=== PATIENT | male | born 1935 | race Caucasian/White ===

== ENCOUNTER 2017-06-14 03:37 | Inpatient (IN) | payer MEDICARE, OTHER ==
[~2017-06-14] VITALS: Ht 170.2 cm; Wt 78.9 kg
[~2017-06-14 03:37] MED LIST: ACET-422 PO; AMLO5TAB4 PO; ASPI325T8 PO; ATOR20TA58 PO; AZIT250T6 PO; CARB1TAB2 PO; CHOL100013 PO; DEXT15LI7 PO; DIGO125T PO; FURO-69 PO; GLIP5TAB10 PO; GUAI100L12 PO; LEXAPRO5 MG PO; METO25TA2 PO; NATE60TA PO; POTA10TA10 PO; ROPI0.5T PO
[2017-06-14] MEDS ORDERED: IV NORMAL SALINE 1,000ML 1,000 ML IV ONE (04:30)
[2017-06-14] MEDS ORDERED: ACETAMINOPHEN 325 MG TABLET PO ONE ×2 (04:30)
[2017-06-14] MEDS ORDERED: ONDANSETRON PF 4 MG/2 ML VIAL. IV ONE (04:30)
[2017-06-14 04:47] LABS: BASO % 0 % (0-3); BILIRUBIN,URINE NEG (NEG); CLARITY,URINE CLEAR; COLOR,URINE YELLOW; EOS % 0 % (0-3); GLUCOSE,URINE NEG (NEG); HEMATOCRIT 45.7 % (39.0-53.0); HEMOGLOBIN 15.6 g/dL (13.0-17.5); LYMPH # 0.5 x10^3/uL (1.0-4.8); LYMPH % 4 % (24-48); MEAN CORPUSCULAR HEMOGLOBIN 32 pg (25-35); MEAN CORPUSCULAR HGB CONC 34 g/dL (31-37); MEAN CORPUSCULAR VOLUME 95 fL (79-100); MONO # 0.5 x10^3/uL (0.0-1.1); MONO % 4 % (0-9); NEUT % 92 % (31-73); NITRITE,URINE NEG (NEG); PLATELET COUNT 113 x10^3/uL (140-400); RED BLOOD COUNT 4.81 x10^6/uL (4.30-5.70); RED CELL DISTRIBUTION WIDTH 13.9 % (11.5-14.5); UROBILINOGEN,URINE 0.2 mg/dL (0.2 mg/dL)
[2017-06-14 04:48] LABS: BACTERIA,URINE FEW /HPF (0-FEW); SQUAMOUS EPITHELIAL CELL,UR FEW /LPF; WBC,URINE 0 /HPF (0-4)
[2017-06-14] MEDS ORDERED: ONDANSETRON PF 4 MG/2 ML VIAL. IV PRN (05:00)
[2017-06-14 05:01] LABS: ALBUMIN/GLOBULIN RATIO 1.2 (1.0-1.7); CALCIUM 8.8 mg/dL (8.5-10.1); GFR 71.4; POTASSIUM 3.9 mmol/L (3.5-5.1); TOTAL BILIRUBIN 0.8 mg/dL (0.2-1.0); TOTAL PROTEIN 7.4 g/dL (6.4-8.2)
--- NOTE | 2017-06-14 05:05 | PHYS DOC ---
Past History Past Medical History: A-Fib, CAD, Diabetes, High Cholesterol, Hypertension, Other Past Surgical History: No Surgical History Alcohol Use: None Drug Use: None Adult General Chief Complaint Chief Complaint: NAUSEA/VOMITING/DIARRHEA HPI HPI Patient is a 81-year-old gentleman who has a history significant for atrial fibrillation, diabetes, hypertension, peripheral vascular disease, presents to the ER today secondary to not feeling well, nausea and vomiting, shortness of breath. Patient reports that he lives at home with his who takes care of him. Patient reports he does not feel well had some episodes of nausea and vomiting early this morning and EMS was dispatched. Upon arrival to EMS to the ER the patient was having episodes of nausea and vomiting. At the time of my evaluation the patient reports that he no longer feels nauseous but is still having a little bit of discomfort in his stomach. Patient also reports she's had no recent fevers, diarrhea, chest pain,. Patient reports a nonproductive cough times one day. Patient reports decreased by mouth intake. Patient reports decreased urinary output. Constitutional: Admits to fever times tonight. Eyes: Denies change in visual acuity, redness, or eye pain HENT: Denies nasal congestion or sore throat Respiratory: Admits to cough and shortness of breath. Cardiovascular: No additional information not addressed in HPI All other systems were reviewed and found to be within normal limits, except as documented in this note. Constitutional: Well developed, well nourished, no acute distress, non-toxic appearance. HENT: Normocephalic, atraumatic, bilateral external ears normal, oropharynx moist, no oral exudates, nose normal. Eyes: PERRLA, EOMI, conjunctiva normal, no discharge. Neck: Normal range of motion, no tenderness, supple, no stridor. Cardiovascular: Tachycardic, irregularly irregular. Lungs reveal diffuse rhonchi. Abdomen: Bowel sounds normal, soft, no tenderness, no masses, no pulsatile masses. Skin: Warm, dry, no erythema, no rash. Skin is warm to touch. Temperature 101.5. Back: No tenderness, no CVA tenderness. Extremities: No tenderness, no cyanosis, no clubbing, ROM intact, no edema. Neurologic: Alert and oriented X 3, normal motor function, normal sensory function, no focal deficits noted. Psychologic: Affect normal, judgement normal, mood normal. EKG: Atrial fibrillation with heart rate of [address]-T wave abnormalities, no STEMI as interpreted by ER physician Chest x-ray: Bilateral lobar pneumonia greatest in the left lower lobe. Consistent with possible aspiration pneumonia as interpreted by ER physician. Pulse ox: 84% on room air. Hypoxic Assessment and plan This is an 81-year-old gentleman who presents here today with fever to 101.5, chest x-ray consistent with aspiration pneumonia, nausea or vomiting. Patient will be admitted to the hospital for treatment of aspiration pneumonia with sepsis. Patient be started on 30 mL/kg of normal saline, we will start patient on Rocephin and clindamycin IV. I discussed the case with Dr. Rios who is agreed to assist with the care of this patient as an inpatient. Critical care time of 30 minutes reutilized and treatment and management of this patient's hypoxia, sepsis, aspiration pneumonia. Airway was monitored and patient was evaluated and treated for impending respiratory failure. Current Medications Current Medications Current Medications Medications (Trade) Dose Ordered Sig/Melanie Start Time Stop Time Status Last Admin Dose Admin Acetaminophen (Tylenol) 650 mg 1X ONCE 06/14/17 04:30 06/14/17 04:30 DC Ceftriaxone Sodium 1 gm/ Sodium Chloride 50 ml @ 100 mls/hr 1X ONCE 06/14/17 05:00 06/14/17 05:29 UNV Clindamycin Phosphate 50 ml @ 100 mls/hr 1X ONCE 06/14/17 05:00 06/14/17 05:29 UNV Ondansetron HCl (Zofran) 4 mg PRN Q4HRS PRN 06/14/17 05:00 06/15/17 04:59 UNV Sodium Chloride 2,370 ml @ 2,370 mls/hr Q1H 06/14/17 04:30 UNV Allergies Allergies Allergies Coded Allergies Type Severity Reaction Last Updated Verified codeine Allergy Intermediate 06/06/15 Yes shrimp Allergy Intermediate 02/01/16 No turkey Allergy Mild 06/06/15 No Current Patient Data Lab Results Laboratory Tests Test 06/14/17 04:20 White Blood Count 13.0 x10^3/uL (4.0-11.0) H Red Blood Count 4.81 x10^6/uL (4.30-5.70) Hemoglobin 15.6 g/dL (13.0-17.5) Hematocrit 45.7 % (39.0-53.0) Mean Corpuscular Volume 95 fL (79-100) Mean Corpuscular Hemoglobin 32 pg (25-35) Mean Corpuscular Hemoglobin Concent 34 g/dL (31-37) Red Cell Distribution Width 13.9 % (11.5-14.5) Platelet Count 113 x10^3/uL (140-400) L Neutrophils (%) (Auto) 92 % (31-73) H Lymphocytes (%) (Auto) 4 % (24-48) L Monocytes (%) (Auto) 4 % (0-9) Eosinophils (%) (Auto) 0 % (0-3) Basophils (%) (Auto) 0 % (0-3) Neutrophils # (Auto) 12.0 x10^3uL (1.8-7.7) H Lymphocytes # (Auto) 0.5 x10^3/uL (1.0-4.8) L Monocytes # (Auto) 0.5 x10^3/uL (0.0-1.1) Eosinophils # (Auto) 0.0 x10^3/uL (0.0-0.7) Basophils # (Auto) 0.0 x10^3/uL (0.0-0.2) Urine Collection Type Void Urine Color Yellow Urine Clarity Clear Urine pH 7.0 Urine Specific [place] 1.020 Urine Protein Trace (NEG-TRACE) Urine Glucose (UA) Neg mg/dL (NEG) Urine Ketones (Stick) Neg mg/dL (NEG) Urine Blood Trace (NEG) Urine Nitrite Neg (NEG) Urine Bilirubin Neg (NEG) Urine Urobilinogen Dipstick 0.2 mg/dL (0.2 mg/dL) Urine Leukocyte Esterase Neg (NEG) Urine RBC 1-2 /HPF (0-2) Urine WBC 0 /HPF (0-4) Urine Squamous Epithelial Cells Few /LPF Urine Bacteria Few /HPF (0-FEW) EKG EKG [] Radiology/Procedures Radiology/Procedures [] Course & Med Decision Making Course & Med Decision Making Pertinent Labs and Imaging studies reviewed. (See chart for details) [] Dragon Disclaimer Dragon Disclaimer This electronic medical record was generated, in whole or in part, using a voice recognition dictation system. Departure Departure: Impression: Primary Impression: Pneumonia Additional Impressions: Dehydration Gastroenteritis Aspiration pneumonia Sepsis Respiratory failure with hypoxia Atrial fibrillation Disposition: 09 ADMITTED INPATIENT Admitting Physician: Duy Rios Condition: IMPROVED Referrals: DUY RIOS MD (PCP) Problem Qualifiers GURMEET DONOHUE MD Jun 14, 2017 05:05
[2017-06-14 05:07] LABS: DIG < 0.2 ng/dL (0.9-2.0)
[2017-06-14] MEDS ORDERED: CLINDAMYCIN 600MG PREMIX 50 ML IV ONE (05:30)
[2017-06-14] MEDS ORDERED: cefTRIAXone SODIUM 1 GM VIAL IV ONE (05:31)
[2017-06-14] MEDS: NORMAL SALINE IV SCH ×2 (05:39→06:52)
--- NOTE | 2017-06-14 05:49 | EKG ---
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
[2017-06-14 06:19] VITALS: BP 127/69
--- NOTE | 2017-06-14 08:31 | RAD ---
AP PORTABLE CHEST Clinical Indication: vomiting. Cough Comparison: AP chest 08/26/2016. Findings: The cardiomediastinal silhouette is normal. Atherosclerotic thoracic aorta. Increased interstitial markings are unchanged from prior study. Calcified granuloma right lung base. Left basilar airspace disease with partial obscuration of the hemidiaphragm There is no pneumothorax. No pleural effusion is appreciated. There is no acute bone abnormality. IMPRESSION: 1. Left basilar airspace disease. 2. Unchanged increased interstitial markings may be on a chronic basis.
[2017-06-14] MEDS: amLODIPine BESYLATE 5 MG TABLET PO SCH (09:00)
[2017-06-14] MEDS ORDERED: PIP/TAZO PER PHARMACY MC PRN (09:15)
[2017-06-14] MEDS: IPRATRPIUM/ALBUTEROL 0.5/2.5MG 3 ML NEBU. NEB SCH ×3 (09:53→21:05)
[2017-06-14] MEDS ORDERED: CITALOPRAM 10 MG TABLET. PO SCH (10:00)
[2017-06-14] MEDS ORDERED: diphenhydrAMINE HCL 50 MG CAPSULE PO PRN (10:00)
[2017-06-14] MEDS ORDERED: glipiZIDE 5 MG TABLET PO SCH (10:00)
[2017-06-14] MEDS ORDERED: METOPROLOL SUCC 24HR ER 25 MG TAB.ER.24H. PO SCH (10:00)
[2017-06-14] MEDS ORDERED: DIGOXIN 125 MCG TABLET PO SCH (10:00)
[2017-06-14] MEDS: REPAGLINIDE 0.5 MG TABLET PO SCH ×2 (10:17→17:26)
[2017-06-14] MEDS: rOPINIRole 0.5 MG TABLET. PO SCH ×3 (10:17→21:23)
[2017-06-14] MEDS: ASPIRIN 325 MG TABLET PO SCH (10:17)
[2017-06-14] MEDS: POTASSIUM CHLORIDE 10 MEQ TABLET.ER. PO SCH (10:18)
[2017-06-14] MEDS: FUROSEMIDE 20 MG TABLET PO SCH (10:22)
[2017-06-14] MEDS: CARBIDOPA/LEVODOPA 25/100MG TABLET PO SCH ×3 (10:22→21:23)
[2017-06-14 11:00] VITALS: BP 102/60
--- NOTE | 2017-06-14 11:11 | HP ---
ADMIT DATE: 06/14/2017 HISTORY OF PRESENT ILLNESS: An 81-year-old gentleman with history of atrial fibrillation, so forth came in with a 1-day history of nausea and vomiting, shortness of breath. The patient was seen initially in the Emergency Room for such, brought in via EMS. The patient's chest x-ray showed possible aspiration pneumonia. The patient was admitted for pneumonia, sepsis, as his lactic acid was over 3. The patient was admitted for IV antibiotic therapy, fluids, make further evaluation. PAST MEDICAL HISTORY: The patient had Parkinson's disease. He has had chronic atrial fibrillation, heart murmur, hypercholesterolemia, COPD, urinary incontinence, generalized weakness, musculoskeletal disorder. He uses a walker. IMMUNIZATIONS: Up-to-date. ALLERGIES: CODEINE, SHRIMP and TURKEY. 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 Reyna for that. MEDICATIONS: Glipizide 5 mg a day, Starlix 60 mg 3 times a day, Silvadene cream, Myrbetriq 50 mg daily, Toprol-XL, Crestor 5 mg, aspirin 325, Sinemet 25/100, Lidoderm patch 5%, Pennsaid 1.5% solution, Glucophage 500 mg b.i.d., ciprofloxacin eyedrops, Lasix 20 mg daily, Norvasc 5 mg daily, Lexapro 1 tablet daily, fluocinonide ointment, Lasix 20 mg a day, Lexapro 5 mg a day, gabapentin 100 mg 3 times a day, Norvasc 5 mg a day. PAST SURGICAL HISTORY: Appendectomy, bypass of left leg, Dr. Reyna in 2007, inguinal hernia repair, right leg bypass failed 2008, angioplasty 2010. FAMILY HISTORY: Parents , unknown etiology. SOCIAL HISTORY: The patient is a former smoker, quit approximately 10 years ago. Denies drug or alcohol use. REVIEW OF SYSTEMS: Positive for nausea, vomiting. No obvious abdominal pain per se. The patient in turn denies any diarrhea, melena, hematochezia, hematemesis. Neurologically baseline for this gentleman. PHYSICAL EXAMINATION: GENERAL: This is a pleasant white male, slight tremor noted. VITAL SIGNS: Running temperature of 101.5, blood pressure 98/50, respiratory rate 32, pulse 94. The patient's oxygen 92 on 2 liters. HEENT: The patient's head was atraumatic, normocephalic. Eyes: PERRLA without jaundice. Mouth and throat were normal. NECK: Supple, no JVD or thyromegaly. LUNGS: Diminished throughout, poor movement of air. CARDIOVASCULAR: Irregular regular rhythm. ABDOMEN: Soft, nontender. No rebound or guarding. Positive bowel sounds. No hepatosplenomegaly was noted. EXTREMITIES: Without clubbing, cyanosis, nor edema. NEUROLOGIC: The patient was alert and oriented x 3. The patient has fine motor tremor, generalized weakness to extremities, which is baseline for this gentleman. IMPRESSION: Sepsis, aspiration pneumonia. PLAN: The patient to continue on IV fluids, IV antibiotic therapy, make further evaluation on him as indicated. Continue to monitor him accordingly and make further assessment per those results with aggressive pulmonary toilet and keeping the head of the bed elevated. Impression as noted above, dehydration, gastroenteritis, respiratory failure with hypoxia, chronic atrial fibrillation. SONNY MALDONADO MD DR: SANDRA/zac JOB#: [id number] / [id number]
[2017-06-14] MEDS: PIPERACILLIN/TAZOBACTAM 3.375 GM in IV NORMAL SALINE 50ML 50 ML IV SCH ×3 (11:12→23:06)
[2017-06-14 15:16] VITALS: BP 112/64
[2017-06-14] MEDS ORDERED: diphenhydrAMINE HCL 25 MG CAPSULE PO PRN (17:15)
--- NOTE | 2017-06-14 18:09 | RAD ---
INDICATION: Abnormal d-dimer. Patient feels sick. TECHNIQUE: Ventilation imaging utilized 18.0 mCi xenon-133 inhaled. Perfusion imaging utilized 5.5 mCi technetium 99m labeled MAA IV. There is a chest radiograph from today available for comparison. FINDINGS: There is homogeneous uptake of radiotracer on ventilation imaging without significant retention on washout. No significant matched or mismatched defect is identified. IMPRESSION: Exam is low probability for pulmonary embolism. Electronically signed by: Shay Summers MD (06/14/2017 6:07 PM) [facility]
[2017-06-14 19:49] VITALS: BP 110/59
[2017-06-14] MEDS: LACTOBACILLUS RHAMNOSUS GG 1 CAPSULE. PO SCH (21:23)
[2017-06-14] MEDS: GABAPENTIN 100 MG CAPSULE. PO SCH (21:23)
[2017-06-14 23:22] VITALS: BP 134/60
[2017-06-15] MEDS: PIPERACILLIN/TAZOBACTAM 3.375 GM in IV NORMAL SALINE 50ML 50 ML IV SCH ×4 (04:57→21:26)
[2017-06-15] MEDS: ACETAMINOPHEN 500 MG TABLET PO PRN ×2 (05:15→21:27)
[2017-06-15] MEDS: IPRATRPIUM/ALBUTEROL 0.5/2.5MG 3 ML NEBU. NEB SCH ×3 (05:21→20:41)
[2017-06-15 05:36] VITALS: BP 130/77
[2017-06-15 06:55] LABS: CALCIUM 8.3 mg/dL (8.5-10.1); CREATININE 1.1 mg/dL (0.7-1.3); GFR 63.9; POTASSIUM 3.3 mmol/L (3.5-5.1)
[2017-06-15 07:04] LABS: BASO % 0 % (0-3); EOS % 0 % (0-3); HEMOGLOBIN 13.1 g/dL (13.0-17.5); LYMPH # 0.4 x10^3/uL (1.0-4.8); LYMPH % 5 % (24-48); MEAN CORPUSCULAR HEMOGLOBIN 33 pg (25-35); MEAN CORPUSCULAR HGB CONC 34 g/dL (31-37); MEAN CORPUSCULAR VOLUME 95 fL (79-100); MONO # 0.6 x10^3/uL (0.0-1.1); MONO % 6 % (0-9); NEUT # 8.3 x10^3uL (1.8-7.7); NEUT % 89 % (31-73); PLATELET COUNT 90 x10^3/uL (140-400); RED BLOOD COUNT 4.02 x10^6/uL (4.30-5.70); RED CELL DISTRIBUTION WIDTH 13.9 % (11.5-14.5); WHITE BLOOD COUNT 9.3 x10^3/uL (4.0-11.0)
[2017-06-15] MEDS: REPAGLINIDE 0.5 MG TABLET PO SCH ×3 (08:46→16:55)
[2017-06-15] MEDS: POTASSIUM CHLORIDE 10 MEQ TABLET.ER. PO SCH (08:47)
[2017-06-15] MEDS: rOPINIRole 0.5 MG TABLET. PO SCH ×3 (08:47→21:26)
[2017-06-15] MEDS: CITALOPRAM 10 MG TABLET. PO SCH (08:47)
[2017-06-15] MEDS: METOPROLOL SUCC 24HR ER 25 MG TAB.ER.24H. PO SCH (08:47)
[2017-06-15] MEDS: ASPIRIN 325 MG TABLET PO SCH (08:47)
[2017-06-15] MEDS: GABAPENTIN 100 MG CAPSULE. PO SCH ×3 (08:47→21:27)
[2017-06-15] MEDS: FUROSEMIDE 20 MG TABLET PO SCH (08:48)
[2017-06-15] MEDS: amLODIPine BESYLATE 5 MG TABLET PO SCH (08:48)
[2017-06-15] MEDS: CARBIDOPA/LEVODOPA 25/100MG TABLET PO SCH ×3 (08:48→21:27)
[2017-06-15] MEDS: LACTOBACILLUS RHAMNOSUS GG 1 CAPSULE. PO SCH ×2 (08:48→21:28)
[2017-06-15] MEDS: CHOLECALCIFEROL (VITAMIN D3) 1,000 UNIT TABLET PO SCH (08:48)
[2017-06-15] MEDS ORDERED: ATORVASTATIN CALCIUM 20 MG TABLET PO SCH (09:00)
[2017-06-15] MEDS ORDERED: POTASSIUM CHLORIDE 20 MEQ TABLET.ER. PO SCH (10:00)
[2017-06-15 10:55] VITALS: BP 111/60
--- NOTE | 2017-06-15 10:56 | PN ---
DATE: 06/15/2017 SUBJECTIVE: The patient in with sepsis and aspiration pneumonia, doing a little better, breathing a little bit easier this morning. OBJECTIVE: VITAL SIGNS: Blood pressure 130/70, respiratory rate 18, pulse 70 and afebrile. LUNGS: Diminished primarily in the bases, but clearer. CARDIOVASCULAR: Regular sinus rhythm, S1, S2. ABDOMEN: Soft, nontender. LABORATORY DATA: White count down to 9, hemoglobin 13 and 38. Potassium low at 3.3. We will increase his potassium as it is little bit on the low side to 20 b.i.d. Otherwise, lungs are diminished throughout, but clearer. PLAN: We will go ahead and continue with IV antibiotic therapy and aggressive pulmonary toilet. SONNY MALDONADO MD DR: SANDRA/zac JOB#: [id number] / [id number]
[2017-06-15 15:02] VITALS: BP 111/70
[2017-06-15 20:12] VITALS: BP 123/79
[2017-06-15] MEDS: POTASSIUM CHLORIDE 20 MEQ TABLET.ER. PO SCH (21:28)
[2017-06-15 22:11] VITALS: BP 153/81
[2017-06-16] MEDS: PIPERACILLIN/TAZOBACTAM 3.375 GM in IV NORMAL SALINE 50ML 50 ML IV SCH ×2 (05:05→11:40)
[2017-06-16] MEDS: IPRATRPIUM/ALBUTEROL 0.5/2.5MG 3 ML NEBU. NEB SCH ×2 (05:33→11:19)
[2017-06-16 06:16] VITALS: BP 131/72
[2017-06-16 06:52] LABS: CALCIUM 8.5 mg/dL (8.5-10.1); CREATININE 1.1 mg/dL (0.7-1.3); GFR 63.9; POTASSIUM 3.6 mmol/L (3.5-5.1)
[2017-06-16 06:53] LABS: BASO % 0 % (0-3); EOS # 0.1 x10^3/uL (0.0-0.7); EOS % 1 % (0-3); HEMATOCRIT 39.7 % (39.0-53.0); HEMOGLOBIN 13.6 g/dL (13.0-17.5); LYMPH # 0.6 x10^3/uL (1.0-4.8); LYMPH % 8 % (24-48); MEAN CORPUSCULAR HEMOGLOBIN 33 pg (25-35); MEAN CORPUSCULAR HGB CONC 34 g/dL (31-37); MEAN CORPUSCULAR VOLUME 95 fL (79-100); MONO # 0.5 x10^3/uL (0.0-1.1); MONO % 7 % (0-9); NEUT # 6.5 x10^3uL (1.8-7.7); NEUT % 84 % (31-73); PLATELET COUNT 105 x10^3/uL (140-400); RED BLOOD COUNT 4.18 x10^6/uL (4.30-5.70); RED CELL DISTRIBUTION WIDTH 13.8 % (11.5-14.5); WHITE BLOOD COUNT 7.7 x10^3/uL (4.0-11.0)
[2017-06-16] MEDS ORDERED: POTASSIUM CHLORIDE 20 MEQ TABLET.ER. PO SCH (08:00)
[2017-06-16] MEDS ORDERED: GABA-585 PO (08:42)
[2017-06-16] MEDS ORDERED: METO-239 PO (08:42)
[2017-06-16] MEDS ORDERED: POTA20TA4 PO (08:42)
[2017-06-16] MEDS ORDERED: LACT1CAP19 PO (08:42)
[2017-06-16] MEDS ORDERED: IPRA3AMP NEB (08:42)
[2017-06-16] MEDS ORDERED: LEVO500T59 PO (08:43)
[2017-06-16] MEDS ORDERED: FURO20TA3 PO (08:48)
[2017-06-16] MEDS: GABAPENTIN 100 MG CAPSULE. PO SCH ×2 (08:50→13:14)
[2017-06-16] MEDS: POTASSIUM CHLORIDE 20 MEQ TABLET.ER. PO SCH (08:50)
[2017-06-16] MEDS: CHOLECALCIFEROL (VITAMIN D3) 1,000 UNIT TABLET PO SCH (08:50)
[2017-06-16] MEDS: LACTOBACILLUS RHAMNOSUS GG 1 CAPSULE. PO SCH (08:50)
[2017-06-16] MEDS: ASPIRIN 325 MG TABLET PO SCH (08:50)
[2017-06-16] MEDS: rOPINIRole 0.5 MG TABLET. PO SCH ×2 (08:50→13:14)
[2017-06-16] MEDS: CITALOPRAM 10 MG TABLET. PO SCH (08:50)
[2017-06-16] MEDS: METOPROLOL SUCC 24HR ER 25 MG TAB.ER.24H. PO SCH (08:50)
[2017-06-16] MEDS: REPAGLINIDE 0.5 MG TABLET PO SCH ×2 (08:51→11:40)
[2017-06-16] MEDS: amLODIPine BESYLATE 5 MG TABLET PO SCH (08:51)
[2017-06-16] MEDS: CARBIDOPA/LEVODOPA 25/100MG TABLET PO SCH ×2 (08:51→13:14)
[2017-06-16] MEDS: FUROSEMIDE 20 MG TABLET PO SCH (08:51)
[2017-06-16 11:21] VITALS: BP 107/64
--- NOTE | 2017-06-16 12:15 | DS ---
DATE OF DISCHARGE: 06/16/2017 HOSPITAL COURSE: The patient came in through the Emergency Room with one-day history of nausea, vomiting, and shortness of breath, was seen in the Emergency Room, found to have possibility of sepsis and aspiration pneumonia. The patient was placed on IV Zosyn. His blood pressure was 98/50, temperature 101.5, respiratory rate 32. The patient made excellent progress with the Zosyn and aggressive pulmonary toilet as well as oxygen. The patient later on was discharged home. He will have home health, PT, OT and speech pathology to evaluate for swallowing difficulties. The patient's chest x-ray did not really show much, but his vital signs and the elevated white count indicated sepsis. IMPRESSION: Sepsis, aspiration pneumonia, exacerbation of chronic obstructive pulmonary disease, severe Parkinson's disease with difficulty in mobilizing. Elevated lactic acid. The patient made good progress during the rest of his hospitalization and will be on a low-sodium diet. DISCHARGE INSTRUCTIONS: Decreased activity and make further evaluation on him as indicated. SONNY MALDONADO MD DR: SANDRA/zac JOB#: [id number] / [id number]
== END 2017-06-16 15:55 | disposition home health service (06) | DRG 871 ==
LOC: ER 03:37 → 1 SOUTH 05:08
PROVIDERS: ADMIT Family Medicine; ATTEND Family Medicine
DX: A41.9 Sepsis, unspecified organism (principal); J69.0 Pneumonitis due to inhalation of food and vomit; J96.91 Respiratory failure, unspecified with hypoxia; E11.51 Type 2 diabetes mellitus with diabetic peripheral angiopathy without gangrene; E86.0 Dehydration; G20 Parkinson's disease; I48.2 Chronic atrial fibrillation; J44.1 Chronic obstructive pulmonary disease with (acute) exacerbation; E78.00 Pure hypercholesterolemia, unspecified; I10 Essential (primary) hypertension; M19.90 Unspecified osteoarthritis, unspecified site; I25.10 Atherosclerotic heart disease of native coronary artery without angina pectoris; K52.9 Noninfective gastroenteritis and colitis, unspecified; Z87.891 Personal history of nicotine dependence; Z88.6 Allergy status to analgesic agent; Z91.013 Allergy to seafood; Z91.018 Allergy to other foods; Z79.4 Long term (current) use of insulin; Z90.49 Acquired absence of other specified parts of digestive tract
CPT/HCPCS: 36415; 71010; 78582; 80048; 80053; 80162; 81001; 82947; 83605; 83880; 85025; 85379; 87040; 93005; 94640; 94760; 96361; 96365; 96368; 96374; 96375; A9540; A9558; J0696; J2405; J2543; J3490; J7620; Q0163; 99291-25; J7030

== ENCOUNTER 2017-08-01 22:44 | Inpatient (IN) | payer MEDICARE, OTHER ==
[~2017-08-01] VITALS: Ht 172.7 cm; Wt 77.6 kg
[~2017-08-01 22:44] MED LIST changes: +FURO20TA3 PO; +GABA-585 PO; +IPRA3AMP NEB; +LACT1CAP19 PO; +LEVO500T59 PO; +METO-239 PO; +POTA20TA4 PO
--- NOTE | 2017-08-01 23:11 | PHYS DOC ---
Past History Past Medical History: A-Fib, Bronchitis, CAD, COPD, Diabetes, High Cholesterol , Hypertension, Pneumonia, Vascular Disease, Other Past Surgical History: Angioplasty, Other Alcohol Use: None Drug Use: None Adult General Chief Complaint Chief Complaint: WEAKNESS/GENERALIZED HPI HPI Patient is a 81-year-old male with a history of COPD, not on oxygen, seen by his PCP today and diagnosed with possible pneumonia. Patient was offered admission but declined at the office. Patient returns now because of continuous difficulty breathing, coughing. Patient's sats in triage and ED room 88% on room air. Patient is a former smoker but quit smoking 10 years ago however he is exposed to smoking at home Review of Systems Review of Systems Constitutional: Denies fever or chills [] HENT: Denies nasal congestion or sore throat [] Respiratory: Yes to cough and shortness of breath Cardiovascular: No chest pain GI: Denies abdominal pain, nausea, vomiting, : Denies dysuria or hematuria [] Musculoskeletal: Denies back pain or joint pain [] Integument: Denies rash or skin lesions [] Neurologic: Denies headache, focal weakness or sensory changes [] All other systems were reviewed and found to be within normal limits, except as documented in this note. Allergies Allergies Allergies Coded Allergies Type Severity Reaction Last Updated Verified codeine Allergy Intermediate 06/06/15 Yes shrimp Allergy Intermediate 02/01/16 No turkey Allergy Mild 06/06/15 No shellfish derived Allergy Unknown 08/01/17 Yes Physical Exam Physical Exam Constitutional: Well developed, well nourished, mild distress, non-toxic appearance. [] HENT: Normocephalic, atraumatic, bilateral external ears normal, oropharynx dry , no oral exudates, nose normal. [] Eyes: EOMI, conjunctiva normal, no discharge. [] Neck: Normal range of motion, no tenderness, supple, no stridor. No LAD, no meningeal signs Cardiovascular:Heart rate regular rhythm, no murmur [] Lungs & Thorax: Decreased pain sounds bilaterally, diffuse rhonchi, poor air movement Abdomen: Bowel sounds normal, soft, no tenderness, no masses, no pulsatile masses. [] Skin: Warm, dry, no erythema, no rash. [] Back: Normal range of motion Extremities: No tenderness, no DVT, ROM intact, no edema. [] Neurologic: Alert and oriented X 3, normal motor function, normal speech, no focal deficits noted. Generalized weakness Psychologic: Affect normal, judgement normal, mood normal. [] EKG EKG 2313 atrial fibrillation, no STEMI, 84[] Radiology/Procedures Radiology/Procedures CXR: concern for LL infiltrates[] Course & Med Decision Making Course & Med Decision Making Pertinent Labs and Imaging studies reviewed. (See chart for details) Per family pt still on digoxin [] Dragon Disclaimer Dragon Disclaimer This electronic medical record was generated, in whole or in part, using a voice recognition dictation system. Departure Departure: Impression: Primary Impression: COPD exacerbation Additional Impressions: Pneumonia Hypoxia Dehydration Thrombocytopenia Acute renal failure Disposition: ADMITTED INPATIENT Admitting Physician: Duy Rios Condition: STABLE Referrals: DUY RIOS MD (PCP) Problem Qualifiers Tamera CUEVA MD Aug 01, 2017 23:11
[2017-08-01 23:22] LABS: BASO % 0 % (0-3); EOS % 0 % (0-3); HEMATOCRIT 41.8 % (39.0-53.0); HEMOGLOBIN 14.2 g/dL (13.0-17.5); LYMPH # 0.3 x10^3/uL (1.0-4.8); LYMPH % 5 % (24-48); MEAN CORPUSCULAR HEMOGLOBIN 32 pg (25-35); MEAN CORPUSCULAR HGB CONC 34 g/dL (31-37); MEAN CORPUSCULAR VOLUME 95 fL (79-100); MONO # 0.6 x10^3/uL (0.0-1.1); MONO % 10 % (0-9); NEUT # 4.8 x10^3uL (1.8-7.7); NEUT % 85 % (31-73); PLATELET COUNT 109 x10^3/uL (140-400); RED BLOOD COUNT 4.41 x10^6/uL (4.30-5.70); RED CELL DISTRIBUTION WIDTH 14.1 % (11.5-14.5); WHITE BLOOD COUNT 5.7 x10^3/uL (4.0-11.0)
[2017-08-01] MEDS ORDERED: IV NORMAL SALINE 500ML 500 ML IV ONE (23:30)
[2017-08-01 23:32] LABS: ALBUMIN 3.9 g/dL (3.4-5.0); ALBUMIN/GLOBULIN RATIO 1.1 (1.0-1.7); CREATININE 1.3 mg/dL (0.7-1.3); GFR 52.7; MAGNESIUM 1.9 mg/dL (1.8-2.4); PHOSPHORUS 4.2 mg/dL (2.6-4.7); POTASSIUM 4.4 mmol/L (3.5-5.1); TOTAL BILIRUBIN 0.7 mg/dL (0.2-1.0); TOTAL PROTEIN 7.5 g/dL (6.4-8.2)
--- NOTE | 2017-08-01 23:38 | EKG ---
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
[2017-08-01 23:39] LABS: DIG < 0.2 ng/dL (0.9-2.0)
[2017-08-01] MEDS ORDERED: IPRATRPIUM/ALBUTEROL 0.5/2.5MG 3 ML NEBU. NEB ONE (23:45)
[2017-08-02] MEDS ORDERED: DIGOXIN 125 MCG TABLET PO ONE
[2017-08-02] MEDS ORDERED: ONDANSETRON PF 4 MG/2 ML VIAL. IV PRN
[2017-08-02] MEDS ORDERED: ACETAMINOPHEN 325 MG TABLET PO PRN
[2017-08-02] MEDS: IV NORMAL SALINE 1,000ML 1,000 ML IV SCH ×3 (00:17→20:39)
[2017-08-02] MEDS ORDERED: GLIP5TAB10 PO (00:35)
[2017-08-02] MEDS ORDERED: CRESTOR5 MG PO (00:35)
[2017-08-02] MEDS ORDERED: MIRA50TA PO (00:35)
[2017-08-02] MEDS ORDERED: METF500T PO (00:36)
[2017-08-02 01:25] VITALS: BP 121/86
[2017-08-02 01:48] LABS: INFLUENZA A PATIENT NEGATIVE (NEGATIVE); INFLUENZA B PATIENT NEGATIVE (NEGATIVE)
[2017-08-02 05:05] LABS: BILIRUBIN,URINE NEG (NEG); CLARITY,URINE CLEAR; COLOR,URINE AMBER; GLUCOSE,URINE NEG (NEG)
[2017-08-02 05:06] LABS: BACTERIA,URINE FEW /HPF (0-FEW); NITRITE,URINE NEG (NEG); RBC,URINE OCC /HPF (0-2); SQUAMOUS EPITHELIAL CELL,UR OCC /LPF; UROBILINOGEN,URINE 0.2 mg/dL (0.2 mg/dL); WBC,URINE OCC /HPF (0-4)
[2017-08-02] MEDS: IPRATRPIUM/ALBUTEROL 0.5/2.5MG 3 ML NEBU. NEB SCH ×4 (06:00→21:13)
[2017-08-02] MEDS ORDERED: IPRATRPIUM/ALBUTEROL 0.5/2.5MG 3 ML NEBU. NEB SCH ×3 (08:00→09:00)
--- NOTE | 2017-08-02 08:17 | RAD ---
History: Pneumonia cough congestion and weakness AP view the chest was obtained at 2318 hours. Comparison: June 14, 2017 The cardiomediastinal silhouette is normal. The pulmonary vasculature is normal. There is reticular opacities of the lungs especially in the left lung base. Impression: Chronic pulmonary fibrosis. Possible left basilar infiltrate however this appears improved.
[2017-08-02] MEDS: metFORMIN 500 MG TABLET PO SCH ×2 (08:31→17:01)
[2017-08-02] MEDS: REPAGLINIDE 0.5 MG TABLET PO SCH ×3 (08:31→17:01)
[2017-08-02] MEDS: LACTOBACILLUS RHAMNOSUS GG 1 CAPSULE. PO SCH ×2 (08:32→20:39)
[2017-08-02] MEDS: CITALOPRAM 10 MG TABLET. PO SCH (08:32)
[2017-08-02] MEDS: methylPREDNISolone SOD SUCC PF 40 MG/ML VIAL. IV SCH (08:32)
[2017-08-02] MEDS: glipiZIDE 5 MG TABLET PO SCH (08:32)
[2017-08-02] MEDS: ASPIRIN 325 MG TABLET PO SCH (08:32)
[2017-08-02] MEDS: POTASSIUM CHLORIDE 20 MEQ TABLET.ER. PO SCH (08:33)
[2017-08-02] MEDS: FUROSEMIDE 20 MG TABLET PO SCH (08:33)
[2017-08-02] MEDS: MIRABEGRON 25 MG TAB.ER.24H PO SCH (08:33)
[2017-08-02] MEDS: GABAPENTIN 100 MG CAPSULE. PO SCH ×3 (08:33→20:39)
[2017-08-02] MEDS: CARBIDOPA/LEVODOPA 25/100MG TABLET PO SCH ×3 (08:34→20:39)
[2017-08-02] MEDS: METOPROLOL SUCC 24HR ER 25 MG TAB.ER.24H. PO SCH (08:35)
[2017-08-02] MEDS: amLODIPine BESYLATE 5 MG TABLET PO SCH (08:36)
[2017-08-02] MEDS: cefTRIAXone IV Push 1 GM VIAL. IVP SCH (09:17)
[2017-08-02] MEDS: DOXYCYCLINE HYCLATE 100 MG TABLET PO SCH ×2 (09:17→20:39)
[2017-08-02 14:13] VITALS: BP 115/56
--- NOTE | 2017-08-02 19:10 | HP ---
ADMIT DATE: 08/01/2017 HISTORY OF PRESENT ILLNESS: An 81-year-old male, came in through the Emergency Room early this morning with increased shortness of breath. He has been tried to be treated as an outpatient, he failed. He was offered to be admitted earlier, but he thought he could hang out at home and handle it, but he did not and it got worse and his oxygen saturation dropped down in the low 80s. As a result of this, he also had to use accessory muscles and as a result of this, the patient was admitted to the hospital for further evaluation and treatment thereof his acute exacerbation of COPD and acute respiratory failure. PAST MEDICAL HISTORY: Parkinson's disease. He has COPD, chronic atrial fibrillation, heart murmurs, hypercholesterolemia, urinary incontinence, generalized weakness, musculoskeletal disorder, and he has to use a walker or wheelchair. IMMUNIZATIONS: Up-to-date. ALLERGIES: CODEINE, SHRIMP, and TURKEY. MEDICATIONS: Glipizide 5 mg a day, Starlix 60 mg 3 times a day, Silvadene cream, Myrbetriq 50 mg, Toprol-XL 50 mg a day, Crestor 5 mg a day, aspirin 325, Sinemet 25/100, Lidoderm patch 5%, Pennsaid solution, Glucophage 500 b.i.d., eye drops, Lasix 20 mg a day, Norvasc 5, Lexapro 10, fluocinonide steroid ointment, Lasix 20 mg a day, Lexapro 5 mg, and gabapentin 100 mg 3 times a day, Norvasc 5 mg a day. PAST SURGICAL HISTORY: Appendectomy; bypass of the left leg, Dr. Reyna; inguinal hernia repair, right leg bypass failed 2008, angioplasty 2010. FAMILY HISTORY: Unknown. Parents are . SOCIAL HISTORY: The patient is a former smoker, quit more than 10 years ago. Denies drug or alcohol use. Lives at home presently. REVIEW OF SYSTEMS: Positive for increased shortness of breath, no chest pain, no abdominal pain, no nausea, vomiting, headaches, visual changes, blurred vision or double vision, no signs of neurological dysfunction. No chest pain, and otherwise stable. PHYSICAL EXAMINATION: GENERAL: This is a very pleasant gentleman, very nice man. VITAL SIGNS: Blood pressure 115/60, respiratory 18, pulse 78, afebrile. HEENT: The patient's head was atraumatic, normocephalic. Eyes: PERRLA without jaundice. The mouth and throat were normal. NECK: Supple, without JVD, carotid bruits. No thyromegaly. LUNGS: Showed diminished breath sounds throughout, poor movement of air throughout. CARDIOVASCULAR: Regular rhythm, 1/6 systolic ejection murmur. ABDOMEN: Soft, nontender. EXTREMITIES: No clubbing, cyanosis or edema. NEUROLOGIC: The patient was alert and oriented x 3. Speech is clear and fluent. Cranial nerves 2-12 grossly intact. The patient outside of his tremor and some cogwheeling consistent with Parkinson's disease. LABORATORY DATA: Show decreased platelet count of 109,000. Chemistry showed an increase in his BNP, lactic acid initially 2.2, but came down dramatically. Urine was negative. Digoxin level was unremarkable. Influenza negative. IMPRESSION: Acute respiratory distress is noted and acute exacerbation of chronic obstructive pulmonary disease, chronic atrial fibrillation. The patient will be admitted for further evaluation and treatment, aggressive pulmonary toilet, IV steroids, make further evaluation at that time. SONNY MALDONADO MD DR: SANDRA/zac JOB#: [id number] / [id number]
[2017-08-02 19:27] VITALS: BP 137/73
[2017-08-02] MEDS: ATORVASTATIN CALCIUM 20 MG TABLET PO SCH (20:39)
[2017-08-03] MEDS: ACETAMINOPHEN 500 MG TABLET PO PRN ×2 (00:34→21:11)
[2017-08-03] MEDS: diphenhydrAMINE HCL 25 MG CAPSULE PO PRN ×2 (00:34→21:11)
[2017-08-03] MEDS: levoFLOXacin 250 MG TABLET PO SCH (05:37)
[2017-08-03] MEDS: IV NORMAL SALINE 1,000ML 1,000 ML IV SCH (05:38)
[2017-08-03 05:39] VITALS: BP 144/73
[2017-08-03] MEDS: IPRATRPIUM/ALBUTEROL 0.5/2.5MG 3 ML NEBU. NEB SCH ×4 (05:55→19:44)
[2017-08-03 07:28] VITALS: BP 123/75
[2017-08-03] MEDS: metFORMIN 500 MG TABLET PO SCH ×2 (07:37→16:29)
[2017-08-03] MEDS: REPAGLINIDE 0.5 MG TABLET PO SCH ×3 (07:37→16:29)
[2017-08-03 08:16] LABS: BASO % 0 % (0-3); EOS % 0 % (0-3); HEMATOCRIT 40.7 % (39.0-53.0); HEMOGLOBIN 13.6 g/dL (13.0-17.5); LYMPH # 0.7 x10^3/uL (1.0-4.8); LYMPH % 9 % (24-48); MEAN CORPUSCULAR HEMOGLOBIN 32 pg (25-35); MEAN CORPUSCULAR HGB CONC 34 g/dL (31-37); MEAN CORPUSCULAR VOLUME 95 fL (79-100); MONO # 0.6 x10^3/uL (0.0-1.1); MONO % 8 % (0-9); NEUT # 6.7 x10^3uL (1.8-7.7); NEUT % 83 % (31-73); PLATELET COUNT 110 x10^3/uL (140-400); RED BLOOD COUNT 4.28 x10^6/uL (4.30-5.70); WHITE BLOOD COUNT 8.1 x10^3/uL (4.0-11.0)
[2017-08-03 08:39] LABS: ALBUMIN 3.4 g/dL (3.4-5.0); CALCIUM 8.7 mg/dL (8.5-10.1); CREATININE 1.1 mg/dL (0.7-1.3); GFR 63.9; POTASSIUM 3.9 mmol/L (3.5-5.1); TOTAL BILIRUBIN 0.6 mg/dL (0.2-1.0); TOTAL PROTEIN 6.8 g/dL (6.4-8.2)
[2017-08-03] MEDS: CITALOPRAM 10 MG TABLET. PO SCH (08:59)
[2017-08-03] MEDS: LACTOBACILLUS RHAMNOSUS GG 1 CAPSULE. PO SCH ×2 (08:59→21:11)
[2017-08-03] MEDS: glipiZIDE 5 MG TABLET PO SCH (08:59)
[2017-08-03] MEDS: methylPREDNISolone SOD SUCC PF 40 MG/ML VIAL. IV SCH (08:59)
[2017-08-03] MEDS: cefTRIAXone IV Push 1 GM VIAL. IVP SCH (08:59)
[2017-08-03] MEDS: ASPIRIN 325 MG TABLET PO SCH (08:59)
[2017-08-03] MEDS: FUROSEMIDE 20 MG TABLET PO SCH (09:00)
[2017-08-03] MEDS: POTASSIUM CHLORIDE 20 MEQ TABLET.ER. PO SCH (09:00)
[2017-08-03] MEDS: GABAPENTIN 100 MG CAPSULE. PO SCH ×3 (09:00→21:11)
[2017-08-03] MEDS: MIRABEGRON 25 MG TAB.ER.24H PO SCH (09:00)
[2017-08-03] MEDS: METOPROLOL SUCC 24HR ER 25 MG TAB.ER.24H. PO SCH (09:01)
[2017-08-03] MEDS: amLODIPine BESYLATE 5 MG TABLET PO SCH (09:01)
[2017-08-03] MEDS: CARBIDOPA/LEVODOPA 25/100MG TABLET PO SCH ×3 (09:01→21:11)
[2017-08-03] MEDS: DOXYCYCLINE HYCLATE 100 MG TABLET PO SCH ×2 (09:02→21:11)
[2017-08-03 11:42] VITALS: BP 99/54
[2017-08-03] MEDS: FINASTERIDE 5 MG TABLET PO SCH (13:31)
[2017-08-03 14:31] VITALS: BP 99/54
[2017-08-03 18:54] VITALS: BP 122/66
[2017-08-03] MEDS: ATORVASTATIN CALCIUM 20 MG TABLET PO SCH (21:11)
[2017-08-03] MEDS: TAMSULOSIN 0.4 MG CAP.ER.24H. PO SCH (21:12)
[2017-08-03 22:27] VITALS: BP 130/75
[2017-08-04] MEDS: IPRATRPIUM/ALBUTEROL 0.5/2.5MG 3 ML NEBU. NEB SCH ×2 (05:08→11:32)
[2017-08-04 06:00] VITALS: BP 138/87
[2017-08-04] MEDS: levoFLOXacin 250 MG TABLET PO SCH (06:09)
[2017-08-04] MEDS: methylPREDNISolone SOD SUCC PF 40 MG/ML VIAL. IV SCH (08:09)
[2017-08-04] MEDS: ASPIRIN 325 MG TABLET PO SCH (08:10)
[2017-08-04] MEDS: DOXYCYCLINE HYCLATE 100 MG TABLET PO SCH (08:10)
[2017-08-04] MEDS: METOPROLOL SUCC 24HR ER 25 MG TAB.ER.24H. PO SCH (08:10)
[2017-08-04] MEDS: REPAGLINIDE 0.5 MG TABLET PO SCH ×2 (08:10→15:22)
[2017-08-04] MEDS: POTASSIUM CHLORIDE 20 MEQ TABLET.ER. PO SCH (08:10)
[2017-08-04] MEDS: FINASTERIDE 5 MG TABLET PO SCH (08:10)
[2017-08-04] MEDS: MIRABEGRON 25 MG TAB.ER.24H PO SCH (08:10)
[2017-08-04] MEDS: CITALOPRAM 10 MG TABLET. PO SCH (08:10)
[2017-08-04] MEDS: amLODIPine BESYLATE 5 MG TABLET PO SCH (08:11)
[2017-08-04] MEDS: metFORMIN 500 MG TABLET PO SCH (08:11)
[2017-08-04] MEDS: TAMSULOSIN 0.4 MG CAP.ER.24H. PO SCH (08:11)
[2017-08-04] MEDS: LACTOBACILLUS RHAMNOSUS GG 1 CAPSULE. PO SCH (08:11)
[2017-08-04] MEDS: GABAPENTIN 100 MG CAPSULE. PO SCH ×2 (08:12→15:22)
[2017-08-04] MEDS: FUROSEMIDE 20 MG TABLET PO SCH (08:12)
[2017-08-04] MEDS: glipiZIDE 5 MG TABLET PO SCH (08:12)
[2017-08-04] MEDS: CARBIDOPA/LEVODOPA 25/100MG TABLET PO SCH ×2 (08:12→15:22)
[2017-08-04] MEDS: cefTRIAXone IV Push 1 GM VIAL. IVP SCH (08:15)
[2017-08-04 10:16] VITALS: BP 116/63
[2017-08-04] MEDS ORDERED: FINA5TAB4 PO (13:04)
[2017-08-04] MEDS ORDERED: TAMS0.4C97 PO (13:04)
[2017-08-04] MEDS ORDERED: MIRA50TA PO (13:04)
[2017-08-04] MEDS ORDERED: DIPH25CA58 PO (13:04)
[2017-08-04] MEDS ORDERED: DOXY100T PO (13:04)
[2017-08-04] MEDS ORDERED: PRED1TAB PO (13:31)
--- NOTE | 2017-08-04 14:53 | PN ---
DATE: SUBJECTIVE: An 81-year-old male in with acute exacerbation of COPD, now developed severe urinary retention 800 mL and on his bladder scan ____ [place] in, placed him on Flomax ____ He does feel better. The patient otherwise is alert and oriented, feels like he is breathing better. OBJECTIVE: VITAL SIGNS: Blood pressure 100/54, respiratory rate 18, pulse 70, afebrile. LUNGS: Diminished throughout, poor movement of air, but much better. CARDIOVASCULAR: Irregularly irregular rhythm. ABDOMEN: Soft, nontender, no rebound or guarding. Positive bowel sounds. No hepatosplenomegaly noted. IMPRESSION: Acute exacerbation of chronic obstructive pulmonary disease, respiratory distress, urinary retention. PLAN: As above. SONNY MALDONADO MD DR: SANDRA/zac JOB#: [id number] / [id number]
[2017-08-04 15:08] VITALS: BP 119/69
== END 2017-08-04 16:10 | disposition home health service (06) | DRG 193 ==
LOC: ER 22:44 → ICU 23:44
PROVIDERS: ADMIT Family Medicine; ATTEND Family Medicine
DX: J18.9 Pneumonia, unspecified organism (principal); J96.01 Acute respiratory failure with hypoxia; N17.9 Acute kidney failure, unspecified; D69.6 Thrombocytopenia, unspecified; G20 Parkinson's disease; E86.0 Dehydration; I48.2 Chronic atrial fibrillation; J44.0 Chronic obstructive pulmonary disease with (acute) lower respiratory infection; E11.9 Type 2 diabetes mellitus without complications; J44.1 Chronic obstructive pulmonary disease with (acute) exacerbation; R33.9 Retention of urine, unspecified; E78.00 Pure hypercholesterolemia, unspecified; I10 Essential (primary) hypertension; I25.10 Atherosclerotic heart disease of native coronary artery without angina pectoris; Z87.891 Personal history of nicotine dependence; Z88.5 Allergy status to narcotic agent; Z88.8 Allergy status to other drugs, medicaments and biological substances; Z91.013 Allergy to seafood; Z90.49 Acquired absence of other specified parts of digestive tract
CPT/HCPCS: 36415; 71045; 80053; 80162; 81001; 83605; 83735; 83880; 84100; 84484; 85025; 87040; 87641; 87804; 93005; 94640; 96365; J0696; J1956; J2920; J7040; J7620; Q0163; 97110; 97530; 99285-25; J7030

== ENCOUNTER 2018-07-01 17:15 | Inpatient (IN) | payer MEDICARE, OTHER ==
[~2018-07-01] VITALS: Ht 172.7 cm; Wt 80.5 kg
[~2018-07-01 17:15] MED LIST changes: +CRESTOR5 MG PO; +DIPH25CA58 PO; +DOXY100T PO; +FINA5TAB4 PO; -IPRA3AMP NEB; +IPRA3AMP29 NEB; +METF500T PO; +MIRA50TA PO; +PRED1TAB PO; +TAMS0.4C97 PO
[2018-07-01 18:38] VITALS: BP 140/80
[2018-07-01] MEDS ORDERED: TAMS0.4C2 PO (18:42)
[2018-07-01] MEDS ORDERED: ROPI1TAB2 PO (18:45)
[2018-07-01] MEDS ORDERED: REPA1TAB6 PO (18:45)
[2018-07-01 19:45] LABS: BASO % 0 % (0-3); EOS # 0.1 x10^3/uL (0.0-0.7); EOS % 1 % (0-3); HEMATOCRIT 45.3 % (39.0-53.0); HEMOGLOBIN 14.7 g/dL (13.0-17.5); LYMPH # 0.5 x10^3/uL (1.0-4.8); LYMPH % 5 % (24-48); MEAN CORPUSCULAR HEMOGLOBIN 31 pg (25-35); MEAN CORPUSCULAR HGB CONC 33 g/dL (31-37); MEAN CORPUSCULAR VOLUME 96 fL (79-100); MONO # 0.6 x10^3/uL (0.0-1.1); MONO % 7 % (0-9); NEUT # 8.1 x10^3uL (1.8-7.7); NEUT % 87 % (31-73); PLATELET COUNT 163 x10^3/uL (140-400); RED CELL DISTRIBUTION WIDTH 14.9 % (11.5-14.5); WHITE BLOOD COUNT 9.3 x10^3/uL (4.0-11.0)
[2018-07-01 19:51] LABS: BGAS PH 7.42 (7.35-7.46)
[2018-07-01 20:01] LABS: ALBUMIN 4.2 g/dL (3.4-5.0); ALBUMIN/GLOBULIN RATIO 1.1 (1.0-1.7); CREATININE 1.2 mg/dL (0.7-1.3); GFR 57.7; POTASSIUM 4.2 mmol/L (3.5-5.1); TOTAL BILIRUBIN 0.8 mg/dL (0.2-1.0); TOTAL PROTEIN 7.9 g/dL (6.4-8.2)
--- NOTE | 2018-07-01 20:24 | RAD ---
Indication:Shortness of air TECHNIQUE:Portable AP chest X-ray COMPARISON: 08/01/2017 FINDINGS: Heart is mildly enlarged in size. Diffuse interstitial opacities are seen in the lungs. No focal consolidation. No pneumothorax or pleural effusion. Visualized bony thorax within normal limits. IMPRESSION: Findings of interstitial pulmonary edema. Electronically signed by: Leno Araujo DO (07/01/2018 8:21 PM) [facility]
[2018-07-01] MEDS ORDERED: DIPHENHYDRAMINE PO PRN (20:30)
[2018-07-01] MEDS ORDERED: ACETAMINOPHEN PO PRN (20:30)
[2018-07-01 20:45] VITALS: BP 111/59
[2018-07-01] MEDS ORDERED: IPRATRPIUM/ALBUTEROL 0.5/2.5MG 3 ML NEBU. NEB SCH (21:00)
[2018-07-01] MEDS ORDERED: ZOLPIDEM 5 MG TABLET. PO PRN (21:00)
--- NOTE | 2018-07-01 21:10 | EKG ---
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 ABNORMAL LEFT AXIS DEVIATION RIGHT BUNDLE BRANCH BLOCK RVH WITH REPOLARIZATION ABNORMALITY Electronically Signed On 07-08-2018 11:02:33 AIR EXPORT COORDINATOR by Jesus Sims
[2018-07-01 21:19] LABS: BILIRUBIN,URINE NEG (NEG); CLARITY,URINE CLEAR; COLOR,URINE STRAW; GLUCOSE,URINE NEG (NEG); NITRITE,URINE NEG (NEG); UROBILINOGEN,URINE 0.2 mg/dL (0.2 mg/dL)
[2018-07-01 21:20] LABS: BACTERIA,URINE 0 /HPF (0-FEW); WBC,URINE 0 /HPF (0-4)
[2018-07-01] MEDS: IPRATRPIUM/ALBUTEROL 0.5/2.5MG 3 ML NEBU. NEB SCH (21:55)
[2018-07-01] MEDS: rOPINIRole 1 MG TABLET. PO SCH (21:58)
[2018-07-01] MEDS: GABAPENTIN 100 MG CAPSULE. PO SCH (21:58)
[2018-07-01] MEDS: APIXABAN 2.5 MG TABLET PO SCH (21:58)
[2018-07-01] MEDS: CARBIDOPA/LEVODOPA 25/100MG TABLET PO SCH (21:58)
[2018-07-01] MEDS: ZOLPIDEM 5 MG TABLET. PO PRN (21:59)
[2018-07-01 22:50] VITALS: BP 132/66
[2018-07-02] VITALS (7 sets, daily range): BP systolic 109–133; BP diastolic 60–86
[2018-07-02] MEDS: IPRATRPIUM/ALBUTEROL 0.5/2.5MG 3 ML NEBU. NEB SCH ×4 (04:32→20:57)
[2018-07-02] MEDS: REPAGLINIDE 1 MG TABLET PO SCH ×3 (07:30→16:30)
[2018-07-02] MEDS: glipiZIDE 5 MG TABLET PO SCH ×2 (07:50→16:31)
[2018-07-02] MEDS ORDERED: ASPIRIN 325 MG TABLET PO SCH (09:00)
[2018-07-02] MEDS: METOPROLOL SUCC 24HR ER 25 MG TAB.ER.24H. PO SCH (09:00)
[2018-07-02] MEDS: FUROSEMIDE 40 MG/4 ML VIAL IVP SCH ×2 (09:25→13:36)
[2018-07-02] MEDS: rOPINIRole 1 MG TABLET. PO SCH ×3 (09:26→20:52)
[2018-07-02] MEDS: GABAPENTIN 100 MG CAPSULE. PO SCH ×3 (09:26→20:51)
[2018-07-02] MEDS: CARBIDOPA/LEVODOPA 25/100MG TABLET PO SCH ×3 (09:26→20:51)
[2018-07-02] MEDS: CITALOPRAM 10 MG TABLET. PO SCH (09:27)
[2018-07-02] MEDS: POTASSIUM CHLORIDE 20 MEQ TABLET.ER. PO SCH (09:27)
[2018-07-02] MEDS: APIXABAN 2.5 MG TABLET PO SCH ×2 (09:27→20:51)
[2018-07-02] MEDS: amLODIPine BESYLATE 5 MG TABLET PO SCH (09:28)
[2018-07-02] MEDS: TAMSULOSIN 0.4 MG CAP.ER.24H. PO SCH (09:28)
[2018-07-02] MEDS: FINASTERIDE 5 MG TABLET PO SCH (09:28)
[2018-07-02] MEDS: ASPIRIN 325 MG TABLET PO SCH (09:29)
--- NOTE | 2018-07-02 09:40 | PDOC2 ---
CONSULT Date of Admission DATE: 07/02/18 TIME: 09:36 Reason for Consult: chf History of Present Illness Mr Winchester is an 82 year old male who was direct admitted from his PCP office due to dyspnea. He is a poor historian and information is obtained mostly from the chart. He was apparently brought to his PCP office yesterday by his daughter for increased shortness of breath. He does have a history of COPD and pulmonary fibrosis. He was found to be hypoxic with a productive cough so sent to the ED for evaluation/admission. He was noted to have pulmonary edema on chest xray and consult was called. He says "I have parkinson 's and thats why Im here". He denies chest pain or any prior cardiac problems however he sees a room service waiter from . He reports his breathing is much better this morning. He denies fever, chills, palpitations, lightheadedness or other complaints. Past Medical History parkinsons disease Cardiovascular: AFIB (chronic), hyperipidemia, Other (murmur) Pulmonary: COPD, Pneumonia, Other (pulmonary fibrosis) Musculoskeletal: Weakness Renal/: Urinary Incontinence Past Surgical History Appendectomy, left fem-pop, inguinal hernia repair, failed right leg bypass, angioplasty 2010. Family History non contributory due to age Social History he denies smoking, etoh or illicit drugs and reports that he lives at home with his . Current Medications Current Medications Influenza Virus Vaccine (Afluria Trivalent [id number] Syringe) 0.5 ml ONCE ONCE VAX IM ; Start 07/03/18 at 09:00; Stop 07/03/18 at 09:01 Albuterol/ Ipratropium (Duoneb) 3 ml RTQID NEB Last administered on 07/02/18at 04:32; Start 07/01/18 at 20:00 Aspirin (Kezia Aspirin) 325 mg DAILY PO ; Start 07/02/18 at 09:00; Stop at 09:00; Status DC Carbidopa/Levodopa (Sinemet 25/100) 2 tab TID PO Last administered on at 09:26; Start 07/01/18 at 21:30 Diphenhydramine HCl (Benadryl) 50 mg PRN QHS PRN PO SLEEP; Start 07/01/18 at 20 :30 Gabapentin (Neurontin) 100 mg TID PO Last administered on 07/02/18 09:26; Start 07/01/18 at 21:30 Albuterol/ Ipratropium (Duoneb) 3 ml TID NEB ; Start 07/01/18 at 21:00; Stop at 21:35; Status DC Metoprolol Succinate (Toprol Xl) 25 mg DAILY PO Last administered on 07/02/18at 09:00; Start 07/02/18 at 09:00 Potassium Chloride (Klor-Con) 20 meq DAILY PO Last administered on 07/02/18 09 :27; Start 07/02/18 at 09:00 Tamsulosin HCl (Flomax) 0.4 mg DAILY PO Last administered on 07/02/18 09:28; Start 07/02/18 at 09:00 Non-Formulary Medication (Acetaminophen/ Diphenhydramine (Acetaminophen Pm Caplet)) 2 each QHS PRN PO INSOMNIA; Start 07/01/18 at 20:30; Status UNV Amlodipine Besylate (Norvasc) 5 mg DAILY PO Last administered on 07/02/18 09: 28; Start 07/02/18 at 09:00 Citalopram Hydrobromide (CeleXA) 10 mg DAILY PO Last administered on 07/02/18 09:27; Start 07/02/18 at 09:00 Finasteride (Proscar) 5 mg DAILY PO Last administered on 07/02/18 09:28; Start 07/02/18 at 09:00 Glipizide (Glucotrol) 5 mg BIDBFRMEAL PO Last administered on 07/02/18at 07:50; Start 07/02/18 at 07:30 Mirabegron (Myrbetriq) 50 mg QODAY PO ; Start 07/03/18 at 09:00 Repaglinide (Prandin) 1 mg TIDAC PO Last administered on 07/02/18 07:30; Start 07/02/18 at 07:30 Ropinirole HCl (Requip) 1 mg TID PO Last administered on 07/02/18 09:26; Start 07/01/18 at 21:30 Atorvastatin Calcium (Lipitor) 20 mg QHS PO ; Start 07/02/18 at 21:00 Furosemide (Lasix) 40 mg BID92 IVP Last administered on 07/02/18at 09:25; Start 07/02/18 at 09:00 Apixaban (Eliquis) 2.5 mg BID PO Last administered on 07/02/18at 09:27; Start 07/01/18 at 21:00 Aspirin (Kezia Aspirin) 325 mg QODAY PO Last administered on 07/02/18at 09:29; Start 07/02/18 at 09:00 Zolpidem Tartrate (Ambien) 5 mg PRN QHS PRN PO INSOMNIA, MAY REPEAT IN 1HR Last administered on 07/01/18at 21:59; Start 07/01/18 at 21:00 Zolpidem Tartrate (Ambien) 5 mg PRN QHS PRN PO INSOMNIA, MAY REPEAT IN 1HR; Start 07/01/18 at 21:00; Status UNV Active Scripts Active Benadryl (Diphenhydramine Hcl) 25 Mg Capsule 50 Mg PO PRN QHS PRN 30 Days Finasteride 5 Mg Tablet 5 Mg PO DAILY 30 Days Myrbetriq (Mirabegron) 50 Mg Tab.er.24h 50 Mg PO QODAY Furosemide 20 Mg Tablet 1 Tab PO DAILY 30 Days Klor-Con M20 (Potassium Chloride) 20 Meq Tab.er.prt 20 Meq PO DAILY 30 Days Metoprolol Succinate ( Xl ) (Metoprolol Succinate) 25 Mg Tab.er.24h 25 Mg PO DAILY 30 Days Duoneb 0.5-3(2.5) Mg/3 Ml (Albuterol/Ipratropium) 3 Ml Ampul.neb 3 Ml NEB TID 30 Days Gabapentin (Gabapentin) 100 Mg Capsule 100 Mg PO TID 30 Days Reported Ropinirole Hcl 1 Mg Tablet 1 Tab PO TID Repaglinide 1 Mg Tablet 1 Tab PO TID Tamsulosin Hcl 0.4 Mg Cap.er.24h 1 Tab PO DAILY Glipizide 5 Mg Tablet 5 Mg PO BID Crestor (Rosuvastatin Calcium) 5 Mg Tablet 5 Mg PO HS Acetaminophen Pm Caplet (Acetaminophen/Diphenhydramine) 1 Each Tablet 2 Each PO QHS PRN Lexapro (Escitalopram Oxalate) 5 Mg Tablet 5 Mg PO DAILY Sinemet 25-100 Mg Tablet (Carbidopa/Levodopa) 1 Each Tablet 2 Tab PO TID Aspirin 325 Mg Tablet 325 Mg PO DAILY Norvasc (Amlodipine Besylate) 5 Mg Tablet 5 Mg PO DAILY Allergies: Coded Allergies: codeine (Verified Allergy, Intermediate, 06/06/15) shrimp (Unverified Allergy, Intermediate, 02/01/16) turkey (Unverified Allergy, Mild, 06/06/15) shellfish derived (Verified Allergy, Unknown, 08/01/17) Review of System as per HPI and otherwise he denies symptoms though limited due to being a very poor historian General: Alert, Cooperative, No acute distress HEENT: EOMI, Mucous membr. moist/pink Lungs: Other (bibasilar crackles left>right) Heart: Other (IRR, no gallops, clicks or rubs) Abdomen: Normal bowel sounds, Soft, No tenderness Extremities: No cyanosis, Other (weak pulses distally, 1+edema) Neuro: Normal speech, Strength at 5/5 X4 ext Psych/Mental Status: Mood NL VITALS Vital Signs Date Time Temp Pulse Resp B/P (MAP) Pulse Ox O2 Delivery O2 Flow Rate FiO2 07/02/18 09:28 82 137/74 07/02/18 05:14 98.2 17 96 Venturi Mask 9.0 Labs Laboratory Tests Test 07/01/18 18:00 07/01/18 19:05 07/01/18 21:02 07/02/18 02:40 White Blood Count 9.3 x10^3/uL (4.0-11.0) Red Blood Count 4.70 x10^6/uL (4.30-5.70) Hemoglobin 14.7 g/dL (13.0-17.5) Hematocrit 45.3 % (39.0-53.0) Mean Corpuscular Volume 96 fL (79-100) Mean Corpuscular Hemoglobin 31 pg (25-35) Mean Corpuscular Hemoglobin Concent 33 g/dL (31-37) Red Cell Distribution Width 14.9 % (11.5-14.5) Platelet Count 163 x10^3/uL (140-400) Neutrophils (%) (Auto) 87 % (31-73) Lymphocytes (%) (Auto) 5 % (24-48) Monocytes (%) (Auto) 7 % (0-9) Eosinophils (%) (Auto) 1 % (0-3) Basophils (%) (Auto) 0 % (0-3) Neutrophils # (Auto) 8.1 x10^3uL (1.8-7.7) Lymphocytes # (Auto) 0.5 x10^3/uL (1.0-4.8) Monocytes # (Auto) 0.6 x10^3/uL (0.0-1.1) Eosinophils # (Auto) 0.1 x10^3/uL (0.0-0.7) Basophils # (Auto) 0.0 x10^3/uL (0.0-0.2) D-Dimer (Mary Lou) 0.82 mg/L (0.00-0.50) Urine Collection Type Unknown Urine Color Straw Urine Clarity Clear Urine pH 5.5 Urine Specific [place] 1.015 Urine Protein Neg (NEG-TRACE) Urine Glucose (UA) Neg mg/dL (NEG) Urine Ketones (Stick) Neg mg/dL (NEG) Urine Blood Neg (NEG) Urine Nitrite Neg (NEG) Urine Bilirubin Neg (NEG) Urine Urobilinogen Dipstick 0.2 mg/dL (0.2 mg/dL) Urine Leukocyte Esterase Neg (NEG) Urine RBC 1-2 /HPF (0-2) Urine WBC 0 /HPF (0-4) Urine Squamous Epithelial Cells None /LPF Urine Bacteria 0 /HPF (0-FEW) Sodium Level 135 mmol/L (136-145) Potassium Level 4.2 mmol/L (3.5-5.1) Chloride Level 98 mmol/L (98-107) Carbon Dioxide Level 25 mmol/L (21-32) Anion Gap 12 (6-14) Blood Urea Nitrogen 29 mg/dL (8-26) Creatinine 1.2 mg/dL (0.7-1.3) Estimated GFR (Cockcroft-Gault) 57.7 BUN/Creatinine Ratio 24 (6-20) Glucose Level 106 mg/dL (70-99) Lactic Acid Level 1.9 mmol/L (0.4-2.0) Calcium Level 9.0 mg/dL (8.5-10.1) Total Bilirubin 0.8 mg/dL (0.2-1.0) Aspartate Amino Transf (AST/SGOT) 20 U/L (15-37) Alanine Aminotransferase (ALT/SGPT) 10 U/L (16-63) Alkaline Phosphatase 156 U/L (46-116) Creatine Kinase 207 U/L (39-308) Troponin I Quantitative < 0.017 ng/mL (0-0.055) < 0.017 ng/mL (0-0.055) GY-Hbm-S-Type Natriuretic Peptide 3178 pg/mL (0-449) Total Protein 7.9 g/dL (6.4-8.2) Albumin 4.2 g/dL (3.4-5.0) Albumin/Globulin Ratio 1.1 (1.0-1.7) Blood Gas pH 7.42 (7.35-7.46) Blood Gas PCO2 31 mmHg (35-46) Blood Gas PO2 52 mmHg (71-100) Blood Gas HCO3 20 mmol/L (21-28) Arterial Bld O2 Saturation (Calc) 88 % (92-99) FiO2 30 % Glucose (Fingerstick) 173 mg/dL (70-99) Images CXR - pulmonary edema Assessment/Plan 1. acute on chronic hypoxic respiratory failure - multifactorial CHF, echo for LV function, continue diuresis COPD exacerbation /fibrosis - oxygen at 3 liters, mid 90s sao2. mgmt per PCP 2. elevated d dimer - VQ pending 3. atrial fibrillation with controlled ventricular response, ?paroxysmal in the setting of respiratory failure - Emili negative x 3, Apixaban for stroke prophylaxis. Toprol for rate control. 4. hyperlipidemia - check lipids 5. parkinson's - per PCP Will request records from [facility] [place] prior cardiac testing or history. Continue diuresis and await echo. DARIO DYE APRN Jul 02, 2018 09:39
--- NOTE | 2018-07-02 09:49 | RAD ---
Ventilation/perfusion lung scan, 07/02/2018: HISTORY: Elevated d-dimer, pneumonia The ventilation study was performed utilizing 14.1 mCi of xenon-133. There is mildly decreased ventilation in the apices, although they are not completely included on these images. There is decreased activity in the left lung relative to the right, some component which is due to the enlarged heart. There is fairly good washout of the xenon from both lungs. Perfusion imaging was performed utilizing 5.5 mCi of technetium 99m MAA. There is patchy decreased activity in both upper lobes extending into the apices. This demonstrates a nonsegmental distribution. The findings are compatible with the patient's known extensive upper lobe emphysema evident on the 06/05/2015 CT exam. No significant perfusion defect is seen in the lower chest. IMPRESSION: 1. Abnormal perfusion in both upper lobes likely due to the patient's known emphysema. 2. The probability of pulmonary emboli is considered to be low. Electronically signed by: Reji Calderon MD (07/02/2018 9:46 AM) [facility]
--- NOTE | 2018-07-02 12:58 | CARD ---
MR#: [id number] Date of Study: 07/02/2018 Ordering Physician: DARIO DYE, Referring Physician: SONNY MALDONADO, Tech: Lucia Song RDCS APPROVED REPORT EXAM: Two-dimensional and M-mode echocardiogram with Doppler and color Doppler. Other Information Quality : Technically LimitedHR: 82bpm Rhythm : NSRTechnically limited study due to COPD. INDICATION Congestive Heart Failure 2D DIMENSIONS RVDd4.0 (2.9-3.5cm)Left Atrium(2D)4.6 (1.6-4.0cm) IVSd1.1 (0.7-1.1cm)Aortic Root(2D)3.0 (2.0-3.7cm) LVDd3.6 (3.9-5.9cm)LVOT Diameter2.3 (1.8-2.4cm) PWd1.2 (0.7-1.1cm)LVDs2.3 (2.5-4.0cm) FS (%) 35.6 %SV36.0 ml LVEF(%)66.1 (>50%) M-Mode DIMENSIONS Left Atrium(MM)5.77 (2.5-4.0cm)Aortic Root3.43 (2.2-3.7cm) Aortic Valve AoV Peak Anant.234.9cm/sAoV VTI51.2cm AO Peak GR.22.1mmHgLVOT Peak Anant.85.7cm/s LVOT VTI 19.44cmAO Mean GR.11mmHg CECI (VMAX)1.06uo0XGI (VTI)1.62cm2 Mitral Valve MV E Dfetzuwz695.2cm/sMV E Peak Gr.17mmHg MV DECEL [id number] A Mepgfawe81.6cm/s MV E Mean Gr.5mmHgE/A Ratio3.6 Pulmonary Valve PV Peak Hkxyoyjc304.5cm/sPV Peak Grad.8mmHg Tricuspid Valve TR P. Mifjhgil716an/sRAP [id number] TR Peak Gr.02lcVdFNHD24tqXi LEFT VENTRICLE The left ventricle cavity is small. There is mild concentric left ventricular hypertrophy. The left v entricular systolic function is normal. The Ejection Fraction is 60-65%. There is normal LV segmental wall motion. Transmitral Doppler flow pattern is Grade IV-fixed restrictive diastolic dysfunction. RIGHT VENTRICLE The right ventricle is mildly dilated. There is normal right ventricular wall thickness. The right ve ntricular systolic function is normal. ATRIA The left atrium is moderately dilated. The right atrium is moderately dilated. The interatrial septum is intact with no evidence for an atrial septal defect or patent foramen ovale as noted on 2-D or Do ppler imaging. AORTIC VALVE The aortic valve is mildly to moderately calcified. The aortic valve is trileaflet. Doppler and Color Flow revealed no significant aortic regurgitation. There is mild valvular aortic stenosis. Calculate d aortic valve area is 1.6 cm2 with maximum pressure gradient of 22 mmHg and mean pressure gradient o f 11 mmHg. MITRAL VALVE Mitral annular calcification is moderate. There is no evidence of mitral valve prolapse. There is mil d mitral valve stenosis. Calculated mitral valve area is 1.7 cm2 with maximum pressure gradient of 17 mmHg and mean pressure gradient of 5 mmHg. Doppler and Color-flow revealed mild mitral regurgitation . TRICUSPID VALVE The tricuspid valve is normal in structure and function. Doppler and Color Flow revealed moderate tri cuspid regurgitation. There is severe pulmonary hypertension. The PA pressure was estimated at 74 mmH g. There is no tricuspid valve prolapse or vegetation. There is no tricuspid valve stenosis. GREAT VESSELS The aortic root is normal in size. The ascending aorta is normal in size. The IVC is dilated. PERICARDIAL EFFUSION There is no evidence of significant pericardial effusion. Critical Notification Critical Value: No <Conclusion> The left ventricular systolic function is normal. The Ejection Fraction is 60-65%. There is normal LV segmental wall motion. The left atrium is moderately dilated. There is mild valvular aortic stenosis. There is mild mitral valve stenosis. Mild mitral regurgitation. Moderate tricuspid regurgitation. There is severe pulmonary hypertension. The PA pressure was estimated at 74 mmHg. There is no evidence of significant pericardial effusion. Signed by : Niranjan Lopez, Electronically Approved : 07/02/2018 12:57:11
[2018-07-02] MEDS: ZOLPIDEM 5 MG TABLET. PO PRN (20:51)
[2018-07-02] MEDS: ATORVASTATIN CALCIUM 20 MG TABLET PO SCH (20:51)
--- NOTE | 2018-07-02 21:11 | PN ---
DATE: 07/02/2018 SUBJECTIVE: The patient is resting fairly comfortably, brought in with congestive heart failure. The patient seems to be making good progress with diuresis, having problems with basically incontinence, but overall is doing somewhat better overall. His breathing is markedly improved. V/Q scan is pending. His atrial fib is rate controlled. OBJECTIVE: VITAL SIGNS: Blood pressure 130/70, respiratory rate 17, pulse 80, afebrile. GENERAL: The patient is alert and oriented x 3. LUNGS: Diminished throughout, poor movement of air. CARDIOVASCULAR: Irregularly irregular rhythm. ABDOMEN: Soft, nontender, no rebound or guarding. Positive bowel sounds. EXTREMITIES: No clubbing, cyanosis, nor edema. IMPRESSION: Therefore, acute on top of chronic congestive heart failure, elevated D-dimer, chronic atrial fibrillation, hyperlipidemia, Parkinson's disease, urinary incontinence. SONNY MALDONADO MD DR: SANDRA/zac JOB#: [id number] / [id number]
[2018-07-02] MEDS: LIDOCAINE (700MG/PATCH) PATCH. TD SCH (21:48)
[2018-07-03] MEDS: BENZONATATE 100 MG CAPSULE. PO SCH ×4 (03:09→21:40)
[2018-07-03 05:09] VITALS: BP 140/69
[2018-07-03] MEDS: IPRATRPIUM/ALBUTEROL 0.5/2.5MG 3 ML NEBU. NEB SCH ×5 (05:33→21:04)
[2018-07-03] MEDS: REPAGLINIDE 1 MG TABLET PO SCH ×3 (07:30→18:10)
[2018-07-03] MEDS: glipiZIDE 5 MG TABLET PO SCH ×2 (07:48→18:11)
[2018-07-03] MEDS: PATCH REMOVAL. MC SCH (08:00)
[2018-07-03] MEDS: FINASTERIDE 5 MG TABLET PO SCH (09:00)
[2018-07-03] MEDS: POTASSIUM CHLORIDE 20 MEQ TABLET.ER. PO SCH (09:54)
--- NOTE | 2018-07-03 09:54 | PDOC ---
DARIO DYE FIELD RESEARCH ASSISTANT 07/03/18 0954: PROGRESS NOTES Assessment 1. acute on chronic hypoxic respiratory failure - multifactorial CHF, acute on chronic diastolic severe PHTN /RHF COPD exacerbation /fibrosis CHF improving clinically, he does still appear mildly volume overloaded. I would continue IV diuresis for 24 hours more then consider change to PO in am. Less peripheral edema but continued HJR likely secondary to PHTN. Awaiting requested records from [facility]. would likely benefit from referral to pulmonary if not already followed. 2. elevated d dimer - VQ low prob 3. atrial fibrillation with controlled ventricular response, ?paroxysmal in the setting of respiratory failure - Emili negative x 3, Apixaban for stroke prophylaxis. Toprol for rate control. 4. hyperlipidemia - lipids pending 5. parkinson's - per PCP Subjective feeling much better, no chest pain, no lightheadedness. Objective Echo 07/02/18 The left ventricular systolic function is normal. The Ejection Fraction is 60-65%. There is normal LV segmental wall motion. The left atrium is moderately dilated. There is mild valvular aortic stenosis. There is mild mitral valve stenosis. Mild mitral regurgitation. Moderate tricuspid regurgitation. There is severe pulmonary hypertension. The PA pressure was estimated at 74 mmHg. There is no evidence of significant pericardial effusion. Vital Signs Date Time Temp Pulse Resp B/P (MAP) Pulse Ox O2 Delivery O2 Flow Rate FiO2 07/03/18 08:34 Nasal Cannula 4.0 07/03/18 07:37 98.3 07/03/18 05:36 95 07/03/18 05:09 83 22 140/69 (92) Intake and Output 07/03/18 07:00 Intake Total 150 ml Output Total 1550 ml Balance -1400 ml Intake Oral 150 ml Output Urine Total 1550 ml # Voids 4 Heart: Normal S1, Normal S2, Other (+murmur, no gallops, clicks or rubs) Extremities: Other (trace to 1+ peripheral edema) General: Alert, Cooperative, No acute distress HEENT: Atraumatic, EOMI, Other Lungs: Other (bibasilar crackles, on Oxygen 4 liters NC) Neck: Other (+HJR) Neuro: Normal speech Psych/Mental Status: Mood NL Review of Relevant I have reviewed the following items lillian (where applicable) has been applied. Labs Laboratory Tests Test 07/01/18 18:00 07/01/18 18:05 07/01/18 19:05 07/01/18 21:02 White Blood Count 9.3 x10^3/uL (4.0-11.0) Red Blood Count 4.70 x10^6/uL (4.30-5.70) Hemoglobin 14.7 g/dL (13.0-17.5) Hematocrit 45.3 % (39.0-53.0) Mean Corpuscular Volume 96 fL (79-100) Mean Corpuscular Hemoglobin 31 pg (25-35) Mean Corpuscular Hemoglobin Concent 33 g/dL (31-37) Red Cell Distribution Width 14.9 % (11.5-14.5) Platelet Count 163 x10^3/uL (140-400) Neutrophils (%) (Auto) 87 % (31-73) Lymphocytes (%) (Auto) 5 % (24-48) Monocytes (%) (Auto) 7 % (0-9) Eosinophils (%) (Auto) 1 % (0-3) Basophils (%) (Auto) 0 % (0-3) Neutrophils # (Auto) 8.1 x10^3uL (1.8-7.7) Lymphocytes # (Auto) 0.5 x10^3/uL (1.0-4.8) Monocytes # (Auto) 0.6 x10^3/uL (0.0-1.1) Eosinophils # (Auto) 0.1 x10^3/uL (0.0-0.7) Basophils # (Auto) 0.0 x10^3/uL (0.0-0.2) D-Dimer (Mary Lou) 0.82 mg/L (0.00-0.50) Urine Collection Type Unknown Urine Color Straw Urine Clarity Clear Urine pH 5.5 Urine Specific [place] 1.015 Urine Protein Neg (NEG-TRACE) Urine Glucose (UA) Neg mg/dL (NEG) Urine Ketones (Stick) Neg mg/dL (NEG) Urine Blood Neg (NEG) Urine Nitrite Neg (NEG) Urine Bilirubin Neg (NEG) Urine Urobilinogen Dipstick 0.2 mg/dL (0.2 mg/dL) Urine Leukocyte Esterase Neg (NEG) Urine RBC 1-2 /HPF (0-2) Urine WBC 0 /HPF (0-4) Urine Squamous Epithelial Cells None /LPF Urine Bacteria 0 /HPF (0-FEW) Nasal Screen MRSA (PCR) Negative (Negative) Sodium Level 135 mmol/L (136-145) Potassium Level 4.2 mmol/L (3.5-5.1) Chloride Level 98 mmol/L (98-107) Carbon Dioxide Level 25 mmol/L (21-32) Anion Gap 12 (6-14) Blood Urea Nitrogen 29 mg/dL (8-26) Creatinine 1.2 mg/dL (0.7-1.3) Estimated GFR (Cockcroft-Gault) 57.7 BUN/Creatinine Ratio 24 (6-20) Glucose Level 106 mg/dL (70-99) Lactic Acid Level 1.9 mmol/L (0.4-2.0) Calcium Level 9.0 mg/dL (8.5-10.1) Total Bilirubin 0.8 mg/dL (0.2-1.0) Aspartate Amino Transf (AST/SGOT) 20 U/L (15-37) Alanine Aminotransferase (ALT/SGPT) 10 U/L (16-63) Alkaline Phosphatase 156 U/L (46-116) Creatine Kinase 207 U/L (39-308) Troponin I Quantitative < 0.017 ng/mL (0-0.055) PW-Jjb-H-Type Natriuretic Peptide 3178 pg/mL (0-449) Total Protein 7.9 g/dL (6.4-8.2) Albumin 4.2 g/dL (3.4-5.0) Albumin/Globulin Ratio 1.1 (1.0-1.7) Triglycerides Level 135 mg/dL (0-150) Cholesterol Level 102 mg/dL (0-200) LDL Cholesterol, Calculated 43 mg/dL (0-100) VLDL Cholesterol, Calculated 27 mg/dL (0-40) Non-HDL Cholesterol Calculated 70 mg/dL (0-129) HDL Cholesterol 32 mg/dL (40-60) Cholesterol/HDL Ratio 3.0 Prealbumin 22.4 mg/dL (16.0-42.0) Blood Gas pH 7.42 (7.35-7.46) Blood Gas PCO2 31 mmHg (35-46) Blood Gas PO2 52 mmHg (71-100) Blood Gas HCO3 20 mmol/L (21-28) Arterial Bld O2 Saturation (Calc) 88 % (92-99) FiO2 30 % Glucose (Fingerstick) 173 mg/dL (70-99) Test 07/02/18 02:40 07/02/18 09:25 07/03/18 07:33 Troponin I Quantitative < 0.017 ng/mL (0-0.055) < 0.017 ng/mL (0-0.055) Glucose (Fingerstick) 94 mg/dL (70-99) Medications Current Medications Influenza Virus Vaccine (Afluria Trivalent [id number] Syringe) 0.5 ml ONCE ONCE VAX IM ; Start 07/03/18 at 09:00; Stop 07/03/18 at 09:01; Status DC Albuterol/ Ipratropium (Duoneb) 3 ml RTQID NEB Last administered on 07/03/18at 05:33; Start 07/01/18 at 20:00 Aspirin (Kezia Aspirin) 325 mg DAILY PO ; Start 07/02/18 at 09:00; Stop at 09:00; Status DC Carbidopa/Levodopa (Sinemet 25/100) 2 tab TID PO Last administered on at 20:51; Start 07/01/18 at 21:30 Diphenhydramine HCl (Benadryl) 50 mg PRN QHS PRN PO SLEEP; Start 07/01/18 at 20 :30 Gabapentin (Neurontin) 100 mg TID PO Last administered on 07/02/18at 20:51; Start 07/01/18 at 21:30 Albuterol/ Ipratropium (Duoneb) 3 ml TID NEB ; Start 07/01/18 at 21:00; Stop at 21:35; Status DC Metoprolol Succinate (Toprol Xl) 25 mg DAILY PO Last administered on 07/02/18at 09:00; Start 07/02/18 at 09:00 Potassium Chloride (Klor-Con) 20 meq DAILY PO Last administered on 07/02/18at 09 :27; Start 07/02/18 at 09:00 Tamsulosin HCl (Flomax) 0.4 mg DAILY PO Last administered on 07/02/18at 09:28; Start 07/02/18 at 09:00 Non-Formulary Medication (Acetaminophen/ Diphenhydramine (Acetaminophen Pm Caplet)) 2 each QHS PRN PO INSOMNIA; Start 07/01/18 at 20:30; Status UNV Amlodipine Besylate (Norvasc) 5 mg DAILY PO Last administered on 07/02/18at 09: 28; Start 07/02/18 at 09:00 Citalopram Hydrobromide (CeleXA) 10 mg DAILY PO Last administered on 07/02/18 09:27; Start 07/02/18 at 09:00 Finasteride (Proscar) 5 mg DAILY PO Last administered on 07/02/18 09:28; Start 07/02/18 at 09:00 Glipizide (Glucotrol) 5 mg BIDBFRMEAL PO Last administered on 07/03/18 07:48; Start 07/02/18 at 07:30 Mirabegron (Myrbetriq) 50 mg QODAY PO ; Start 07/03/18 at 09:00 Repaglinide (Prandin) 1 mg TIDAC PO Last administered on 07/03/18at 07:30; Start 07/02/18 at 07:30 Ropinirole HCl (Requip) 1 mg TID PO Last administered on 07/02/18 20:52; Start 07/01/18 at 21:30 Atorvastatin Calcium (Lipitor) 20 mg QHS PO Last administered on 07/02/18 20: 51; Start 07/02/18 at 21:00 Furosemide (Lasix) 40 mg [id number] IVP Last administered on 07/02/18at 13:36; Start 07/02/18 at 09:00 Apixaban (Eliquis) 2.5 mg BID PO Last administered on 07/02/18at 20:51; Start 07/01/18 at 21:00; Stop 07/03/18 at 09:19; Status DC Aspirin (Kezia Aspirin) 325 mg QODAY PO Last administered on 07/02/18 09:29; Start 07/02/18 at 09:00 Zolpidem Tartrate (Ambien) 5 mg PRN QHS PRN PO INSOMNIA, MAY REPEAT IN 1HR Last administered on 07/02/18at 20:51; Start 07/01/18 at 21:00 Zolpidem Tartrate (Ambien) 5 mg PRN QHS PRN PO INSOMNIA, MAY REPEAT IN 1HR; Start 07/01/18 at 21:00; Status UNV Lidocaine (Lidoderm) 1 patch DAILY TD Last administered on 07/02/18at 21:48; Start 07/02/18 at 21:00 Miscellaneous (Lidoderm Patch Removal) 1 ea [id number] MC ; Start 07/03/18 at 08:00 Benzonatate (Tessalon Perle) 100 mg [id number] PO Last administered on 07/03/18at 03 :09; Start 07/03/18 at 03:00 Apixaban (Eliquis) 5 mg BID PO ; Start 07/03/18 at 21:00 Active Scripts Active Benadryl (Diphenhydramine Hcl) 25 Mg Capsule 50 Mg PO PRN QHS PRN 30 Days Finasteride 5 Mg Tablet 5 Mg PO DAILY 30 Days Myrbetriq (Mirabegron) 50 Mg Tab.er.24h 50 Mg PO QODAY Furosemide 20 Mg Tablet 1 Tab PO DAILY 30 Days Klor-Con M20 (Potassium Chloride) 20 Meq Tab.er.prt 20 Meq PO DAILY 30 Days Metoprolol Succinate ( Xl ) (Metoprolol Succinate) 25 Mg Tab.er.24h 25 Mg PO DAILY 30 Days Duoneb 0.5-3(2.5) Mg/3 Ml (Albuterol/Ipratropium) 3 Ml Ampul.neb 3 Ml NEB TID 30 Days Gabapentin (Gabapentin) 100 Mg Capsule 100 Mg PO TID 30 Days Reported Ropinirole Hcl 1 Mg Tablet 1 Tab PO TID Repaglinide 1 Mg Tablet 1 Tab PO TID Tamsulosin Hcl 0.4 Mg Cap.er.24h 1 Tab PO DAILY Glipizide 5 Mg Tablet 5 Mg PO BID Crestor (Rosuvastatin Calcium) 5 Mg Tablet 5 Mg PO HS Acetaminophen Pm Caplet (Acetaminophen/Diphenhydramine) 1 Each Tablet 2 Each PO QHS PRN Lexapro (Escitalopram Oxalate) 5 Mg Tablet 5 Mg PO DAILY Sinemet 25-100 Mg Tablet (Carbidopa/Levodopa) 1 Each Tablet 2 Tab PO TID Aspirin 325 Mg Tablet 325 Mg PO DAILY Norvasc (Amlodipine Besylate) 5 Mg Tablet 5 Mg PO DAILY Vitals/I & O Vital Sign - Last 24 Hours 07/02/18 07/02/18 07/02/18 07/02/18 10:37 11:00 11:09 13:50 Temp 98.4 Pulse 86 73 Resp 18 20 B/P (MAP) 118/60 (79) 119/69 (86) Pulse Ox 96 97 94 O2 Delivery Nasal Cannula Nasal Cannula Nasal Cannula O2 Flow Rate 2.5 2.0 2.0 07/02/18 07/02/18 07/02/18 07/02/18 15:48 17:01 19:34 20:00 Temp 97.6 Pulse 103 74 Resp 18 22 B/P (MAP) 133/86 (102) 113/72 (86) Pulse Ox 95 99 93 O2 Delivery Nasal Cannula Nasal Cannula Nasal Cannula O2 Flow Rate 2.0 2.0 2.0 07/02/18 07/02/18 07/03/18 07/03/18 20:57 23:16 05:09 05:36 Temp 96.7 96.0 Pulse 79 83 Resp 19 22 B/P (MAP) 122/69 (86) 140/69 (92) Pulse Ox 92 93 96 95 O2 Delivery Nasal Cannula Venturi Mask Venturi Mask Venturi Mask O2 Flow Rate 2.0 12.0 12.0 12.0 07/03/18 07/03/18 07:37 08:34 Temp 98.3 O2 Delivery Nasal Cannula O2 Flow Rate 4.0 Intake and Output 07/02/18 07/02/18 07/03/18 15:00 23:00 07:00 Intake Total 150 ml Output Total 1000 ml 550 ml Balance -1000 ml -400 ml MELISSA DUBON MD 07/03/18 1718: PROGRESS NOTES Assessment Patient seen and examined. Agree with MACHINERY RIGGER's assessment and plan. Acute on chronic diastolic heart failure better compensated with diuresis Agree with changing diuretics to by mouth tomorrow 2-D echo showed normal LV systolic function Atrial fibrillation rate controlled Continue eliquis for stroke prophylaxis DARIO DYE APRN Jul 03, 2018 09:54 MELISSA DUBON MD Jul 03, 2018 17:18
[2018-07-03] MEDS: CITALOPRAM 10 MG TABLET. PO SCH (09:55)
[2018-07-03] MEDS: TAMSULOSIN 0.4 MG CAP.ER.24H. PO SCH (09:55)
[2018-07-03] MEDS: rOPINIRole 1 MG TABLET. PO SCH ×3 (09:55→21:41)
[2018-07-03] MEDS: MIRABEGRON 25 MG TAB.ER.24H PO SCH (09:56)
[2018-07-03] MEDS: GABAPENTIN 100 MG CAPSULE. PO SCH ×3 (09:56→21:41)
[2018-07-03] MEDS: amLODIPine BESYLATE 5 MG TABLET PO SCH (09:57)
[2018-07-03] MEDS: METOPROLOL SUCC 24HR ER 25 MG TAB.ER.24H. PO SCH (09:58)
[2018-07-03 10:03] LABS: BASO % 0 % (0-3); EOS % 0 % (0-3); HEMATOCRIT 38.5 % (39.0-53.0); HEMOGLOBIN 12.9 g/dL (13.0-17.5); LYMPH # 0.4 x10^3/uL (1.0-4.8); LYMPH % 5 % (24-48); MEAN CORPUSCULAR HEMOGLOBIN 32 pg (25-35); MEAN CORPUSCULAR HGB CONC 34 g/dL (31-37); MEAN CORPUSCULAR VOLUME 95 fL (79-100); MONO # 0.8 x10^3/uL (0.0-1.1); MONO % 8 % (0-9); NEUT # 8.5 x10^3uL (1.8-7.7); NEUT % 87 % (31-73); PLATELET COUNT 168 x10^3/uL (140-400); RED BLOOD COUNT 4.04 x10^6/uL (4.30-5.70); RED CELL DISTRIBUTION WIDTH 14.7 % (11.5-14.5); WHITE BLOOD COUNT 9.8 x10^3/uL (4.0-11.0)
[2018-07-03] MEDS: CARBIDOPA/LEVODOPA 25/100MG TABLET PO SCH ×3 (10:03→21:40)
[2018-07-03] MEDS: FUROSEMIDE 40 MG/4 ML VIAL IVP SCH ×2 (10:04→14:47)
[2018-07-03 10:14] LABS: CALCIUM 8.4 mg/dL (8.5-10.1); GFR 71.2; POTASSIUM 4.3 mmol/L (3.5-5.1)
[2018-07-03 11:35] VITALS: BP 113/65
[2018-07-03 14:40] VITALS: BP 96/61
[2018-07-03] MEDS: LIDOCAINE (700MG/PATCH) PATCH. TD SCH (14:48)
[2018-07-03 19:57] VITALS: BP 111/61
[2018-07-03] MEDS: APIXABAN 5 MG TABLET. PO SCH (21:40)
[2018-07-03] MEDS: ATORVASTATIN CALCIUM 20 MG TABLET PO SCH (21:40)
--- NOTE | 2018-07-03 22:19 | PN ---
DATE: 07/03/2018 SUBJECTIVE: An 82-year-old male in with congestive heart failure. The patient is resting fairly comfortably, but is still very weak. He is complaining of pain throughout his body. Apparently he has had a bedside swallowing test which showed he does have some problems with aspiration, although apparently they do not want to change his diet yet. We are unable to do a video swallow due to some mechanical problems here at the hospital. His AFib is under good control and apparently does have episodes. Emphysema is poor, but he does not have any PE. OBJECTIVE: VITAL SIGNS: In any case, the patient's blood pressure is 140/70, respiration rate 22, pulse 83, afebrile. GENERAL: The patient is alert and oriented, but very weak, weaker than he seems to have been. LUNGS: Diminished, rales in the bases. CARDIOVASCULAR: Irregularly irregular rhythm. ABDOMEN: Soft, nontender. EXTREMITIES: No clubbing, cyanosis, no edema noted. NEUROLOGIC: Intact. IMPRESSION: Acute on top of chronic congestive heart failure, chronic atrial fibrillation, hyperlipidemia, Parkinson's disease, urinary incontinence, general arthritis as well as dysphagia. PLAN: Continue with diuresing, physical and occupational therapy, pain management, and make further assessment as we progress. SONNY MALDONADO MD DR: SANDRA/zac JOB#: [id number] / [id number]
[2018-07-03 22:45] VITALS: BP 88/55
[2018-07-04] MEDS: IPRATRPIUM/ALBUTEROL 0.5/2.5MG 3 ML NEBU. NEB SCH ×4 (05:13→20:41)
[2018-07-04 05:23] VITALS: BP 102/63
[2018-07-04 06:19] LABS: BASO % 0 % (0-3); EOS % 0 % (0-3); HEMATOCRIT 39.6 % (39.0-53.0); HEMOGLOBIN 13.3 g/dL (13.0-17.5); LYMPH # 0.6 x10^3/uL (1.0-4.8); LYMPH % 7 % (24-48); MEAN CORPUSCULAR HEMOGLOBIN 32 pg (25-35); MEAN CORPUSCULAR HGB CONC 34 g/dL (31-37); MEAN CORPUSCULAR VOLUME 94 fL (79-100); MONO # 0.9 x10^3/uL (0.0-1.1); MONO % 11 % (0-9); NEUT # 7.1 x10^3uL (1.8-7.7); NEUT % 82 % (31-73); PLATELET COUNT 171 x10^3/uL (140-400); RED CELL DISTRIBUTION WIDTH 14.5 % (11.5-14.5); WHITE BLOOD COUNT 8.6 x10^3/uL (4.0-11.0)
[2018-07-04 06:34] LABS: CALCIUM 8.6 mg/dL (8.5-10.1); CREATININE 0.9 mg/dL (0.7-1.3); GFR 80.4; POTASSIUM 3.9 mmol/L (3.5-5.1)
[2018-07-04] MEDS: LIDOCAINE (700MG/PATCH) PATCH. TD SCH (08:00)
[2018-07-04] MEDS: PATCH REMOVAL. MC SCH (08:00)
[2018-07-04] MEDS: METOPROLOL SUCC 24HR ER 25 MG TAB.ER.24H. PO SCH (08:02)
[2018-07-04] MEDS: BENZONATATE 100 MG CAPSULE. PO SCH ×3 (08:02→21:34)
[2018-07-04] MEDS: glipiZIDE 5 MG TABLET PO SCH ×2 (08:02→16:52)
[2018-07-04] MEDS: GABAPENTIN 100 MG CAPSULE. PO SCH ×3 (08:02→21:35)
[2018-07-04] MEDS: TAMSULOSIN 0.4 MG CAP.ER.24H. PO SCH (08:02)
[2018-07-04] MEDS: APIXABAN 5 MG TABLET. PO SCH ×2 (08:02→21:35)
[2018-07-04] MEDS: ASPIRIN 325 MG TABLET PO SCH (08:03)
[2018-07-04] MEDS: FINASTERIDE 5 MG TABLET PO SCH (08:03)
[2018-07-04] MEDS: amLODIPine BESYLATE 5 MG TABLET PO SCH (08:03)
[2018-07-04] MEDS: POTASSIUM CHLORIDE 20 MEQ TABLET.ER. PO SCH (08:04)
[2018-07-04] MEDS: CITALOPRAM 10 MG TABLET. PO SCH (08:04)
[2018-07-04] MEDS: rOPINIRole 1 MG TABLET. PO SCH ×3 (08:04→21:35)
[2018-07-04] MEDS: CARBIDOPA/LEVODOPA 25/100MG TABLET PO SCH ×3 (08:04→21:35)
[2018-07-04] MEDS: REPAGLINIDE 1 MG TABLET PO SCH ×3 (08:05→16:52)
[2018-07-04 10:42] VITALS: BP 105/61
[2018-07-04] MEDS: FUROSEMIDE 40 MG/4 ML VIAL IVP SCH (12:15)
--- NOTE | 2018-07-04 12:18 | PDOC ---
PROGRESS NOTES Assessment 1. Acute on chronic hypoxic respiratory failure - multifactorial, secondary to combination of acute on chronic diastolic heart failure and acute COPD exacerbation. 2-D echo showed normal LV function with severe pulmonary hypertension. Symptoms improved with diuresis. Change Lasix to by mouth. 2. Atrial fibrillation with controlled ventricular response, continue Apixaban for stroke prophylaxis and Toprol for rate control. 3. Hyperlipidemia -continue statin's 4. Parkinson's disease, DM-2 - per PCP Subjective Feeling better. Denied any chest pain. Objective Vital Signs Date Time Temp Pulse Resp B/P (MAP) Pulse Ox O2 Delivery O2 Flow Rate FiO2 07/04/18 10:52 96 Nasal Cannula 2.5 07/04/18 10:42 97.3 74 20 105/61 (76) Intake and Output 07/04/18 07:00 Intake Total 1550 ml Output Total 700 ml Balance 850 ml Intake Oral 1550 ml Output Urine Total 700 ml # Voids 8 Abdomen: Soft, No tenderness Heart: Other (HR irreg, ESM aortic) Extremities: Other (1+ pitting) General: Alert, No acute distress HEENT: Atraumatic Lungs: Clear to auscultation Neck: Supple Psych/Mental Status: Mood NL Review of Relevant I have reviewed the following items lillian (where applicable) has been applied. Labs Laboratory Tests Test 07/03/18 07:33 07/03/18 09:50 07/03/18 09:54 07/03/18 11:58 Glucose (Fingerstick) 94 mg/dL (70-99) 80 mg/dL (70-99) White Blood Count 9.8 x10^3/uL (4.0-11.0) Red Blood Count 4.04 x10^6/uL (4.30-5.70) Hemoglobin 12.9 g/dL (13.0-17.5) Hematocrit 38.5 % (39.0-53.0) Mean Corpuscular Volume 95 fL (79-100) Mean Corpuscular Hemoglobin 32 pg (25-35) Mean Corpuscular Hemoglobin Concent 34 g/dL (31-37) Red Cell Distribution Width 14.7 % (11.5-14.5) Platelet Count 168 x10^3/uL (140-400) Neutrophils (%) (Auto) 87 % (31-73) Lymphocytes (%) (Auto) 5 % (24-48) Monocytes (%) (Auto) 8 % (0-9) Eosinophils (%) (Auto) 0 % (0-3) Basophils (%) (Auto) 0 % (0-3) Neutrophils # (Auto) 8.5 x10^3uL (1.8-7.7) Lymphocytes # (Auto) 0.4 x10^3/uL (1.0-4.8) Monocytes # (Auto) 0.8 x10^3/uL (0.0-1.1) Eosinophils # (Auto) 0.0 x10^3/uL (0.0-0.7) Basophils # (Auto) 0.0 x10^3/uL (0.0-0.2) Sodium Level 132 mmol/L (136-145) Potassium Level 4.3 mmol/L (3.5-5.1) Chloride Level 96 mmol/L (98-107) Carbon Dioxide Level 27 mmol/L (21-32) Anion Gap 9 (6-14) Blood Urea Nitrogen 25 mg/dL (8-26) Creatinine 1.0 mg/dL (0.7-1.3) Estimated GFR (Cockcroft-Gault) 71.2 Glucose Level 125 mg/dL (70-99) Calcium Level 8.4 mg/dL (8.5-10.1) Test 07/03/18 16:38 07/04/18 06:00 07/04/18 07:41 07/04/18 11:18 Glucose (Fingerstick) 72 mg/dL (70-99) 86 mg/dL (70-99) 142 mg/dL (70-99) White Blood Count 8.6 x10^3/uL (4.0-11.0) Red Blood Count 4.20 x10^6/uL (4.30-5.70) Hemoglobin 13.3 g/dL (13.0-17.5) Hematocrit 39.6 % (39.0-53.0) Mean Corpuscular Volume 94 fL (79-100) Mean Corpuscular Hemoglobin 32 pg (25-35) Mean Corpuscular Hemoglobin Concent 34 g/dL (31-37) Red Cell Distribution Width 14.5 % (11.5-14.5) Platelet Count 171 x10^3/uL (140-400) Neutrophils (%) (Auto) 82 % (31-73) Lymphocytes (%) (Auto) 7 % (24-48) Monocytes (%) (Auto) 11 % (0-9) Eosinophils (%) (Auto) 0 % (0-3) Basophils (%) (Auto) 0 % (0-3) Neutrophils # (Auto) 7.1 x10^3uL (1.8-7.7) Lymphocytes # (Auto) 0.6 x10^3/uL (1.0-4.8) Monocytes # (Auto) 0.9 x10^3/uL (0.0-1.1) Eosinophils # (Auto) 0.0 x10^3/uL (0.0-0.7) Basophils # (Auto) 0.0 x10^3/uL (0.0-0.2) Sodium Level 133 mmol/L (136-145) Potassium Level 3.9 mmol/L (3.5-5.1) Chloride Level 96 mmol/L (98-107) Carbon Dioxide Level 27 mmol/L (21-32) Anion Gap 10 (6-14) Blood Urea Nitrogen 26 mg/dL (8-26) Creatinine 0.9 mg/dL (0.7-1.3) Estimated GFR (Cockcroft-Gault) 80.4 Glucose Level 89 mg/dL (70-99) Calcium Level 8.6 mg/dL (8.5-10.1) Microbiology 07/01/18 Urine Culture - Final, Complete 07/01/18 Urine Culture Result 1 (ELISE) - Final, Complete Medications Current Medications Influenza Virus Vaccine (Afluria Trivalent [id number] Syringe) 0.5 ml ONCE ONCE VAX IM Last administered on 07/03/18at 13:26; Start 07/03/18 at 09:00; Stop 07/03/18 at 09:01; Status DC Albuterol/ Ipratropium (Duoneb) 3 ml RTQID NEB Last administered on 07/04/18at 10:52; Start 07/01/18 at 20:00 Aspirin (Kezia Aspirin) 325 mg DAILY PO ; Start 07/02/18 at 09:00; Stop at 09:00; Status DC Carbidopa/Levodopa (Sinemet 25/100) 2 tab TID PO Last administered on 08:04; Start 07/01/18 at 21:30 Diphenhydramine HCl (Benadryl) 50 mg PRN QHS PRN PO SLEEP; Start 07/01/18 at 20 :30 Gabapentin (Neurontin) 100 mg TID PO Last administered on 07/04/18 08:02; Start 07/01/18 at 21:30 Albuterol/ Ipratropium (Duoneb) 3 ml TID NEB ; Start 07/01/18 at 21:00; Stop at 21:35; Status DC Metoprolol Succinate (Toprol Xl) 25 mg DAILY PO Last administered on 07/04/18 08:02; Start 07/02/18 at 09:00 Potassium Chloride (Klor-Con) 20 meq DAILY PO Last administered on 07/04/18 08 :04; Start 07/02/18 at 09:00 Tamsulosin HCl (Flomax) 0.4 mg DAILY PO Last administered on 07/04/18 08:02; Start 07/02/18 at 09:00 Non-Formulary Medication (Acetaminophen/ Diphenhydramine (Acetaminophen Pm Caplet)) 2 each QHS PRN PO INSOMNIA; Start 07/01/18 at 20:30; Status UNV Amlodipine Besylate (Norvasc) 5 mg DAILY PO Last administered on 07/04/18 08: 03; Start 07/02/18 at 09:00 Citalopram Hydrobromide (CeleXA) 10 mg DAILY PO Last administered on 07/04/18 08:04; Start 07/02/18 at 09:00 Finasteride (Proscar) 5 mg DAILY PO Last administered on 07/04/18 08:03; Start 07/02/18 at 09:00 Glipizide (Glucotrol) 5 mg BIDBFRMEAL PO Last administered on 07/04/18 08:02; Start 07/02/18 at 07:30 Mirabegron (Myrbetriq) 50 mg QODAY PO Last administered on 07/03/18 09:56; Start 07/03/18 at 09:00 Repaglinide (Prandin) 1 mg TIDAC PO Last administered on 07/04/18 12:12; Start 07/02/18 at 07:30 Ropinirole HCl (Requip) 1 mg TID PO Last administered on 07/04/18 08:04; Start 07/01/18 at 21:30 Atorvastatin Calcium (Lipitor) 20 mg QHS PO Last administered on 07/03/18 21: 40; Start 07/02/18 at 21:00 Furosemide (Lasix) 40 mg [id number] IVP Last administered on 07/04/18 12:15; Start 07/02/18 at 09:00 Apixaban (Eliquis) 2.5 mg BID PO Last administered on 07/02/18 20:51; Start 07/01/18 at 21:00; Stop 07/03/18 at 09:19; Status DC Aspirin (Kezia Aspirin) 325 mg QODAY PO Last administered on 07/04/18 08:03; Start 07/02/18 at 09:00 Zolpidem Tartrate (Ambien) 5 mg PRN QHS PRN PO INSOMNIA, MAY REPEAT IN 1HR Last administered on 07/02/18 20:51; Start 07/01/18 at 21:00 Zolpidem Tartrate (Ambien) 5 mg PRN QHS PRN PO INSOMNIA, MAY REPEAT IN 1HR; Start 07/01/18 at 21:00; Status UNV Lidocaine (Lidoderm) 1 patch DAILY TD Last administered on 07/04/18 08:00; Start 07/02/18 at 21:00 Miscellaneous (Lidoderm Patch Removal) 1 ea DAILY08 MC Last administered on 08:00; Start 07/03/18 at 08:00 Benzonatate (Tessalon Perle) 100 mg [id number] PO Last administered on 07/04/18 08 :02; Start 07/03/18 at 03:00 Apixaban (Eliquis) 5 mg BID PO Last administered on 07/04/18 08:02; Start 07/03/18 at 21:00 Active Scripts Active Benadryl (Diphenhydramine Hcl) 25 Mg Capsule 50 Mg PO PRN QHS PRN 30 Days Finasteride 5 Mg Tablet 5 Mg PO DAILY 30 Days Myrbetriq (Mirabegron) 50 Mg Tab.er.24h 50 Mg PO QODAY Furosemide 20 Mg Tablet 1 Tab PO DAILY 30 Days Klor-Con M20 (Potassium Chloride) 20 Meq Tab.er.prt 20 Meq PO DAILY 30 Days Metoprolol Succinate ( Xl ) (Metoprolol Succinate) 25 Mg Tab.er.24h 25 Mg PO DAILY 30 Days Duoneb 0.5-3(2.5) Mg/3 Ml (Albuterol/Ipratropium) 3 Ml Ampul.neb 3 Ml NEB TID 30 Days Gabapentin (Gabapentin) 100 Mg Capsule 100 Mg PO TID 30 Days Reported Ropinirole Hcl 1 Mg Tablet 1 Tab PO TID Repaglinide 1 Mg Tablet 1 Tab PO TID Tamsulosin Hcl 0.4 Mg Cap.er.24h 1 Tab PO DAILY Glipizide 5 Mg Tablet 5 Mg PO BID Crestor (Rosuvastatin Calcium) 5 Mg Tablet 5 Mg PO HS Acetaminophen Pm Caplet (Acetaminophen/Diphenhydramine) 1 Each Tablet 2 Each PO QHS PRN Lexapro (Escitalopram Oxalate) 5 Mg Tablet 5 Mg PO DAILY Sinemet 25-100 Mg Tablet (Carbidopa/Levodopa) 1 Each Tablet 2 Tab PO TID Aspirin 325 Mg Tablet 325 Mg PO DAILY Norvasc (Amlodipine Besylate) 5 Mg Tablet 5 Mg PO DAILY Vitals/I & O Vital Sign - Last 24 Hours 07/03/18 07/03/18 07/03/18 07/03/18 14:40 19:57 20:05 21:05 Temp 97.2 98.2 Pulse 88 86 Resp 14 22 B/P (MAP) 96/61 (73) 111/61 (78) Pulse Ox 94 92 92 O2 Delivery Nasal Cannula Nasal Cannula Nasal Cannula Nasal Cannula O2 Flow Rate 2.5 2.5 2.5 2.5 07/03/18 07/04/18 07/04/18 07/04/18 22:45 05:15 05:23 08:02 Temp 97.7 98.3 Pulse 56 75 75 Resp 18 22 B/P (MAP) 88/55 (66) 102/63 (76) 102/63 Pulse Ox 97 96 91 O2 Delivery Nasal Cannula Nasal Cannula Nasal Cannula O2 Flow Rate 2.5 2.5 2.5 07/04/18 07/04/18 07/04/18 07/04/18 08:03 08:20 10:42 10:52 Temp 97.3 Pulse 75 74 Resp 20 B/P (MAP) 102/63 105/61 (76) Pulse Ox 94 96 O2 Delivery Nasal Cannula Nasal Cannula Nasal Cannula O2 Flow Rate 2.5 2.0 2.5 Intake and Output 07/03/18 07/03/18 07/04/18 15:00 23:00 07:00 Intake Total 1060 ml 240 ml 250 ml Output Total 400 ml 300 ml Balance 660 ml -60 ml 250 ml MELISSA DUBON MD Jul 04, 2018 12:18
--- NOTE | 2018-07-04 14:04 | PN ---
DATE: 07/04/2018 SUBJECTIVE: The patient resting fairly comfortably in good condition without any complication. He makes good progress, seems to be a little stronger today. OBJECTIVE: VITAL SIGNS: Blood pressure 105/60, respiratory rate 20, pulse 70, afebrile. GENERAL: The patient is alert and oriented to baseline. LUNGS: Diminished, but clear. CARDIOVASCULAR: Regular rhythm. ABDOMEN: Soft, nontender. EXTREMITIES: No clubbing, cyanosis or edema. NEUROLOGIC: The patient is baseline. PLAN: The patient is making good progress overall. Blood pressure 105/60, respiratory rate 20, pulse 70, afebrile. He is up to 96% on 2 liters. Otherwise, he continues to make good progress overall and will continue to be monitored carefully on that. SONNY MALDONADO MD DR: SANDRA/zac JOB#: [id number] / [id number]
[2018-07-04 14:40] VITALS: BP 96/58
[2018-07-04 18:33] VITALS: BP 106/66
[2018-07-04] MEDS: ATORVASTATIN CALCIUM 20 MG TABLET PO SCH (21:35)
[2018-07-04] MEDS: diphenhydrAMINE HCL 25 MG CAPSULE PO PRN (23:08)
[2018-07-04 23:30] VITALS: BP 122/75
[2018-07-04] MEDS ORDERED: ACETAMINOPHEN 325 MG TABLET PO PRN (23:30)
[2018-07-05] MEDS: IPRATRPIUM/ALBUTEROL 0.5/2.5MG 3 ML NEBU. NEB SCH ×4 (05:58→21:25)
[2018-07-05 06:01] VITALS: BP 96/62
[2018-07-05] MEDS: PATCH REMOVAL. MC SCH (08:00)
[2018-07-05] MEDS: LIDOCAINE (700MG/PATCH) PATCH. TD SCH (08:43)
[2018-07-05] MEDS: CARBIDOPA/LEVODOPA 25/100MG TABLET PO SCH ×3 (08:44→21:43)
[2018-07-05] MEDS: glipiZIDE 5 MG TABLET PO SCH ×2 (08:44→16:29)
[2018-07-05] MEDS: FUROSEMIDE 40 MG TABLET PO SCH (08:44)
[2018-07-05] MEDS: FINASTERIDE 5 MG TABLET PO SCH (08:44)
[2018-07-05] MEDS: CITALOPRAM 10 MG TABLET. PO SCH (08:45)
[2018-07-05] MEDS: GABAPENTIN 100 MG CAPSULE. PO SCH ×3 (08:45→21:43)
[2018-07-05] MEDS: TAMSULOSIN 0.4 MG CAP.ER.24H. PO SCH (08:45)
[2018-07-05] MEDS: POTASSIUM CHLORIDE 20 MEQ TABLET.ER. PO SCH (08:45)
[2018-07-05] MEDS: APIXABAN 5 MG TABLET. PO SCH ×2 (08:45→21:43)
[2018-07-05] MEDS: BENZONATATE 100 MG CAPSULE. PO SCH ×3 (08:45→21:43)
[2018-07-05] MEDS: REPAGLINIDE 1 MG TABLET PO SCH ×3 (08:46→16:29)
[2018-07-05] MEDS: MIRABEGRON 25 MG TAB.ER.24H PO SCH (08:46)
[2018-07-05] MEDS: rOPINIRole 1 MG TABLET. PO SCH ×3 (08:46→21:44)
[2018-07-05] MEDS: amLODIPine BESYLATE 5 MG TABLET PO SCH (09:00)
[2018-07-05] MEDS: METOPROLOL SUCC 24HR ER 25 MG TAB.ER.24H. PO SCH (09:05)
[2018-07-05 11:15] VITALS: BP 102/64
--- NOTE | 2018-07-05 13:48 | PN ---
DATE: 07/05/2018 SUBJECTIVE: An 82-year-old gentleman making good progress, still fairly weak, still recovering from his congestive heart failure. OBJECTIVE: VITAL SIGNS: Otherwise; blood pressure 102/64, respiration 18, pulse 76, afebrile. GENERAL: The patient is alert and oriented. LUNGS: Diminished primarily in the bases, but are improved. CARDIOVASCULAR: Irregularly irregular rhythm. ABDOMEN: Soft, nontender, no rebound or guarding. Positive bowel sounds. No hepatosplenomegaly noted. EXTREMITIES: No clubbing, cyanosis, nor edema. IMPRESSION: Acute on top of chronic hypoxic respiratory failure, atrial fibrillation, controlled response, hyperlipidemia, Parkinson's disease. PLAN: Continue to monitor the patient accordingly, further evaluation on her as indicated and make further evaluation. SONNY MALDONADO MD DR: SANDRA/zac JOB#: [id number] / [id number]
[2018-07-05 18:32] VITALS: BP 97/63
[2018-07-05] MEDS: ATORVASTATIN CALCIUM 20 MG TABLET PO SCH (21:43)
[2018-07-05] MEDS: diphenhydrAMINE HCL 25 MG CAPSULE PO PRN (21:43)
[2018-07-05 23:30] VITALS: BP 112/67
[2018-07-06] MEDS: IPRATRPIUM/ALBUTEROL 0.5/2.5MG 3 ML NEBU. NEB SCH ×2 (05:10→10:07)
[2018-07-06 06:29] VITALS: BP 125/75
[2018-07-06] MEDS: PATCH REMOVAL. MC SCH (08:00)
[2018-07-06] MEDS: CARBIDOPA/LEVODOPA 25/100MG TABLET PO SCH ×2 (08:28→14:10)
[2018-07-06] MEDS: FUROSEMIDE 40 MG TABLET PO SCH (08:28)
[2018-07-06] MEDS: CITALOPRAM 10 MG TABLET. PO SCH (08:28)
[2018-07-06] MEDS: BENZONATATE 100 MG CAPSULE. PO SCH ×2 (08:29→14:10)
[2018-07-06] MEDS: TAMSULOSIN 0.4 MG CAP.ER.24H. PO SCH (08:29)
[2018-07-06] MEDS: FINASTERIDE 5 MG TABLET PO SCH (08:29)
[2018-07-06] MEDS: APIXABAN 5 MG TABLET. PO SCH (08:29)
[2018-07-06] MEDS: amLODIPine BESYLATE 5 MG TABLET PO SCH (08:29)
[2018-07-06] MEDS: glipiZIDE 5 MG TABLET PO SCH (08:29)
[2018-07-06] MEDS: METOPROLOL SUCC 24HR ER 25 MG TAB.ER.24H. PO SCH (08:29)
[2018-07-06] MEDS: REPAGLINIDE 1 MG TABLET PO SCH ×2 (08:30→11:30)
[2018-07-06] MEDS: rOPINIRole 1 MG TABLET. PO SCH ×2 (08:30→14:10)
[2018-07-06] MEDS: GABAPENTIN 100 MG CAPSULE. PO SCH ×2 (08:30→14:10)
[2018-07-06] MEDS: POTASSIUM CHLORIDE 20 MEQ TABLET.ER. PO SCH (08:30)
[2018-07-06] MEDS: ASPIRIN 325 MG TABLET PO SCH (08:31)
[2018-07-06] MEDS: LIDOCAINE (700MG/PATCH) PATCH. TD SCH (08:32)
--- NOTE | 2018-07-06 09:15 | PDOC ---
PROGRESS NOTES Assessment 1. Acute on chronic hypoxic respiratory failure - multifactorial, secondary to combination of acute on chronic diastolic heart failure and acute COPD exacerbation. 2-D echo showed normal LV function with severe pulmonary hypertension. Symptoms improved with diuresis. Change Lasix to by mouth. 2. Atrial fibrillation with controlled ventricular response, continue Apixaban for stroke prophylaxis and Toprol for rate control. 3. Hyperlipidemia -continue statin's 4. Parkinson's disease, DM-2 - per PCP Subjective feeling much better, no chest pain, breathing easy, no palpitations, or lightheadedness, down to 1 liter NC oxygen Objective Vital Signs Date Time Temp Pulse Resp B/P (MAP) Pulse Ox O2 Delivery O2 Flow Rate FiO2 07/06/18 08:54 95 Nasal Cannula 1.0 07/06/18 08:29 77 125/75 07/06/18 06:29 98.5 20 Intake and Output 07/06/18 07:00 Intake Total 950 ml Balance 950 ml Intake Oral 950 ml # Voids 4 Abdomen: Normal bowel sounds, Soft, No tenderness Heart: Normal S1, Normal S2 Extremities: No cyanosis, Other (1+edema) General: Alert, Oriented X3, Cooperative, No acute distress Lungs: Other (decreased bases) Neuro: Normal speech Psych/Mental Status: Mental status NL, Mood NL Review of Relevant I have reviewed the following items lillian (where applicable) has been applied. Labs Laboratory Tests Test 07/04/18 11:18 07/04/18 16:35 07/05/18 01:50 07/05/18 22:40 Glucose (Fingerstick) 142 mg/dL (70-99) 73 mg/dL (70-99) 100 mg/dL (70-99) 103 mg/dL (70-99) Test 07/06/18 08:02 Glucose (Fingerstick) 64 mg/dL (70-99) Microbiology 07/01/18 Urine Culture - Final, Complete 07/01/18 Urine Culture Result 1 (ELISE) - Final, Complete Medications Current Medications Influenza Virus Vaccine (Afluria Trivalent [id number] Syringe) 0.5 ml ONCE ONCE VAX IM Last administered on 07/03/18at 13:26; Start 07/03/18 at 09:00; Stop 07/03/18 at 09:01; Status DC Albuterol/ Ipratropium (Duoneb) 3 ml RTQID NEB Last administered on 07/06/18 05:10; Start 07/01/18 at 20:00 Aspirin (Kezia Aspirin) 325 mg DAILY PO ; Start 07/02/18 at 09:00; Stop at 09:00; Status DC Carbidopa/Levodopa (Sinemet 25/100) 2 tab TID PO Last administered on 08:28; Start 07/01/18 at 21:30 Diphenhydramine HCl (Benadryl) 50 mg PRN QHS PRN PO SLEEP Last administered on 07/05/18 21:43; Start 07/01/18 at 20:30 Gabapentin (Neurontin) 100 mg TID PO Last administered on 07/06/18 08:30; Start 07/01/18 at 21:30 Albuterol/ Ipratropium (Duoneb) 3 ml TID NEB ; Start 07/01/18 at 21:00; Stop at 21:35; Status DC Metoprolol Succinate (Toprol Xl) 25 mg DAILY PO Last administered on 08:29; Start 07/02/18 at 09:00 Potassium Chloride (Klor-Con) 20 meq DAILY PO Last administered on 07/06/18 08:30; Start 07/02/18 at 09:00 Tamsulosin HCl (Flomax) 0.4 mg DAILY PO Last administered on 07/06/18 08:29; Start 07/02/18 at 09:00 Non-Formulary Medication (Acetaminophen/ Diphenhydramine (Acetaminophen Pm Caplet)) 2 each QHS PRN PO INSOMNIA; Start 07/01/18 at 20:30; Status UNV Amlodipine Besylate (Norvasc) 5 mg DAILY PO Last administered on 07/06/18 08: 29; Start 07/02/18 at 09:00 Citalopram Hydrobromide (CeleXA) 10 mg DAILY PO Last administered on 08:28; Start 07/02/18 at 09:00 Finasteride (Proscar) 5 mg DAILY PO Last administered on 07/06/18 08:29; Start 07/02/18 at 09:00 Glipizide (Glucotrol) 5 mg BIDBFRMEAL PO Last administered on 07/06/18 08:29 ; Start 07/02/18 at 07:30 Mirabegron (Myrbetriq) 50 mg QODAY PO Last administered on 07/05/18 08:46; Start 07/03/18 at 09:00 Repaglinide (Prandin) 1 mg TIDAC PO Last administered on 07/06/18 08:30; Start 07/02/18 at 07:30 Ropinirole HCl (Requip) 1 mg TID PO Last administered on 07/06/18 08:30; Start 07/01/18 at 21:30 Atorvastatin Calcium (Lipitor) 20 mg QHS PO Last administered on 07/05/18 21: 43; Start 07/02/18 at 21:00 Furosemide (Lasix) 40 mg [id number] IVP Last administered on 07/04/18 12:15; Start 07/02/18 at 09:00; Stop 07/04/18 at 12:55; Status DC Apixaban (Eliquis) 2.5 mg BID PO Last administered on 07/02/18 20:51; Start 07/01/18 at 21:00; Stop 07/03/18 at 09:19; Status DC Aspirin (Kezia Aspirin) 325 mg QODAY PO Last administered on 07/06/18 08:31; Start 07/02/18 at 09:00 Zolpidem Tartrate (Ambien) 5 mg PRN QHS PRN PO INSOMNIA, MAY REPEAT IN 1HR Last administered on 07/02/18 20:51; Start 07/01/18 at 21:00 Zolpidem Tartrate (Ambien) 5 mg PRN QHS PRN PO INSOMNIA, MAY REPEAT IN 1HR; Start 07/01/18 at 21:00; Status UNV Lidocaine (Lidoderm) 1 patch DAILY TD Last administered on 07/06/18 08:32; Start 07/02/18 at 21:00 Miscellaneous (Lidoderm Patch Removal) 1 ea [id number] MC Last administered on 08:00; Start 07/03/18 at 08:00 Benzonatate (Tessalon Perle) 100 mg [id number] PO Last administered on 07/06/18 08:29; Start 12/7/18 at 03:00 Apixaban (Eliquis) 5 mg BID PO Last administered on 07/06/18at 08:29; Start at 21:00 Furosemide (Lasix) 40 mg DAILY PO Last administered on 07/06/18at 08:28; Start 07/05/18 at 09:00 Acetaminophen (Tylenol) 325 mg PRN Q6HRS PRN PO PAIN / TEMP Last administered on 07/05/18at 23:38; Start 07/04/18 at 23:30 Active Scripts Active Benadryl (Diphenhydramine Hcl) 25 Mg Capsule 50 Mg PO PRN QHS PRN 30 Days Finasteride 5 Mg Tablet 5 Mg PO DAILY 30 Days Myrbetriq (Mirabegron) 50 Mg Tab.er.24h 50 Mg PO QODAY Furosemide 20 Mg Tablet 1 Tab PO DAILY 30 Days Klor-Con M20 (Potassium Chloride) 20 Meq Tab.er.prt 20 Meq PO DAILY 30 Days Metoprolol Succinate ( Xl ) (Metoprolol Succinate) 25 Mg Tab.er.24h 25 Mg PO DAILY 30 Days Duoneb 0.5-3(2.5) Mg/3 Ml (Albuterol/Ipratropium) 3 Ml Ampul.neb 3 Ml NEB TID 30 Days Gabapentin (Gabapentin) 100 Mg Capsule 100 Mg PO TID 30 Days Reported Ropinirole Hcl 1 Mg Tablet 1 Tab PO TID Repaglinide 1 Mg Tablet 1 Tab PO TID Tamsulosin Hcl 0.4 Mg Cap.er.24h 1 Tab PO DAILY Glipizide 5 Mg Tablet 5 Mg PO BID Crestor (Rosuvastatin Calcium) 5 Mg Tablet 5 Mg PO HS Acetaminophen Pm Caplet (Acetaminophen/Diphenhydramine) 1 Each Tablet 2 Each PO QHS PRN Lexapro (Escitalopram Oxalate) 5 Mg Tablet 5 Mg PO DAILY Sinemet 25-100 Mg Tablet (Carbidopa/Levodopa) 1 Each Tablet 2 Tab PO TID Aspirin 325 Mg Tablet 325 Mg PO DAILY Norvasc (Amlodipine Besylate) 5 Mg Tablet 5 Mg PO DAILY Vitals/I & O Vital Sign - Last 24 Hours 07/05/18 07/05/18 07/05/18 07/05/18 10:47 11:15 16:28 18:32 Temp 97.8 97.7 Pulse 76 81 Resp 18 18 B/P (MAP) 102/64 (77) 97/63 (74) Pulse Ox 96 92 95 93 O2 Delivery Nasal Cannula Nasal Cannula Nasal Cannula O2 Flow Rate 2.5 2.5 2.0 07/05/18 07/05/18 07/05/18 07/06/18 20:00 21:25 23:30 05:13 Temp 98.3 Pulse 79 Resp 18 B/P (MAP) 112/67 (82) Pulse Ox 95 90 94 O2 Delivery Nasal Cannula Nasal Cannula Nasal Cannula Nasal Cannula O2 Flow Rate 2.5 2.5 2.5 2.5 07/06/18 07/06/18 07/06/18 07/06/18 06:29 08:29 08:29 08:54 Temp 98.5 Pulse 77 77 77 Resp 20 B/P (MAP) 125/75 (92) 125/75 125/75 Pulse Ox 98 95 O2 Delivery Nasal Cannula Nasal Cannula O2 Flow Rate 2.5 1.0 Intake and Output 07/05/18 07/05/18 07/06/18 15:00 23:00 07:00 Intake Total 300 ml 650 ml Balance 300 ml 650 ml [employer] Jul 06, 2018 09:15
[2018-07-06] MEDS ORDERED: CITA10TA8 PO (10:26)
[2018-07-06] MEDS ORDERED: LIDO700A39 TD (10:26)
[2018-07-06] MEDS ORDERED: FURO40TA4 PO (10:26)
[2018-07-06] MEDS ORDERED: APIX5TAB3 PO (10:26)
[2018-07-06] MEDS ORDERED: BENZ-8 PO (10:26)
[2018-07-06] MEDS ORDERED: ACET325T9 PO (10:26)
[2018-07-06 10:45] VITALS: BP 86/52
--- NOTE | 2018-07-06 11:07 | DS ---
DATE OF DISCHARGE: 07/06/2018 HOSPITAL COURSE: This 82-year-old male was brought in with congestive heart failure and chronic atrial fibrillation. The patient made good progress. He was seen by Cardiology. He had diuresis and control of his atrial fibrillation. The patient made good progress and he received physical and occupational therapy. The patient has Parkinson's disease. He refused skilled care here. He wanted to be discharged. He will continue with home health. See MRAD. Decrease activity and continue with PT/OT. IMPRESSION: Acute on top of chronic hypoxic respiratory failure, acute on top of chronic congestive heart failure, chronic atrial fibrillation with controlled response, hyperlipidemia, Parkinson's disease, type 2 diabetes, elevated D-dimer. See MRAD. Activity as tolerated. SONNY MALDONADO MD DR: SANDRA/zac JOB#: [id number] / [id number]
== END 2018-07-06 15:30 | disposition home health service (06) | DRG 291 ==
LOC: ICU 17:48 → 1 SOUTH 07-03 13:20
PROVIDERS: ADMIT Family Medicine; ATTEND Family Medicine
DX: I50.33 Acute on chronic diastolic (congestive) heart failure (principal); J96.21 Acute and chronic respiratory failure with hypoxia; J44.1 Chronic obstructive pulmonary disease with (acute) exacerbation; E11.9 Type 2 diabetes mellitus without complications; E78.5 Hyperlipidemia, unspecified; G20 Parkinson's disease; I27.20 Pulmonary hypertension, unspecified; I48.2 Chronic atrial fibrillation; M19.90 Unspecified osteoarthritis, unspecified site; R13.10 Dysphagia, unspecified; R32 Unspecified urinary incontinence; R79.1 Abnormal coagulation profile; I07.1 Rheumatic tricuspid insufficiency; I05.2 Rheumatic mitral stenosis with insufficiency; Z79.82 Long term (current) use of aspirin; Z79.899 Other long term (current) drug therapy; Z79.84 Long term (current) use of oral hypoglycemic drugs; Z87.01 Personal history of pneumonia (recurrent); Z90.49 Acquired absence of other specified parts of digestive tract; Z88.5 Allergy status to narcotic agent; Z91.013 Allergy to seafood
CPT/HCPCS: 36415; 36600; 71045; 78582; 80048; 80053; 80061; 81001; 82550; 82803; 82947; 83605; 83880; 84134; 84484; 85025; 85379; 87086; 87641; 90471; 90756; 93005; 93306; 94640; 96374; A9540; A9558; J1940; J7620; Q0163; 92610; 97116; Q2035

== ENCOUNTER 2018-08-06 05:35 | Inpatient (IN) | payer MEDICARE, OTHER ==
[~2018-08-06] VITALS: Ht 172.7 cm; Wt 81.0 kg
[2018-08-06] VITALS (7 sets, daily range): BP systolic 95–133; BP diastolic 56–78
[~2018-08-06 05:35] MED LIST changes: +ACET325T9 PO; +APIX5TAB3 PO; +BENZ-8 PO; +CITA10TA8 PO; -DIGO125T PO; +DIGO125T17 PO; +FURO40TA4 PO; +LIDO700A39 TD; +REPA1TAB6 PO; +ROPI1TAB2 PO; +TAMS0.4C2 PO
[2018-08-06 06:28] LABS: BASO # 0.1 x10^3/uL (0.0-0.2); BASO % 1 % (0-3); EOS # 0.1 x10^3/uL (0.0-0.7); EOS % 2 % (0-3); HEMATOCRIT 26.1 % (39.0-53.0); HEMOGLOBIN 8.3 g/dL (13.0-17.5); LYMPH # 0.4 x10^3/uL (1.0-4.8); LYMPH % 6 % (24-48); MEAN CORPUSCULAR HEMOGLOBIN 31 pg (25-35); MEAN CORPUSCULAR HGB CONC 32 g/dL (31-37); MEAN CORPUSCULAR VOLUME 97 fL (79-100); MONO # 0.7 x10^3/uL (0.0-1.1); MONO % 10 % (0-9); NEUT # 5.5 x10^3uL (1.8-7.7); NEUT % 81 % (31-73); PLATELET COUNT 213 x10^3/uL (140-400); RED CELL DISTRIBUTION WIDTH 16.5 % (11.5-14.5); WHITE BLOOD COUNT 6.8 x10^3/uL (4.0-11.0)
--- NOTE | 2018-08-06 06:36 | PHYS DOC ---
Past History Past Medical History: A-Fib, Arthritis, COPD, Diabetes, High Cholesterol, Hypertension, Vascular Disease, Other Past Surgical History: Angioplasty, Appendectomy, Other Alcohol Use: None Drug Use: None Adult General Chief Complaint Chief Complaint: SHORTNESS OF BREATH HPI HPI Patient is a82 year old male who presents with shortness of breath. This is been present for the past several days. Patient was seen by his primary care physician on Friday who increased the patient's Lasix. Patient did have leg swelling that is doing better. Patient is on chronic home oxygen therapy. reports that he was in the corner of the bed without his oxygen, "like he had ripped it off." Patient reports feeling better with the oxygen. Patient was brought in by EMS. Patient denies any breathing treatments being administered. Patient is a former smoker. notes that he has had some wheezing. Patient reports that both exertion as well as laying in a supine position make the shortness of breath worse. Patient denies any fevers or increased coughing.[] Review of Systems Review of Systems Constitutional: Denies fever or chills [] Eyes: Denies change in visual acuity, redness, or eye pain [] HENT: Denies nasal congestion or sore throat [] Respiratory: See history of present illness[] Cardiovascular: No chest pain or palpitations[] GI: Denies abdominal pain, nausea, vomiting, bloody stools or diarrhea [] : Denies dysuria or hematuria [] Musculoskeletal: Denies back pain or joint pain [] Integument: Denies rash or skin lesions [] Neurologic: Denies headache, focal weakness or sensory changes [] Endocrine: Denies polyuria or polydipsia [] All other systems were reviewed and found to be within normal limits, except as documented in this note. Allergies Allergies Allergies Coded Allergies Type Severity Reaction Last Updated Verified codeine Allergy Intermediate 06/06/15 Yes shrimp Allergy Intermediate 02/01/16 No turkey Allergy Mild 06/06/15 No shellfish derived Allergy Unknown 08/01/17 Yes Physical Exam Physical Exam Constitutional: Well developed, well nourished, no acute distress, non-toxic appearance. [] HENT: Normocephalic, atraumatic, bilateral external ears normal, oropharynx moist, no oral exudates, nose normal. [] Eyes: PERRLA, EOMI, conjunctiva normal, no discharge. [] Neck: Normal range of motion, no tenderness, supple, no stridor. [] Cardiovascular:Heart rate regular rhythm, no murmur [] Lungs & Thorax: Bilateral breath sounds clear to auscultation [] Abdomen: Bowel sounds normal, soft, no tenderness, no masses, no pulsatile masses. [] Skin: Warm, dry, no erythema, no rash. [] Back: No tenderness, no CVA tenderness. [] Extremities: No tenderness, no cyanosis, no clubbing, ROM intact, 1-2+ pretibial edema. [] Neurologic: Alert and oriented X 3, normal motor function, normal sensory function, no focal deficits noted. [] Psychologic: Affect normal, judgement normal, mood normal. [] Current Patient Data Vital Signs Vital Signs Date Time Temp Pulse Resp B/P (MAP) Pulse Ox O2 Delivery O2 Flow Rate FiO2 08/06/18 05:45 98.1 103 26 86 Nasal Cannula 3.0 Lab Results Laboratory Tests Test 08/06/18 06:03 White Blood Count 6.8 x10^3/uL (4.0-11.0) Red Blood Count 2.70 x10^6/uL (4.30-5.70) L Hemoglobin 8.3 g/dL (13.0-17.5) L Hematocrit 26.1 % (39.0-53.0) L Mean Corpuscular Volume 97 fL (79-100) Mean Corpuscular Hemoglobin 31 pg (25-35) Mean Corpuscular Hemoglobin Concent 32 g/dL (31-37) Red Cell Distribution Width 16.5 % (11.5-14.5) H Platelet Count 213 x10^3/uL (140-400) Neutrophils (%) (Auto) 81 % (31-73) H Lymphocytes (%) (Auto) 6 % (24-48) L Monocytes (%) (Auto) 10 % (0-9) H Eosinophils (%) (Auto) 2 % (0-3) Basophils (%) (Auto) 1 % (0-3) Neutrophils # (Auto) 5.5 x10^3uL (1.8-7.7) Lymphocytes # (Auto) 0.4 x10^3/uL (1.0-4.8) L Monocytes # (Auto) 0.7 x10^3/uL (0.0-1.1) Eosinophils # (Auto) 0.1 x10^3/uL (0.0-0.7) Basophils # (Auto) 0.1 x10^3/uL (0.0-0.2) EKG EKG EKG shows atrial fibrillation with a rate of 97, left axis deviation, QTC of 474 ms, evidence of a right bundle branch block versus incomplete right bundle- branch block, no acute changes when compared with EKG of 07/01/2018. No ST elevation is present currently, nonspecific ST-T wave changes are present[] Radiology/Procedures Radiology/Procedures Chest x-ray shows no acute features, it is comparable with previous x-ray of 07/01/2018, and may be slightly improved[] Course & Med Decision Making Course & Med Decision Making Pertinent Labs and Imaging studies reviewed. (See chart for details) ED course: Patient arrived, was placed in bed, in tolerated exam well. Patient tolerated the rectal exam without any issues. This was performed due to his new anemia when comparing in reviewing chart with previous records and noting the new anemia. After the return of his lab and imaging studies, these were discussed with the patient and family voiced understanding. All questions were answered. Consultation was made with his primary care physician who graciously accepted him for admission. Medical decision making: Patient appears to have elements of atrial fibrillation with concrete commitment congestive heart failure. His BNP is higher than it has been previously. And this is despite elevation of his home diuretic. He is also noted to be anemic that is also probably contributing to his dyspnea. Uncertain as to the cause of the anemia given that there is no GI blood loss. There is no evidence of an acute coronary syndrome, pneumonia, or pneumothorax.[] Dragon Disclaimer Dragon Disclaimer This electronic medical record was generated, in whole or in part, using a voice recognition dictation system. Departure Departure: Impression: Primary Impression: Acute on chronic diastolic heart failure Additional Impression: Anemia Disposition: ADMITTED INPATIENT Admitting Physician: Duy Rios Condition: GUARDED Referrals: DUY RIOS MD (PCP) Problem Qualifiers Additional Impression: Anemia Anemia type: unspecified type Qualified Codes: D64.9 - Anemia, unspecified GENE SOLIS Aug 06, 2018 06:36
[2018-08-06 06:47] LABS: ALBUMIN 2.9 g/dL (3.4-5.0); ALBUMIN/GLOBULIN RATIO 0.9 (1.0-1.7); CALCIUM 8.4 mg/dL (8.5-10.1); CREATININE 1.4 mg/dL (0.7-1.3); GFR 48.3; POTASSIUM 3.9 mmol/L (3.5-5.1); TOTAL BILIRUBIN 0.7 mg/dL (0.2-1.0); TOTAL PROTEIN 6.3 g/dL (6.4-8.2)
[2018-08-06] MEDS ORDERED: IPRATRPIUM/ALBUTEROL 0.5/2.5MG 3 ML NEBU. NEB ONE (07:00)
[2018-08-06] MEDS ORDERED: FUROSEMIDE 40 MG/4 ML VIAL IVP ONE (07:15)
[2018-08-06 07:22] LABS: FECAL OB PT NEGATIVE (NEG)
[2018-08-06] MEDS ORDERED: ONDANSETRON PF 4 MG/2 ML VIAL. IV PRN ×2 (07:45→09:45)
[2018-08-06] MEDS ORDERED: ACETAMINOPHEN 325 MG TABLET PO PRN ×2 (07:45→10:15)
[2018-08-06] MEDS: IPRATRPIUM/ALBUTEROL 0.5/2.5MG 3 ML NEBU. NEB SCH ×4 (08:00→20:35)
[2018-08-06 08:18] LABS: BILIRUBIN,URINE NEG (NEG); CLARITY,URINE CLEAR; COLOR,URINE YELLOW; GLUCOSE,URINE NEG (NEG); NITRITE,URINE NEG (NEG); UROBILINOGEN,URINE 0.2 mg/dL (0.2 mg/dL)
[2018-08-06 08:19] LABS: BACTERIA,URINE 0 /HPF (0-FEW); HYALINE CASTS, URINE OCC /HPF; RBC,URINE 0 /HPF (0-2); SQUAMOUS EPITHELIAL CELL,UR OCC /LPF; WBC,URINE RARE /HPF (0-4)
--- NOTE | 2018-08-06 08:49 | RAD ---
PORTABLE CHEST 1V History: Shortness of breath Comparison: July 01, 2018; June 14, 2017 Findings: 2 AP portable views of the chest are submitted. Pericardial cardiac silhouette is again somewhat enlarged. There is no pneumothorax or significant pleural fluid. Interstitial opacity bilaterally has not convincingly changed dating back to 2017 exam. There is likely granuloma of the right lung base as seen previously. There is atherosclerotic calcification near aortic arch. Impression: 1. Interstitial opacity bilaterally is unchanged and likely component of chronic interstitial lung disease as findings fairly similar compared with May 2017 exam. Electronically signed by: Fred Lopez MD (08/06/2018 8:45 AM) [id number]
[2018-08-06] MEDS ORDERED: ACETAMINOPHEN PO PRN (10:15)
[2018-08-06] MEDS ORDERED: DIPHENHYDRAMINE PO PRN (10:15)
[2018-08-06] MEDS ORDERED: diphenhydrAMINE HCL 25 MG CAPSULE PO PRN (10:15)
--- NOTE | 2018-08-06 10:50 | PDOC2 ---
CONSULT Date of Admission DATE: 08/06/18 TIME: 10:47 Reason for Consult: chf Problem List Problems Medical Problems: (1) Anemia Status: Acute History of Present Illness Mr Winchester is an 82 year old male last seen in consult 1 month ago. He has a history of persistent atrial fibrillation, chronic diastolic heart failure , severe pulmonary hypertension COPD and pulmonary fibrosis. He presented to the ED with increased shortness of breath for several days. He was seen by his PCP on Friday and apparently had his lasix increased at that time due to leg swelling. He is on chronic home oxygen therapy and was apparently found in the corner of his bed without his oxygen by his who called EMS. He did complain to the ED of exertional dyspnea as well as orthopnea and received IV lasix at that time. He is currently resting quietly in bed. He denies any dyspnea, chest pain or congestive symptoms. He normally follows with Dr Kay at [facility] cardiology. Past Medical History parkinsons disease Cardiovascular: AFIB (chronic), hyperipidemia, Other (murmur) Pulmonary: COPD, Pneumonia, Other (pulmonary fibrosis, chronic oxygen) Musculoskeletal: Weakness Renal/: Urinary Incontinence Past Surgical History Appendectomy, left fem-pop, inguinal hernia repair, failed right leg bypass, angioplasty 2010. Family History non contributory due to age Social History he denies smoking, etoh or illicit drugs and reports that he lives at home with his . Current Medications Current Medications Albuterol/ Ipratropium (Duoneb) 3 ml 1X ONCE NEB Last administered on at 06:56; Start 08/06/18 at 07:00; Stop 08/06/18 at 07:01; Status DC Furosemide (Lasix) 40 mg 1X ONCE IVP Last administered on 08/06/18at 07:23; Start 08/06/18 at 07:15; Stop 08/06/18 at 07:16; Status DC Ondansetron HCl (Zofran) 4 mg PRN Q4HRS PRN IV NAUSEA/VOMITING; Start 08/06/18 at 07:45; Stop 08/07/18 at 07:44 Acetaminophen (Tylenol) 650 mg PRN Q4HRS PRN PO FEVER; Start 08/06/18 at 07:45 ; Stop 08/07/18 at 07:44 Albuterol/ Ipratropium (Duoneb) 3 ml RTQID NEB ; Start 08/06/18 at 08:00; Stop 08/07/18 at 07:59 Ondansetron HCl (Zofran) 4 mg PRN Q8HRS PRN IV NAUSEA/VOMITING; Start 08/06/18 at 09:45 Acetaminophen (Tylenol) 325 mg PRN Q6HRS PRN PO PAIN / TEMP; Start 08/06/18 at 10:15 Aspirin (Kezia Aspirin) 325 mg DAILY PO ; Start 08/07/18 at 09:00 Carbidopa/Levodopa (Sinemet 25/100) 2 tab TID PO ; Start 08/06/18 at 14:00 Citalopram Hydrobromide (CeleXA) 10 mg DAILY PO ; Start 08/07/18 at 09:00 Diphenhydramine HCl (Benadryl) 50 mg PRN QHS PRN PO SLEEP; Start 08/06/18 at 10 :15; Status UNV Gabapentin (Neurontin) 100 mg TID PO ; Start 08/06/18 at 14:00 Albuterol/ Ipratropium (Duoneb) 3 ml TID NEB ; Start 08/06/18 at 14:00 Metoprolol Succinate (Toprol Xl) 25 mg DAILY PO ; Start 08/07/18 at 09:00 Potassium Chloride (Klor-Con) 20 meq DAILY PO ; Start 08/07/18 at 09:00; Status UNV Tamsulosin HCl (Flomax) 0.4 mg DAILY PO ; Start 08/07/18 at 09:00; Status UNV Non-Formulary Medication (Acetaminophen/ Diphenhydramine (Acetaminophen Pm Caplet)) 2 each QHS PRN PO INSOMNIA; Start 08/06/18 at 10:15; Status UNV Non-Formulary Medication (Amlodipine Besylate (Norvasc)) 5 mg DAILY PO ; Start 08/07/18 at 09:00; Status UNV Non-Formulary Medication (Apixaban (Eliquis)) 5 mg BID PO ; Start 08/06/18 at 21 :00; Status UNV Non-Formulary Medication (Benzonatate ) 100 mg [id number] PO ; Start 08/06/18 at 14: 00; Status UNV Non-Formulary Medication (Escitalopram Oxalate (Lexapro)) 5 mg DAILY PO ; Start 08/07/18 at 09:00; Status UNV Non-Formulary Medication (Finasteride ) 5 mg DAILY PO ; Start 08/07/18 at 09:00 ; Status UNV Non-Formulary Medication (Furosemide ) 1 tab DAILY PO ; Start 08/07/18 at 09:00 ; Status UNV Non-Formulary Medication (Glipizide ) 5 mg BID PO ; Start 08/06/18 at 21:00; Status UNV Non-Formulary Medication (Lidocaine ) 1 patch DAILY TD ; Start 08/07/18 at 09:00 ; Status UNV Non-Formulary Medication (Mirabegron (Myrbetriq)) 50 mg QODAY PO ; Start at 09:00; Status UNV Non-Formulary Medication (Repaglinide ) 1 tab TID PO ; Start 08/06/18 at 14:00; Status UNV Non-Formulary Medication (Ropinirole Hcl ) 1 tab TID PO ; Start 08/06/18 at 14: 00; Status UNV Non-Formulary Medication (Rosuvastatin Calcium (Crestor)) 5 mg HS PO ; Start 05/15 at 21:00; Status UNV Active Scripts Active Eliquis (Apixaban) 5 Mg Tablet 5 Mg PO BID Celexa (Citalopram Hydrobromide) 10 Mg Tablet 10 Mg PO DAILY Lidocaine 1 Each Adh..patch 1 Patch TD DAILY Benzonatate 100 Mg Capsule 100 Mg PO [id number] Tylenol (Acetaminophen) 325 Mg Tablet 325 Mg PO PRN Q6HRS PRN Furosemide 40 Mg Tablet 1 Tab PO DAILY Benadryl (Diphenhydramine Hcl) 25 Mg Capsule 50 Mg PO PRN QHS PRN 30 Days Finasteride 5 Mg Tablet 5 Mg PO DAILY 30 Days Myrbetriq (Mirabegron) 50 Mg Tab.er.24h 50 Mg PO QODAY Klor-Con M20 (Potassium Chloride) 20 Meq Tab.er.prt 20 Meq PO DAILY 30 Days Metoprolol Succinate ( Xl ) (Metoprolol Succinate) 25 Mg Tab.er.24h 25 Mg PO DAILY 30 Days Duoneb 0.5-3(2.5) Mg/3 Ml (Albuterol/Ipratropium) 3 Ml Ampul.neb 3 Ml NEB TID 30 Days Gabapentin (Gabapentin) 100 Mg Capsule 100 Mg PO TID 30 Days Reported Ropinirole Hcl 1 Mg Tablet 1 Tab PO TID LAST DOSE GIVEN: DATE: TODAY TIME: AFTERNOON NEXT DOSE DUE: DATE: TODAY TIME: PM Repaglinide 1 Mg Tablet 1 Tab PO TID LAST DOSE GIVEN: DATE: TIME: BEFORE LUNCH NEXT DOSE DUE: DATE: TIME: BEFORE DINNER Tamsulosin Hcl 0.4 Mg Cap.er.24h 1 Tab PO DAILY LAST DOSE GIVEN: DATE: TODAY TIME: AM NEXT DOSE DUE: DATE: TOMORROW TIME: AM Glipizide 5 Mg Tablet 5 Mg PO BID LAST DOSE GIVEN: DATE: TIME: AM NEXT DOSE DUE: DATE: TIME: PM Crestor (Rosuvastatin Calcium) 5 Mg Tablet 5 Mg PO HS LAST DOSE GIVEN: DATE: YESTER TIME: AT BEDTIME NEXT DOSE DUE: DATE: TIME: AT BEDTIME Acetaminophen Pm Caplet (Acetaminophen/Diphenhydramine) 1 Each Tablet 2 Each PO QHS PRN Lexapro (Escitalopram Oxalate) 5 Mg Tablet 5 Mg PO DAILY Sinemet 25-100 Mg Tablet (Carbidopa/Levodopa) 1 Each Tablet 2 Tab PO TID LAST DOSE GIVEN: DATE: TIME: AFTGERNOON NEXT DOSE DUE: DATE: TODAY TIME: PM Aspirin 325 Mg Tablet 325 Mg PO DAILY Norvasc (Amlodipine Besylate) 5 Mg Tablet 5 Mg PO DAILY LAST DOSE GIVEN: DATE: TIME: AM NEXT DOSE DUE: DATE: TOMORR TIME: AM Allergies: Coded Allergies: codeine (Verified Allergy, Intermediate, 06/06/15) shrimp (Unverified Allergy, Intermediate, 02/01/16) turkey (Unverified Allergy, Mild, 06/06/15) shellfish derived (Verified Allergy, Unknown, 08/01/17) Review of System ROS as per HPI General: Alert, Cooperative, No acute distress HEENT: Atraumatic, EOMI Lungs: Other (decreased bases with occasional scattered crackles, no wheezing or rhonchi) Heart: Other (irregular irregular without gallops, clicks or rubs) Abdomen: Normal bowel sounds, Soft, No tenderness Extremities: No cyanosis, No edema Neuro: Normal speech Psych/Mental Status: Mood NL VITALS Vital Signs Date Time Temp Pulse Resp B/P (MAP) Pulse Ox O2 Delivery O2 Flow Rate FiO2 08/06/18 09:30 90 20 117/67 (84) Nasal Cannula 98.0 08/06/18 09:15 97.6 08/06/18 08:36 91 Labs Laboratory Tests Test 08/06/18 06:03 08/06/18 06:48 08/06/18 07:54 White Blood Count 6.8 x10^3/uL (4.0-11.0) Red Blood Count 2.70 x10^6/uL (4.30-5.70) Hemoglobin 8.3 g/dL (13.0-17.5) Hematocrit 26.1 % (39.0-53.0) Mean Corpuscular Volume 97 fL (79-100) Mean Corpuscular Hemoglobin 31 pg (25-35) Mean Corpuscular Hemoglobin Concent 32 g/dL (31-37) Red Cell Distribution Width 16.5 % (11.5-14.5) Platelet Count 213 x10^3/uL (140-400) Neutrophils (%) (Auto) 81 % (31-73) Lymphocytes (%) (Auto) 6 % (24-48) Monocytes (%) (Auto) 10 % (0-9) Eosinophils (%) (Auto) 2 % (0-3) Basophils (%) (Auto) 1 % (0-3) Neutrophils # (Auto) 5.5 x10^3uL (1.8-7.7) Lymphocytes # (Auto) 0.4 x10^3/uL (1.0-4.8) Monocytes # (Auto) 0.7 x10^3/uL (0.0-1.1) Eosinophils # (Auto) 0.1 x10^3/uL (0.0-0.7) Basophils # (Auto) 0.1 x10^3/uL (0.0-0.2) Prothrombin Time 14.2 SEC (9.4-11.4) Prothromb Time International Ratio 1.5 (0.9-1.1) Sodium Level 137 mmol/L (136-145) Potassium Level 3.9 mmol/L (3.5-5.1) Chloride Level 101 mmol/L (98-107) Carbon Dioxide Level 24 mmol/L (21-32) Anion Gap 12 (6-14) Blood Urea Nitrogen 41 mg/dL (8-26) Creatinine 1.4 mg/dL (0.7-1.3) Estimated GFR (Cockcroft-Gault) 48.3 BUN/Creatinine Ratio 29 (6-20) Glucose Level 115 mg/dL (70-99) Calcium Level 8.4 mg/dL (8.5-10.1) Total Bilirubin 0.7 mg/dL (0.2-1.0) Aspartate Amino Transf (AST/SGOT) 17 U/L (15-37) Alanine Aminotransferase (ALT/SGPT) 9 U/L (16-63) Alkaline Phosphatase 133 U/L (46-116) Troponin I Quantitative 0.019 ng/mL (0-0.055) MI-Zto-G-Type Natriuretic Peptide 3897 pg/mL (0-449) Total Protein 6.3 g/dL (6.4-8.2) Albumin 2.9 g/dL (3.4-5.0) Albumin/Globulin Ratio 0.9 (1.0-1.7) Stool Occult Blood Negative (NEG) Urine Collection Type Void Urine Color Yellow Urine Clarity Clear Urine pH 5.5 Urine Specific [place] 1.010 Urine Protein Neg (NEG-TRACE) Urine Glucose (UA) Neg mg/dL (NEG) Urine Ketones (Stick) Neg mg/dL (NEG) Urine Blood Neg (NEG) Urine Nitrite Neg (NEG) Urine Bilirubin Neg (NEG) Urine Urobilinogen Dipstick 0.2 mg/dL (0.2 mg/dL) Urine Leukocyte Esterase Neg (NEG) Urine RBC 0 /HPF (0-2) Urine WBC Rare /HPF (0-4) Urine Squamous Epithelial Cells Occ /LPF Urine Bacteria 0 /HPF (0-FEW) Urine Hyaline Casts Occ /HPF Urine Mucus Slight /LPF Images CXR - 1. Interstitial opacity bilaterally is unchanged and likely component of chronic interstitial lung disease as findings fairly similar compared with May 2017 exam. Assessment/Plan 1. acute on chronic respiratory failure in the setting of known pulmonary fibrosis, COPD and severe PHTN. No overt heart failure, CXR without pulmonary congestion. 2. chronic diastolic HF - no overt fluid overload at this point. 3. mild Trop elevation, demand mediated. Angina free. Continue medical therapy. Request records. 4. atrial fibrillation with controlled ventricular response, persistent- Apixaban for stroke prophylaxis. Toprol for rate control. 5. hyperlipidemia - lipids on 07/01/18 with LDL at goal, low HDL, controlled Tgs. Continue statin. 6. parkinson's - per PCP D[employer] Aug 06, 2018 10:50
[2018-08-06] MEDS ORDERED: REPAGLINIDE 1 MG TABLET PO SCH (11:30)
[2018-08-06 13:39] LABS: CALCIUM 8.3 mg/dL (8.5-10.1); CREATININE 1.3 mg/dL (0.7-1.3); GFR 52.6; POTASSIUM 3.4 mmol/L (3.5-5.1)
[2018-08-06] MEDS ORDERED: POTASSIUM CHLORIDE 20 MEQ TABLET.ER. PO ONE (14:00)
[2018-08-06] MEDS ORDERED: DEXTROSE 50% 25 GM / 50ML DISP.SYRIN. IV PRN (14:00)
[2018-08-06] MEDS: rOPINIRole 1 MG TABLET. PO SCH ×2 (14:07→21:42)
[2018-08-06] MEDS: CARBIDOPA/LEVODOPA 25/100MG TABLET PO SCH ×2 (14:07→21:42)
[2018-08-06] MEDS: GABAPENTIN 100 MG CAPSULE. PO SCH ×2 (14:07→21:43)
[2018-08-06] MEDS: BENZONATATE 100 MG CAPSULE. PO SCH ×2 (14:07→21:43)
[2018-08-06] MEDS: glipiZIDE 5 MG TABLET PO SCH (16:30)
[2018-08-06] MEDS: INSULIN LISPRO 300 UNITS/3 ML INSULN.PEN. SQ SCH (16:47)
--- NOTE | 2018-08-06 17:35 | EKG ---
[address] [address] Test Date: 2018-08-06 Test Time: 05:47:41 Pat Name: DAVID SHIRLEY Department: Room: [facility] 1 Gender: M Process Inspector: : [id number] Requested By: BANDAR THOMPSON Order Number: [id number] Reading MD: Niranjan Lopez Measurements Intervals Sylvia Rate: 97 P: CO: QRS: -34 QRSD: 118 T: 8 QT: 370 QTc: 474 Interpretive Statements ATRIAL FIBRILLATION ABNORMAL LEFT AXIS DEVIATION INCOMPLETE RIGHT BUNDLE BRANCH BLOCK QRS(T) CONTOUR ABNORMALITY CONSISTENT WITH INFERIOR INFARCT PROBABLY OLD ABNORMAL ECG Electronically Signed On 08-11-2018 9:28:21 ON AIR HOST by Niranjan Lopez
[2018-08-06] MEDS: APIXABAN 5 MG TABLET. PO SCH (21:43)
[2018-08-06] MEDS: ATORVASTATIN CALCIUM 20 MG TABLET PO SCH (21:43)
[2018-08-07] VITALS (7 sets, daily range): BP systolic 90–113; BP diastolic 53–71
[2018-08-07] MEDS: IPRATRPIUM/ALBUTEROL 0.5/2.5MG 3 ML NEBU. NEB SCH ×3 (05:08→20:31)
[2018-08-07 06:32] LABS: BASO % 1 % (0-3); EOS # 0.2 x10^3/uL (0.0-0.7); EOS % 3 % (0-3); HEMATOCRIT 27.1 % (39.0-53.0); HEMOGLOBIN 8.6 g/dL (13.0-17.5); LYMPH # 0.6 x10^3/uL (1.0-4.8); LYMPH % 8 % (24-48); MEAN CORPUSCULAR HEMOGLOBIN 30 pg (25-35); MEAN CORPUSCULAR HGB CONC 32 g/dL (31-37); MEAN CORPUSCULAR VOLUME 95 fL (79-100); MONO % 13 % (0-9); NEUT # 5.4 x10^3uL (1.8-7.7); NEUT % 75 % (31-73); PLATELET COUNT 222 x10^3/uL (140-400); RED BLOOD COUNT 2.84 x10^6/uL (4.30-5.70); RED CELL DISTRIBUTION WIDTH 16.2 % (11.5-14.5); WHITE BLOOD COUNT 7.2 x10^3/uL (4.0-11.0)
[2018-08-07 06:51] LABS: CALCIUM 8.2 mg/dL (8.5-10.1); CREATININE 1.1 mg/dL (0.7-1.3); GFR 63.8; POTASSIUM 3.6 mmol/L (3.5-5.1)
[2018-08-07] MEDS: glipiZIDE 5 MG TABLET PO SCH ×2 (07:30→16:30)
[2018-08-07] MEDS: INSULIN LISPRO 300 UNITS/3 ML INSULN.PEN. SQ SCH ×3 (08:00→17:00)
--- NOTE | 2018-08-07 08:52 | PDOC ---
PROGRESS NOTES Diagnosis Problem Problems Medical Problems: (1) Anemia Status: Acute Assessment Problems Medical Problems: (1) Anemia Status: Acute 1. acute on chronic respiratory failure in the setting of known pulmonary fibrosis, COPD and severe PHTN. No overt heart failure, CXR without pulmonary congestion. 2. chronic diastolic HF - no overt fluid overload at this point. 3. mild Trop elevation, demand mediated. Angina free. Continue medical therapy. Requested records pending. 4. atrial fibrillation with controlled ventricular response, persistent- Apixaban for stroke prophylaxis. Toprol for rate control. 5. hyperlipidemia - lipids on 07/01/18 with LDL at goal, low HDL, controlled Tgs. Continue statin. 6. parkinson's - per PCP No significant decompensation of heart failure, Exacerbation of COPD likely secondary to noncompliance with oxygen. Subjective denies shortness of breath, chest pain, palpitations. Objective Vital Signs Date Time Temp Pulse Resp B/P (MAP) Pulse Ox O2 Delivery O2 Flow Rate FiO2 08/07/18 05:09 94 Nasal Cannula 3.0 08/07/18 04:57 98.0 85 24 113/65 (81) Intake and Output 08/07/18 07:01 Intake Total 440 ml Output Total 1490 ml Balance -1050 ml Intake Oral 440 ml Output Urine Total 1490 ml # Voids 5 Physical Exam General: Alert, Cooperative, No acute distress HEENT: Atraumatic, EOMI Lungs: Other (decreased bases with occasional scattered crackles, no wheezing or rhonchi) Heart: Other (irregular irregular without gallops, clicks or rubs) Abdomen: Normal bowel sounds, Soft, No tenderness Extremities: No cyanosis, No edema Neuro: Normal speech Psych/Mental Status: Mood NL Review of Relevant I have reviewed the following items lillian (where applicable) has been applied. Labs Laboratory Tests Test 08/06/18 06:03 08/06/18 06:48 08/06/18 07:54 08/06/18 10:32 White Blood Count 6.8 x10^3/uL (4.0-11.0) Red Blood Count 2.70 x10^6/uL (4.30-5.70) Hemoglobin 8.3 g/dL (13.0-17.5) Hematocrit 26.1 % (39.0-53.0) Mean Corpuscular Volume 97 fL (79-100) Mean Corpuscular Hemoglobin 31 pg (25-35) Mean Corpuscular Hemoglobin Concent 32 g/dL (31-37) Red Cell Distribution Width 16.5 % (11.5-14.5) Platelet Count 213 x10^3/uL (140-400) Neutrophils (%) (Auto) 81 % (31-73) Lymphocytes (%) (Auto) 6 % (24-48) Monocytes (%) (Auto) 10 % (0-9) Eosinophils (%) (Auto) 2 % (0-3) Basophils (%) (Auto) 1 % (0-3) Neutrophils # (Auto) 5.5 x10^3uL (1.8-7.7) Lymphocytes # (Auto) 0.4 x10^3/uL (1.0-4.8) Monocytes # (Auto) 0.7 x10^3/uL (0.0-1.1) Eosinophils # (Auto) 0.1 x10^3/uL (0.0-0.7) Basophils # (Auto) 0.1 x10^3/uL (0.0-0.2) Prothrombin Time 14.2 SEC (9.4-11.4) Prothromb Time International Ratio 1.5 (0.9-1.1) Sodium Level 137 mmol/L (136-145) Potassium Level 3.9 mmol/L (3.5-5.1) Chloride Level 101 mmol/L (98-107) Carbon Dioxide Level 24 mmol/L (21-32) Anion Gap 12 (6-14) Blood Urea Nitrogen 41 mg/dL (8-26) Creatinine 1.4 mg/dL (0.7-1.3) Estimated GFR (Cockcroft-Gault) 48.3 BUN/Creatinine Ratio 29 (6-20) Glucose Level 115 mg/dL (70-99) Calcium Level 8.4 mg/dL (8.5-10.1) Total Bilirubin 0.7 mg/dL (0.2-1.0) Aspartate Amino Transf (AST/SGOT) 17 U/L (15-37) Alanine Aminotransferase (ALT/SGPT) 9 U/L (16-63) Alkaline Phosphatase 133 U/L (46-116) Troponin I Quantitative 0.019 ng/mL (0-0.055) 0.055 ng/mL (0-0.055) EF-Aaa-J-Type Natriuretic Peptide 3897 pg/mL (0-449) Total Protein 6.3 g/dL (6.4-8.2) Albumin 2.9 g/dL (3.4-5.0) Albumin/Globulin Ratio 0.9 (1.0-1.7) Stool Occult Blood Negative (NEG) Urine Collection Type Void Urine Color Yellow Urine Clarity Clear Urine pH 5.5 Urine Specific [place] 1.010 Urine Protein Neg (NEG-TRACE) Urine Glucose (UA) Neg mg/dL (NEG) Urine Ketones (Stick) Neg mg/dL (NEG) Urine Blood Neg (NEG) Urine Nitrite Neg (NEG) Urine Bilirubin Neg (NEG) Urine Urobilinogen Dipstick 0.2 mg/dL (0.2 mg/dL) Urine Leukocyte Esterase Neg (NEG) Urine RBC 0 /HPF (0-2) Urine WBC Rare /HPF (0-4) Urine Squamous Epithelial Cells Occ /LPF Urine Bacteria 0 /HPF (0-FEW) Urine Hyaline Casts Occ /HPF Urine Mucus Slight /LPF Test 08/06/18 11:36 08/06/18 12:00 08/06/18 13:23 08/06/18 16:32 Glucose (Fingerstick) 152 mg/dL (70-99) 105 mg/dL (70-99) Nasal Screen MRSA (PCR) Negative (Negative) Sodium Level 137 mmol/L (136-145) Potassium Level 3.4 mmol/L (3.5-5.1) Chloride Level 99 mmol/L (98-107) Carbon Dioxide Level 27 mmol/L (21-32) Anion Gap 11 (6-14) Blood Urea Nitrogen 41 mg/dL (8-26) Creatinine 1.3 mg/dL (0.7-1.3) Estimated GFR (Cockcroft-Gault) 52.6 Glucose Level 220 mg/dL (70-99) Calcium Level 8.3 mg/dL (8.5-10.1) Troponin I Quantitative 0.059 ng/mL (0-0.055) Test 08/06/18 21:38 08/07/18 05:37 08/07/18 08:11 Glucose (Fingerstick) 72 mg/dL (70-99) 78 mg/dL (70-99) White Blood Count 7.2 x10^3/uL (4.0-11.0) Red Blood Count 2.84 x10^6/uL (4.30-5.70) Hemoglobin 8.6 g/dL (13.0-17.5) Hematocrit 27.1 % (39.0-53.0) Mean Corpuscular Volume 95 fL (79-100) Mean Corpuscular Hemoglobin 30 pg (25-35) Mean Corpuscular Hemoglobin Concent 32 g/dL (31-37) Red Cell Distribution Width 16.2 % (11.5-14.5) Platelet Count 222 x10^3/uL (140-400) Neutrophils (%) (Auto) 75 % (31-73) Lymphocytes (%) (Auto) 8 % (24-48) Monocytes (%) (Auto) 13 % (0-9) Eosinophils (%) (Auto) 3 % (0-3) Basophils (%) (Auto) 1 % (0-3) Neutrophils # (Auto) 5.4 x10^3uL (1.8-7.7) Lymphocytes # (Auto) 0.6 x10^3/uL (1.0-4.8) Monocytes # (Auto) 1.0 x10^3/uL (0.0-1.1) Eosinophils # (Auto) 0.2 x10^3/uL (0.0-0.7) Basophils # (Auto) 0.0 x10^3/uL (0.0-0.2) Sodium Level 137 mmol/L (136-145) Potassium Level 3.6 mmol/L (3.5-5.1) Chloride Level 101 mmol/L (98-107) Carbon Dioxide Level 27 mmol/L (21-32) Anion Gap 9 (6-14) Blood Urea Nitrogen 27 mg/dL (8-26) Creatinine 1.1 mg/dL (0.7-1.3) Estimated GFR (Cockcroft-Gault) 63.8 Glucose Level 81 mg/dL (70-99) Calcium Level 8.2 mg/dL (8.5-10.1) Magnesium Level 2.0 mg/dL (1.8-2.4) Medications Current Medications Albuterol/ Ipratropium (Duoneb) 3 ml 1X ONCE NEB Last administered on at 06:56; Start 08/06/18 at 07:00; Stop 08/06/18 at 07:01; Status DC Furosemide (Lasix) 40 mg 1X ONCE IVP Last administered on 08/06/18at 07:23; Start 08/06/18 at 07:15; Stop 08/06/18 at 07:16; Status DC Ondansetron HCl (Zofran) 4 mg PRN Q4HRS PRN IV NAUSEA/VOMITING; Start 08/06/18 at 07:45; Stop 08/07/18 at 07:44; Status Cancel Acetaminophen (Tylenol) 650 mg PRN Q4HRS PRN PO FEVER; Start 08/06/18 at 07:45 ; Stop 08/07/18 at 07:44; Status Cancel Albuterol/ Ipratropium (Duoneb) 3 ml RTQID NEB ; Start 08/06/18 at 08:00; Stop 08/06/18 at 14:26; Status DC Ondansetron HCl (Zofran) 4 mg PRN Q8HRS PRN IV NAUSEA/VOMITING; Start 08/06/18 at 09:45 Acetaminophen (Tylenol) 325 mg PRN Q6HRS PRN PO PAIN / TEMP; Start 08/06/18 at 10:15 Aspirin (Kezia Aspirin) 325 mg DAILY PO ; Start 08/07/18 at 09:00 Carbidopa/Levodopa (Sinemet 25/100) 2 tab TID PO Last administered on at 21:42; Start 08/06/18 at 14:00 Citalopram Hydrobromide (CeleXA) 10 mg DAILY PO ; Start 08/07/18 at 09:00 Diphenhydramine HCl (Benadryl) 50 mg PRN QHS PRN PO SLEEP; Start 08/06/18 at 10 :15 Gabapentin (Neurontin) 100 mg TID PO Last administered on 08/06/18at 21:43; Start 08/06/18 at 14:00 Albuterol/ Ipratropium (Duoneb) 3 ml TID NEB Last administered on 08/07/18at 05: 08; Start 08/06/18 at 14:00 Metoprolol Succinate (Toprol Xl) 25 mg DAILY PO ; Start 08/07/18 at 09:00 Potassium Chloride (Klor-Con) 20 meq DAILY PO ; Start 08/07/18 at 09:00 Tamsulosin HCl (Flomax) 0.4 mg DAILY PO ; Start 08/07/18 at 09:00 Non-Formulary Medication (Acetaminophen/ Diphenhydramine (Acetaminophen Pm Caplet)) 2 each QHS PRN PO INSOMNIA; Start 08/06/18 at 10:15; Stop 08/06/18 at 11:12; Status DC Amlodipine Besylate (Norvasc) 5 mg DAILY PO ; Start 08/07/18 at 09:00 Apixaban (Eliquis) 5 mg BID PO Last administered on 08/06/18at 21:43; Start 05/15 at 21:00 Benzonatate (Tessalon Perle) 100 mg [id number] PO Last administered on 08/06/18at 21 :43; Start 08/06/18 at 14:00 Non-Formulary Medication (Escitalopram Oxalate (Lexapro)) 5 mg DAILY PO ; Start 08/07/18 at 09:00; Stop 08/07/18 at 09:00; Status DC Finasteride (Proscar) 5 mg DAILY PO ; Start 08/07/18 at 09:00 Furosemide (Lasix) 40 mg DAILY PO ; Start 08/07/18 at 09:00 Glipizide (Glucotrol) 5 mg [id number] PO Last administered on 08/06/18at 16:30; Start 08/06/18 at 16:30 Lidocaine (Lidoderm) 1 patch DAILY TD ; Start 08/07/18 at 09:00 Mirabegron (Myrbetriq) 50 mg QODAY PO ; Start 08/07/18 at 09:00 Repaglinide (Prandin) 1 mg TIDAC PO ; Start 08/06/18 at 11:30; Stop 08/06/18 at 16:55; Status DC Ropinirole HCl (Requip) 1 mg TID PO Last administered on 08/06/18at 21:42; Start 08/06/18 at 14:00 Atorvastatin Calcium (Lipitor) 20 mg QHS PO Last administered on 08/06/18at 21: 43; Start 08/06/18 at 21:00 Potassium Chloride (Klor-Con) 40 meq 1X ONCE PO Last administered on at 14:08; Start 08/06/18 at 14:00; Stop 08/06/18 at 14:02; Status DC Insulin Human Lispro (HumaLOG) 0-7 UNITS TIDWMEALS SQ ; Start 08/06/18 at 17:00 Dextrose 12.5 gm PRN Q15MIN PRN IV SEE COMMENTS; Start 08/06/18 at 14:00 Active Scripts Active Eliquis (Apixaban) 5 Mg Tablet 5 Mg PO BID Celexa (Citalopram Hydrobromide) 10 Mg Tablet 10 Mg PO DAILY Lidocaine 1 Each Adh..patch 1 Patch TD DAILY Benzonatate 100 Mg Capsule 100 Mg PO [id number] Tylenol (Acetaminophen) 325 Mg Tablet 325 Mg PO PRN Q6HRS PRN Furosemide 40 Mg Tablet 1 Tab PO DAILY Benadryl (Diphenhydramine Hcl) 25 Mg Capsule 50 Mg PO PRN QHS PRN 30 Days Finasteride 5 Mg Tablet 5 Mg PO DAILY 30 Days Myrbetriq (Mirabegron) 50 Mg Tab.er.24h 50 Mg PO QODAY Klor-Con M20 (Potassium Chloride) 20 Meq Tab.er.prt 20 Meq PO DAILY 30 Days Metoprolol Succinate ( Xl ) (Metoprolol Succinate) 25 Mg Tab.er.24h 25 Mg PO DAILY 30 Days Duoneb 0.5-3(2.5) Mg/3 Ml (Albuterol/Ipratropium) 3 Ml Ampul.neb 3 Ml NEB TID 30 Days Gabapentin (Gabapentin) 100 Mg Capsule 100 Mg PO TID 30 Days Reported Ropinirole Hcl 1 Mg Tablet 1 Tab PO TID LAST DOSE GIVEN: DATE: TODAY TIME: AFTERNOON NEXT DOSE DUE: DATE: TODAY TIME: PM Repaglinide 1 Mg Tablet 1 Tab PO TID LAST DOSE GIVEN: DATE: TODAY TIME: BEFORE LUNCH NEXT DOSE DUE: DATE: TODAY TIME: BEFORE DINNER Tamsulosin Hcl 0.4 Mg Cap.er.24h 1 Tab PO DAILY LAST DOSE GIVEN: DATE: TODAY TIME: AM NEXT DOSE DUE: DATE: TOMORROW TIME: AM Glipizide 5 Mg Tablet 5 Mg PO BID LAST DOSE GIVEN: DATE: TODAY TIME: AM NEXT DOSE DUE: DATE: TODAY TIME: PM Crestor (Rosuvastatin Calcium) 5 Mg Tablet 5 Mg PO HS LAST DOSE GIVEN: DATE: YESTERDAY TIME: AT BEDTIME NEXT DOSE DUE: DATE: TODAY TIME: AT BEDTIME Acetaminophen Pm Caplet (Acetaminophen/Diphenhydramine) 1 Each Tablet 2 Each PO QHS PRN Lexapro (Escitalopram Oxalate) 5 Mg Tablet 5 Mg PO DAILY Sinemet 25-100 Mg Tablet (Carbidopa/Levodopa) 1 Each Tablet 2 Tab PO TID LAST DOSE GIVEN: DATE: TODAY TIME: AFTGERNOON NEXT DOSE DUE: DATE: TODAY TIME: PM Aspirin 325 Mg Tablet 325 Mg PO DAILY Norvasc (Amlodipine Besylate) 5 Mg Tablet 5 Mg PO DAILY LAST DOSE GIVEN: DATE: TODAY TIME: AM NEXT DOSE DUE: DATE: TOMORROW TIME: AM Vitals/I & O Vital Sign - Last 24 Hours 08/06/18 08/06/18 08/06/18 08/06/18 09:15 09:30 11:55 14:16 Temp 97.6 97.9 Pulse 92 90 92 96 Resp 22 20 22 22 B/P (MAP) 133/70 (91) 117/67 (84) 117/78 (91) 119/63 (81) Pulse Ox 98 96 O2 Delivery Nasal Cannula Nasal Cannula Nasal Cannula O2 Flow Rate 98.0 3.0 3.0 08/06/18 08/06/18 08/06/18 08/06/18 15:37 18:44 20:30 20:30 Temp 97.6 98.7 Pulse 93 82 Resp 20 24 B/P (MAP) 103/56 (72) 95/59 (71) Pulse Ox 93 93 95 O2 Delivery Nasal Cannula Nasal Cannula Nasal Cannula Nasal Cannula O2 Flow Rate 3.0 3.0 3.0 3.0 08/06/18 08/06/18 08/07/18 08/07/18 20:37 21:37 00:30 04:57 Temp 97.5 98.0 Pulse 90 85 Resp 22 24 B/P (MAP) 124/60 (81) 112/71 (85) 113/65 (81) Pulse Ox 95 95 96 95 O2 Delivery Nasal Cannula Nasal Cannula Nasal Cannula Nasal Cannula O2 Flow Rate 3.0 3.0 3.0 3.0 08/07/18 05:09 Pulse Ox 94 O2 Delivery Nasal Cannula O2 Flow Rate 3.0 Intake and Output 08/06/18 08/06/1808/07/19 15:01 23:01 07:01 Intake Total 340 ml 100 ml Output Total 1490 ml Balance -1490 ml 340 ml 100 ml [employer] Aug 07, 2018 08:52
[2018-08-07] MEDS: APIXABAN 5 MG TABLET. PO SCH ×2 (08:56→20:31)
[2018-08-07] MEDS: CITALOPRAM 10 MG TABLET. PO SCH (08:56)
[2018-08-07] MEDS: amLODIPine BESYLATE 5 MG TABLET PO SCH (08:59)
[2018-08-07] MEDS: rOPINIRole 1 MG TABLET. PO SCH ×3 (08:59→20:31)
[2018-08-07] MEDS: METOPROLOL SUCC 24HR ER 25 MG TAB.ER.24H. PO SCH (08:59)
[2018-08-07] MEDS: LIDOCAINE (700MG/PATCH) PATCH. TD SCH (08:59)
[2018-08-07] MEDS: FINASTERIDE 5 MG TABLET PO SCH (08:59)
[2018-08-07] MEDS: MIRABEGRON 25 MG TAB.ER.24H PO SCH (09:00)
[2018-08-07] MEDS: CARBIDOPA/LEVODOPA 25/100MG TABLET PO SCH ×3 (09:00→20:30)
[2018-08-07] MEDS: ASPIRIN 325 MG TABLET PO SCH (09:00)
[2018-08-07] MEDS: GABAPENTIN 100 MG CAPSULE. PO SCH ×3 (09:00→20:31)
[2018-08-07] MEDS: TAMSULOSIN 0.4 MG CAP.ER.24H. PO SCH (09:00)
[2018-08-07] MEDS ORDERED: ESCITALOPRAM OXALATE 5 MG PO SCH (09:00)
[2018-08-07] MEDS: BENZONATATE 100 MG CAPSULE. PO SCH ×3 (09:00→20:31)
[2018-08-07] MEDS: POTASSIUM CHLORIDE 20 MEQ TABLET.ER. PO SCH (09:00)
[2018-08-07] MEDS: FUROSEMIDE 40 MG TABLET PO SCH (09:01)
--- NOTE | 2018-08-07 10:29 | PDOC ---
PROGRESS NOTES Diagnosis Problem Problems Medical Problems: (1) Anemia Status: Acute Assessment Problems Medical Problems: (1) Anemia Status: Acute 1. acute on chronic respiratory failure in the setting of known pulmonary fibrosis, COPD and severe PHTN. No overt heart failure, CXR without pulmonary congestion. Maintaining Sao2 on 3 liters nasal cannula. 2. chronic diastolic HF - no overt fluid overload at this point. 3. mild Trop elevation, demand mediated. Angina free. Continue medical therapy. 4. atrial fibrillation with controlled ventricular response, persistent- Apixaban for stroke prophylaxis. Toprol for rate control. 5. hyperlipidemia - lipids on 07/01/18 with LDL at goal, low HDL, controlled Tgs. Continue statin. 6. parkinson's - per PCP Subjective no complaints of chest pain, palpitations, lightheadedness. no significant shortness of breath Objective Vital Signs Date Time Temp Pulse Resp B/P (MAP) Pulse Ox O2 Delivery O2 Flow Rate FiO2 08/07/18 08:59 101 113/65 08/07/18 05:09 94 Nasal Cannula 3.0 08/07/18 04:57 98.0 24 Intake and Output 08/07/18 07:01 Intake Total 440 ml Output Total 1490 ml Balance -1050 ml Intake Oral 440 ml Output Urine Total 1490 ml # Voids 5 Abdomen: Normal bowel sounds, Soft, No tenderness Heart: Regular rate, Other (irregularly irregular rhythm, no gallops, clicks or rubs) Extremities: No cyanosis, No edema General: Alert, Cooperative, No acute distress HEENT: Atraumatic Lungs: Other (bibasilar crackles) Neuro: Normal speech Psych/Mental Status: Mood NL Review of Relevant I have reviewed the following items lillian (where applicable) has been applied. Labs Laboratory Tests Test 08/06/18 06:03 08/06/18 06:48 08/06/18 07:54 08/06/18 10:32 White Blood Count 6.8 x10^3/uL (4.0-11.0) Red Blood Count 2.70 x10^6/uL (4.30-5.70) Hemoglobin 8.3 g/dL (13.0-17.5) Hematocrit 26.1 % (39.0-53.0) Mean Corpuscular Volume 97 fL (79-100) Mean Corpuscular Hemoglobin 31 pg (25-35) Mean Corpuscular Hemoglobin Concent 32 g/dL (31-37) Red Cell Distribution Width 16.5 % (11.5-14.5) Platelet Count 213 x10^3/uL (140-400) Neutrophils (%) (Auto) 81 % (31-73) Lymphocytes (%) (Auto) 6 % (24-48) Monocytes (%) (Auto) 10 % (0-9) Eosinophils (%) (Auto) 2 % (0-3) Basophils (%) (Auto) 1 % (0-3) Neutrophils # (Auto) 5.5 x10^3uL (1.8-7.7) Lymphocytes # (Auto) 0.4 x10^3/uL (1.0-4.8) Monocytes # (Auto) 0.7 x10^3/uL (0.0-1.1) Eosinophils # (Auto) 0.1 x10^3/uL (0.0-0.7) Basophils # (Auto) 0.1 x10^3/uL (0.0-0.2) Prothrombin Time 14.2 SEC (9.4-11.4) Prothromb Time International Ratio 1.5 (0.9-1.1) Sodium Level 137 mmol/L (136-145) Potassium Level 3.9 mmol/L (3.5-5.1) Chloride Level 101 mmol/L (98-107) Carbon Dioxide Level 24 mmol/L (21-32) Anion Gap 12 (6-14) Blood Urea Nitrogen 41 mg/dL (8-26) Creatinine 1.4 mg/dL (0.7-1.3) Estimated GFR (Cockcroft-Gault) 48.3 BUN/Creatinine Ratio 29 (6-20) Glucose Level 115 mg/dL (70-99) Calcium Level 8.4 mg/dL (8.5-10.1) Total Bilirubin 0.7 mg/dL (0.2-1.0) Aspartate Amino Transf (AST/SGOT) 17 U/L (15-37) Alanine Aminotransferase (ALT/SGPT) 9 U/L (16-63) Alkaline Phosphatase 133 U/L (46-116) Troponin I Quantitative 0.019 ng/mL (0-0.055) 0.055 ng/mL (0-0.055) KR-Mul-Z-Type Natriuretic Peptide 3897 pg/mL (0-449) Total Protein 6.3 g/dL (6.4-8.2) Albumin 2.9 g/dL (3.4-5.0) Albumin/Globulin Ratio 0.9 (1.0-1.7) Stool Occult Blood Negative (NEG) Urine Collection Type Void Urine Color Yellow Urine Clarity Clear Urine pH 5.5 Urine Specific [place] 1.010 Urine Protein Neg (NEG-TRACE) Urine Glucose (UA) Neg mg/dL (NEG) Urine Ketones (Stick) Neg mg/dL (NEG) Urine Blood Neg (NEG) Urine Nitrite Neg (NEG) Urine Bilirubin Neg (NEG) Urine Urobilinogen Dipstick 0.2 mg/dL (0.2 mg/dL) Urine Leukocyte Esterase Neg (NEG) Urine RBC 0 /HPF (0-2) Urine WBC Rare /HPF (0-4) Urine Squamous Epithelial Cells Occ /LPF Urine Bacteria 0 /HPF (0-FEW) Urine Hyaline Casts Occ /HPF Urine Mucus Slight /LPF Test 08/06/18 11:36 08/06/18 12:00 08/06/18 13:23 08/06/18 16:32 Glucose (Fingerstick) 152 mg/dL (70-99) 105 mg/dL (70-99) Nasal Screen MRSA (PCR) Negative (Negative) Sodium Level 137 mmol/L (136-145) Potassium Level 3.4 mmol/L (3.5-5.1) Chloride Level 99 mmol/L (98-107) Carbon Dioxide Level 27 mmol/L (21-32) Anion Gap 11 (6-14) Blood Urea Nitrogen 41 mg/dL (8-26) Creatinine 1.3 mg/dL (0.7-1.3) Estimated GFR (Cockcroft-Gault) 52.6 Glucose Level 220 mg/dL (70-99) Calcium Level 8.3 mg/dL (8.5-10.1) Troponin I Quantitative 0.059 ng/mL (0-0.055) Test 08/06/18 21:38 08/07/18 05:37 08/07/18 08:11 Glucose (Fingerstick) 72 mg/dL (70-99) 78 mg/dL (70-99) White Blood Count 7.2 x10^3/uL (4.0-11.0) Red Blood Count 2.84 x10^6/uL (4.30-5.70) Hemoglobin 8.6 g/dL (13.0-17.5) Hematocrit 27.1 % (39.0-53.0) Mean Corpuscular Volume 95 fL (79-100) Mean Corpuscular Hemoglobin 30 pg (25-35) Mean Corpuscular Hemoglobin Concent 32 g/dL (31-37) Red Cell Distribution Width 16.2 % (11.5-14.5) Platelet Count 222 x10^3/uL (140-400) Neutrophils (%) (Auto) 75 % (31-73) Lymphocytes (%) (Auto) 8 % (24-48) Monocytes (%) (Auto) 13 % (0-9) Eosinophils (%) (Auto) 3 % (0-3) Basophils (%) (Auto) 1 % (0-3) Neutrophils # (Auto) 5.4 x10^3uL (1.8-7.7) Lymphocytes # (Auto) 0.6 x10^3/uL (1.0-4.8) Monocytes # (Auto) 1.0 x10^3/uL (0.0-1.1) Eosinophils # (Auto) 0.2 x10^3/uL (0.0-0.7) Basophils # (Auto) 0.0 x10^3/uL (0.0-0.2) Sodium Level 137 mmol/L (136-145) Potassium Level 3.6 mmol/L (3.5-5.1) Chloride Level 101 mmol/L (98-107) Carbon Dioxide Level 27 mmol/L (21-32) Anion Gap 9 (6-14) Blood Urea Nitrogen 27 mg/dL (8-26) Creatinine 1.1 mg/dL (0.7-1.3) Estimated GFR (Cockcroft-Gault) 63.8 Glucose Level 81 mg/dL (70-99) Calcium Level 8.2 mg/dL (8.5-10.1) Magnesium Level 2.0 mg/dL (1.8-2.4) Medications Current Medications Albuterol/ Ipratropium (Duoneb) 3 ml 1X ONCE NEB Last administered on at 06:56; Start 08/06/18 at 07:00; Stop 08/06/18 at 07:01; Status DC Furosemide (Lasix) 40 mg 1X ONCE IVP Last administered on 08/06/18at 07:23; Start 08/06/18 at 07:15; Stop 08/06/18 at 07:16; Status DC Ondansetron HCl (Zofran) 4 mg PRN Q4HRS PRN IV NAUSEA/VOMITING; Start 08/06/18 at 07:45; Stop 08/07/18 at 07:44; Status Cancel Acetaminophen (Tylenol) 650 mg PRN Q4HRS PRN PO FEVER; Start 08/06/18 at 07:45 ; Stop 08/07/18 at 07:44; Status Cancel Albuterol/ Ipratropium (Duoneb) 3 ml RTQID NEB ; Start 08/06/18 at 08:00; Stop 08/06/18 at 14:26; Status DC Ondansetron HCl (Zofran) 4 mg PRN Q8HRS PRN IV NAUSEA/VOMITING; Start 08/06/18 at 09:45 Acetaminophen (Tylenol) 325 mg PRN Q6HRS PRN PO PAIN / TEMP; Start 08/06/18 at 10:15 Aspirin (Kezia Aspirin) 325 mg DAILY PO Last administered on 08/07/18at 09:00; Start 08/07/18 at 09:00 Carbidopa/Levodopa (Sinemet 25/100) 2 tab TID PO Last administered on at 09:00; Start 08/06/18 at 14:00 Citalopram Hydrobromide (CeleXA) 10 mg DAILY PO Last administered on 08/07/18at 08:56; Start 08/07/18 at 09:00 Diphenhydramine HCl (Benadryl) 50 mg PRN QHS PRN PO SLEEP; Start 08/06/18 at 10 :15 Gabapentin (Neurontin) 100 mg TID PO Last administered on 08/07/18at 09:00; Start 08/06/18 at 14:00 Albuterol/ Ipratropium (Duoneb) 3 ml TID NEB Last administered on 08/07/18at 05: 08; Start 08/06/18 at 14:00 Metoprolol Succinate (Toprol Xl) 25 mg DAILY PO Last administered on 08/07/18 08:59; Start 08/07/18 at 09:00 Potassium Chloride (Klor-Con) 20 meq DAILY PO Last administered on 08/07/18at 09 :00; Start 08/07/18 at 09:00 Tamsulosin HCl (Flomax) 0.4 mg DAILY PO Last administered on 08/07/18at 09:00; Start 08/07/18 at 09:00 Non-Formulary Medication (Acetaminophen/ Diphenhydramine (Acetaminophen Pm Caplet)) 2 each QHS PRN PO INSOMNIA; Start 08/06/18 at 10:15; Stop 08/06/18 at 11:12; Status DC Amlodipine Besylate (Norvasc) 5 mg DAILY PO Last administered on 08/07/18at 08: 59; Start 08/07/18 at 09:00 Apixaban (Eliquis) 5 mg BID PO Last administered on 08/07/18at 08:56; Start 05/15 at 21:00 Benzonatate (Tessalon Perle) 100 mg [id number] PO Last administered on 08/07/18at 09 :00; Start 08/06/18 at 14:00 Non-Formulary Medication (Escitalopram Oxalate (Lexapro)) 5 mg DAILY PO ; Start 08/07/18 at 09:00; Stop 08/07/18 at 09:00; Status DC Finasteride (Proscar) 5 mg DAILY PO Last administered on 08/07/18at 08:59; Start 08/07/18 at 09:00 Furosemide (Lasix) 40 mg DAILY PO Last administered on 08/07/18at 09:01; Start 08/07/18 at 09:00 Glipizide (Glucotrol) 5 mg BIDBFRMEAL PO Last administered on 08/06/18at 16:30; Start 08/06/18 at 16:30 Lidocaine (Lidoderm) 1 patch DAILY TD ; Start 08/07/18 at 09:00 Mirabegron (Myrbetriq) 50 mg QODAY PO Last administered on 08/07/18at 09:00; Start 08/07/18 at 09:00 Repaglinide (Prandin) 1 mg TIDAC PO ; Start 08/06/18 at 11:30; Stop 08/06/18 at 16:55; Status DC Ropinirole HCl (Requip) 1 mg TID PO Last administered on 08/07/18at 08:59; Start 08/06/18 at 14:00 Atorvastatin Calcium (Lipitor) 20 mg QHS PO Last administered on 08/06/18at 21: 43; Start 08/06/18 at 21:00 Potassium Chloride (Klor-Con) 40 meq 1X ONCE PO Last administered on at 14:08; Start 08/06/18 at 14:00; Stop 08/06/18 at 14:02; Status DC Insulin Human Lispro (HumaLOG) 0-7 UNITS TIDWMEALS SQ ; Start 08/06/18 at 17:00 Dextrose 12.5 gm PRN Q15MIN PRN IV SEE COMMENTS; Start 08/06/18 at 14:00 Active Scripts Active Eliquis (Apixaban) 5 Mg Tablet 5 Mg PO BID Celexa (Citalopram Hydrobromide) 10 Mg Tablet 10 Mg PO DAILY Lidocaine 1 Each Adh..patch 1 Patch TD DAILY Benzonatate 100 Mg Capsule 100 Mg PO [id number] Tylenol (Acetaminophen) 325 Mg Tablet 325 Mg PO PRN Q6HRS PRN Furosemide 40 Mg Tablet 1 Tab PO DAILY Benadryl (Diphenhydramine Hcl) 25 Mg Capsule 50 Mg PO PRN QHS PRN 30 Days Finasteride 5 Mg Tablet 5 Mg PO DAILY 30 Days Myrbetriq (Mirabegron) 50 Mg Tab.er.24h 50 Mg PO QODAY Klor-Con M20 (Potassium Chloride) 20 Meq Tab.er.prt 20 Meq PO DAILY 30 Days Metoprolol Succinate ( Xl ) (Metoprolol Succinate) 25 Mg Tab.er.24h 25 Mg PO DAILY 30 Days Duoneb 0.5-3(2.5) Mg/3 Ml (Albuterol/Ipratropium) 3 Ml Ampul.neb 3 Ml NEB TID 30 Days Gabapentin (Gabapentin) 100 Mg Capsule 100 Mg PO TID 30 Days Reported Ropinirole Hcl 1 Mg Tablet 1 Tab PO TID LAST DOSE GIVEN: DATE: TODAY TIME: AFTERNOON NEXT DOSE DUE: DATE: TODAY TIME: PM Repaglinide 1 Mg Tablet 1 Tab PO TID LAST DOSE GIVEN: DATE: TODAY TIME: BEFORE LUNCH NEXT DOSE DUE: DATE: TODAY TIME: BEFORE DINNER Tamsulosin Hcl 0.4 Mg Cap.er.24h 1 Tab PO DAILY LAST DOSE GIVEN: DATE: TODAY TIME: AM NEXT DOSE DUE: DATE: TOMORROW TIME: AM Glipizide 5 Mg Tablet 5 Mg PO BID LAST DOSE GIVEN: DATE: TODAY TIME: AM NEXT DOSE DUE: DATE: TODAY TIME: PM Crestor (Rosuvastatin Calcium) 5 Mg Tablet 5 Mg PO HS LAST DOSE GIVEN: DATE: YESTERDAY TIME: AT BEDTIME NEXT DOSE DUE: DATE: TODAY TIME: AT BEDTIME Acetaminophen Pm Caplet (Acetaminophen/Diphenhydramine) 1 Each Tablet 2 Each PO QHS PRN Lexapro (Escitalopram Oxalate) 5 Mg Tablet 5 Mg PO DAILY Sinemet 25-100 Mg Tablet (Carbidopa/Levodopa) 1 Each Tablet 2 Tab PO TID LAST DOSE GIVEN: DATE: TODAY TIME: AFTGERNOON NEXT DOSE DUE: DATE: TODAY TIME: PM Aspirin 325 Mg Tablet 325 Mg PO DAILY Norvasc (Amlodipine Besylate) 5 Mg Tablet 5 Mg PO DAILY LAST DOSE GIVEN: DATE: TODAY TIME: AM NEXT DOSE DUE: DATE: TOMORR TIME: AM Vitals/I & O Vital Sign - Last 24 Hours 08/06/18 08/06/18 08/06/18 08/06/18 11:55 14:16 15:37 18:44 Temp 97.9 97.6 Pulse 92 96 93 Resp 22 22 20 B/P (MAP) 117/78 (91) 119/63 (81) 103/56 (72) Pulse Ox 98 96 93 93 O2 Delivery Nasal Cannula Nasal Cannula Nasal Cannula Nasal Cannula O2 Flow Rate 3.0 3.0 3.0 3.0 08/06/18 08/06/18 08/06/18 08/06/18 20:30 20:30 20:37 21:37 Temp 98.7 Pulse 82 Resp 24 B/P (MAP) 95/59 (71) 124/60 (81) Pulse Ox 95 95 95 O2 Delivery Nasal Cannula Nasal Cannula Nasal Cannula Nasal Cannula O2 Flow Rate 3.0 3.0 3.0 3.0 08/07/18 08/07/18 08/07/18 08/07/18 00:30 04:57 05:09 08:59 Temp 97.5 98.0 Pulse 90 85 103 Resp 22 24 B/P (MAP) 112/71 (85) 113/65 (81) 113/65 Pulse Ox 96 95 94 O2 Delivery Nasal Cannula Nasal Cannula Nasal Cannula O2 Flow Rate 3.0 3.0 3.0 08/07/18 08:59 Pulse 101 B/P (MAP) 113/65 Intake and Output 08/06/18 08/06/18 08/07/18 15:01 23:01 07:01 Intake Total 340 ml 100 ml Output Total 1490 ml Balance -1490 ml 340 ml 100 ml DARIO DYE DISPATCHER CLERK Aug 07, 2018 10:28
--- NOTE | 2018-08-07 12:36 | PN ---
DATE: SUBJECTIVE: An 82-year-old male in the ICU with congestive heart failure. The patient is resting fairly comfortably, says he is feeling a little bit better and making progress slow, but sure. The patient's troponins have been elevated. Cardiology has been consulted on him and they will continue to monitor him accordingly. Otherwise, the patient had persistent atrial fibrillation, although rate seems to be controlled at present. OBJECTIVE: VITAL SIGNS: Blood pressure 110/60, respiratory rate 24, pulse 103, afebrile. GENERAL: The patient is alert, oriented. LUNGS: Diminished, some mild crackles on the left lower lobe. CARDIOVASCULAR: Irregularly irregular rhythm. ABDOMEN: Soft, protuberant. EXTREMITIES: No clubbing, cyanosis, nor edema. NEUROLOGIC: Intact. IMPRESSION: Acute on top of chronic diastolic heart failure, type 2 diabetes, elevated troponins, chronic kidney disease stage 3, moderate protein malnutrition. PLAN: Continue on present drug regimen. Continue to monitor the patient in the ICU. SONNY MALDONADO MD DR: SANDRA/zac JOB#: [id number] / [id number]
[2018-08-07] MEDS: ATORVASTATIN CALCIUM 20 MG TABLET PO SCH (20:31)
[2018-08-08] VITALS (7 sets, daily range): BP systolic 99–119; BP diastolic 48–73
[2018-08-08] MEDS: IPRATRPIUM/ALBUTEROL 0.5/2.5MG 3 ML NEBU. NEB SCH ×3 (05:10→20:32)
[2018-08-08] MEDS: glipiZIDE 5 MG TABLET PO SCH ×2 (07:40→17:54)
[2018-08-08] MEDS: INSULIN LISPRO 300 UNITS/3 ML INSULN.PEN. SQ SCH ×3 (08:00→17:00)
[2018-08-08] MEDS: APIXABAN 5 MG TABLET. PO SCH ×2 (08:55→20:48)
[2018-08-08] MEDS: CITALOPRAM 10 MG TABLET. PO SCH (08:55)
[2018-08-08] MEDS: ASPIRIN 325 MG TABLET PO SCH (08:55)
[2018-08-08] MEDS: TAMSULOSIN 0.4 MG CAP.ER.24H. PO SCH (08:55)
[2018-08-08] MEDS: BENZONATATE 100 MG CAPSULE. PO SCH ×3 (08:56→20:48)
[2018-08-08] MEDS: POTASSIUM CHLORIDE 20 MEQ TABLET.ER. PO SCH (08:56)
[2018-08-08] MEDS: CARBIDOPA/LEVODOPA 25/100MG TABLET PO SCH ×3 (08:56→20:48)
[2018-08-08] MEDS: GABAPENTIN 100 MG CAPSULE. PO SCH ×3 (08:56→20:48)
[2018-08-08] MEDS: FUROSEMIDE 40 MG TABLET PO SCH (08:56)
[2018-08-08] MEDS: rOPINIRole 1 MG TABLET. PO SCH ×3 (08:56→20:48)
[2018-08-08] MEDS: FINASTERIDE 5 MG TABLET PO SCH (08:57)
[2018-08-08] MEDS: METOPROLOL SUCC 24HR ER 25 MG TAB.ER.24H. PO SCH (08:59)
[2018-08-08] MEDS: amLODIPine BESYLATE 5 MG TABLET PO SCH (09:00)
[2018-08-08] MEDS: LIDOCAINE (700MG/PATCH) PATCH. TD SCH (09:03)
--- NOTE | 2018-08-08 13:54 | PN ---
DATE: SUBJECTIVE: An 82-year-old male in with acute congestive on top of chronic congestive heart failure. He is resting fairly comfortably, making fairly good progress. Overall, feeling a little better. Blood pressure is still having close to 100. He has been walking a little bit more, making some progress, but still extremely weak and fatigued. OBJECTIVE: VITAL SIGNS: The patient's blood pressure is approximately 99/55, respiration rate 20, pulse 83, afebrile. GENERAL: The patient is alert and oriented. LUNGS: Diminished throughout, poor movement of air. CARDIOVASCULAR: Irregularly irregular rhythm. ABDOMEN: Soft, nontender, no rebound or guarding. EXTREMITIES: No clubbing or cyanosis. Trace edema noted, but not much. He has improved there. We will go ahead and continue to monitor the patient. IMPRESSION: Acute on top of chronic congestive heart failure. PLAN: As above. Continue to monitor the patient and make further evaluation on him. Mild diuresis and monitoring his blood pressure here in the ICU. SONNY MALDONADO MD DR: SANDRA/zac JOB#: [id number] / [id number]
[2018-08-08] MEDS: ATORVASTATIN CALCIUM 20 MG TABLET PO SCH (20:48)
[2018-08-09] MEDS: IPRATRPIUM/ALBUTEROL 0.5/2.5MG 3 ML NEBU. NEB SCH ×3 (05:25→20:34)
[2018-08-09 06:31] VITALS: BP 126/68
[2018-08-09 06:35] LABS: CALCIUM 8.1 mg/dL (8.5-10.1); CREATININE 0.9 mg/dL (0.7-1.3); GFR 80.4; POTASSIUM 3.9 mmol/L (3.5-5.1)
[2018-08-09] MEDS: INSULIN LISPRO 300 UNITS/3 ML INSULN.PEN. SQ SCH ×3 (08:00→17:00)
[2018-08-09] MEDS ORDERED: ASPIRIN 325 MG TABLET ONE (09:15)
[2018-08-09] MEDS: ASPIRIN 325 MG TABLET PO SCH (09:19)
[2018-08-09] MEDS: LIDOCAINE (700MG/PATCH) PATCH. TD SCH (09:19)
[2018-08-09] MEDS: METOPROLOL SUCC 24HR ER 25 MG TAB.ER.24H. PO SCH (09:19)
[2018-08-09] MEDS: APIXABAN 5 MG TABLET. PO SCH ×2 (09:19→21:29)
[2018-08-09] MEDS: amLODIPine BESYLATE 5 MG TABLET PO SCH (09:19)
[2018-08-09] MEDS: BENZONATATE 100 MG CAPSULE. PO SCH ×3 (09:19→21:29)
[2018-08-09] MEDS: GABAPENTIN 100 MG CAPSULE. PO SCH ×3 (09:19→21:29)
[2018-08-09] MEDS: FUROSEMIDE 40 MG TABLET PO SCH (09:19)
[2018-08-09] MEDS: CARBIDOPA/LEVODOPA 25/100MG TABLET PO SCH ×3 (09:19→21:28)
[2018-08-09] MEDS: FINASTERIDE 5 MG TABLET PO SCH (09:19)
[2018-08-09] MEDS: TAMSULOSIN 0.4 MG CAP.ER.24H. PO SCH (09:19)
[2018-08-09] MEDS: CITALOPRAM 10 MG TABLET. PO SCH (09:20)
[2018-08-09] MEDS: MIRABEGRON 25 MG TAB.ER.24H PO SCH (09:20)
[2018-08-09] MEDS: glipiZIDE 5 MG TABLET PO SCH ×2 (09:20→16:54)
[2018-08-09] MEDS: POTASSIUM CHLORIDE 20 MEQ TABLET.ER. PO SCH (09:20)
[2018-08-09] MEDS: rOPINIRole 1 MG TABLET. PO SCH ×3 (11:15→21:28)
[2018-08-09] MEDS: methylPREDNISolone SOD SUCC PF 40 MG/ML VIAL. IV SCH ×2 (11:16→21:27)
[2018-08-09 11:25] VITALS: BP 106/69
[2018-08-09] MEDS ORDERED: DIGOXIN IV 500 MCG/2 ML AMPUL. IV ONE (12:00)
[2018-08-09 15:00] VITALS: BP 107/56
[2018-08-09 19:44] VITALS: BP 107/65
[2018-08-09] MEDS: ATORVASTATIN CALCIUM 20 MG TABLET PO SCH (21:28)
--- NOTE | 2018-08-09 21:49 | PN ---
DATE: SUBJECTIVE: An 82-year-old male, obviously in with acute exacerbation of chronic obstructive pulmonary disease. Nurse has been noting his heart rate has been racing in the 130 and 140, probably atrial fibrillation with RVR. The patient's TSH is low; however, we will continue to monitor the patient accordingly along with Cardiology has been consulted on him as well. OBJECTIVE: VITAL SIGNS: The patient's blood pressure presently is 110/60, respiratory rate 20, pulse is noted around 85. He is afebrile. LUNGS: Diminished. He has some rales noted throughout, somewhat improved, but still having problems there. We will continue to monitor him accordingly and make further evaluation on him otherwise. CARDIOVASCULAR: Irregularly irregular rhythm. ABDOMEN: Soft, nontender. EXTREMITIES: No clubbing, cyanosis, nor edema noted. IMPRESSION: Acute exacerbation of chronic obstructive pulmonary disease with respiratory hypoxia, chronic congestive heart failure, atrial fibrillation with rapid ventricular response. Continue to monitor the patient and currently make further evaluation on him as indicated. SONNY MALDONADO MD DR: SANDRA/zac JOB#: [id number] / [id number]
[2018-08-09 22:44] VITALS: BP 108/64
[2018-08-10] MEDS: IPRATRPIUM/ALBUTEROL 0.5/2.5MG 3 ML NEBU. NEB SCH (05:21)
[2018-08-10 05:45] VITALS: BP 112/67
--- NOTE | 2018-08-10 06:26 | EKG ---
[address] [id number] Test Date: 2018-08-09 Test Time: 06:40:46 Pat Name: DAVID SHIRLEY Department: Room: 107 A Gender: M Tapping Machine Operator: ELÍAS : 1935 Requested By: SONNY MALDONADO Order Number: [id number] Reading MD: Eber Tucker MD Measurements Intervals [place] Rate: 105 P: 0 AK: 194 QRS: -26 QRSD: 114 T: 3 QT: 348 QTc: 464 Interpretive Statements PROBABLE AFIB RBBB Electronically Signed On 08-11-2018 10:07:58 BRANCH SERVICES MANAGER by Eber Tucker MD
[2018-08-10 07:00] LABS: CALCIUM 8.4 mg/dL (8.5-10.1); CREATININE 0.9 mg/dL (0.7-1.3); GFR 80.4; POTASSIUM 4.3 mmol/L (3.5-5.1)
[2018-08-10] MEDS: LIDOCAINE (700MG/PATCH) PATCH. TD SCH (08:56)
[2018-08-10] MEDS: methylPREDNISolone SOD SUCC PF 40 MG/ML VIAL. IV SCH (08:57)
[2018-08-10] MEDS: GABAPENTIN 100 MG CAPSULE. PO SCH ×2 (08:58→14:15)
[2018-08-10] MEDS: INSULIN LISPRO 300 UNITS/3 ML INSULN.PEN. SQ SCH ×2 (08:58→12:39)
[2018-08-10] MEDS: FINASTERIDE 5 MG TABLET PO SCH (08:59)
[2018-08-10] MEDS: BENZONATATE 100 MG CAPSULE. PO SCH ×2 (08:59→14:15)
[2018-08-10] MEDS: METOPROLOL SUCC 24HR ER 25 MG TAB.ER.24H. PO SCH (08:59)
[2018-08-10] MEDS: glipiZIDE 5 MG TABLET PO SCH (08:59)
[2018-08-10] MEDS: CITALOPRAM 10 MG TABLET. PO SCH (09:00)
[2018-08-10] MEDS: FUROSEMIDE 40 MG TABLET PO SCH (09:00)
[2018-08-10] MEDS: TAMSULOSIN 0.4 MG CAP.ER.24H. PO SCH (09:00)
[2018-08-10] MEDS ORDERED: DIGOXIN 125 MCG TABLET PO SCH (09:00)
[2018-08-10] MEDS: APIXABAN 5 MG TABLET. PO SCH (09:00)
[2018-08-10] MEDS: ASPIRIN 325 MG TABLET PO SCH (09:00)
[2018-08-10] MEDS: POTASSIUM CHLORIDE 20 MEQ TABLET.ER. PO SCH (09:00)
[2018-08-10] MEDS: amLODIPine BESYLATE 5 MG TABLET PO SCH (09:00)
[2018-08-10] MEDS: CARBIDOPA/LEVODOPA 25/100MG TABLET PO SCH ×2 (09:00→14:15)
[2018-08-10] MEDS: rOPINIRole 1 MG TABLET. PO SCH ×2 (09:01→14:15)
[2018-08-10 10:54] VITALS: BP 108/56
--- NOTE | 2018-08-11 00:14 | PN ---
DATE: 08/10/2018 SUBJECTIVE: The patient is an 82-year-old male in with acute exacerbation of chronic obstructive pulmonary disease and chronic congestive heart failure, doing somewhat better, feels much better, decided to finally able to go to a nursing facility rather than directly home for rehabilitation. OBJECTIVE: VITAL SIGNS: Blood pressure 110/60, respiratory rate 20, pulse 90 and irregular at times, afebrile, oxygen saturation on 3 liters 96%. GENERAL: The patient is alert and oriented. LUNGS: Diminished throughout, but clear than they have been. CARDIOVASCULAR: Irregularly irregular rhythm. ABDOMEN: Soft. EXTREMITIES: No clubbing, cyanosis or edema. NEUROLOGIC: As noted, baseline. IMPRESSION: Acute exacerbation of chronic obstructive pulmonary disease with respiratory hypoxia, chronic congestive heart failure, chronic atrial fibrillation with rapid ventricular response, controlled presently; anemia of chronic disease, type 2 diabetes. PLAN: The patient continued to be monitored and addiction social worker try to get him placed appropriately. SONNY MALDONADO MD DR: SANDRA/nts JOB#: [id number] / [id number]
== END 2018-08-10 15:39 | DRG 682 ==
LOC: ER 05:35 → ICU 09:02 → 1 SOUTH 08-08 15:54
PROVIDERS: ADMIT Family Medicine; ATTEND Family Medicine
DX: N17.0 Acute kidney failure with tubular necrosis (principal); J96.21 Acute and chronic respiratory failure with hypoxia; I50.33 Acute on chronic diastolic (congestive) heart failure; E44.0 Moderate protein-calorie malnutrition; I48.1 Persistent atrial fibrillation; J44.1 Chronic obstructive pulmonary disease with (acute) exacerbation; I13.0 Hypertensive heart and chronic kidney disease with heart failure and stage 1 through stage 4 chronic kidney disease, or unspecified chronic kidney disease; D63.8 Anemia in other chronic diseases classified elsewhere; E11.9 Type 2 diabetes mellitus without complications; E78.00 Pure hypercholesterolemia, unspecified; E78.5 Hyperlipidemia, unspecified; G20 Parkinson's disease; I27.20 Pulmonary hypertension, unspecified; I48.2 Chronic atrial fibrillation; J84.10 Pulmonary fibrosis, unspecified; Z87.891 Personal history of nicotine dependence; Z99.81 Dependence on supplemental oxygen; N18.2 Chronic kidney disease, stage 2 (mild)
CPT/HCPCS: 36415; 71045; 80048; 80053; 81001; 82274; 82947; 83735; 83880; 84443; 84484; 85025; 85610; 87641; 93005; 94640; 96374; J1160; J1815; J1940; J2920; J7620; 97110; 97116; 97530; 99285-25

== ENCOUNTER 2018-08-28 15:27 | Emergency (ER) | payer MEDICARE, OTHER ==
[~2018-08-28] VITALS: Ht 172.7 cm; Wt 80.7 kg
[2018-08-28] MEDS ORDERED: IV NORMAL SALINE 1,000ML 1,000 ML IV ONE ×2 (15:45→17:15)
--- NOTE | 2018-08-28 15:52 | PHYS DOC ---
Past History Past Medical History: A-Fib, Arthritis, COPD, Diabetes, High Cholesterol, Hypertension, Vascular Disease, Other Past Surgical History: Angioplasty, Appendectomy, Other Alcohol Use: None Drug Use: None Adult General Chief Complaint Chief Complaint: ABNORMAL LABS HPI HPI 82-year-old male presents via EMS from his care facility with abnormal blood test. He was reported to have a hemoglobin this morning of 6.6. When I asked the patient he has not reported any bleeding. He denies any dark stools. His care facility has not seen any signs of bleeding. Patient denies shortness of breath, dizziness, or headache. He was not feeling unusual today. He denies fever or chills. He is on 2 L of oxygen at baseline. H was requiring additional oxygen with EMS, but his hands were quite cold. Review of Systems Review of Systems Constitutional: Denies fever or chills [] Eyes: Denies change in visual acuity, redness, or eye pain [] HENT: Denies nasal congestion or sore throat [] Respiratory: Denies cough or shortness of breath [] Cardiovascular: No additional information not addressed in HPI [] GI: Denies abdominal pain, nausea, vomiting, bloody stools or diarrhea [] : Denies dysuria or hematuria [] Musculoskeletal: Denies back pain or joint pain [] Integument: Denies rash or skin lesions [] Neurologic: Denies headache, focal weakness or sensory changes [] Endocrine: Denies polyuria or polydipsia [] All other systems were reviewed and found to be within normal limits, except as documented in this note. Current Medications Current Medications Current Medications Medications (Trade) Dose Ordered Sig/Melanie Start Time Stop Time Status Last Admin Dose Admin Sodium Chloride 1,000 ml @ 1,000 mls/hr 1X ONCE 08/28/18 15:45 08/28/18 16:44 Allergies Allergies Allergies Coded Allergies Type Severity Reaction Last Updated Verified codeine Allergy Intermediate 06/06/15 Yes shrimp Allergy Intermediate 02/01/16 No milk Allergy Mild Nausea 08/06/18 Yes turkey Allergy Mild 06/06/15 No shellfish derived Allergy Unknown 08/01/17 Yes Physical Exam Physical Exam Constitutional: Well developed, well, well nourished, no acute distress, non- toxic appearance. [] HENT: Normocephalic, atraumatic, bilateral external ears normal, oropharynx moist, no oral exudates, nose normal. [] Eyes: PERRLA, EOMI, conjunctiva normal, no discharge. [] Neck: Normal range of motion, no tenderness, supple, no stridor. [] Cardiovascular:Heart rate regular rhythm, no murmur [] Lungs & Thorax: Bilateral breath sounds diminished but clear[] Abdomen: Bowel sounds normal, soft, no tenderness, no masses, no pulsatile masses. [] Skin: Warm, dry, no erythema, no rash. [] Back: No tenderness, no CVA tenderness. [] Extremities: No tenderness, no cyanosis, no clubbing, ROM intact, no edema. [] Neurologic: Alert and oriented X 3, normal motor function, normal sensory function, no focal deficits noted. [] Psychologic: Affect normal, judgement normal, mood normal. [] Current Patient Data Vital Signs Vital Signs Date Time Temp Pulse Resp B/P (MAP) Pulse Ox O2 Delivery O2 Flow Rate FiO2 08/28/18 15:43 97.9 85 18 92 EKG EKG [] Radiology/Procedures Radiology/Procedures [] Course & Med Decision Making Course & Med Decision Making Pertinent Labs and Imaging studies reviewed. (See chart for details) The patient's labs here showed hemoglobin above 8 and an adequate hematocrit. He will not need a transfusion. Patient was given 1 L normal sick. He has had some difficulty urinating. He has been incontinent of urine lately. We will check his urine for infection. His urinalysis is negative for infection. I do not have a medical reason for the patient to be admitted. He is stable for discharge at this time. [] Dragon Disclaimer Dragon Disclaimer This electronic medical record was generated, in whole or in part, using a voice recognition dictation system. Departure Departure: Impression: Primary Impression: Anemia of chronic disease Disposition: HOME, SELF-CARE Condition: STABLE Referrals: SONNY MALDONADO MD (PCP) Patient Instructions: Anemia, Nonspecific-Brief BANDAR THOMPSON DO Aug 28, 2018 15:52
[2018-08-28 15:56] LABS: BASO % 0 % (0-3); EOS % 0 % (0-3); HEMATOCRIT 28.5 % (39.0-53.0); HEMOGLOBIN 8.5 g/dL (13.0-17.5); LYMPH # 0.3 x10^3/uL (1.0-4.8); LYMPH % 4 % (24-48); MEAN CORPUSCULAR HEMOGLOBIN 26 pg (25-35); MEAN CORPUSCULAR HGB CONC 30 g/dL (31-37); MEAN CORPUSCULAR VOLUME 87 fL (79-100); MONO # 0.5 x10^3/uL (0.0-1.1); MONO % 6 % (0-9); NEUT # 7.7 x10^3uL (1.8-7.7); NEUT % 90 % (31-73); PLATELET COUNT 204 x10^3/uL (140-400); RED BLOOD COUNT 3.26 x10^6/uL (4.30-5.70); RED CELL DISTRIBUTION WIDTH 18.6 % (11.5-14.5); WHITE BLOOD COUNT 8.6 x10^3/uL (4.0-11.0)
[2018-08-28 16:12] LABS: ALBUMIN/GLOBULIN RATIO 0.8 (1.0-1.7); CALCIUM 8.5 mg/dL (8.5-10.1); CREATININE 1.2 mg/dL (0.7-1.3); GFR 57.7; POTASSIUM 4.4 mmol/L (3.5-5.1); TOTAL BILIRUBIN 0.8 mg/dL (0.2-1.0); TOTAL PROTEIN 6.8 g/dL (6.4-8.2)
[2018-08-28 17:33] VITALS: BP 111/67
[2018-08-28 17:50] LABS: BACTERIA,URINE 0 /HPF (0-FEW); BILIRUBIN,URINE NEG (NEG); CLARITY,URINE CLEAR; COLOR,URINE YELLOW; GLUCOSE,URINE NEG (NEG); NITRITE,URINE NEG (NEG); RBC,URINE 0 /HPF (0-2); SQUAMOUS EPITHELIAL CELL,UR OCC /LPF; UROBILINOGEN,URINE 0.2 mg/dL (0.2 mg/dL); WBC,URINE OCC /HPF (0-4)
== END 2018-08-28 17:58 | disposition home or self-care (01) ==
LOC: ER 15:27
DX: D63.8 Anemia in other chronic diseases classified elsewhere (principal); I48.91 Unspecified atrial fibrillation; M19.90 Unspecified osteoarthritis, unspecified site; J44.9 Chronic obstructive pulmonary disease, unspecified; E11.9 Type 2 diabetes mellitus without complications; E78.00 Pure hypercholesterolemia, unspecified; I10 Essential (primary) hypertension; Z98.61 Coronary angioplasty status; Z88.5 Allergy status to narcotic agent; Z88.8 Allergy status to other drugs, medicaments and biological substances; Z91.011 Allergy to milk products; Z91.013 Allergy to seafood
CPT/HCPCS: 36415; 80053; 81001; 85025; 86850; 86900; 86901; 99283; J7030

== ENCOUNTER 2018-08-31 05:08 | Inpatient (IN) | payer MEDICARE, OTHER ==
[~2018-08-31] VITALS: Ht 170.2 cm; Wt 74.1 kg
[~2018-08-31 05:08] MED LIST changes: +LIDO700A21 TD; -LIDO700A39 TD
--- NOTE | 2018-08-31 05:29 | ED.ADGEN ---
Past History Past Medical History: A-Fib, Arthritis, CAD, CHF, COPD, Dementia, Diabetes, GERD, High Cholesterol, Hypertension, HI, Vascular Disease, Other Past Surgical History: Angioplasty, Appendectomy, Other Smoking: Quit Greater Than 1 Year Alcohol Use: None Drug Use: None Adult General Chief Complaint Chief Complaint ".. Hi doc... I am back again.... I was going across the room ... for something... with out my... walker... and I mateus got weak... and went down... but I ve been weak for ever... it just worse lately....." HPI HPI Patient is a 82 year old male retired [employer], currently a resident of [place] who presents with hx of fall . Patient has no pain complaints. Patient does have complaints of generalized weakness which he states has become worse lately. Patient states he did not hit his head but kind of just had generalized collapse because of weakness. Patient was not using his walker. Patient has multiple medical conditions, acute on chronic diastolic heart failure, pulmonary hypertension, chronic hypoxia O2 dependent at 3 L, COPD, history of anemia, history of diabetes, anemia, history of pulmonary fibrosis, history of Parkinson disease, history of depression, history urinary incontinence, history of chronic bronchitis, hypertension, generalized muscle weakness, insomnia, pressure ulcers buttocks, gait disorder, hyperlipidemia, chronic constipation, history of frequent falls CADz, and dementia. Patient has been a resident of [place] . Has had 4 admissions to [facility] the last was on 08/06-08/10. Patient normally follows with Dr. Rios. Patient does see Dr. Grossman at [facility]. Review of Systems Review of Systems Constitutional: Denies fever or chills [] Eyes: Denies change in visual acuity, redness, or eye pain [] HENT: Denies nasal congestion or sore throat [] Respiratory: Hx of chronic cough and shortness of breath [] Cardiovascular: No additional information not addressed in HPI [] GI: Denies abdominal pain, nausea, vomiting, bloody stools or diarrhea [Some history of Episodic tarry looking stools. : Denies dysuria or hematuria [] Musculoskeletal: Denies back pain or joint pain []Complaints generalized weakness. Integument: Denies rash or skin lesions [] Neurologic: Denies headache, focal weakness or sensory changes [] Endocrine: Denies polyuria or polydipsia [] All other systems were reviewed and found to be within normal limits, except as documented in this note. Family History Family History Noncontributory Current Medications Current Medications Current Medications Medications (Trade) Dose Ordered Sig/Melanie Start Time Stop Time Status Last Admin Dose Admin Sodium Chloride 1,000 ml @ 100 mls/hr Q10H 08/31/18 05:30 08/31/18 15:29 08/31/18 05:38 100 MLS/HR Allergies Allergies Allergies Coded Allergies Type Severity Reaction Last Updated Verified codeine Allergy Intermediate 06/06/15 Yes shrimp Allergy Intermediate 02/01/16 No milk Allergy Mild Nausea 08/06/18 Yes turkey Allergy Mild 06/06/15 No Physical Exam Physical Exam Constitutional: no acute distress, non-toxic appearance. [] HENT: Normocephalic, atraumatic, bilateral external ears normal, oropharynx moist, no oral exudates, nose normal. [] Eyes: PERRLA, EOMI, conjunctiva pale, no discharge. [] Neck: Normal range of motion, no tenderness, supple, no stridor. [] Cardiovascular: Irregular Heart rate and rhythm, no murmur []PMI to the left. Appears to be in A. fib. on monitor Lungs & Thorax: Bilateral breath sounds wheezes and rhonchi on auscultation . Has bilateral basal crackles Abdomen: Bowel sounds normal, soft, no tenderness, no masses, no pulsatile masses. Old scar. Urinary incontinence. Pt. declined rectal digital exam at this time. ( No gross blood in diaper) Skin: Warm, dry, no erythema, no rash. [Poor turgor Back: No tenderness, no CVA tenderness. [] Skin break down sacral Extremities: No tenderness, no cyanosis, no clubbing, ROM intact, bilateral edema. [] Scar left leg. Arthritic changes. Neurologic: Alert and oriented X 3, moves all ext. on request, some plantar decreased sensory , no gross focal deficits from his baseline. Psychologic: Affect anxious, does seem to have some memory issues, mood normal. [] Current Patient Data Vital Signs Vital Signs Date Time Temp Pulse Resp B/P (MAP) Pulse Ox O2 Delivery O2 Flow Rate FiO2 08/31/18 05:17 97.6 78 22 94 Nasal Cannula 3.0 Lab Results Laboratory Tests Test 08/31/18 05:20 White Blood Count 8.9 x10^3/uL (4.0-11.0) Red Blood Count 2.98 x10^6/uL (4.30-5.70) L Hemoglobin 7.7 g/dL (13.0-17.5) L Hematocrit 25.6 % (39.0-53.0) L Mean Corpuscular Volume 86 fL (79-100) Mean Corpuscular Hemoglobin 26 pg (25-35) Mean Corpuscular Hemoglobin Concent 30 g/dL (31-37) L Red Cell Distribution Width 18.5 % (11.5-14.5) H Platelet Count 228 x10^3/uL (140-400) Neutrophils (%) (Auto) 84 % (31-73) H Lymphocytes (%) (Auto) 7 % (24-48) L Monocytes (%) (Auto) 8 % (0-9) Eosinophils (%) (Auto) 1 % (0-3) Basophils (%) (Auto) 0 % (0-3) Neutrophils # (Auto) 7.5 x10^3uL (1.8-7.7) Lymphocytes # (Auto) 0.6 x10^3/uL (1.0-4.8) L Monocytes # (Auto) 0.7 x10^3/uL (0.0-1.1) Eosinophils # (Auto) 0.1 x10^3/uL (0.0-0.7) Basophils # (Auto) 0.0 x10^3/uL (0.0-0.2) Prothrombin Time 13.5 SEC (9.4-11.4) H Prothrombin Time INR 1.4 (0.9-1.1) H PTT 32 SEC (23-33) D-Dimer (Mary Lou) 1.16 mg/L (0.00-0.50) H Sodium Level 137 mmol/L (136-145) Potassium Level 4.2 mmol/L (3.5-5.1) Chloride Level 101 mmol/L (98-107) Carbon Dioxide Level 23 mmol/L (21-32) Anion Gap 13 (6-14) Blood Urea Nitrogen 27 mg/dL (8-26) H Creatinine 1.1 mg/dL (0.7-1.3) Estimated GFR (Cockcroft-Gault) 63.8 Glucose Level 66 mg/dL (70-99) L Calcium Level 8.1 mg/dL (8.5-10.1) L Magnesium Level 2.1 mg/dL (1.8-2.4) Total Bilirubin 0.9 mg/dL (0.2-1.0) Direct Bilirubin 0.4 mg/dL (0.0-0.2) H Aspartate Amino Transferase (AST) 17 U/L (15-37) Alanine Aminotransferase (ALT) 10 U/L (16-63) L Alkaline Phosphatase 107 U/L (46-116) Creatine Kinase 55 U/L (39-308) Troponin I Quantitative 0.035 ng/mL (0-0.055) LN-Mne-V-Type Natriuretic Peptide 5541 pg/mL (0-449) H Total Protein 6.1 g/dL (6.4-8.2) L Albumin 2.8 g/dL (3.4-5.0) L Lipase 61 U/L (73-393) L EKG EKG My interpretation of EKG shows any regular rate and rhythm consistent with A. fib. No discernible P wave. Does have findings of right bundle-branch block and RVH. Current ventricular rate is 76.[] Radiology/Procedures Radiology/Procedures I interpretation of chest x-ray shows chronic COPD changes cardiomegaly. Increased cephalization consistent with CHF. Some Rt. lower infiltrate or atelectasis. Overall presentation similar to prior films but suggestive of increased CHF. Course & Med Decision Making Course & Med Decision Making Pertinent Labs and Imaging studies reviewed. (See chart for details) Discussed presentation, testing and treatment plan with Dr. Rios. Advised to transfer to units of packed RBCs. Admit for further eval. and tx. . [] Final Impression Final Impression 1. Falling 2. Weakness 3. Chronic Dyspnea/ Hypoxia 4. COPD 5. Anemia Hgb. 7.7 6. Elevated BUN 27 7. Acute on Chronic Diastolic Heart Failure BNP 5,541 8. Malnutrition Alb. 2.8 9, DM - Hypoglycemia 66 10. Coronary artery disease Dragon Disclaimer Dragon Disclaimer This electronic medical record was generated, in whole or in part, using a voice recognition dictation system. Dragon Disclaimer This chart was dictated in whole or in part using Voice Recognition software in a busy, high-work load, and often noisy Emergency Department environment. It may contain unintended and wholly unrecognized errors or omissions. Discharge Summary Visit Information Final Diagnosis Problems Medical Problems: (1) Falling Status: Acute (2) Weakness Status: Acute Brief Hospital Course Allergies Allergies Coded Allergies Type Severity Reaction Last Updated Verified codeine Allergy Intermediate 06/06/15 Yes shrimp Allergy Intermediate 02/01/16 No milk Allergy Mild Nausea 08/06/18 Yes turkey Allergy Mild 06/06/15 No Vital Signs Vital Signs Date Time Temp Pulse Resp B/P (MAP) Pulse Ox O2 Delivery O2 Flow Rate FiO2 08/31/18 05:17 97.6 78 22 94 Nasal Cannula 3.0 Lab Results Laboratory Tests Test 08/31/18 05:20 White Blood Count 8.9 x10^3/uL (4.0-11.0) Red Blood Count 2.98 x10^6/uL (4.30-5.70) Hemoglobin 7.7 g/dL (13.0-17.5) Hematocrit 25.6 % (39.0-53.0) Mean Corpuscular Volume 86 fL (79-100) Mean Corpuscular Hemoglobin 26 pg (25-35) Mean Corpuscular Hemoglobin Concent 30 g/dL (31-37) Red Cell Distribution Width 18.5 % (11.5-14.5) Platelet Count 228 x10^3/uL (140-400) Neutrophils (%) (Auto) 84 % (31-73) Lymphocytes (%) (Auto) 7 % (24-48) Monocytes (%) (Auto) 8 % (0-9) Eosinophils (%) (Auto) 1 % (0-3) Basophils (%) (Auto) 0 % (0-3) Neutrophils # (Auto) 7.5 x10^3uL (1.8-7.7) Lymphocytes # (Auto) 0.6 x10^3/uL (1.0-4.8) Monocytes # (Auto) 0.7 x10^3/uL (0.0-1.1) Eosinophils # (Auto) 0.1 x10^3/uL (0.0-0.7) Basophils # (Auto) 0.0 x10^3/uL (0.0-0.2) Prothrombin Time 13.5 SEC (9.4-11.4) Prothromb Time International Ratio 1.4 (0.9-1.1) Activated Partial Thromboplast Time 32 SEC (23-33) D-Dimer (Mary Lou) 1.16 mg/L (0.00-0.50) Sodium Level 137 mmol/L (136-145) Potassium Level 4.2 mmol/L (3.5-5.1) Chloride Level 101 mmol/L (98-107) Carbon Dioxide Level 23 mmol/L (21-32) Anion Gap 13 (6-14) Blood Urea Nitrogen 27 mg/dL (8-26) Creatinine 1.1 mg/dL (0.7-1.3) Estimated GFR (Cockcroft-Gault) 63.8 Glucose Level 66 mg/dL (70-99) Calcium Level 8.1 mg/dL (8.5-10.1) Magnesium Level 2.1 mg/dL (1.8-2.4) Total Bilirubin 0.9 mg/dL (0.2-1.0) Direct Bilirubin 0.4 mg/dL (0.0-0.2) Aspartate Amino Transf (AST/SGOT) 17 U/L (15-37) Alanine Aminotransferase (ALT/SGPT) 10 U/L (16-63) Alkaline Phosphatase 107 U/L (46-116) Creatine Kinase 55 U/L (39-308) Troponin I Quantitative 0.035 ng/mL (0-0.055) LP-Qvv-X-Type Natriuretic Peptide 5541 pg/mL (0-449) Total Protein 6.1 g/dL (6.4-8.2) Albumin 2.8 g/dL (3.4-5.0) Lipase 61 U/L (73-393) Brief Hospital Course Mr. Winchester is a 82 old male who presented with hx of fall due to weakness. Admitted Dr. Rios for further eval. PRBC transfusion. Discharge Information Condition at Discharge: Improved Dischare Medications Current Medications Sodium Chloride 1,000 ml @ 100 mls/hr Q10H IV Last administered on 08/31/18at 05 :38; Admin Dose 100 MLS/HR; Start 08/31/18 at 05:30; Stop 08/31/18 at 15:29 Active Scripts Active Eliquis (Apixaban) 5 Mg Tablet 5 Mg PO BID Celexa (Citalopram Hydrobromide) 10 Mg Tablet 10 Mg PO DAILY Lidocaine 1 Each Adh..patch 1 Patch TD DAILY Benzonatate 100 Mg Capsule 100 Mg PO [id number] Tylenol (Acetaminophen) 325 Mg Tablet 325 Mg PO PRN Q6HRS PRN Furosemide 40 Mg Tablet 1 Tab PO DAILY Benadryl (Diphenhydramine Hcl) 25 Mg Capsule 50 Mg PO PRN QHS PRN 30 Days Finasteride 5 Mg Tablet 5 Mg PO DAILY 30 Days Myrbetriq (Mirabegron) 50 Mg Tab.er.24h 50 Mg PO QODAY Klor-Con M20 (Potassium Chloride) 20 Meq Tab.er.prt 20 Meq PO DAILY 30 Days Metoprolol Succinate ( Xl ) (Metoprolol Succinate) 25 Mg Tab.er.24h 25 Mg PO DAILY 30 Days Duoneb 0.5-3(2.5) Mg/3 Ml (Albuterol/Ipratropium) 3 Ml Ampul.neb 3 Ml NEB TID 30 Days Gabapentin (Gabapentin) 100 Mg Capsule 100 Mg PO TID 30 Days Reported Ropinirole Hcl 1 Mg Tablet 1 Tab PO TID LAST DOSE GIVEN: DATE: TODAY TIME: AFTERNOON NEXT DOSE DUE: DATE: TODAY TIME: PM Repaglinide 1 Mg Tablet 1 Tab PO TID LAST DOSE GIVEN: DATE: TODAY TIME: BEFORE LUNCH NEXT DOSE DUE: DATE: TODAY TIME: BEFORE DINNER Tamsulosin Hcl 0.4 Mg Cap.er.24h 1 Tab PO DAILY LAST DOSE GIVEN: DATE: TODAY TIME: AM NEXT DOSE DUE: DATE: TOMORROW TIME: AM Glipizide 5 Mg Tablet 5 Mg PO BID LAST DOSE GIVEN: DATE: TODAY TIME: AM NEXT DOSE DUE: DATE: TODAY TIME: PM Crestor (Rosuvastatin Calcium) 5 Mg Tablet 5 Mg PO HS LAST DOSE GIVEN: DATE: YESTERDAY TIME: AT BEDTIME NEXT DOSE DUE: DATE: TODAY TIME: AT BEDTIME Acetaminophen Pm Caplet (Acetaminophen/Diphenhydramine) 1 Each Tablet 2 Each PO QHS PRN Lexapro (Escitalopram Oxalate) 5 Mg Tablet 5 Mg PO DAILY Sinemet 25-100 Mg Tablet (Carbidopa/Levodopa) 1 Each Tablet 2 Tab PO TID LAST DOSE GIVEN: DATE: TODAY TIME: AFTGERNOON NEXT DOSE DUE: DATE: TODAY TIME: PM Aspirin 325 Mg Tablet 325 Mg PO DAILY Norvasc (Amlodipine Besylate) 5 Mg Tablet 5 Mg PO DAILY LAST DOSE GIVEN: DATE: TODAY TIME: AM NEXT DOSE DUE: DATE: TOMORROW TIME: AM MADAN RIVAS MD Aug 31, 2018 05:28
[2018-08-31] MEDS ORDERED: IV NORMAL SALINE 1,000ML 1,000 ML IV SCH (05:30)
[2018-08-31 05:47] LABS: BASO % 0 % (0-3); EOS # 0.1 x10^3/uL (0.0-0.7); EOS % 1 % (0-3); HEMATOCRIT 25.6 % (39.0-53.0); HEMOGLOBIN 7.7 g/dL (13.0-17.5); LYMPH # 0.6 x10^3/uL (1.0-4.8); LYMPH % 7 % (24-48); MEAN CORPUSCULAR HEMOGLOBIN 26 pg (25-35); MEAN CORPUSCULAR HGB CONC 30 g/dL (31-37); MEAN CORPUSCULAR VOLUME 86 fL (79-100); MONO # 0.7 x10^3/uL (0.0-1.1); MONO % 8 % (0-9); NEUT # 7.5 x10^3uL (1.8-7.7); NEUT % 84 % (31-73); PLATELET COUNT 228 x10^3/uL (140-400); RED BLOOD COUNT 2.98 x10^6/uL (4.30-5.70); RED CELL DISTRIBUTION WIDTH 18.5 % (11.5-14.5); WHITE BLOOD COUNT 8.9 x10^3/uL (4.0-11.0)
[2018-08-31 06:05] LABS: ALBUMIN 2.8 g/dL (3.4-5.0); CALCIUM 8.1 mg/dL (8.5-10.1); CREATININE 1.1 mg/dL (0.7-1.3); DIRECT BILIRUBIN 0.4 mg/dL (0.0-0.2); GFR 63.8; MAGNESIUM 2.1 mg/dL (1.8-2.4); POTASSIUM 4.2 mmol/L (3.5-5.1); TOTAL BILIRUBIN 0.9 mg/dL (0.2-1.0); TOTAL PROTEIN 6.1 g/dL (6.4-8.2)
--- NOTE | 2018-08-31 06:11 | EKG ---
[address] [address] Test Date: 2018-08-31 Test Time: 05:48:10 Pat Name: DAVID SHIRLEY Department: Room: Gender: M Motor Vehicle Examiner: ELÍAS : 1935 Requested By: MADAN RIVAS Order Number: [id number] Reading MD: Jesus Sims Measurements Intervals [place] Rate: 76 P: AR: QRS: -24 QRSD: 124 T: -7 QT: 400 QTc: 455 Interpretive Statements ATRIAL FIBRILLATION. RIGHT BUNDLE BRANCH BLOCK RVH WITH REPOLARIZATION ABNORMALITY Electronically Signed On 08-31-2018 10:15:51 BANKING PIN ADJUSTER by Jesus Sims
[2018-08-31] MEDS ORDERED: ONDANSETRON PF 4 MG/2 ML VIAL. IV PRN (06:30)
[2018-08-31] MEDS ORDERED: ACETAMINOPHEN 325 MG TABLET PO PRN (06:30)
[2018-08-31 06:44] LABS: AMPHETAMINE/METHAMPHETAMINE NEG (NEG); BARBITURATES NEG (NEG); BENZODIAZEPINES NEG (NEG); CANNABINOIDS NEG (NEG); COCAINE NEG (NEG); METHADONE NEG (NEG); OPIATES NEG (NEG); PHENCYCLIDINE NEG (NEG)
[2018-08-31 06:54] LABS: AMORPHOUS SEDIMENT,UR PRESENT /HPF; BACTERIA,URINE 0 /HPF (0-FEW); BILIRUBIN,URINE NEG (NEG); CLARITY,URINE CLEAR; COLOR,URINE AMBER; GLUCOSE,URINE NEG (NEG); NITRITE,URINE NEG (NEG); RBC,URINE 0 /HPF (0-2); SQUAMOUS EPITHELIAL CELL,UR OCC /LPF; UROBILINOGEN,URINE 1 mg/dL (0.2 mg/dL); WBC,URINE RARE /HPF (0-4)
[2018-08-31] MEDS ORDERED: diphenhydrAMINE 50 MG/ML VIAL IVP ONE (07:00)
[2018-08-31] MEDS ORDERED: FUROSEMIDE 40 MG/4 ML VIAL IVP ONE (07:00)
[2018-08-31] MEDS ORDERED: DEXTROSE ORAL GEL 15 GM TUBE. PO ONE (07:00)
[2018-08-31] MEDS ORDERED: ACETAMINOPHEN 500 MG TABLET PO ONE ×2 (07:00)
[2018-08-31] MEDS: IPRATRPIUM/ALBUTEROL 0.5/2.5MG 3 ML NEBU. NEB SCH ×5 (07:14→20:31)
--- NOTE | 2018-08-31 08:04 | RAD ---
Examination: PORTABLE CHEST 1V History: Fall, dyspnea Comparison/Correlation: 08/06/2018 portable chest x-ray exam Findings: Portable upright frontal view chest was obtained. Heart size is borderline. No pneumothorax. Pulmonary vasculature is congested. Small right pleural effusion is present. Interstitial edema or infiltrate at the right lung base is present. No pneumothorax. Degenerative changes of the left glenohumeral joint noted. No displaced fracture. Impression: No displaced fracture. Consider further evaluation if occult fracture is a persistent concern. Small right pleural effusion. Pulmonary interstitial edema. Possible right basilar pulmonary interstitial infiltrate. Interval follow-up to assess resolution recommended. Electronically signed by: Andrzej Baird MD (08/31/2018 7:59 AM) [facility]
[2018-08-31] MEDS ORDERED: diphenhydrAMINE HCL 25 MG CAPSULE PO PRN (10:45)
[2018-08-31] MEDS ORDERED: DIPHENHYDRAMINE PO PRN (10:45)
[2018-08-31] MEDS ORDERED: ACETAMINOPHEN PO PRN (10:45)
[2018-08-31 11:17] VITALS: BP 111/66
[2018-08-31] MEDS: REPAGLINIDE 1 MG TABLET PO SCH ×2 (11:30→16:30)
[2018-08-31] MEDS: GABAPENTIN 100 MG CAPSULE. PO SCH ×2 (14:46→20:55)
[2018-08-31] MEDS: CARBIDOPA/LEVODOPA 25/100MG TABLET PO SCH ×2 (14:46→20:56)
[2018-08-31] MEDS: rOPINIRole 1 MG TABLET. PO SCH ×2 (14:47→20:56)
[2018-08-31] MEDS: BENZONATATE 100 MG CAPSULE. PO SCH ×2 (14:47→20:55)
[2018-08-31] MEDS: glipiZIDE 5 MG TABLET PO SCH (16:30)
[2018-08-31 17:19] LABS: BASO % 1 % (0-3); EOS # 0.1 x10^3/uL (0.0-0.7); EOS % 2 % (0-3); HEMATOCRIT 24.4 % (39.0-53.0); HEMOGLOBIN 7.5 g/dL (13.0-17.5); LYMPH # 0.6 x10^3/uL (1.0-4.8); LYMPH % 8 % (24-48); MEAN CORPUSCULAR HEMOGLOBIN 26 pg (25-35); MEAN CORPUSCULAR HGB CONC 31 g/dL (31-37); MEAN CORPUSCULAR VOLUME 85 fL (79-100); MONO # 0.7 x10^3/uL (0.0-1.1); MONO % 10 % (0-9); NEUT % 81 % (31-73); PLATELET COUNT 222 x10^3/uL (140-400); RED BLOOD COUNT 2.87 x10^6/uL (4.30-5.70); RED CELL DISTRIBUTION WIDTH 18.9 % (11.5-14.5); WHITE BLOOD COUNT 7.4 x10^3/uL (4.0-11.0)
--- NOTE | 2018-08-31 17:19 | HP ---
ADMIT DATE: 08/31/2018 HISTORY OF PRESENT ILLNESS: The patient is an 82-year-old male patient, who was a resident at [facility] and who apparently presented with a history of fall. He denied any pain or any other complaint, but did complain of generalized weakness, which he states has become worse lately. The patient stated that he did not hit his head, kind of just had generalized collapse because of weakness, he was not using his walker. The patient has multiple medical problems and has had poor appetite. I did start him yesterday on Marinol and also we have several measurement of his hemoglobin that were low, but eventually he was sent to [facility] with hemoglobin was 8.5, and did not require any blood transfusion. PAST MEDICAL HISTORY: Significant for chronic atrial fibrillation, hyperlipidemia, chronic obstructive pulmonary disease, pneumonia, pulmonary fibrosis, has urinary incontinence as well as generalized weakness. PAST SURGICAL HISTORY: Significant for appendectomy, left femoropopliteal bypass graft, inguinal hernia repair, failed right leg bypass angioplasty in 2010. FAMILY HISTORY: Noncontributory. SOCIAL HISTORY: He is , lives with his . He denies smoking, alcohol or illicit drug use. 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 ALLERGIES: He is allergic to CODEINE, MILK, SHELLFISH, BERRIED SHRIMP, TURKEY. MEDICATIONS: He is currently on following medications: He is on diphenhydramine, Benadryl 50 mg at bedtime, ipratropium bromide, albuterol sulfate 3 mL by nebulizer 3 times a day, tamsulosin 0.4 mg daily, apixaban 5 mg twice a day, Crestor 5 mg at bedtime, metoprolol succinate 25 mg once a day, amlodipine 5 mg once a day, aspirin 325 mg once a day, acetaminophen 650 mg every 6 hours, acetaminophen or Tylenol PM 2 tablets at bedtime, gabapentin 100 mg 3 times a day, citalopram hydrobromide, Celexa 10 mg once a day, escitalopram oxalate for Lexapro 5 mg once a day, carbidopa/levodopa 25/100 two tablets 3 times a day for Parkinson's disease. He is on Requip 3 times a day, potassium chloride 20 mEq once a day, furosemide 40 mg once a day. He is on benzonatate 100 mg 3 times a day, repaglinide 1 mg 3 times a day, glipizide 5 mg twice a day, Myrbetriq 50 mg at bedtime every other day and finasteride 5 mg daily. REVIEW OF SYSTEMS: As per history of present illness. PHYSICAL EXAMINATION: GENERAL: On arrival to the Emergency Room, he looked well and was clearly in no apparent respiratory distress. He was pale, but no jaundice, cyanosis or thyromegaly. No jugular venous distension. No limb edema. VITAL SIGNS: His heart rate was 78, blood pressure was 111/66, temperature was 97.6, respiratory rate was 22 and oxygen saturation was 94% on 3 liters of oxygen. HEAD, EYES, EARS, NOSE AND THROAT: Showed normocephalic, atraumatic. NECK: Supple. HEART: Showed normal first and second heart sounds with no gallop, rub or murmur. CHEST: Clear to auscultation. No crepitation or rhonchi. ABDOMEN: Distended, soft, nontender. No guarding or rigidity. No organomegaly. All hernial orifices intact. Bowel sounds normal. NEUROLOGIC: He was awake, alert, responding appropriately. All cranial nerves intact. EXTREMITIES: He moves extremities without difficulty. He does ambulate with a walker, although he is very weak and unsteady. LABORATORY DATA: On arrival to the Emergency Room showed his white cell count was 8900, hemoglobin was 7.7, hematocrit 25.6, MCV 86 and platelet count of 228,000 with normal manual differential. His chemistry showed serum sodium of 137, potassium 4.2, chloride 101, bicarbonate 23, anion gap of 13, BUN 27, creatinine 1.1, estimated GFR was 64 mL per minute. His glucose was 66, calcium was 8.1, magnesium was 2.1. Total bilirubin, AST, ALT, alkaline phosphatase were normal. His first set of cardiac enzymes showed troponin to be less than 0.35. Beta natriuretic peptide was 5541. Total protein was 6.1, albumin was 2.8, lipase was 61 and TSH was 0.545. His prothrombin time was 13.5, INR 1.4, aPTT was 32. D-dimer was 116. Urinalysis was essentially unremarkable. Toxicology screen was negative. He has had a chest x-ray, which showed no displaced fracture. The heart size is borderline. No pneumothorax. Pulmonary vasculature is congested. A small right-sided pleural effusion is present. Interstitial edema or infiltrate at the right lung base is present. No pneumothorax. Degenerative changes of the left glenohumeral joint noted. No displaced fracture. SUMMARY: This is an 82-year-old male patient, who was a resident at [facility] and who apparently had unwitnessed fall. He is on apixaban and as per protocol he was brought to the Emergency Room for further evaluation and treatment. The patient denied any pain or there was no obvious deformity or bruises. He was evaluated in the Emergency Room, was admitted for further evaluation. His lab work showed that he has normochromic normocytic anemia. His chemistry showed that he has slightly elevated troponin at 0.035. His D-dimer was elevated also at 1.16. His toxic screen was unremarkable. He has marked bilateral lower limb edema. ASSESSMENT AND PLAN: My plan is to arrange for him to have Doppler ultrasound of both lower extremities and also check his hematinics including serum iron, TIBC and vitamin B12 and folic acid. That his estimated GFR was 63 I will arrange for him to have a CT angio of the chest to rule out, although he is already on Eliquis and will obviously transfusing if the H and H has dropped and also give him IV Venofer if deemed necessary. Meanwhile, we will continue with physical and occupational therapy. DAVID FRAZIER MD DR: SIDRA/zac JOB#: [id number] / [id number]
[2018-08-31 19:41] VITALS: BP 112/56
[2018-08-31] MEDS: ATORVASTATIN CALCIUM 20 MG TABLET PO SCH (20:55)
[2018-08-31] MEDS: APIXABAN 5 MG TABLET. PO SCH (20:56)
[2018-09-01] VITALS (10 sets, daily range): BP systolic 95–110; BP diastolic 44–60
[2018-09-01] MEDS: IPRATRPIUM/ALBUTEROL 0.5/2.5MG 3 ML NEBU. NEB SCH ×3 (05:11→19:56)
[2018-09-01 06:29] LABS: BASO % 1 % (0-3); EOS # 0.2 x10^3/uL (0.0-0.7); EOS % 3 % (0-3); HEMATOCRIT 22.6 % (39.0-53.0); HEMOGLOBIN 7.1 g/dL (13.0-17.5); LYMPH # 0.7 x10^3/uL (1.0-4.8); LYMPH % 10 % (24-48); MEAN CORPUSCULAR HEMOGLOBIN 26 pg (25-35); MEAN CORPUSCULAR HGB CONC 31 g/dL (31-37); MEAN CORPUSCULAR VOLUME 84 fL (79-100); MONO # 0.6 x10^3/uL (0.0-1.1); MONO % 9 % (0-9); NEUT # 5.2 x10^3uL (1.8-7.7); NEUT % 78 % (31-73); PLATELET COUNT 198 x10^3/uL (140-400); RED BLOOD COUNT 2.69 x10^6/uL (4.30-5.70); RED CELL DISTRIBUTION WIDTH 18.8 % (11.5-14.5); WHITE BLOOD COUNT 6.7 x10^3/uL (4.0-11.0)
[2018-09-01 06:31] LABS: CALCIUM 7.3 mg/dL (8.5-10.1); GFR 71.2; POTASSIUM 3.3 mmol/L (3.5-5.1)
[2018-09-01] MEDS: REPAGLINIDE 1 MG TABLET PO SCH ×3 (07:30→16:30)
[2018-09-01] MEDS: GABAPENTIN 100 MG CAPSULE. PO SCH ×3 (08:48→20:45)
[2018-09-01] MEDS: FINASTERIDE 5 MG TABLET PO SCH (08:48)
[2018-09-01] MEDS: rOPINIRole 1 MG TABLET. PO SCH ×3 (08:48→20:45)
[2018-09-01] MEDS: APIXABAN 5 MG TABLET. PO SCH (08:48)
[2018-09-01] MEDS: TAMSULOSIN 0.4 MG CAP.ER.24H. PO SCH (08:48)
[2018-09-01] MEDS: FUROSEMIDE 40 MG TABLET PO SCH (08:50)
[2018-09-01] MEDS: POTASSIUM CHLORIDE 20 MEQ TABLET.ER. PO SCH (08:50)
[2018-09-01] MEDS: glipiZIDE 5 MG TABLET PO SCH ×2 (08:50→16:30)
[2018-09-01] MEDS: CARBIDOPA/LEVODOPA 25/100MG TABLET PO SCH ×3 (08:50→20:45)
[2018-09-01] MEDS: METOPROLOL SUCC 24HR ER 25 MG TAB.ER.24H. PO SCH (08:50)
[2018-09-01] MEDS: BENZONATATE 100 MG CAPSULE. PO SCH ×3 (08:50→20:44)
[2018-09-01] MEDS: CITALOPRAM 10 MG TABLET. PO SCH (08:51)
[2018-09-01] MEDS: MIRABEGRON 25 MG TAB.ER.24H PO SCH (08:52)
[2018-09-01] MEDS ORDERED: ESCITALOPRAM OXALATE 5 MG PO SCH (09:00)
[2018-09-01] MEDS: LIDOCAINE (700MG/PATCH) PATCH. TD SCH (09:00)
[2018-09-01] MEDS ORDERED: amLODIPine BESYLATE 5 MG TABLET PO SCH (09:00)
--- NOTE | 2018-09-01 11:01 | PDOC2 ---
CONSULT Date of Admission DATE: 09/01/18 TIME: 11:00 Reason for Consult: elevated trop Problem List Problems Medical Problems: (1) Falling Status: Acute (2) Weakness Status: Acute History of Present Illness Mr Winchester is an 82 year old male with history of atrial fibrillation, severe pulmonary hypertension, pulmonary fibrosis, diastolic heart failure and Parkinson dementia. He was most recently in the hospital with an episode of respiratory failure in mid Jul. He has been residing at [facility]. He was sent to the ed for evaluation after a fall per their protocol due to anticoagulant use. He apparently lost balance and slid down the wall. He was not reportedly injured. He is a fairly poor historian but reports that he did not have lightheadedness, dyspnea, palpitations or chest pain and "just lost balance". Consult was called due to elevated trop. He is currently resting quietly and symptom free with the exception of lower extremity edema. Past Medical History parkinsons disease Cardiovascular: AFIB (chronic), hyperlipidemia, Other (murmur), pulmonary hypertension Pulmonary: COPD, Pneumonia, Other (pulmonary fibrosis, chronic oxygen) Musculoskeletal: Weakness Renal/: Urinary Incontinence Past Surgical History Appendectomy, left fem-pop, inguinal hernia repair, failed right leg bypass, angioplasty 2010. Family History non contributory due to age Social History he denies smoking, etoh or illicit drugs , normally lives at home with his but currently residing in [facility]. Current Medications Current Medications Sodium Chloride 1,000 ml @ 100 mls/hr Q10H IV Last administered on 08/31/18at 05 :38; Start 08/31/18 at 05:30; Stop 08/31/18 at 15:29; Status DC Furosemide (Lasix) 40 mg 1X ONCE IVP Last administered on 08/31/18at 06:54; Start 08/31/18 at 07:00; Stop 08/31/18 at 07:01; Status DC Diphenhydramine HCl (Benadryl) 25 mg 1X ONCE IVP Last administered on at 07:32; Start 08/31/18 at 07:00; Stop 08/31/18 at 07:01; Status DC Acetaminophen (Tylenol) 1,000 mg 1X ONCE PO Last administered on 08/31/18at 07: 00; Start 08/31/18 at 07:00; Stop 08/31/18 at 07:01; Status DC Ondansetron HCl (Zofran) 4 mg PRN Q4HRS PRN IV NAUSEA/VOMITING; Start 08/31/18 at 06:30; Stop 09/01/18 at 06:29; Status DC Acetaminophen (Tylenol) 650 mg PRN Q4HRS PRN PO FEVER Last administered on at 02:33; Start 08/31/18 at 06:30; Stop 09/01/18 at 06:29; Status DC Albuterol/ Ipratropium (Duoneb) 3 ml RTQID NEB Last administered on 08/31/18at 07 :14; Start 08/31/18 at 08:00; Stop 08/31/18 at 20:28; Status DC Acetaminophen (Tylenol) 650 mg 1X ONCE PO ; Start 08/31/18 at 07:00; Stop at 07:01; Status DC Glucose (Insta-Glucose) 15 gm 1X ONCE PO Last administered on 08/31/18at 06:54; Start 08/31/18 at 07:00; Stop 08/31/18 at 07:01; Status DC Acetaminophen (Tylenol) 325 mg PRN Q6HRS PRN PO PAIN / TEMP; Start 08/31/18 at 10:45 Carbidopa/Levodopa (Sinemet 25/100) 2 tab TID PO Last administered on 09/01/18at 08:50; Start 08/31/18 at 14:00 Citalopram Hydrobromide (CeleXA) 10 mg DAILY PO Last administered on 09/01/18at 08:51; Start 09/01/18 at 09:00 Diphenhydramine HCl (Benadryl) 50 mg PRN QHS PRN PO SLEEP; Start 08/31/18 at 10: 45 Gabapentin (Neurontin) 100 mg TID PO Last administered on 09/01/18at 08:48; Start 08/31/18 at 14:00 Albuterol/ Ipratropium (Duoneb) 3 ml TID NEB Last administered on 09/01/18at 09: 39; Start 08/31/18 at 14:00 Metoprolol Succinate (Toprol Xl) 25 mg DAILY PO Last administered on 09/01/18at 08:50; Start 09/01/18 at 09:00 Potassium Chloride (Klor-Con) 20 meq DAILY PO Last administered on 09/01/18 08: 50; Start 09/01/18 at 09:00 Tamsulosin HCl (Flomax) 0.4 mg DAILY PO Last administered on 09/01/18 08:48; Start 09/01/18 at 09:00 Non-Formulary Medication (Acetaminophen/ Diphenhydramine (Acetaminophen Pm Caplet)) 2 each QHS PRN PO INSOMNIA; Start 08/31/18 at 10:45; Stop 08/31/18 at 10 :53; Status DC Amlodipine Besylate (Norvasc) 5 mg DAILY PO ; Start 09/01/18 at 09:00 Apixaban (Eliquis) 5 mg BID PO Last administered on 09/01/18 08:48; Start at 21:00 Benzonatate (Tessalon Perle) 100 mg [id number] PO Last administered on 09/01/18 08: 50; Start 08/31/18 at 14:00 Non-Formulary Medication (Escitalopram Oxalate (Lexapro)) 5 mg DAILY PO ; Start 09/01/18 at 09:00; Stop 09/01/18 at 09:00; Status DC Finasteride (Proscar) 5 mg DAILY PO Last administered on 09/01/18 08:48; Start 09/01/18 at 09:00 Furosemide (Lasix) 40 mg DAILY PO Last administered on 09/01/18 08:50; Start at 09:00 Glipizide (Glucotrol) 5 mg BIDBFRMEAL PO Last administered on 09/01/18 08:50; Start 08/31/18 at 16:30 Lidocaine (Lidoderm) 1 patch DAILY TD ; Start 09/01/18 at 09:00 Mirabegron (Myrbetriq) 50 mg QODAY PO Last administered on 09/01/18 08:52; Start 09/01/18 at 09:00 Repaglinide (Prandin) 1 mg TIDAC PO ; Start 08/31/18 at 11:30 Ropinirole HCl (Requip) 1 mg TID PO Last administered on 09/01/18 08:48; Start 08/31/18 at 14:00 Atorvastatin Calcium (Lipitor) 20 mg QHS PO Last administered on 08/31/18at 20:55 ; Start 08/31/18 at 21:00 Active Scripts Active Eliquis (Apixaban) 5 Mg Tablet 5 Mg PO BID Celexa (Citalopram Hydrobromide) 10 Mg Tablet 10 Mg PO DAILY Lidocaine 1 Each Adh..patch 1 Patch TD DAILY Benzonatate 100 Mg Capsule 100 Mg PO [id number] Tylenol (Acetaminophen) 325 Mg Tablet 325 Mg PO PRN Q6HRS PRN Furosemide 40 Mg Tablet 1 Tab PO DAILY Benadryl (Diphenhydramine Hcl) 25 Mg Capsule 50 Mg PO PRN QHS PRN 30 Days Finasteride 5 Mg Tablet 5 Mg PO DAILY 30 Days Myrbetriq (Mirabegron) 50 Mg Tab.er.24h 50 Mg PO QODAY Klor-Con M20 (Potassium Chloride) 20 Meq Tab.er.prt 20 Meq PO DAILY 30 Days Metoprolol Succinate ( Xl ) (Metoprolol Succinate) 25 Mg Tab.er.24h 25 Mg PO DAILY 30 Days Duoneb 0.5-3(2.5) Mg/3 Ml (Albuterol/Ipratropium) 3 Ml Ampul.neb 3 Ml NEB TID 30 Days Gabapentin (Gabapentin) 100 Mg Capsule 100 Mg PO TID 30 Days Reported Ropinirole Hcl 1 Mg Tablet 1 Tab PO TID LAST DOSE GIVEN: DATE: TODAY TIME: AFTERNOON NEXT DOSE DUE: DATE: TODAY TIME: PM Repaglinide 1 Mg Tablet 1 Tab PO TID LAST DOSE GIVEN: DATE: TODAY TIME: BEFORE LUNCH NEXT DOSE DUE: DATE: TODAY TIME: BEFORE DINNER Tamsulosin Hcl 0.4 Mg Cap.er.24h 1 Tab PO DAILY LAST DOSE GIVEN: DATE: TODAY TIME: AM NEXT DOSE DUE: DATE: TOMORROW TIME: AM Glipizide 5 Mg Tablet 5 Mg PO BID LAST DOSE GIVEN: DATE: TODAY TIME: AM NEXT DOSE DUE: DATE: TODAY TIME: PM Crestor (Rosuvastatin Calcium) 5 Mg Tablet 5 Mg PO HS LAST DOSE GIVEN: DATE: YESTERDAY TIME: AT BEDTIME NEXT DOSE DUE: DATE: TODAY TIME: AT BEDTIME Acetaminophen Pm Caplet (Acetaminophen/Diphenhydramine) 1 Each Tablet 2 Each PO QHS PRN Lexapro (Escitalopram Oxalate) 5 Mg Tablet 5 Mg PO DAILY Sinemet 25-100 Mg Tablet (Carbidopa/Levodopa) 1 Each Tablet 2 Tab PO TID LAST DOSE GIVEN: DATE: TODAY TIME: AFTGERNOON NEXT DOSE DUE: DATE: TODAY TIME: PM Aspirin 325 Mg Tablet 325 Mg PO DAILY Norvasc (Amlodipine Besylate) 5 Mg Tablet 5 Mg PO DAILY LAST DOSE GIVEN: DATE: TODAY TIME: AM NEXT DOSE DUE: DATE: TOMORROW TIME: AM Allergies: Coded Allergies: codeine (Verified Allergy, Intermediate, 06/06/15) shellfish derived (Verified Allergy, Intermediate, 08/31/18) shrimp (Unverified Allergy, Intermediate, 02/01/16) milk (Verified Allergy, Mild, Nausea, 08/06/18) turkey (Unverified Allergy, Mild, 06/06/15) Review of System as per HPI VITALS Vital Signs Date Time Temp Pulse Resp B/P (MAP) Pulse Ox O2 Delivery O2 Flow Rate FiO2 09/01/18 09:39 96 Nasal Cannula 3.0 09/01/18 08:50 89 100/54 09/01/18 08:00 18 08/31/18 05:17 97.6 Labs Laboratory Tests Test 08/31/18 05:20 08/31/18 06:20 08/31/18 10:20 08/31/18 12:11 White Blood Count 8.9 x10^3/uL (4.0-11.0) Red Blood Count 2.98 x10^6/uL (4.30-5.70) Hemoglobin 7.7 g/dL (13.0-17.5) Hematocrit 25.6 % (39.0-53.0) Mean Corpuscular Volume 86 fL (79-100) Mean Corpuscular Hemoglobin 26 pg (25-35) Mean Corpuscular Hemoglobin Concent 30 g/dL (31-37) Red Cell Distribution Width 18.5 % (11.5-14.5) Platelet Count 228 x10^3/uL (140-400) Neutrophils (%) (Auto) 84 % (31-73) Lymphocytes (%) (Auto) 7 % (24-48) Monocytes (%) (Auto) 8 % (0-9) Eosinophils (%) (Auto) 1 % (0-3) Basophils (%) (Auto) 0 % (0-3) Neutrophils # (Auto) 7.5 x10^3uL (1.8-7.7) Lymphocytes # (Auto) 0.6 x10^3/uL (1.0-4.8) Monocytes # (Auto) 0.7 x10^3/uL (0.0-1.1) Eosinophils # (Auto) 0.1 x10^3/uL (0.0-0.7) Basophils # (Auto) 0.0 x10^3/uL (0.0-0.2) Prothrombin Time 13.5 SEC (9.4-11.4) Prothromb Time International Ratio 1.4 (0.9-1.1) Activated Partial Thromboplast Time 32 SEC (23-33) D-Dimer (Mary Lou) 1.16 mg/L (0.00-0.50) Sodium Level 137 mmol/L (136-145) Potassium Level 4.2 mmol/L (3.5-5.1) Chloride Level 101 mmol/L (98-107) Carbon Dioxide Level 23 mmol/L (21-32) Anion Gap 13 (6-14) Blood Urea Nitrogen 27 mg/dL (8-26) Creatinine 1.1 mg/dL (0.7-1.3) Estimated GFR (Cockcroft-Gault) 63.8 Glucose Level 66 mg/dL (70-99) Calcium Level 8.1 mg/dL (8.5-10.1) Magnesium Level 2.1 mg/dL (1.8-2.4) Total Bilirubin 0.9 mg/dL (0.2-1.0) Direct Bilirubin 0.4 mg/dL (0.0-0.2) Aspartate Amino Transf (AST/SGOT) 17 U/L (15-37) Alanine Aminotransferase (ALT/SGPT) 10 U/L (16-63) Alkaline Phosphatase 107 U/L (46-116) Creatine Kinase 55 U/L (39-308) Troponin I Quantitative 0.035 ng/mL (0-0.055) WP-Xsg-G-Type Natriuretic Peptide 5541 pg/mL (0-449) Total Protein 6.1 g/dL (6.4-8.2) Albumin 2.8 g/dL (3.4-5.0) Lipase 61 U/L (73-393) Thyroid Stimulating Hormone (TSH) 0.545 uIU/mL (0.358-3.740) Urine Collection Type Unknown Urine Color Adore Urine Clarity Clear Urine pH 5.5 Urine Specific [place] 1.020 Urine Protein Neg (NEG-TRACE) Urine Glucose (UA) Neg mg/dL (NEG) Urine Ketones (Stick) Trace mg/dL (NEG) Urine Blood Neg (NEG) Urine Nitrite Neg (NEG) Urine Bilirubin Neg (NEG) Urine Urobilinogen Dipstick 1 mg/dL (0.2 mg/dL) Urine Leukocyte Esterase Neg (NEG) Urine RBC 0 /HPF (0-2) Urine WBC Rare /HPF (0-4) Urine Squamous Epithelial Cells Occ /LPF Urine Amorphous Sediment Present /HPF Urine Bacteria 0 /HPF (0-FEW) Urine Opiates Screen Neg (NEG) Urine Methadone Screen Neg (NEG) Urine Barbiturates Neg (NEG) Urine Phencyclidine Screen Neg (NEG) Urine Amphetamine/Methamphetamine Neg (NEG) Urine Benzodiazepines Screen Neg (NEG) Urine Cocaine Screen Neg (NEG) Urine Cannabinoids Screen Neg (NEG) Urine Ethyl Alcohol Neg (NEG) Nasal Screen MRSA (PCR) Negative (Negative) Glucose (Fingerstick) 119 mg/dL (70-99) Test 08/31/18 17:05 09/01/18 04:14 09/01/18 05:46 White Blood Count 7.4 x10^3/uL (4.0-11.0) 6.7 x10^3/uL (4.0-11.0) Red Blood Count 2.87 x10^6/uL (4.30-5.70) 2.69 x10^6/uL (4.30-5.70) Hemoglobin 7.5 g/dL (13.0-17.5) 7.1 g/dL (13.0-17.5) Hematocrit 24.4 % (39.0-53.0) 22.6 % (39.0-53.0) Mean Corpuscular Volume 85 fL (79-100) 84 fL (79-100) Mean Corpuscular Hemoglobin 26 pg (25-35) 26 pg (25-35) Mean Corpuscular Hemoglobin Concent 31 g/dL (31-37) 31 g/dL (31-37) Red Cell Distribution Width 18.9 % (11.5-14.5) 18.8 % (11.5-14.5) Platelet Count 222 x10^3/uL (140-400) 198 x10^3/uL (140-400) Neutrophils (%) (Auto) 81 % (31-73) 78 % (31-73) Lymphocytes (%) (Auto) 8 % (24-48) 10 % (24-48) Monocytes (%) (Auto) 10 % (0-9) 9 % (0-9) Eosinophils (%) (Auto) 2 % (0-3) 3 % (0-3) Basophils (%) (Auto) 1 % (0-3) 1 % (0-3) Neutrophils # (Auto) 6.0 x10^3uL (1.8-7.7) 5.2 x10^3uL (1.8-7.7) Lymphocytes # (Auto) 0.6 x10^3/uL (1.0-4.8) 0.7 x10^3/uL (1.0-4.8) Monocytes # (Auto) 0.7 x10^3/uL (0.0-1.1) 0.6 x10^3/uL (0.0-1.1) Eosinophils # (Auto) 0.1 x10^3/uL (0.0-0.7) 0.2 x10^3/uL (0.0-0.7) Basophils # (Auto) 0.0 x10^3/uL (0.0-0.2) 0.0 x10^3/uL (0.0-0.2) Troponin I Quantitative 0.032 ng/mL (0-0.055) Glucose (Fingerstick) 84 mg/dL (70-99) Sodium Level 128 mmol/L (136-145) Potassium Level 3.3 mmol/L (3.5-5.1) Chloride Level 99 mmol/L (98-107) Carbon Dioxide Level 29 mmol/L (21-32) Anion Gap 0 (6-14) Blood Urea Nitrogen 25 mg/dL (8-26) Creatinine 1.0 mg/dL (0.7-1.3) Estimated GFR (Cockcroft-Gault) 71.2 Glucose Level 84 mg/dL (70-99) Calcium Level 7.3 mg/dL (8.5-10.1) Images EKG - atrial fib with RBBB Assessment/Plan 1. Tropnin elevation - remains indeterminate, [place] ruled out. 2. chronic respiratory insufficiency in the setting of known pulmonary fibrosis , COPD and severe PHTN. On oxygen chronically. 3. chronic diastolic HF - no overt heart failure. 4. Anemia - heme check stools, consider GI evaluation. 5. Edema - likely combination of venous insufficiency and protein malnutrition. DVT sono and if negative, Compression hose. 6. atrial fibrillation with controlled ventricular response, persistent- Apixaban for stroke prophylaxis. Toprol for rate control. May need to consider stopping OAC due to anemia and falls. PT for fall risk assessment. 7. hyperlipidemia - lipids on 07/01/18 with LDL at goal, low HDL, controlled Tgs. Continue statin. 8. parkinson's - per PCP DARIO DYE APRN Sep 01, 2018 11:01
[2018-09-01] MEDS ORDERED: DEXTROSE 50% 25 GM / 50ML DISP.SYRIN. IV ONE (17:36)
[2018-09-01] MEDS ORDERED: DEXTROSE 50% 25 GM / 50ML DISP.SYRIN. IV PRN (17:45)
[2018-09-01] MEDS: DOCUSATE SODIUM 100 MG CAPSULE PO SCH (20:44)
[2018-09-01] MEDS: ATORVASTATIN CALCIUM 20 MG TABLET PO SCH (20:45)
[2018-09-01] MEDS: ACETAMINOPHEN 325 MG TABLET PO PRN (23:17)
--- NOTE | 2018-09-01 23:27 | RAD ---
Bilateral lower extremity venous ultrasound: History: Elevated d-dimer, edema Sonographic evaluation including grayscale, color flow and spectral Doppler analysis of the deep veins of the lower extremities was performed. The femoral and popliteal veins demonstrate normal compressibility and normal responses to distal augmentation maneuvers. Color imaging of those vessels shows no evidence of intraluminal clot. The visualized deep veins in both calves are patent. Greater saphenous veins were not visualized, the patient's had previous surgeries in both legs. IMPRESSION: There is no sonographic evidence of deep vein thrombosis in either lower extremity. Electronically signed by: Tenzin Mckenzie MD (09/01/2018 6:18 PM) [facility]
[2018-09-02 04:00] VITALS: BP 102/54
[2018-09-02] MEDS: IPRATRPIUM/ALBUTEROL 0.5/2.5MG 3 ML NEBU. NEB SCH ×3 (05:21→20:08)
--- NOTE | 2018-09-02 05:40 | PN ---
DATE: 09/01/2018 SUBJECTIVE: The patient is resting slightly propped up in bed and in no apparent respiratory distress. He was taking a nap. Apparently, he has sat in the chair for hours this morning, worked with physical therapy. Denied any complaint. However, on examining him, he was pale, but no jaundice, cyanosis or thyromegaly. No jugular venous distention, but bilateral lower limb edema. PHYSICAL EXAMINATION: VITAL SIGNS: His heart rate was 78, blood pressure was 85/53, temperature was 98.7, respiratory rate was 18 and oxygen saturation was 94% on 4 liters of oxygen. HEAD, EYES, EARS, NOSE AND THROAT: Showed normocephalic, atraumatic. NECK: Supple. HEART: Showed normal first and second heart sounds with no gallop or murmur. CHEST: Clear to auscultation. No crepitation or rhonchi. ABDOMEN: Distended, soft, nontender. NEUROLOGIC: He is awake, alert, responding appropriately. Cranial nerves intact. He moves extremities without difficulty, although he requires he uses a walker. His intake was 500, no output was recorded. LABORATORY DATA: Her lab work this morning showed a white cell count of 6700, hemoglobin 7.1, hematocrit 22.6, MCV 84 and platelet count of 198,000. His chemistry showed a serum sodium had dropped down to 128, potassium 3.3, chloride 99, bicarbonate 29, anion gap of 1, BUN 25, creatinine 1, estimated GFR was 71. Glucose was 84, calcium was 7.3. We checked his hematinic and his serum iron was only 12, TIBC was high at 316, iron saturation was 4, and serum ferritin was 24. His TSH was normal at 0.45; however, vitamin B12 was 510 pg/mL with normal range between 247 to 911 pg/mL. We did order stool for occult blood, the results of which are still pending. ASSESSMENT: 1. The patient was admitted with unwitnessed fall; however, there is no obvious injury. 2. Anemia of iron deficiency variety. His hemoglobin has dropped. His hemoglobin on 08/03/2018 was 13.6 and hematocrit was 40.7 and it is now down to 7.1 and 22.6. He is on Eliquis and is probably losing the blood in his GI tract. We did order a stool for occult blood, results of which are still pending. 3. Chronic atrial fibrillation, rate controlled, well anticoagulated. 4. Hyperlipidemia. 5. Chronic obstructive pulmonary disease. 6. Pulmonary fibrosis and generalized weakness. PLAN: My plan is to type and cross and transfuse 1 unit of packed RBCs. I will also start him on IV Venofer. I will discuss with the family that probably we need to discontinue Eliquis. We have already arranged for him to have venous Doppler ultrasound as well as probably CT angio and he might require IVC filter. DAVID FRAZIER MD DR: SIDRA/zac JOB#: [id number] / [id number]
[2018-09-02 06:27] LABS: HEMATOCRIT 25.2 % (39.0-53.0); HEMOGLOBIN 7.9 g/dL (13.0-17.5); RED BLOOD COUNT 3.03 x10^6/uL (4.30-5.70); RED CELL DISTRIBUTION WIDTH 18.4 % (11.5-14.5); WHITE BLOOD COUNT 7.4 x10^3/uL (4.0-11.0)
[2018-09-02 06:44] LABS: ALBUMIN 2.4 g/dL (3.4-5.0); ALBUMIN/GLOBULIN RATIO 0.8 (1.0-1.7); ALK PHOS 101 U/L (46-116); ANION GAP 5 (6-14); AST (SGOT) 12 U/L (15-37); BLOOD UREA NITROGEN 18 mg/dL (8-26); BUN/CREATININE RATIO 20 (6-20); CALCIUM 7.7 mg/dL (8.5-10.1); CARBON DIOXIDE 29 mmol/L (21-32); CHLORIDE 102 mmol/L (98-107); CREATININE 0.9 mg/dL (0.7-1.3); GFR 80.4; GLUCOSE 76 mg/dL (70-99); POTASSIUM 3.6 mmol/L (3.5-5.1); SODIUM 136 mmol/L (136-145); TOTAL BILIRUBIN 1.1 mg/dL (0.2-1.0); TOTAL PROTEIN 5.4 g/dL (6.4-8.2)
[2018-09-02 06:45] LABS: ALT (SGPT) < 6 U/L (16-63)
[2018-09-02] MEDS: REPAGLINIDE 1 MG TABLET PO SCH ×3 (07:30→16:30)
[2018-09-02] MEDS: POLYETHYLENE GLYCOL 3350 17 GM PACKET. PO SCH (07:52)
[2018-09-02] MEDS: POTASSIUM CHLORIDE 20 MEQ TABLET.ER. PO SCH (07:52)
[2018-09-02] MEDS: GABAPENTIN 100 MG CAPSULE. PO SCH ×3 (07:52→21:04)
[2018-09-02] MEDS: rOPINIRole 1 MG TABLET. PO SCH ×3 (07:52→21:05)
[2018-09-02] MEDS: BENZONATATE 100 MG CAPSULE. PO SCH ×3 (07:52→21:04)
[2018-09-02] MEDS: CARBIDOPA/LEVODOPA 25/100MG TABLET PO SCH ×3 (07:52→21:04)
[2018-09-02] MEDS: TAMSULOSIN 0.4 MG CAP.ER.24H. PO SCH (07:53)
[2018-09-02] MEDS: CITALOPRAM 10 MG TABLET. PO SCH (07:53)
[2018-09-02] MEDS: FINASTERIDE 5 MG TABLET PO SCH (07:53)
[2018-09-02] MEDS: METOPROLOL SUCC 24HR ER 25 MG TAB.ER.24H. PO SCH (07:53)
[2018-09-02] MEDS: DOCUSATE SODIUM 100 MG CAPSULE PO SCH ×2 (07:53→21:04)
[2018-09-02] MEDS: FUROSEMIDE 40 MG TABLET PO SCH (07:53)
[2018-09-02] MEDS: glipiZIDE 5 MG TABLET PO SCH ×2 (07:54→16:30)
[2018-09-02] MEDS: LIDOCAINE (700MG/PATCH) PATCH. TD SCH (07:54)
[2018-09-02 08:19] VITALS: BP 117/60
--- NOTE | 2018-09-02 09:52 | PDOC ---
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 Tropnin elevation - indeterminate, VT ruled out. 2. chronic respiratory insufficiency in the setting of known pulmonary fibrosis , COPD and severe PHTN. On oxygen chronically and appears stable. 3. chronic diastolic HF - no overt heart failure. 4. Anemia - heme check pending, Hg 7.9 s/p PRBCs. consider GI evaluation. Stop eliquis. 5. Edema - likely combination of venous insufficiency and protein malnutrition. DVT sono and if negative, Compression hose. 6. atrial fibrillation with controlled ventricular response, persistent- continue rate control. Stop OAC due to high fall risk and anemia. May need to consider stopping OAC due to anemia and falls. PT for fall risk assessment. 7. hyperlipidemia - lipids on 07/01/18 with LDL at goal, low HDL, controlled Tgs. Continue statin. 8. parkinson's - per PCP Subjective up with PT, unsteady, no chest pain, no dyspnea. +edema, TEDS in place Objective Vital Signs Date Time Temp Pulse Resp B/P (MAP) Pulse Ox O2 Delivery O2 Flow Rate FiO2 09/02/18 08:50 Nasal Cannula 4.0 09/02/18 08:19 102 24 117/60 (79) 96 09/01/18 23:23 98.3 Intake and Output 09/02/18 07:01 Intake Total 755 ml Balance 755 ml Intake Oral 480 ml Other 275 ml # Voids 5 Physical Exam GEN awake, alert, poor historian due to dementia CV IRR, no gallops, clicks or rubs Lungs: bibasilar crackles abd: + bowel sounds EXT + pitting edema, teds in place Review of Relevant I have reviewed the following items lillian (where applicable) has been applied. Labs Laboratory Tests Test 08/31/18 10:20 08/31/18 12:11 08/31/18 17:05 09/01/18 04:14 Nasal Screen MRSA (PCR) Negative (Negative) Glucose (Fingerstick) 119 mg/dL (70-99) 84 mg/dL (70-99) White Blood Count 7.4 x10^3/uL (4.0-11.0) Red Blood Count 2.87 x10^6/uL (4.30-5.70) Hemoglobin 7.5 g/dL (13.0-17.5) Hematocrit 24.4 % (39.0-53.0) Mean Corpuscular Volume 85 fL (79-100) Mean Corpuscular Hemoglobin 26 pg (25-35) Mean Corpuscular Hemoglobin Concent 31 g/dL (31-37) Red Cell Distribution Width 18.9 % (11.5-14.5) Platelet Count 222 x10^3/uL (140-400) Neutrophils (%) (Auto) 81 % (31-73) Lymphocytes (%) (Auto) 8 % (24-48) Monocytes (%) (Auto) 10 % (0-9) Eosinophils (%) (Auto) 2 % (0-3) Basophils (%) (Auto) 1 % (0-3) Neutrophils # (Auto) 6.0 x10^3uL (1.8-7.7) Lymphocytes # (Auto) 0.6 x10^3/uL (1.0-4.8) Monocytes # (Auto) 0.7 x10^3/uL (0.0-1.1) Eosinophils # (Auto) 0.1 x10^3/uL (0.0-0.7) Basophils # (Auto) 0.0 x10^3/uL (0.0-0.2) Iron Level 12 ug/dL (65-175) Total Iron Binding Capacity 316 ug/dL (250-450) Iron Saturation 4 % (15-34) Ferritin 24 ng/mL (26-388) Troponin I Quantitative 0.032 ng/mL (0-0.055) Vitamin B12 Level 510 pg/mL (247-911) Test 09/01/18 05:46 09/01/18 12:33 09/01/18 17:32 09/01/18 17:52 White Blood Count 6.7 x10^3/uL (4.0-11.0) Red Blood Count 2.69 x10^6/uL (4.30-5.70) Hemoglobin 7.1 g/dL (13.0-17.5) Hematocrit 22.6 % (39.0-53.0) Mean Corpuscular Volume 84 fL (79-100) Mean Corpuscular Hemoglobin 26 pg (25-35) Mean Corpuscular Hemoglobin Concent 31 g/dL (31-37) Red Cell Distribution Width 18.8 % (11.5-14.5) Platelet Count 198 x10^3/uL (140-400) Neutrophils (%) (Auto) 78 % (31-73) Lymphocytes (%) (Auto) 10 % (24-48) Monocytes (%) (Auto) 9 % (0-9) Eosinophils (%) (Auto) 3 % (0-3) Basophils (%) (Auto) 1 % (0-3) Neutrophils # (Auto) 5.2 x10^3uL (1.8-7.7) Lymphocytes # (Auto) 0.7 x10^3/uL (1.0-4.8) Monocytes # (Auto) 0.6 x10^3/uL (0.0-1.1) Eosinophils # (Auto) 0.2 x10^3/uL (0.0-0.7) Basophils # (Auto) 0.0 x10^3/uL (0.0-0.2) Sodium Level 128 mmol/L (136-145) Potassium Level 3.3 mmol/L (3.5-5.1) Chloride Level 99 mmol/L (98-107) Carbon Dioxide Level 29 mmol/L (21-32) Anion Gap 0 (6-14) Blood Urea Nitrogen 25 mg/dL (8-26) Creatinine 1.0 mg/dL (0.7-1.3) Estimated GFR (Cockcroft-Gault) 71.2 Glucose Level 84 mg/dL (70-99) Calcium Level 7.3 mg/dL (8.5-10.1) Glucose (Fingerstick) 73 mg/dL (70-99) 54 mg/dL (70-99) 74 mg/dL (70-99) Test 09/02/18 00:01 09/02/18 05:44 Glucose (Fingerstick) 76 mg/dL (70-99) White Blood Count 7.4 x10^3/uL (4.0-11.0) Red Blood Count 3.03 x10^6/uL (4.30-5.70) Hemoglobin 7.9 g/dL (13.0-17.5) Hematocrit 25.2 % (39.0-53.0) Mean Corpuscular Volume 83 fL (79-100) Mean Corpuscular Hemoglobin 26 pg (25-35) Mean Corpuscular Hemoglobin Concent 32 g/dL (31-37) Red Cell Distribution Width 18.4 % (11.5-14.5) Platelet Count 217 x10^3/uL (140-400) Sodium Level 136 mmol/L (136-145) Potassium Level 3.6 mmol/L (3.5-5.1) Chloride Level 102 mmol/L (98-107) Carbon Dioxide Level 29 mmol/L (21-32) Anion Gap 5 (6-14) Blood Urea Nitrogen 18 mg/dL (8-26) Creatinine 0.9 mg/dL (0.7-1.3) Estimated GFR (Cockcroft-Gault) 80.4 BUN/Creatinine Ratio 20 (6-20) Glucose Level 76 mg/dL (70-99) Calcium Level 7.7 mg/dL (8.5-10.1) Total Bilirubin 1.1 mg/dL (0.2-1.0) Aspartate Amino Transf (AST/SGOT) 12 U/L (15-37) Alanine Aminotransferase (ALT/SGPT) < 6 U/L (16-63) Alkaline Phosphatase 101 U/L (46-116) Total Protein 5.4 g/dL (6.4-8.2) Albumin 2.4 g/dL (3.4-5.0) Albumin/Globulin Ratio 0.8 (1.0-1.7) Medications Current Medications Sodium Chloride 1,000 ml @ 100 mls/hr Q10H IV Last administered on 08/31/18at 05 :38; Start 08/31/18 at 05:30; Stop 08/31/18 at 15:29; Status DC Furosemide (Lasix) 40 mg 1X ONCE IVP Last administered on 08/31/18at 06:54; Start 08/31/18 at 07:00; Stop 08/31/18 at 07:01; Status DC Diphenhydramine HCl (Benadryl) 25 mg 1X ONCE IVP Last administered on at 07:32; Start 08/31/18 at 07:00; Stop 08/31/18 at 07:01; Status DC Acetaminophen (Tylenol) 1,000 mg 1X ONCE PO Last administered on 08/31/18at 07: 00; Start 08/31/18 at 07:00; Stop 08/31/18 at 07:01; Status DC Ondansetron HCl (Zofran) 4 mg PRN Q4HRS PRN IV NAUSEA/VOMITING; Start 08/31/18 at 06:30; Stop 09/01/18 at 06:29; Status DC Acetaminophen (Tylenol) 650 mg PRN Q4HRS PRN PO FEVER Last administered on at 02:33; Start 08/31/18 at 06:30; Stop 09/01/18 at 06:29; Status DC Albuterol/ Ipratropium (Duoneb) 3 ml RTQID NEB Last administered on 08/31/18at 07 :14; Start 08/31/18 at 08:00; Stop 08/31/18 at 20:28; Status DC Acetaminophen (Tylenol) 650 mg 1X ONCE PO ; Start 08/31/18 at 07:00; Stop at 07:01; Status DC Glucose (Insta-Glucose) 15 gm 1X ONCE PO Last administered on 08/31/18at 06:54; Start 08/31/18 at 07:00; Stop 08/31/18 at 07:01; Status DC Acetaminophen (Tylenol) 325 mg PRN Q6HRS PRN PO PAIN / TEMP Last administered on 09/01/18at 23:17; Start 08/31/18 at 10:45 Carbidopa/Levodopa (Sinemet 25/100) 2 tab TID PO Last administered on 09/02/18at 07:52; Start 08/31/18 at 14:00 Citalopram Hydrobromide (CeleXA) 10 mg DAILY PO Last administered on 09/02/18at 07:53; Start 09/01/18 at 09:00 Diphenhydramine HCl (Benadryl) 50 mg PRN QHS PRN PO SLEEP; Start 08/31/18 at 10: 45 Gabapentin (Neurontin) 100 mg TID PO Last administered on 09/02/18at 07:52; Start 08/31/18 at 14:00 Albuterol/ Ipratropium (Duoneb) 3 ml TID NEB Last administered on 09/02/18 05: 21; Start 08/31/18 at 14:00 Metoprolol Succinate (Toprol Xl) 25 mg DAILY PO Last administered on 09/02/18 07:53; Start 09/01/18 at 09:00 Potassium Chloride (Klor-Con) 20 meq DAILY PO Last administered on 09/02/18 07: 52; Start 09/01/18 at 09:00 Tamsulosin HCl (Flomax) 0.4 mg DAILY PO Last administered on 09/02/18 07:53; Start 09/01/18 at 09:00 Non-Formulary Medication (Acetaminophen/ Diphenhydramine (Acetaminophen Pm Caplet)) 2 each QHS PRN PO INSOMNIA; Start 08/31/18 at 10:45; Stop 08/31/18 at 10 :53; Status DC Amlodipine Besylate (Norvasc) 5 mg DAILY PO ; Start 09/01/18 at 09:00; Stop at 14:43; Status DC Apixaban (Eliquis) 5 mg BID PO Last administered on 09/01/18at 08:48; Start at 21:00; Stop 09/01/18 at 14:43; Status DC Benzonatate (Tessalon Perle) 100 mg [id number] PO Last administered on 09/02/18 07: 52; Start 08/31/18 at 14:00 Non-Formulary Medication (Escitalopram Oxalate (Lexapro)) 5 mg DAILY PO ; Start 09/01/18 at 09:00; Stop 09/01/18 at 09:00; Status DC Finasteride (Proscar) 5 mg DAILY PO Last administered on 09/02/18 07:53; Start 09/01/18 at 09:00 Furosemide (Lasix) 40 mg DAILY PO Last administered on 09/02/18 07:53; Start at 09:00 Glipizide (Glucotrol) 5 mg [id number] PO Last administered on 09/02/18 07:54; Start 08/31/18 at 16:30 Lidocaine (Lidoderm) 1 patch DAILY TD ; Start 09/01/18 at 09:00 Mirabegron (Myrbetriq) 50 mg QODAY PO Last administered on 09/01/18 08:52; Start 09/01/18 at 09:00 Repaglinide (Prandin) 1 mg TIDAC PO Last administered on 09/02/18 07:30; Start 08/31/18 at 11:30 Ropinirole HCl (Requip) 1 mg TID PO Last administered on 09/02/18 07:52; Start 08/31/18 at 14:00 Atorvastatin Calcium (Lipitor) 20 mg QHS PO Last administered on 09/01/18 20:45 ; Start 08/31/18 at 21:00 Docusate Sodium (Colace) 100 mg BID PO Last administered on 09/02/18 07:53; Start 09/01/18 at 21:00 Polyethylene Glycol (miraLAX) 17 gm DAILY PO Last administered on 09/02/18 07: 52; Start 09/02/18 at 09:00 Dextrose 12.5 gm PRN Q15MIN PRN IV SEE COMMENTS Last administered on 09/01/18 17:42; Start 09/01/18 at 17:45 Active Scripts Active Eliquis (Apixaban) 5 Mg Tablet 5 Mg PO BID Celexa (Citalopram Hydrobromide) 10 Mg Tablet 10 Mg PO DAILY Lidocaine 1 Each Adh..patch 1 Patch TD DAILY Benzonatate 100 Mg Capsule 100 Mg PO [id number] Tylenol (Acetaminophen) 325 Mg Tablet 325 Mg PO PRN Q6HRS PRN Furosemide 40 Mg Tablet 1 Tab PO DAILY Benadryl (Diphenhydramine Hcl) 25 Mg Capsule 50 Mg PO PRN QHS PRN 30 Days Finasteride 5 Mg Tablet 5 Mg PO DAILY 30 Days Myrbetriq (Mirabegron) 50 Mg Tab.er.24h 50 Mg PO QODAY Klor-Con M20 (Potassium Chloride) 20 Meq Tab.er.prt 20 Meq PO DAILY 30 Days Metoprolol Succinate ( Xl ) (Metoprolol Succinate) 25 Mg Tab.er.24h 25 Mg PO DAILY 30 Days Duoneb 0.5-3(2.5) Mg/3 Ml (Albuterol/Ipratropium) 3 Ml Ampul.neb 3 Ml NEB TID 30 Days Gabapentin (Gabapentin) 100 Mg Capsule 100 Mg PO TID 30 Days Reported Ropinirole Hcl 1 Mg Tablet 1 Tab PO TID LAST DOSE GIVEN: DATE: TODAY TIME: AFTERNOON NEXT DOSE DUE: DATE: TODAY TIME: PM Repaglinide 1 Mg Tablet 1 Tab PO TID LAST DOSE GIVEN: DATE: TODAY TIME: BEFORE LUNCH NEXT DOSE DUE: DATE: TODAY TIME: BEFORE DINNER Tamsulosin Hcl 0.4 Mg Cap.er.24h 1 Tab PO DAILY LAST DOSE GIVEN: DATE: TODAY TIME: AM NEXT DOSE DUE: DATE: TOMORROW TIME: AM Glipizide 5 Mg Tablet 5 Mg PO BID LAST DOSE GIVEN: DATE: TODAY TIME: AM NEXT DOSE DUE: DATE: TODAY TIME: PM Crestor (Rosuvastatin Calcium) 5 Mg Tablet 5 Mg PO HS LAST DOSE GIVEN: DATE: YESTERDAY TIME: AT BEDTIME NEXT DOSE DUE: DATE: TODAY TIME: AT BEDTIME Acetaminophen Pm Caplet (Acetaminophen/Diphenhydramine) 1 Each Tablet 2 Each PO QHS PRN Lexapro (Escitalopram Oxalate) 5 Mg Tablet 5 Mg PO DAILY Sinemet 25-100 Mg Tablet (Carbidopa/Levodopa) 1 Each Tablet 2 Tab PO TID LAST DOSE GIVEN: DATE: TODAY TIME: AFTGERNOON NEXT DOSE DUE: DATE: TODAY TIME: PM Aspirin 325 Mg Tablet 325 Mg PO DAILY Norvasc (Amlodipine Besylate) 5 Mg Tablet 5 Mg PO DAILY LAST DOSE GIVEN: DATE: TODAY TIME: AM NEXT DOSE DUE: DATE: TOMORR TIME: AM Vitals/I & O Vital Sign - Last 24 Hours 09/01/18 09/01/18 09/01/18 09/01/18 11:55 15:32 16:02 17:02 Temp 98.7 97.1 97.5 97.2 Pulse 78 76 78 83 Resp 18 18 18 18 B/P (MAP) 95/53 (67) 107/54 (71) 103/56 100/52 Pulse Ox 94 95 O2 Delivery Nasal Cannula Nasal Cannula O2 Flow Rate 4.0 4.0 09/01/18 09/01/18 09/01/18 09/01/18 18:02 19:06 19:32 19:57 Temp 97.9 97.3 Pulse 81 72 Resp 18 18 B/P (MAP) 102/56 97/44 (61) Pulse Ox 97 97 O2 Delivery Nasal Cannula Nasal Cannula Nasal Cannula O2 Flow Rate 4.0 4.0 3.0 09/01/18 09/02/18 09/02/18 09/02/18 23:23 04:00 05:21 07:53 Temp 98.3 Pulse 81 84 84 Resp 22 24 B/P (MAP) 100/57 (71) 102/54 (70) 102/54 Pulse Ox 94 96 96 O2 Delivery Nasal Cannula Nasal Cannula Nasal Cannula O2 Flow Rate 4.0 4.0 3.0 09/02/18 09/02/18 08:19 08:50 Pulse 102 Resp 24 B/P (MAP) 117/60 (79) Pulse Ox 96 O2 Delivery Nasal Cannula Nasal Cannula O2 Flow Rate 4.0 4.0 Intake and Output 09/01/18 09/01/18 09/02/18 15:01 23:01 07:01 Intake Total 755 ml Balance 755 ml MULUGETA GU MD 09/02/18 1342: PROGRESS NOTES Review of Relevant Pt. seen and examined. Agree with above [employer] LEAD note. Continues to have anemia. Will hold eliquis. Consider outpt restart. Give additional 40mg IV lasix today, legs are weeping and have 3+ edema, likely related to pulm HTN. DARIO DYE APRN Sep 02, 2018 09:52 MULUGETA GU MD Sep 02, 2018 13:42
[2018-09-02] MEDS ORDERED: predniSONE 20 MG TABLET PO ONE (12:00)
[2018-09-02] MEDS: ASPIRIN ENTERIC COATED 81 MG TABLET.DR. PO SCH (12:03)
[2018-09-02] MEDS: PANTOPRAZOLE 40 MG TABLET. PO SCH (12:19)
[2018-09-02 13:41] VITALS: BP 91/49
[2018-09-02] MEDS ORDERED: FUROSEMIDE 40 MG/4 ML VIAL IVP ONE (13:45)
[2018-09-02] MEDS ORDERED: FUROSEMIDE 40 MG/4 ML VIAL ONE (13:46)
[2018-09-02 16:25] VITALS: BP 98/52
[2018-09-02 19:22] VITALS: BP 96/54
[2018-09-02] MEDS: ATORVASTATIN CALCIUM 20 MG TABLET PO SCH (21:04)
--- NOTE | 2018-09-02 23:26 | PN ---
DATE: SUBJECTIVE: The patient was admitted by Dr. Grossman. He came in, apparently he had fallen, a resident at [place], and the patient was very weak, having some difficulty breathing. The patient has multiple medical problems. His hemoglobin was in the low 7's and Dr. Grossman gave him a unit of packed RBCs. He is a little better today, although to me he does look somewhat jaundiced appearing and his total bilirubin is slightly elevated, although his direct bilirubin is slightly decreased. The patient's total protein was slightly low, as was his albumin. Electrolytes look good. Calcium is slightly low, may be related to the low albumin. His hemoglobin is up to 7.9 and 25. PHYSICAL EXAMINATION: VITAL SIGNS: His blood pressure is 117/60, respiratory rate 24, pulse of 102. He is afebrile. He is on 4 liters. GENERAL: The patient otherwise basically has no complaints. He is getting breathing treatments 4 times a day. He is alert, oriented, and currently at baseline. He is a little bit slow. LUNGS: Diminished, poor movement of air. CARDIOVASCULAR: Regular sinus rhythm, S1, S2, without murmur, rub, thrill, or extra heart sounds. ABDOMEN: Soft, protuberant, nontender. EXTREMITIES: No clubbing, cyanosis, +1 to 2 pitting edema in those extremities. He is fairly weak and uneasy. PLAN: He is receiving PT, OT and will continue to receive such. We will add a little bit of prednisone and a proton pump inhibitor and see if that does not help him with his overall condition and repeat his H and H in the morning. SONNY MALDONADO MD DR: SANDRA/zac JOB#: [id number] / [id number]
[2018-09-03] VITALS (14 sets, daily range): BP systolic 94–115; BP diastolic 47–63
[2018-09-03] MEDS: IPRATRPIUM/ALBUTEROL 0.5/2.5MG 3 ML NEBU. NEB SCH ×3 (05:21→20:25)
[2018-09-03 06:10] LABS: BASO % 0 % (0-3); EOS # 0.1 x10^3/uL (0.0-0.7); EOS % 1 % (0-3); HEMATOCRIT 26.1 % (39.0-53.0); HEMOGLOBIN 8.1 g/dL (13.0-17.5); LYMPH # 0.6 x10^3/uL (1.0-4.8); LYMPH % 7 % (24-48); MEAN CORPUSCULAR HEMOGLOBIN 26 pg (25-35); MEAN CORPUSCULAR HGB CONC 31 g/dL (31-37); MEAN CORPUSCULAR VOLUME 83 fL (79-100); MONO # 0.8 x10^3/uL (0.0-1.1); MONO % 10 % (0-9); NEUT # 6.4 x10^3uL (1.8-7.7); NEUT % 82 % (31-73); PLATELET COUNT 224 x10^3/uL (140-400); RED BLOOD COUNT 3.14 x10^6/uL (4.30-5.70); RED CELL DISTRIBUTION WIDTH 18.5 % (11.5-14.5); WHITE BLOOD COUNT 7.8 x10^3/uL (4.0-11.0)
[2018-09-03 06:20] LABS: CALCIUM 7.8 mg/dL (8.5-10.1); GFR 71.2; POTASSIUM 3.5 mmol/L (3.5-5.1)
[2018-09-03] MEDS: REPAGLINIDE 1 MG TABLET PO SCH ×3 (07:30→16:34)
[2018-09-03] MEDS: DOCUSATE SODIUM 100 MG CAPSULE PO SCH ×2 (08:24→21:00)
[2018-09-03] MEDS: GABAPENTIN 100 MG CAPSULE. PO SCH ×3 (08:25→21:25)
[2018-09-03] MEDS: TAMSULOSIN 0.4 MG CAP.ER.24H. PO SCH (08:25)
[2018-09-03] MEDS: ASPIRIN ENTERIC COATED 81 MG TABLET.DR. PO SCH (08:25)
[2018-09-03] MEDS: BENZONATATE 100 MG CAPSULE. PO SCH ×3 (08:25→21:25)
[2018-09-03] MEDS: FINASTERIDE 5 MG TABLET PO SCH (08:26)
[2018-09-03] MEDS: glipiZIDE 5 MG TABLET PO SCH ×2 (08:26→16:34)
[2018-09-03] MEDS: METOPROLOL SUCC 24HR ER 25 MG TAB.ER.24H. PO SCH (08:26)
[2018-09-03] MEDS: CARBIDOPA/LEVODOPA 25/100MG TABLET PO SCH ×3 (08:27→21:25)
[2018-09-03] MEDS: PANTOPRAZOLE 40 MG TABLET. PO SCH (08:30)
[2018-09-03] MEDS: FUROSEMIDE 40 MG TABLET PO SCH (08:30)
[2018-09-03] MEDS: POLYETHYLENE GLYCOL 3350 17 GM PACKET. PO SCH ×2 (08:30→09:00)
[2018-09-03] MEDS: POTASSIUM CHLORIDE 20 MEQ TABLET.ER. PO SCH (08:30)
[2018-09-03] MEDS: rOPINIRole 1 MG TABLET. PO SCH ×3 (08:30→21:25)
[2018-09-03] MEDS: MIRABEGRON 25 MG TAB.ER.24H PO SCH (08:31)
[2018-09-03] MEDS: CITALOPRAM 10 MG TABLET. PO SCH (08:31)
[2018-09-03] MEDS: LIDOCAINE (700MG/PATCH) PATCH. TD SCH ×2 (08:31→09:00)
--- NOTE | 2018-09-03 10:09 | PDOC ---
PROGRESS NOTES Diagnosis Problem Problems Medical Problems: (1) Falling Status: Acute (2) Weakness Status: Acute Assessment Problems Medical Problems: (1) Falling Status: Acute (2) Weakness Status: Acute 1. Tropnin elevation - indeterminate, [place] ruled out. 2. chronic respiratory insufficiency in the setting of known pulmonary fibrosis , COPD and severe PHTN. On oxygen chronically and appears stable. 3. chronic diastolic HF - no overt heart failure. 4. Anemia - heme check pending, Hg 8.1 today s/p PRBCs yesterday. off OAC. mgmt per PCP 5. Edema - likely combination of venous insufficiency and protein malnutrition with pulmonary hypertension. DVT sono negative. Lasix IV given extra yesterday. Continue compression hose. leg measurements taken yesterday evening : Ankle: Left 26cm Right 27cm Calf: Left and right 33cm Above the knee: Left and right 41cm output not recorded due to incontinence. will re measure today. 6. atrial fibrillation with controlled ventricular response, persistent- continue rate control. Not candidate for half-way OAC due to high fall risk and anemia. Continue low dose aspirin for now. 7. hyperlipidemia - lipids on 07/01/18 with LDL at goal, low HDL, controlled Tgs. Continue statin. 8. Parkinson's - per PCP Subjective denies complaints of dyspnea, chest pain, palpitations. Objective Vital Signs Date Time Temp Pulse Resp B/P (MAP) Pulse Ox O2 Delivery O2 Flow Rate FiO2 09/03/18 08:26 77 106/58 09/03/18 08:00 Nasal Cannula 4.0 09/03/18 07:10 98.1 20 96 Intake and Output 09/03/18 07:01 Intake Total 680 ml Output Total 275 ml Balance 405 ml Intake Oral 680 ml Output Urine Total 275 ml # Voids 9 Abdomen: Normal bowel sounds, Soft, No tenderness Heart: Normal S1, Normal S2, Other (no gallops) Extremities: No cyanosis, Other (+ 2 pedal edema and +1 pretibial) General: Alert, Cooperative, No acute distress Lungs: Other (bibasilar crackles) Neuro: Normal speech Psych/Mental Status: Mood NL Review of Relevant I have reviewed the following items lillian (where applicable) has been applied. Labs Laboratory Tests Test 09/01/18 12:33 09/01/18 17:32 09/01/18 17:52 09/02/18 00:01 Glucose (Fingerstick) 73 mg/dL (70-99) 54 mg/dL (70-99) 74 mg/dL (70-99) 76 mg/dL (70-99) Test 09/02/18 05:44 09/02/18 16:38 09/02/18 21:44 09/03/18 05:34 White Blood Count 7.4 x10^3/uL (4.0-11.0) 7.8 x10^3/uL (4.0-11.0) Red Blood Count 3.03 x10^6/uL (4.30-5.70) 3.14 x10^6/uL (4.30-5.70) Hemoglobin 7.9 g/dL (13.0-17.5) 8.1 g/dL (13.0-17.5) Hematocrit 25.2 % (39.0-53.0) 26.1 % (39.0-53.0) Mean Corpuscular Volume 83 fL (79-100) 83 fL (79-100) Mean Corpuscular Hemoglobin 26 pg (25-35) 26 pg (25-35) Mean Corpuscular Hemoglobin Concent 32 g/dL (31-37) 31 g/dL (31-37) Red Cell Distribution Width 18.4 % (11.5-14.5) 18.5 % (11.5-14.5) Platelet Count 217 x10^3/uL (140-400) 224 x10^3/uL (140-400) Sodium Level 136 mmol/L (136-145) 135 mmol/L (136-145) Potassium Level 3.6 mmol/L (3.5-5.1) 3.5 mmol/L (3.5-5.1) Chloride Level 102 mmol/L (98-107) 99 mmol/L (98-107) Carbon Dioxide Level 29 mmol/L (21-32) 28 mmol/L (21-32) Anion Gap 5 (6-14) 8 (6-14) Blood Urea Nitrogen 18 mg/dL (8-26) 17 mg/dL (8-26) Creatinine 0.9 mg/dL (0.7-1.3) 1.0 mg/dL (0.7-1.3) Estimated GFR (Cockcroft-Gault) 80.4 71.2 BUN/Creatinine Ratio 20 (6-20) Glucose Level 76 mg/dL (70-99) 103 mg/dL (70-99) Calcium Level 7.7 mg/dL (8.5-10.1) 7.8 mg/dL (8.5-10.1) Total Bilirubin 1.1 mg/dL (0.2-1.0) Aspartate Amino Transf (AST/SGOT) 12 U/L (15-37) Alanine Aminotransferase (ALT/SGPT) < 6 U/L (16-63) Alkaline Phosphatase 101 U/L (46-116) Total Protein 5.4 g/dL (6.4-8.2) Albumin 2.4 g/dL (3.4-5.0) Albumin/Globulin Ratio 0.8 (1.0-1.7) Glucose (Fingerstick) 153 mg/dL (70-99) 184 mg/dL (70-99) Neutrophils (%) (Auto) 82 % (31-73) Lymphocytes (%) (Auto) 7 % (24-48) Monocytes (%) (Auto) 10 % (0-9) Eosinophils (%) (Auto) 1 % (0-3) Basophils (%) (Auto) 0 % (0-3) Neutrophils # (Auto) 6.4 x10^3uL (1.8-7.7) Lymphocytes # (Auto) 0.6 x10^3/uL (1.0-4.8) Monocytes # (Auto) 0.8 x10^3/uL (0.0-1.1) Eosinophils # (Auto) 0.1 x10^3/uL (0.0-0.7) Basophils # (Auto) 0.0 x10^3/uL (0.0-0.2) Test 09/03/18 07:49 Glucose (Fingerstick) 98 mg/dL (70-99) Medications Current Medications Sodium Chloride 1,000 ml @ 100 mls/hr Q10H IV Last administered on 08/31/18at 05 :38; Start 08/31/18 at 05:30; Stop 08/31/18 at 15:29; Status DC Furosemide (Lasix) 40 mg 1X ONCE IVP Last administered on 08/31/18at 06:54; Start 08/31/18 at 07:00; Stop 08/31/18 at 07:01; Status DC Diphenhydramine HCl (Benadryl) 25 mg 1X ONCE IVP Last administered on at 07:32; Start 08/31/18 at 07:00; Stop 08/31/18 at 07:01; Status DC Acetaminophen (Tylenol) 1,000 mg 1X ONCE PO Last administered on 08/31/18at 07: 00; Start 08/31/18 at 07:00; Stop 08/31/18 at 07:01; Status DC Ondansetron HCl (Zofran) 4 mg PRN Q4HRS PRN IV NAUSEA/VOMITING; Start 08/31/18 at 06:30; Stop 09/01/18 at 06:29; Status DC Acetaminophen (Tylenol) 650 mg PRN Q4HRS PRN PO FEVER Last administered on at 02:33; Start 08/31/18 at 06:30; Stop 09/01/18 at 06:29; Status DC Albuterol/ Ipratropium (Duoneb) 3 ml RTQID NEB Last administered on 08/31/18at 07 :14; Start 08/31/18 at 08:00; Stop 08/31/18 at 20:28; Status DC Acetaminophen (Tylenol) 650 mg 1X ONCE PO ; Start 08/31/18 at 07:00; Stop at 07:01; Status DC Glucose (Insta-Glucose) 15 gm 1X ONCE PO Last administered on 08/31/18at 06:54; Start 08/31/18 at 07:00; Stop 08/31/18 at 07:01; Status DC Acetaminophen (Tylenol) 325 mg PRN Q6HRS PRN PO PAIN / TEMP Last administered on 09/01/18at 23:17; Start 08/31/18 at 10:45 Carbidopa/Levodopa (Sinemet 25/100) 2 tab TID PO Last administered on 09/03/18at 08:27; Start 08/31/18 at 14:00 Citalopram Hydrobromide (CeleXA) 10 mg DAILY PO Last administered on 09/03/18at 08:31; Start 09/01/18 at 09:00 Diphenhydramine HCl (Benadryl) 50 mg PRN QHS PRN PO SLEEP; Start 08/31/18 at 10: 45 Gabapentin (Neurontin) 100 mg TID PO Last administered on 09/03/18 08:25; Start 08/31/18 at 14:00 Albuterol/ Ipratropium (Duoneb) 3 ml TID NEB Last administered on 09/03/18 05: 21; Start 08/31/18 at 14:00 Metoprolol Succinate (Toprol Xl) 25 mg DAILY PO Last administered on 09/03/18 08:26; Start 09/01/18 at 09:00 Potassium Chloride (Klor-Con) 20 meq DAILY PO Last administered on 09/03/18 08: 30; Start 09/01/18 at 09:00 Tamsulosin HCl (Flomax) 0.4 mg DAILY PO Last administered on 09/03/18 08:25; Start 09/01/18 at 09:00 Non-Formulary Medication (Acetaminophen/ Diphenhydramine (Acetaminophen Pm Caplet)) 2 each QHS PRN PO INSOMNIA; Start 08/31/18 at 10:45; Stop 08/31/18 at 10 :53; Status DC Amlodipine Besylate (Norvasc) 5 mg DAILY PO ; Start 09/01/18 at 09:00; Stop at 14:43; Status DC Apixaban (Eliquis) 5 mg BID PO Last administered on 09/01/18 08:48; Start at 21:00; Stop 09/01/18 at 14:43; Status DC Benzonatate (Tessalon Perle) 100 mg [id number] PO Last administered on 09/03/18 08: 25; Start 08/31/18 at 14:00 Non-Formulary Medication (Escitalopram Oxalate (Lexapro)) 5 mg DAILY PO ; Start 09/01/18 at 09:00; Stop 09/01/18 at 09:00; Status DC Finasteride (Proscar) 5 mg DAILY PO Last administered on 09/03/18 08:26; Start 09/01/18 at 09:00 Furosemide (Lasix) 40 mg DAILY PO Last administered on 09/03/18 08:30; Start at 09:00 Glipizide (Glucotrol) 5 mg [id number] PO Last administered on 09/03/18 08:26; Start 08/31/18 at 16:30 Lidocaine (Lidoderm) 1 patch DAILY TD ; Start 09/01/18 at 09:00 Mirabegron (Myrbetriq) 50 mg QODAY PO Last administered on 09/03/18 08:31; Start 09/01/18 at 09:00 Repaglinide (Prandin) 1 mg TIDAC PO Last administered on 09/03/18 07:30; Start 08/31/18 at 11:30 Ropinirole HCl (Requip) 1 mg TID PO Last administered on 09/03/18 08:30; Start 08/31/18 at 14:00 Atorvastatin Calcium (Lipitor) 20 mg QHS PO Last administered on 09/02/18 21:04 ; Start 08/31/18 at 21:00 Docusate Sodium (Colace) 100 mg BID PO Last administered on 09/03/18 08:24; Start 09/01/18 at 21:00 Polyethylene Glycol (miraLAX) 17 gm DAILY PO Last administered on 09/02/18 07: 52; Start 09/02/18 at 09:00 Dextrose 12.5 gm PRN Q15MIN PRN IV SEE COMMENTS Last administered on 09/01/18 17:42; Start 09/01/18 at 17:45 Aspirin (Aspirin Enteric Coated) 81 mg [id number] PO Last administered on 08:25; Start 09/02/18 at 12:00 Pantoprazole Sodium (Protonix) 40 mg DAILYAC PO Last administered on 09/03/18 08:30; Start 09/02/18 at 12:00 Prednisone (Prednisone) 20 mg 1X ONCE PO Last administered on 09/02/18 12:19; Start 09/02/18 at 12:00; Stop 09/02/18 at 12:04; Status DC Furosemide (Lasix) 40 mg 1X ONCE IVP Last administered on 09/02/18 13:50; Start 09/02/18 at 13:45; Stop 09/02/18 at 13:55; Status DC Active Scripts Active Eliquis (Apixaban) 5 Mg Tablet 5 Mg PO BID Celexa (Citalopram Hydrobromide) 10 Mg Tablet 10 Mg PO DAILY Lidocaine 1 Each Adh..patch 1 Patch TD DAILY Benzonatate 100 Mg Capsule 100 Mg PO [id number] Tylenol (Acetaminophen) 325 Mg Tablet 325 Mg PO PRN Q6HRS PRN Furosemide 40 Mg Tablet 1 Tab PO DAILY Benadryl (Diphenhydramine Hcl) 25 Mg Capsule 50 Mg PO PRN QHS PRN 30 Days Finasteride 5 Mg Tablet 5 Mg PO DAILY 30 Days Myrbetriq (Mirabegron) 50 Mg Tab.er.24h 50 Mg PO QODAY Klor-Con M20 (Potassium Chloride) 20 Meq Tab.er.prt 20 Meq PO DAILY 30 Days Metoprolol Succinate ( Xl ) (Metoprolol Succinate) 25 Mg Tab.er.24h 25 Mg PO DAILY 30 Days Duoneb 0.5-3(2.5) Mg/3 Ml (Albuterol/Ipratropium) 3 Ml Ampul.neb 3 Ml NEB TID 30 Days Gabapentin (Gabapentin) 100 Mg Capsule 100 Mg PO TID 30 Days Reported Ropinirole Hcl 1 Mg Tablet 1 Tab PO TID LAST DOSE GIVEN: DATE: TODAY TIME: AFTERNOON NEXT DOSE DUE: DATE: TODAY TIME: PM Repaglinide 1 Mg Tablet 1 Tab PO TID LAST DOSE GIVEN: DATE: TODAY TIME: BEFORE LUNCH NEXT DOSE DUE: DATE: TODAY TIME: BEFORE DINNER Tamsulosin Hcl 0.4 Mg Cap.er.24h 1 Tab PO DAILY LAST DOSE GIVEN: DATE: TODAY TIME: AM NEXT DOSE DUE: DATE: TOMORROW TIME: AM Glipizide 5 Mg Tablet 5 Mg PO BID LAST DOSE GIVEN: DATE: TODAY TIME: AM NEXT DOSE DUE: DATE: TODAY TIME: PM Crestor (Rosuvastatin Calcium) 5 Mg Tablet 5 Mg PO HS LAST DOSE GIVEN: DATE: YESTERDAY TIME: AT BEDTIME NEXT DOSE DUE: DATE: TODAY TIME: AT BEDTIME Acetaminophen Pm Caplet (Acetaminophen/Diphenhydramine) 1 Each Tablet 2 Each PO QHS PRN Lexapro (Escitalopram Oxalate) 5 Mg Tablet 5 Mg PO DAILY Sinemet 25-100 Mg Tablet (Carbidopa/Levodopa) 1 Each Tablet 2 Tab PO TID LAST DOSE GIVEN: DATE: TODAY TIME: AFTGERNOON NEXT DOSE DUE: DATE: TODAY TIME: PM Aspirin 325 Mg Tablet 325 Mg PO DAILY Norvasc (Amlodipine Besylate) 5 Mg Tablet 5 Mg PO DAILY LAST DOSE GIVEN: DATE: TODAY TIME: AM NEXT DOSE DUE: DATE: TOMORROW TIME: AM Vitals/I & O Vital Sign - Last 24 Hours 09/02/18 09/02/18 09/02/18 09/02/18 10:15 13:41 16:25 19:22 Temp 98.6 97.8 Pulse 88 74 73 Resp 24 24 22 B/P (MAP) 91/49 (63) 98/52 (67) 96/54 (68) Pulse Ox 94 97 100 91 O2 Delivery Nasal Cannula Nasal Cannula Nasal Cannula Nasal Cannula O2 Flow Rate 3.0 4.0 4.0 09/02/18 09/02/18 09/02/18 09/03/18 19:51 19:57 20:10 00:11 Temp 98.6 Pulse 78 Resp 18 B/P (MAP) 101/54 (70) Pulse Ox 95 98 100 O2 Delivery Nasal Cannula Nasal Cannula Nasal Cannula Nasal Cannula O2 Flow Rate 4.0 4.0 4.0 4.0 09/03/18 09/03/18 09/03/18 09/03/18 02:10 05:12 05:22 07:10 Temp 97.8 98.1 Pulse 74 77 Resp 18 20 B/P (MAP) 104/56 (72) 115/50 (71) 106/58 (74) Pulse Ox 98 96 96 O2 Delivery Nasal Cannula Nasal Cannula Nasal Cannula O2 Flow Rate 4.0 3.0 3.0 09/03/18 09/03/18 08:00 08:26 Pulse 77 B/P (MAP) 106/58 O2 Delivery Nasal Cannula O2 Flow Rate 4.0 Intake and Output 09/02/18 09/02/18 09/03/18 15:01 23:01 07:01 Intake Total 240 ml 440 ml Output Total 275 ml Balance 240 ml 165 ml DARIO DYE APRN Sep 03, 2018 10:09
[2018-09-03] MEDS ORDERED: IRON SUCROSE COMPLEX 200 MG in IV NORMAL SALINE 100ML 100 ML IV ONE (13:30)
[2018-09-03] MEDS ORDERED: MILRINONE 20MG/100ML PREMIX 100 ML IV PRN (15:45)
[2018-09-03] MEDS ORDERED: FUROSEMIDE 40 MG/4 ML VIAL IVP ONE (15:45)
[2018-09-03] MEDS ORDERED: ALBUMIN HUMAN 25% 50 ML IV ONE (15:45)
[2018-09-03 17:36] LABS: FECAL OB PT POSITIVE (NEG)
[2018-09-03] MEDS: ATORVASTATIN CALCIUM 20 MG TABLET PO SCH (21:25)
--- NOTE | 2018-09-03 23:59 | PN ---
DATE: 09/03/2018 SUBJECTIVE: The patient is an 82-year-old male, in with generalized weakness, anemia, iron deficiency. The patient is resting fairly comfortably. He has been falling, but he seems to be a little bit stronger, receiving PT, OT. He had some elevated troponins. He has chronic heart failure, which has not changed. The patient otherwise continues to be monitored carefully, make further evaluation on him. He is making some progress. The Venofer did seem to help him raise his iron levels, which in turn helped him with his overall blood count. Otherwise, the patient is resting fairly comfortably and will continue to be monitored. He had positive Hemoccult, CBC to be rechecked in the morning. OBJECTIVE: VITAL SIGNS: Blood pressure 112/60, respiratory rate 20, pulse 95, afebrile. GENERAL: The patient is alert and oriented. LUNGS: Diminished, primarily in the lower lung bases. CARDIOVASCULAR: Irregularly irregular. ABDOMEN: Soft, nontender, no rebounding or guarding. EXTREMITIES: No clubbing, +1 pitting edema. LABORATORY DATA: Hemoglobin up to 8.1 and 26 and a white count of 7. The patient is overall doing better overall. His scans, lower extremity venous Dopplers have been negative for clots. IMPRESSION: Generalized anemia, peripheral edema. Continue to make further evaluation on him as indicated and we will continue with the Venofer iron infusion again to get his iron levels back up to help him get his anemia under better control. SONNY MALDONADO MD DR: SANDRA/zac JOB#: [id number] / [id number]
[2018-09-04] VITALS (8 sets, daily range): BP systolic 90–114; BP diastolic 49–67
[2018-09-04] MEDS: ACETAMINOPHEN 325 MG TABLET PO PRN (02:17)
[2018-09-04 03:19] LABS: BASO % 0 % (0-3); EOS # 0.3 x10^3/uL (0.0-0.7); EOS % 3 % (0-3); HEMATOCRIT 26.6 % (39.0-53.0); HEMOGLOBIN 8.3 g/dL (13.0-17.5); LYMPH # 0.6 x10^3/uL (1.0-4.8); LYMPH % 6 % (24-48); MEAN CORPUSCULAR HEMOGLOBIN 26 pg (25-35); MEAN CORPUSCULAR HGB CONC 31 g/dL (31-37); MEAN CORPUSCULAR VOLUME 83 fL (79-100); MONO # 0.7 x10^3/uL (0.0-1.1); MONO % 7 % (0-9); NEUT # 8.6 x10^3uL (1.8-7.7); NEUT % 84 % (31-73); PLATELET COUNT 261 x10^3/uL (140-400); RED BLOOD COUNT 3.21 x10^6/uL (4.30-5.70); RED CELL DISTRIBUTION WIDTH 19.2 % (11.5-14.5); WHITE BLOOD COUNT 10.3 x10^3/uL (4.0-11.0)
[2018-09-04 03:23] LABS: CALCIUM 7.9 mg/dL (8.5-10.1); GFR 71.2; POTASSIUM 3.8 mmol/L (3.5-5.1)
[2018-09-04] MEDS: IPRATRPIUM/ALBUTEROL 0.5/2.5MG 3 ML NEBU. NEB SCH ×2 (05:11→09:34)
[2018-09-04] MEDS: glipiZIDE 5 MG TABLET PO SCH (07:30)
[2018-09-04] MEDS: REPAGLINIDE 1 MG TABLET PO SCH ×2 (07:30→11:37)
[2018-09-04] MEDS: CARBIDOPA/LEVODOPA 25/100MG TABLET PO SCH (07:59)
[2018-09-04] MEDS: GABAPENTIN 100 MG CAPSULE. PO SCH (07:59)
[2018-09-04] MEDS: FINASTERIDE 5 MG TABLET PO SCH (07:59)
[2018-09-04] MEDS: BENZONATATE 100 MG CAPSULE. PO SCH (07:59)
[2018-09-04] MEDS: DOCUSATE SODIUM 100 MG CAPSULE PO SCH (07:59)
[2018-09-04] MEDS: PANTOPRAZOLE 40 MG TABLET. PO SCH (07:59)
[2018-09-04] MEDS: TAMSULOSIN 0.4 MG CAP.ER.24H. PO SCH (08:00)
[2018-09-04] MEDS: rOPINIRole 1 MG TABLET. PO SCH (08:00)
[2018-09-04] MEDS: POTASSIUM CHLORIDE 20 MEQ TABLET.ER. PO SCH (08:00)
[2018-09-04] MEDS: METOPROLOL SUCC 24HR ER 25 MG TAB.ER.24H. PO SCH (08:00)
[2018-09-04] MEDS: ASPIRIN ENTERIC COATED 81 MG TABLET.DR. PO SCH (08:00)
[2018-09-04] MEDS: CITALOPRAM 10 MG TABLET. PO SCH (08:00)
[2018-09-04] MEDS: LIDOCAINE (700MG/PATCH) PATCH. TD SCH (08:03)
[2018-09-04] MEDS: POLYETHYLENE GLYCOL 3350 17 GM PACKET. PO SCH (08:03)
[2018-09-04] MEDS: FUROSEMIDE 40 MG TABLET PO SCH (08:04)
--- NOTE | 2018-09-04 09:23 | PDOC ---
PROGRESS NOTES Diagnosis Problem Problems Medical Problems: (1) Falling Status: Acute (2) Weakness Status: Acute Assessment Problems Medical Problems: (1) Falling Status: Acute (2) Weakness Status: Acute 1. Tropnin elevation - indeterminate, RI ruled out. Continue RF reduction. 2. chronic respiratory insufficiency in the setting of known pulmonary fibrosis , COPD and severe PHTN. On oxygen chronically and remains stable. 3. chronic diastolic HF - no overt heart failure. DC primacor. 4. Anemia - heme check pending, Hg 8.3 today s/p PRBCs 48 hrs ago. off OAC. mgmt per PCP 5. Edema - likely combination of venous insufficiency and protein malnutrition with pulmonary hypertension. DVT sono negative. edema trace today. Continue compression hose. 6. atrial fibrillation with controlled ventricular response, persistent- continue rate control. Not candidate for correction OAC due to high fall risk and anemia. Continue low dose aspirin. 7. hyperlipidemia - lipids on 07/01/18 with LDL at goal, low HDL, controlled Tgs. Continue statin. 8. Parkinson's - per PCP Back to rehab today. 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 Subjective "ready to go home", no chest pain, breathing easy, no lightheadedness, improved swelling Objective Vital Signs Date Time Temp Pulse Resp B/P (MAP) Pulse Ox O2 Delivery O2 Flow Rate FiO2 09/04/18 08:00 107 114/67 09/04/18 07:42 Nasal Cannula 3.0 09/04/18 06:09 18 95 09/04/18 04:19 97.8 Intake and Output 09/04/18 07:01 Intake Total 1970 ml Output Total 1800 ml Balance 170 ml Intake Oral 1970 ml Output Urine Total 1800 ml # Voids 3 # Bowel Movements 1 Physical Exam Abdomen: Normal bowel sounds, Soft, No tenderness Heart: Normal S1, Normal S2, Other (no gallops) Extremities: No cyanosis, trace edema General: Alert, Cooperative, No acute distress Lungs: few bibasilar crackles Neuro: Normal speech Psych/Mental Status: Mood NL Review of Relevant I have reviewed the following items lillian (where applicable) has been applied. Labs Laboratory Tests Test 09/02/18 16:38 09/02/18 21:44 09/03/18 05:34 09/03/18 07:49 Glucose (Fingerstick) 153 mg/dL (70-99) 184 mg/dL (70-99) 98 mg/dL (70-99) White Blood Count 7.8 x10^3/uL (4.0-11.0) Red Blood Count 3.14 x10^6/uL (4.30-5.70) Hemoglobin 8.1 g/dL (13.0-17.5) Hematocrit 26.1 % (39.0-53.0) Mean Corpuscular Volume 83 fL (79-100) Mean Corpuscular Hemoglobin 26 pg (25-35) Mean Corpuscular Hemoglobin Concent 31 g/dL (31-37) Red Cell Distribution Width 18.5 % (11.5-14.5) Platelet Count 224 x10^3/uL (140-400) Neutrophils (%) (Auto) 82 % (31-73) Lymphocytes (%) (Auto) 7 % (24-48) Monocytes (%) (Auto) 10 % (0-9) Eosinophils (%) (Auto) 1 % (0-3) Basophils (%) (Auto) 0 % (0-3) Neutrophils # (Auto) 6.4 x10^3uL (1.8-7.7) Lymphocytes # (Auto) 0.6 x10^3/uL (1.0-4.8) Monocytes # (Auto) 0.8 x10^3/uL (0.0-1.1) Eosinophils # (Auto) 0.1 x10^3/uL (0.0-0.7) Basophils # (Auto) 0.0 x10^3/uL (0.0-0.2) Sodium Level 135 mmol/L (136-145) Potassium Level 3.5 mmol/L (3.5-5.1) Chloride Level 99 mmol/L (98-107) Carbon Dioxide Level 28 mmol/L (21-32) Anion Gap 8 (6-14) Blood Urea Nitrogen 17 mg/dL (8-26) Creatinine 1.0 mg/dL (0.7-1.3) Estimated GFR (Cockcroft-Gault) 71.2 Glucose Level 103 mg/dL (70-99) Calcium Level 7.8 mg/dL (8.5-10.1) Test 09/03/18 11:44 09/03/18 16:32 09/03/18 17:11 09/03/18 20:23 Glucose (Fingerstick) 106 mg/dL (70-99) 101 mg/dL (70-99) 101 mg/dL (70-99) Stool Occult Blood Positive (NEG) Test 09/04/18 03:05 09/04/18 07:37 White Blood Count 10.3 x10^3/uL (4.0-11.0) Red Blood Count 3.21 x10^6/uL (4.30-5.70) Hemoglobin 8.3 g/dL (13.0-17.5) Hematocrit 26.6 % (39.0-53.0) Mean Corpuscular Volume 83 fL (79-100) Mean Corpuscular Hemoglobin 26 pg (25-35) Mean Corpuscular Hemoglobin Concent 31 g/dL (31-37) Red Cell Distribution Width 19.2 % (11.5-14.5) Platelet Count 261 x10^3/uL (140-400) Neutrophils (%) (Auto) 84 % (31-73) Lymphocytes (%) (Auto) 6 % (24-48) Monocytes (%) (Auto) 7 % (0-9) Eosinophils (%) (Auto) 3 % (0-3) Basophils (%) (Auto) 0 % (0-3) Neutrophils # (Auto) 8.6 x10^3uL (1.8-7.7) Lymphocytes # (Auto) 0.6 x10^3/uL (1.0-4.8) Monocytes # (Auto) 0.7 x10^3/uL (0.0-1.1) Eosinophils # (Auto) 0.3 x10^3/uL (0.0-0.7) Basophils # (Auto) 0.0 x10^3/uL (0.0-0.2) Sodium Level 136 mmol/L (136-145) Potassium Level 3.8 mmol/L (3.5-5.1) Chloride Level 99 mmol/L (98-107) Carbon Dioxide Level 31 mmol/L (21-32) Anion Gap 6 (6-14) Blood Urea Nitrogen 18 mg/dL (8-26) Creatinine 1.0 mg/dL (0.7-1.3) Estimated GFR (Cockcroft-Gault) 71.2 Glucose Level 68 mg/dL (70-99) Calcium Level 7.9 mg/dL (8.5-10.1) Glucose (Fingerstick) 61 mg/dL (70-99) Medications Current Medications Sodium Chloride 1,000 ml @ 100 mls/hr Q10H IV Last administered on 08/31/18at 05 :38; Start 08/31/18 at 05:30; Stop 08/31/18 at 15:29; Status DC Furosemide (Lasix) 40 mg 1X ONCE IVP Last administered on 08/31/18at 06:54; Start 08/31/18 at 07:00; Stop 08/31/18 at 07:01; Status DC Diphenhydramine HCl (Benadryl) 25 mg 1X ONCE IVP Last administered on at 07:32; Start 08/31/18 at 07:00; Stop 08/31/18 at 07:01; Status DC Acetaminophen (Tylenol) 1,000 mg 1X ONCE PO Last administered on 08/31/18at 07: 00; Start 08/31/18 at 07:00; Stop 08/31/18 at 07:01; Status DC Ondansetron HCl (Zofran) 4 mg PRN Q4HRS PRN IV NAUSEA/VOMITING; Start 08/31/18 at 06:30; Stop 09/01/18 at 06:29; Status DC Acetaminophen (Tylenol) 650 mg PRN Q4HRS PRN PO FEVER Last administered on at 02:33; Start 08/31/18 at 06:30; Stop 09/01/18 at 06:29; Status DC Albuterol/ Ipratropium (Duoneb) 3 ml RTQID NEB Last administered on 08/31/18at 07 :14; Start 08/31/18 at 08:00; Stop 08/31/18 at 20:28; Status DC Acetaminophen (Tylenol) 650 mg 1X ONCE PO ; Start 08/31/18 at 07:00; Stop at 07:01; Status DC Glucose (Insta-Glucose) 15 gm 1X ONCE PO Last administered on 08/31/18at 06:54; Start 08/31/18 at 07:00; Stop 08/31/18 at 07:01; Status DC Acetaminophen (Tylenol) 325 mg PRN Q6HRS PRN PO PAIN / TEMP Last administered on 09/04/18 02:17; Start 08/31/18 at 10:45 Carbidopa/Levodopa (Sinemet 25/100) 2 tab TID PO Last administered on 09/04/18 07:59; Start 08/31/18 at 14:00 Citalopram Hydrobromide (CeleXA) 10 mg DAILY PO Last administered on 09/04/18 08:00; Start 09/01/18 at 09:00 Diphenhydramine HCl (Benadryl) 50 mg PRN QHS PRN PO SLEEP; Start 08/31/18 at 10: 45 Gabapentin (Neurontin) 100 mg TID PO Last administered on 09/04/18 07:59; Start 08/31/18 at 14:00 Albuterol/ Ipratropium (Duoneb) 3 ml TID NEB Last administered on 09/04/18 05: 11; Start 08/31/18 at 14:00 Metoprolol Succinate (Toprol Xl) 25 mg DAILY PO Last administered on 09/04/18 08:00; Start 09/01/18 at 09:00 Potassium Chloride (Klor-Con) 20 meq DAILY PO Last administered on 09/04/18 08: 00; Start 09/01/18 at 09:00 Tamsulosin HCl (Flomax) 0.4 mg DAILY PO Last administered on 09/04/18 08:00; Start 09/01/18 at 09:00 Non-Formulary Medication (Acetaminophen/ Diphenhydramine (Acetaminophen Pm Caplet)) 2 each QHS PRN PO INSOMNIA; Start 08/31/18 at 10:45; Stop 08/31/18 at 10 :53; Status DC Amlodipine Besylate (Norvasc) 5 mg DAILY PO ; Start 09/01/18 at 09:00; Stop at 14:43; Status DC Apixaban (Eliquis) 5 mg BID PO Last administered on 09/01/18 08:48; Start at 21:00; Stop 09/01/18 at 14:43; Status DC Benzonatate (Tessalon Perle) 100 mg [id number] PO Last administered on 09/04/18 07: 59; Start 08/31/18 at 14:00 Non-Formulary Medication (Escitalopram Oxalate (Lexapro)) 5 mg DAILY PO ; Start 09/01/18 at 09:00; Stop 09/01/18 at 09:00; Status DC Finasteride (Proscar) 5 mg DAILY PO Last administered on 09/04/18 07:59; Start 09/01/18 at 09:00 Furosemide (Lasix) 40 mg DAILY PO Last administered on 09/04/18 08:04; Start at 09:00 Glipizide (Glucotrol) 5 mg [id number] PO Last administered on 09/03/18 16:34; Start 08/31/18 at 16:30 Lidocaine (Lidoderm) 1 patch DAILY TD ; Start 09/01/18 at 09:00 Mirabegron (Myrbetriq) 50 mg QODAY PO Last administered on 09/03/18 08:31; Start 09/01/18 at 09:00 Repaglinide (Prandin) 1 mg TIDAC PO Last administered on 09/03/18 16:34; Start 08/31/18 at 11:30 Ropinirole HCl (Requip) 1 mg TID PO Last administered on 09/04/18 08:00; Start 08/31/18 at 14:00 Atorvastatin Calcium (Lipitor) 20 mg QHS PO Last administered on 09/03/18 21:25 ; Start 08/31/18 at 21:00 Docusate Sodium (Colace) 100 mg BID PO Last administered on 09/04/18 07:59; Start 09/01/18 at 21:00 Polyethylene Glycol (miraLAX) 17 gm DAILY PO Last administered on 09/02/18 07: 52; Start 09/02/18 at 09:00 Dextrose 12.5 gm PRN Q15MIN PRN IV SEE COMMENTS Last administered on 09/01/18 17:42; Start 09/01/18 at 17:45 Aspirin (Aspirin Enteric Coated) 81 mg [id number] PO Last administered on 08:00; Start 09/02/18 at 12:00 Pantoprazole Sodium (Protonix) 40 mg DAILYAC PO Last administered on 2/8/19at 07:59; Start 09/02/18 at 12:00 Prednisone (Prednisone) 20 mg 1X ONCE PO Last administered on 09/02/18at 12:19; Start 09/02/18 at 12:00; Stop 09/02/18 at 12:04; Status DC Furosemide (Lasix) 40 mg 1X ONCE IVP Last administered on 09/02/18at 13:50; Start 09/02/18 at 13:45; Stop 09/02/18 at 13:55; Status DC Iron Sucrose 200 mg/Sodium Chloride 110 ml @ 110 mls/hr 1X ONCE IV Last administered on 09/03/18at 13:58; Start 09/03/18 at 13:30; Stop 09/03/18 at 14:29; Status DC Furosemide (Lasix) 40 mg 1X ONCE IVP Last administered on 09/03/18at 15:54; Start 09/03/18 at 15:45; Stop 09/03/18 at 15:46; Status DC Albumin Human 50 ml @ 50 mls/hr 1X ONCE IV Last administered on 09/03/18at 15:54 ; Start 09/03/18 at 15:45; Stop 09/03/18 at 16:44; Status DC Milrinone Lactate/ Dextrose 100 ml @ 2.944 mls/ hr CONT PRN IV SEE I/O RECORD Last administered on 09/03/18at 16:04; Start 09/03/18 at 15:45 Active Scripts Active Eliquis (Apixaban) 5 Mg Tablet 5 Mg PO BID Celexa (Citalopram Hydrobromide) 10 Mg Tablet 10 Mg PO DAILY Lidocaine 1 Each Adh..patch 1 Patch TD DAILY Benzonatate 100 Mg Capsule 100 Mg PO [id number] Tylenol (Acetaminophen) 325 Mg Tablet 325 Mg PO PRN Q6HRS PRN Furosemide 40 Mg Tablet 1 Tab PO DAILY Benadryl (Diphenhydramine Hcl) 25 Mg Capsule 50 Mg PO PRN QHS PRN 30 Days Finasteride 5 Mg Tablet 5 Mg PO DAILY 30 Days Myrbetriq (Mirabegron) 50 Mg Tab.er.24h 50 Mg PO QODAY Klor-Con M20 (Potassium Chloride) 20 Meq Tab.er.prt 20 Meq PO DAILY 30 Days Metoprolol Succinate ( Xl ) (Metoprolol Succinate) 25 Mg Tab.er.24h 25 Mg PO DAILY 30 Days Duoneb 0.5-3(2.5) Mg/3 Ml (Albuterol/Ipratropium) 3 Ml Ampul.neb 3 Ml NEB TID 30 Days Gabapentin (Gabapentin) 100 Mg Capsule 100 Mg PO TID 30 Days Reported Ropinirole Hcl 1 Mg Tablet 1 Tab PO TID LAST DOSE GIVEN: DATE: TODAY TIME: AFTERNOON NEXT DOSE DUE: DATE: TODAY TIME: PM Repaglinide 1 Mg Tablet 1 Tab PO TID LAST DOSE GIVEN: DATE: TODAY TIME: BEFORE LUNCH NEXT DOSE DUE: DATE: TODAY TIME: BEFORE DINNER Tamsulosin Hcl 0.4 Mg Cap.er.24h 1 Tab PO DAILY LAST DOSE GIVEN: DATE: TODAY TIME: AM NEXT DOSE DUE: DATE: TOMORR TIME: AM Glipizide 5 Mg Tablet 5 Mg PO BID LAST DOSE GIVEN: DATE: TODAY TIME: AM NEXT DOSE DUE: DATE: TODAY TIME: PM Crestor (Rosuvastatin Calcium) 5 Mg Tablet 5 Mg PO HS LAST DOSE GIVEN: DATE: YESTERDAY TIME: AT BEDTIME NEXT DOSE DUE: DATE: TODAY TIME: AT BEDTIME Acetaminophen Pm Caplet (Acetaminophen/Diphenhydramine) 1 Each Tablet 2 Each PO QHS PRN Lexapro (Escitalopram Oxalate) 5 Mg Tablet 5 Mg PO DAILY Sinemet 25-100 Mg Tablet (Carbidopa/Levodopa) 1 Each Tablet 2 Tab PO TID LAST DOSE GIVEN: DATE: TODAY TIME: AFTGERNOON NEXT DOSE DUE: DATE: TODAY TIME: PM Aspirin 325 Mg Tablet 325 Mg PO DAILY Norvasc (Amlodipine Besylate) 5 Mg Tablet 5 Mg PO DAILY LAST DOSE GIVEN: DATE: TODAY TIME: AM NEXT DOSE DUE: DATE: TOMORROW TIME: AM Vitals/I & O Vital Sign - Last 24 Hours 09/03/18 09/03/18 09/03/18 09/03/18 09:39 12:10 16:37 17:23 Pulse 95 61 66 Resp 20 B/P (MAP) 106/58 (74) 101/57 (72) 112/59 (76) Pulse Ox 97 96 O2 Delivery Nasal Cannula Nasal Cannula O2 Flow Rate 3.0 3.0 09/03/18 09/03/18 09/03/18 09/03/18 19:38 19:40 20:27 20:34 Temp 97.7 Pulse 76 64 Resp 18 18 B/P (MAP) 112/54 (73) 104/50 (68) Pulse Ox 98 96 97 O2 Delivery Nasal Cannula Nasal Cannula Nasal Cannula Nasal Cannula O2 Flow Rate 3.0 3.0 3.0 3.0 09/03/18 09/03/18 09/03/18 09/03/18 21:34 22:36 23:14 23:16 Pulse 64 74 79 66 Resp 18 17 19 B/P (MAP) 104/53 (70) 95/53 (67) 94/47 (63) 94/47 (63) O2 Delivery Nasal Cannula Nasal Cannula Nasal Cannula Nasal Cannula O2 Flow Rate 3.0 3.0 3.0 3.0 09/03/18 09/04/18 09/04/18 09/04/18 23:53 00:50 01:50 02:13 Temp 97.5 Pulse 83 83 94 89 Resp 22 B/P (MAP) 106/59 (75) 90/51 (64) 101/49 (66) 91/55 (67) Pulse Ox 96 94 O2 Delivery Nasal Cannula Nasal Cannula Nasal Cannula Nasal Cannula O2 Flow Rate 3.0 3.0 3.0 3.0 09/04/18 09/04/18 09/04/18 09/04/18 02:59 03:48 04:19 04:54 Temp 97.8 Pulse 81 86 73 Resp 19 B/P (MAP) 109/57 (74) 92/51 (65) 101/55 (70) Pulse Ox 94 95 O2 Delivery Nasal Cannula Nasal Cannula Nasal Cannula O2 Flow Rate 3.0 3.0 3.0 09/04/18 09/04/18 09/04/18 09/04/18 05:12 06:09 07:42 08:00 Pulse 85 107 Resp 18 B/P (MAP) 114/67 (83) 114/67 Pulse Ox 97 95 O2 Delivery Nasal Cannula Nasal Cannula Nasal Cannula O2 Flow Rate 3.0 3.0 3.0 Intake and Output 09/03/18 09/03/18 09/04/18 15:01 23:01 07:01 Intake Total 960 ml 630 ml 380 ml Output Total 1300 ml 500 ml Balance 960 ml -670 ml -120 ml DARIO DYE APRN Sep 04, 2018 09:22
--- NOTE | 2018-09-30 18:04 | DS ---
DATE OF DISCHARGE: 09/04/2018 HOSPITAL COURSE: The patient discharged on 09/04/2018. One of several admissions for this patient, came in from [facility], had been falling and had generalized weakness. He was admitted and evaluated for his generalized weakness. The patient receiving PT, OT, was also anemic and received packed unit of RBCs to maintain his hemoglobin, which had dropped down to 7.1 and came back up to 8.3. Magnesium was low. Blood sugars sometimes hypoglycemic. Protein showed [id number] protein malnutrition. Lower extremity ultrasound showed no evidence of DVT. The patient received PT, OT as the patient was quite weakened by a multitude of underlying medical problems and as a result of this, made relatively good progress. Considering his overall situation. He had 3 midnights. He was transferred back to the [facility] for continued rehabilitation and attempted strengthening as the patient had marked weakness overall. He was also noted to have chronic congestive heart failure. Dr. Tucker, Cardiology, also reviewed him. OVERALL IMPRESSION: Generalized anemia, possible chronic GI bleed, peripheral edema; acute on top of chronic congestive heart failure, diastolic; iron deficiency anemia, received Venofer iron infusion; generalized debilitation, type 2 diabetes, Parkinson's disease, multiple falls, elevated troponin, chronic respiratory insufficiency, chronic atrial fibrillation, hyperlipidemia, pulmonary fibrosis, pulmonary hypertension, generalized incontinence. DISCHARGE INSTRUCTIONS: The patient will be on a heart healthy diabetic diet, make further evaluation on him as indicated at the rehab facility at [facility] patient. The patient is a no code ____. SONNY MALDONADO MD DR: SANDRA/zac JOB#: [id number] / [id number]
== END 2018-09-04 12:53 | DRG 811 ==
LOC: ER 05:08 → ICU 05:30
PROVIDERS: ADMIT Family Medicine; ATTEND Family Medicine
PROC: 30233N1 Transfusion of Nonautologous Red Blood Cells into Peripheral Vein, Percutaneous Approach (ICD-10-PCS; principal; 2018-09-01)
DX: D50.9 Iron deficiency anemia, unspecified (principal); I50.33 Acute on chronic diastolic (congestive) heart failure; E43 Unspecified severe protein-calorie malnutrition; I11.0 Hypertensive heart disease with heart failure; F32.9 Major depressive disorder, single episode, unspecified; M19.90 Unspecified osteoarthritis, unspecified site; E11.9 Type 2 diabetes mellitus without complications; I87.2 Venous insufficiency (chronic) (peripheral); I25.10 Atherosclerotic heart disease of native coronary artery without angina pectoris; J44.9 Chronic obstructive pulmonary disease, unspecified; E78.00 Pure hypercholesterolemia, unspecified; I27.20 Pulmonary hypertension, unspecified; W18.39XA Other fall on same level, initial encounter; G20 Parkinson's disease; F02.80 Dementia in other diseases classified elsewhere, unspecified severity, without behavioral disturbance, psychotic disturbance, mood disturbance, and anxiety; E78.5 Hyperlipidemia, unspecified; I48.2 Chronic atrial fibrillation; J84.10 Pulmonary fibrosis, unspecified; K21.9 Gastro-esophageal reflux disease without esophagitis; Z90.49 Acquired absence of other specified parts of digestive tract; Y93.89 Activity, other specified; Z87.01 Personal history of pneumonia (recurrent); Z68.25 Body mass index [BMI] 25.0-25.9, adult; Y92.89 Other specified places as the place of occurrence of the external cause; Y99.8 Other external cause status; Z79.01 Long term (current) use of anticoagulants; Z87.891 Personal history of nicotine dependence; Z99.81 Dependence on supplemental oxygen
CPT/HCPCS: 36415; 71045; 80048; 80053; 80076; 80307; 81001; 82274; 82550; 82607; 82728; 82947; 83540; 83550; 83690; 83735; 83880; 84443; 84484; 85025; 85027; 85379; 85610; 85730; 86850; 86900; 86901; 86920; 87641; 93005; 93970; 94640; 96361; 96374; 96375; J1200; J1756; J1940; J2260; J7512; J7620; P9016; P9046; P9612; 97116; 97530; 97535; 99285-25; J7030

== ENCOUNTER 2018-09-10 08:11 | Inpatient (IN) | payer MEDICARE, OTHER ==
[~2018-09-10] VITALS: Ht 170.2 cm; Wt 84.0 kg
[~2018-09-10 08:11] MED LIST changes: -LIDO700A21 TD; +LIDO700A39 TD
[2018-09-10] MEDS ORDERED: IPRATRPIUM/ALBUTEROL 0.5/2.5MG 3 ML NEBU. ONE (08:32)
--- NOTE | 2018-09-10 08:37 | PHYS DOC ---
Past History Past Medical History: A-Fib, Arthritis, CAD, CHF, COPD, Dementia, Diabetes, GERD, High Cholesterol, Hypertension, [place], Vascular Disease, Other Past Surgical History: Appendectomy, Cholecystectomy, Tonsillectomy Smoking: Quit Greater Than 1 Year Alcohol Use: None Drug Use: None Adult General Chief Complaint Chief Complaint: SHORTNESS OF BREATH HPI HPI 82-year-old male presents via EMS from his care facility with increased shortness of breath. The patient has been diagnosed with possible pneumonia recently started on Levaquin oral. Since yesterday, the patient has had increased eating and shortness of breath according to his care facility. When asked the patient if it feels different he says now. He is normally on 2 L of oxygen and is requiring 4 L to stay above 90%. Patient denies change in his cough. He has not noticed a fever. Denies chest pain. He has no other complaints. Review of Systems Review of Systems Constitutional: Denies fever or chills [] Eyes: Denies change in visual acuity, redness, or eye pain [] HENT: Denies nasal congestion or sore throat [] Respiratory: Shortness of breath [] Cardiovascular: No additional information not addressed in HPI [] GI: Denies abdominal pain, nausea, vomiting, bloody stools or diarrhea [] : Denies dysuria or hematuria [] Musculoskeletal: Denies back pain or joint pain [] Integument: Denies rash or skin lesions [] Neurologic: Denies headache, focal weakness or sensory changes [] Endocrine: Denies polyuria or polydipsia [] All other systems were reviewed and found to be within normal limits, except as documented in this note. Allergies Allergies Allergies Coded Allergies Type Severity Reaction Last Updated Verified codeine Allergy Intermediate 06/06/15 Yes shellfish derived Allergy Intermediate 08/31/18 Yes shrimp Allergy Intermediate 02/01/16 No milk Allergy Mild Nausea 08/06/18 Yes turkey Allergy Mild 06/06/15 No Physical Exam Physical Exam Constitutional: Well developed, well nourished, no acute distress, non-toxic appearance. [] HENT: Normocephalic, atraumatic, bilateral external ears normal, oropharynx moist, no oral exudates, nose normal. [] Eyes: PERRLA, EOMI, conjunctiva normal, no discharge. [] Neck: Normal range of motion, no tenderness, supple, no stridor. [] Cardiovascular:Heart rate regular rhythm, no murmur [] Lungs & Thorax: Bilateral breath sounds decreased with mild end expiratory wheezing at the bases[] Abdomen: Bowel sounds normal, soft, no tenderness, no masses, no pulsatile masses. [] Skin: Warm, dry, no erythema, no rash. [] Back: No tenderness, no CVA tenderness. [] Extremities: No tenderness, no cyanosis, no clubbing, ROM intact, no edema. [] Neurologic: Alert and oriented X 3, normal motor function, normal sensory function, no focal deficits noted. [] Psychologic: Affect normal, judgement normal, mood normal. [] EKG EKG Sinus rhythm, rate 103, left axis, ST depression 1 mm in V2 V3, similar to .[] Radiology/Procedures Radiology/Procedures [] Impressions: EXAM: CHEST 1 VIEW History: Shortness of breath COMPARISON: 08/31/2018 TECHNIQUE: Single portable radiograph of the chest FINDINGS: Low lung volumes and technique accentuates heart size and pulmonary vascularity. Mild cardiomegaly. There are scattered faint airspace opacities identified in the bilateral lungs likely atelectasis or infiltrates. Mild prominent appearing bilateral interstitial lung markings likely chronic interstitial changes. IMPRESSION: Mild prominent appearing bilateral interstitial lung markings likely chronic interstitial changes with few scattered airspace opacities identified in the bilateral lungs likely atelectasis or infiltrates similar to prior exam. . Electronically signed by: Trent Ricks MD (09/10/2018 9:41 AM) [place] [id number] DICTATED AND SIGNED BY: TRENT RICKS MD DATE: 09/10/18 0937 CC: BANDAR THOMPSON DO; SONNY MALDONADO MD Course & Med Decision Making Course & Med Decision Making Pertinent Labs and Imaging studies reviewed. (See chart for details) The patient's labs are unremarkable compared to his baseline. His EKG is unremarkable. He has mild end expiratory wheezing, and not sure this is just COPD exacerbation. His chest x-ray does show possible infiltrate. He was recently treated with Levaquin. I will broaden his treatment with vancomycin and Zosyn. He does not have a fever. I will also give him 125 Solu-Medrol. I discussed the patient with Dr. Mancuso and he has agreed to admit the patient. He is in agreement with this plan. [] Dragon Disclaimer Dragon Disclaimer This electronic medical record was generated, in whole or in part, using a voice recognition dictation system. Departure Departure: Impression: Primary Impression: COPD exacerbation Additional Impression: Pneumonia Disposition: 09 ADMITTED INPATIENT Condition: STABLE Referrals: SONNY MALDONADO MD (PCP) Problem Qualifiers Additional Impression: Pneumonia Pneumonia type: due to unspecified organism Laterality: right Lung location : lower lobe of lung Qualified Codes: J18.1 - Lobar pneumonia, unspecified organism BANDAR THOMPSON DO Sep 10, 2018 08:37
[2018-09-10 08:38] LABS: BASO # 0.1 x10^3/uL (0.0-0.2); BASO % 1 % (0-3); EOS # 0.1 x10^3/uL (0.0-0.7); EOS % 1 % (0-3); HEMATOCRIT 27.3 % (39.0-53.0); HEMOGLOBIN 8.4 g/dL (13.0-17.5); LYMPH # 0.5 x10^3/uL (1.0-4.8); LYMPH % 7 % (24-48); MEAN CORPUSCULAR HEMOGLOBIN 25 pg (25-35); MEAN CORPUSCULAR HGB CONC 31 g/dL (31-37); MEAN CORPUSCULAR VOLUME 83 fL (79-100); MONO # 0.6 x10^3/uL (0.0-1.1); MONO % 8 % (0-9); NEUT # 6.2 x10^3uL (1.8-7.7); NEUT % 83 % (31-73); PLATELET COUNT 206 x10^3/uL (140-400); RED BLOOD COUNT 3.31 x10^6/uL (4.30-5.70); RED CELL DISTRIBUTION WIDTH 20.2 % (11.5-14.5); WHITE BLOOD COUNT 7.4 x10^3/uL (4.0-11.0)
[2018-09-10] MEDS ORDERED: IPRATRPIUM/ALBUTEROL 0.5/2.5MG 3 ML NEBU. NEB ONE (08:45)
[2018-09-10 08:55] LABS: ALBUMIN 2.6 g/dL (3.4-5.0); ALBUMIN/GLOBULIN RATIO 0.7 (1.0-1.7); CALCIUM 8.3 mg/dL (8.5-10.1); CREATININE 1.1 mg/dL (0.7-1.3); GFR 63.8; TOTAL PROTEIN 6.2 g/dL (6.4-8.2)
[2018-09-10 09:12] LABS: PLT ESTIMATE ADEQUATE (ADEQUATE)
[2018-09-10 09:13] LABS: ANISOCYTOSIS MOD; HYPOCHROMIA SLIGHT; MICROCYTOSIS SLIGHT; POLYCHROMASIA PRESENT
--- NOTE | 2018-09-10 09:43 | RAD ---
EXAM: CHEST 1 VIEW History: Shortness of breath COMPARISON: 08/31/2018 TECHNIQUE: Single portable radiograph of the chest FINDINGS: Low lung volumes and technique accentuates heart size and pulmonary vascularity. Mild cardiomegaly. There are scattered faint airspace opacities identified in the bilateral lungs likely atelectasis or infiltrates. Mild prominent appearing bilateral interstitial lung markings likely chronic interstitial changes. IMPRESSION: Mild prominent appearing bilateral interstitial lung markings likely chronic interstitial changes with few scattered airspace opacities identified in the bilateral lungs likely atelectasis or infiltrates similar to prior exam. . Electronically signed by: Trent Champion MD (09/10/2018 9:41 AM) [place] [id number]
[2018-09-10] MEDS ORDERED: IV NORMAL SALINE 50ML 50 ML ONE (10:53)
[2018-09-10] MEDS ORDERED: PIPERACILLIN/TAZOBACTAM 4.5 GM VIAL IV ONE (10:54)
[2018-09-10] MEDS ORDERED: PIPERACILLIN/TAZOBACTAM 4.5 GM in IV NORMAL SALINE 50ML 50 ML IV ONE (11:00)
[2018-09-10] MEDS ORDERED: VANCOMYCIN 1.75 GM in IV NORMAL SALINE 500ML 500 ML IV ONE (11:00)
[2018-09-10] MEDS ORDERED: methylPREDNISolone SOD SUCC PF 125 MG/2 ML VIAL. IV ONE (11:00)
[2018-09-10] MEDS ORDERED: ONDANSETRON PF 4 MG/2 ML VIAL. IV PRN (11:15)
[2018-09-10 12:17] VITALS: BP 116/67
[2018-09-10] MEDS ORDERED: ACETAMINOPHEN 325 MG TABLET PO PRN (12:30)
[2018-09-10] MEDS ORDERED: diphenhydrAMINE HCL 25 MG CAPSULE PO PRN ×2 (12:30→13:00)
[2018-09-10] MEDS: rOPINIRole 1 MG TABLET. PO SCH ×2 (13:58→20:46)
[2018-09-10] MEDS: CARBIDOPA/LEVODOPA 25/100MG TABLET PO SCH ×2 (13:59→20:39)
[2018-09-10] MEDS: BENZONATATE 100 MG CAPSULE. PO SCH ×2 (13:59→20:39)
[2018-09-10] MEDS: GABAPENTIN 100 MG CAPSULE. PO SCH ×2 (13:59→20:39)
[2018-09-10] MEDS ORDERED: IPRATRPIUM/ALBUTEROL 0.5/2.5MG 3 ML NEBU. NEB SCH (14:00)
[2018-09-10] MEDS ORDERED: PIP/TAZO PER PHARMACY MC PRN (14:00)
[2018-09-10] MEDS ORDERED: PIP/TAZO PER PHARMACY MC SCH (14:00)
[2018-09-10] MEDS: methylPREDNISolone SOD SUCC PF 40 MG/ML VIAL. IV SCH ×2 (15:02→21:14)
[2018-09-10 15:45] VITALS: BP 116/66
[2018-09-10] MEDS: IPRATRPIUM/ALBUTEROL 0.5/2.5MG 3 ML NEBU. NEB SCH ×2 (16:36→20:00)
--- NOTE | 2018-09-10 17:28 | EKG ---
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
[2018-09-10] MEDS: PIPERACILLIN/TAZOBACTAM 4.5 GM in IV NORMAL SALINE 50ML 50 ML IV SCH (17:32)
[2018-09-10] MEDS: glipiZIDE 5 MG TABLET PO SCH (17:32)
[2018-09-10] MEDS: REPAGLINIDE 1 MG TABLET PO SCH (17:32)
[2018-09-10] MEDS ORDERED: dilTIAZem VIAL 125 MG in IV DEXTROSE 5% 100 ML IV PRN (17:45)
[2018-09-10] MEDS ORDERED: dilTIAZem 25 MG/5 ML VIAL IVP ONE (18:00)
[2018-09-10 19:45] VITALS: BP 112/64
[2018-09-10] MEDS: ACETAMINOPHEN 500 MG TABLET PO PRN (20:38)
[2018-09-10] MEDS: APIXABAN 5 MG TABLET. PO SCH (20:39)
[2018-09-10] MEDS: ATORVASTATIN CALCIUM 20 MG TABLET PO SCH (20:39)
[2018-09-10 22:50] VITALS: BP 100/57
[2018-09-11] MEDS: PIPERACILLIN/TAZOBACTAM 4.5 GM in IV NORMAL SALINE 50ML 50 ML IV SCH ×3 (02:00→17:40)
[2018-09-11 05:08] VITALS: BP 117/62
[2018-09-11] MEDS: IPRATRPIUM/ALBUTEROL 0.5/2.5MG 3 ML NEBU. NEB SCH ×4 (05:08→19:58)
[2018-09-11] MEDS: methylPREDNISolone SOD SUCC PF 40 MG/ML VIAL. IV SCH ×3 (05:27→21:39)
[2018-09-11] MEDS: glipiZIDE 5 MG TABLET PO SCH ×2 (08:04→16:48)
[2018-09-11] MEDS: BENZONATATE 100 MG CAPSULE. PO SCH ×3 (08:04→21:38)
[2018-09-11] MEDS: CITALOPRAM 10 MG TABLET. PO SCH (08:05)
[2018-09-11] MEDS: POTASSIUM CHLORIDE 20 MEQ TABLET.ER. PO SCH (08:05)
[2018-09-11] MEDS: amLODIPine BESYLATE 5 MG TABLET PO SCH (08:06)
[2018-09-11] MEDS: CARBIDOPA/LEVODOPA 25/100MG TABLET PO SCH ×3 (08:06→21:39)
[2018-09-11] MEDS: FINASTERIDE 5 MG TABLET PO SCH (08:06)
[2018-09-11] MEDS: TAMSULOSIN 0.4 MG CAP.ER.24H. PO SCH (08:06)
[2018-09-11] MEDS: GABAPENTIN 100 MG CAPSULE. PO SCH ×3 (08:06→21:38)
[2018-09-11] MEDS: FUROSEMIDE 40 MG TABLET PO SCH (08:06)
[2018-09-11] MEDS: APIXABAN 5 MG TABLET. PO SCH ×2 (08:06→21:39)
[2018-09-11] MEDS: ASPIRIN 325 MG TABLET PO SCH (08:06)
[2018-09-11] MEDS: LIDOCAINE (700MG/PATCH) PATCH. TD SCH ×2 (08:07→08:08)
[2018-09-11] MEDS: REPAGLINIDE 1 MG TABLET PO SCH ×3 (08:07→16:48)
[2018-09-11] MEDS: rOPINIRole 1 MG TABLET. PO SCH ×3 (08:07→21:39)
--- NOTE | 2018-09-11 08:37 | PDOC2 ---
CONSULT Date of Admission DATE: 09/11/18 TIME: 08:37 Reason for Consult: atrial fibrillation Problem List Problems Medical Problems: (1) COPD exacerbation Status: Acute (2) Pneumonia Status: Acute History of Present Illness Mr Winchester is an 82 year old male with history of atrial fibrillation, severe pulmonary hypertension, pulmonary fibrosis, diastolic heart failure and Parkinson dementia. He has been hospitalized 4 times since July for respiratory failure, CHF, a fall and was transported from Rehab yesterday again for reported respiratory distress and possible pneumonia. He is a fairly poor historian but is oriented x 3 this am. He denies any increased shortness of breath from baseline. He denies chest discomfort, palpitations, or lightheadeedness. He reports his edema continues to be significantly improved from his admission earlier this month. Past Medical History parkinsons disease Cardiovascular: AFIB (chronic), hyperlipidemia, Other (murmur), pulmonary hypertension Pulmonary: COPD, Pneumonia, Other (pulmonary fibrosis, chronic oxygen) Musculoskeletal: Weakness Renal/: Urinary Incontinence Past Surgical History Appendectomy, left fem-pop, inguinal hernia repair, failed right leg bypass, angioplasty 2010. Family History non contributory due to age Social History he denies smoking, etoh or illicit drugs , normally lives at home with his but has been residing in [facility] since his Jul admission Current Medications Current Medications Albuterol/ Ipratropium (Duoneb) 3 ml 1X ONCE NEB Last administered on at 08:42; Start 09/10/18 at 08:45; Stop 09/10/18 at 08:46; Status DC Albuterol/ Ipratropium (Duoneb) 3 ml STK-MED ONCE .ROUTE ; Start 09/10/18 at 08: 32; Stop 09/10/18 at 08:33; Status DC Vancomycin HCl 1.75 gm/Sodium Chloride 500 ml @ 250 mls/hr 1X ONCE IV Last administered on 09/10/18at 11:23; Start 09/10/18 at 11:00; Stop 09/10/18 at 12:59 ; Status DC Piperacillin Sod/ Tazobactam Sod 4.5 gm/Sodium Chloride 50 ml @ 100 mls/hr 1X ONCE IV Last administered on 09/10/18at 10:57; Start 09/10/18 at 11:00; Stop at 11:29; Status DC Methylprednisolone Sodium Succinate (SOLU-Medrol 125MG VIAL) 125 mg 1X ONCE IV Last administered on 09/10/18at 10:57; Start 09/10/18 at 11:00; Stop 09/10/18 at 11:01; Status DC Sodium Chloride 50 ml @ As Directed STK-MED ONCE .ROUTE ; Start 09/10/18 at 10: 53; Stop 09/10/18 at 10:54; Status DC Piperacillin Sod/ Tazobactam Sod (Zosyn) 4.5 gm STK-MED ONCE IV ; Start at 10:54; Stop 09/10/18 at 10:55; Status DC Ondansetron HCl (Zofran) 4 mg PRN Q4HRS PRN IV NAUSEA/VOMITING; Start 09/10/18 at 11:15; Stop 09/11/18 at 11:14 Acetaminophen (Tylenol) 325 mg PRN Q6HRS PRN PO PAIN / TEMP; Start 09/10/18 at 12:30 Aspirin (Kezia Aspirin) 325 mg DAILY PO Last administered on 09/11/18at 08:06; Start 09/11/18 at 09:00 Carbidopa/Levodopa (Sinemet 25/100) 2 tab TID PO Last administered on at 08:06; Start 09/10/18 at 14:00 Citalopram Hydrobromide (CeleXA) 10 mg DAILY PO Last administered on 09/11/18at 08:05; Start 09/11/18 at 09:00 Diphenhydramine HCl (Benadryl) 50 mg PRN QHS PRN PO SLEEP; Start 09/10/18 at 12 :30; Status Cancel Gabapentin (Neurontin) 100 mg TID PO Last administered on 09/11/18at 08:06; Start 09/10/18 at 14:00 Albuterol/ Ipratropium (Duoneb) 3 ml TID NEB ; Start 09/10/18 at 14:00; Status UNV Metoprolol Succinate (Toprol Xl) 25 mg DAILY PO ; Start 09/11/18 at 09:00 Potassium Chloride (Klor-Con) 20 meq DAILY PO Last administered on 09/11/18at 08 :05; Start 09/11/18 at 09:00 Tamsulosin HCl (Flomax) 0.4 mg DAILY PO Last administered on 09/11/18 08:06; Start 09/11/18 at 09:00 Acetaminophen (Tylenol) 1,000 mg PRN QHS PRN PO SLEEP Last administered on 09/10 20:38; Start 09/10/18 at 13:00 Amlodipine Besylate (Norvasc) 5 mg DAILY PO Last administered on 09/11/18 08: 06; Start 09/11/18 at 09:00 Apixaban (Eliquis) 5 mg BID PO Last administered on 09/11/18 08:06; Start at 21:00 Benzonatate (Tessalon Perle) 100 mg [id number] PO Last administered on 09/11/18 08 :04; Start 09/10/18 at 14:00 Non-Formulary Medication (Escitalopram Oxalate (Lexapro)) 5 mg DAILY PO ; Start 09/11/18 at 09:00; Status UNV Finasteride (Proscar) 5 mg DAILY PO Last administered on 09/11/18 08:06; Start 09/11/18 at 09:00 Furosemide (Lasix) 40 mg DAILY PO Last administered on 09/11/18 08:06; Start 09/11/18 at 09:00 Glipizide (Glucotrol) 5 mg [id number] PO Last administered on 09/11/18 08:04; Start 09/10/18 at 16:30 Lidocaine (Lidoderm) 1 patch DAILY TD ; Start 09/11/18 at 09:00 Mirabegron (Myrbetriq) 50 mg QODAY PO ; Start 09/12/18 at 09:00 Repaglinide (Prandin) 1 mg TIDAC PO Last administered on 09/11/18 08:07; Start 09/10/18 at 16:30 Ropinirole HCl (Requip) 1 mg TID PO Last administered on 09/11/18 08:07; Start 09/10/18 at 14:00 Atorvastatin Calcium (Lipitor) 20 mg QHS PO Last administered on 09/10/18 20: 39; Start 09/10/18 at 21:00 Albuterol/ Ipratropium (Duoneb) 3 ml RTQID NEB Last administered on 09/11/18at 05:08; Start 09/10/18 at 16:00 Methylprednisolone Sodium Succinate (SOLU-Medrol 40MG VIAL) 40 mg Q8HRS IV Last administered on 09/11/18at 05:27; Start 09/10/18 at 14:00 Piperacillin Sod/ Tazobactam Sod (Zosyn Per Pharmacy) 1 each TID ; Start at 14:00; Stop 09/10/18 at 14:00; Status DC Diphenhydramine HCl (Benadryl) 50 mg PRN QHS PRN PO SLEEP Last administered on 09/10/18at 20:39; Start 09/10/18 at 13:00 Piperacillin Sod/ Tazobactam Sod 4.5 gm/Sodium Chloride 50 ml @ 100 mls/hr Q8H IV Last administered on 09/11/18at 02:00; Start 09/10/18 at 18:00 Piperacillin Sod/ Tazobactam Sod (Zosyn Per Pharmacy) 1 each PRN DAILY PRN PHARMACY TO DOSE AND MONITOR; Start 09/10/18 at 14:00 Diltiazem HCl 125 mg/Dextrose 125 ml @ 5 mls/hr CONT PRN IV SEE I/O RECORD; Start 09/10/18 at 17:45 Diltiazem HCl (Cardizem Iv Push) 10 mg 1X ONCE IVP Last administered on at 18:01; Start 09/10/18 at 18:00; Stop 09/10/18 at 18:01; Status DC Diltiazem HCl (Cardizem 24hr Cd) 120 mg DAILY PO Last administered on at 08:05; Start 09/10/18 at 19:30 Active Scripts Active Eliquis (Apixaban) 5 Mg Tablet 5 Mg PO BID Celexa (Citalopram Hydrobromide) 10 Mg Tablet 10 Mg PO DAILY Lidocaine 1 Each Adh..patch 1 Patch TD DAILY Benzonatate 100 Mg Capsule 100 Mg PO [id number] Tylenol (Acetaminophen) 325 Mg Tablet 325 Mg PO PRN Q6HRS PRN Furosemide 40 Mg Tablet 1 Tab PO DAILY Benadryl (Diphenhydramine Hcl) 25 Mg Capsule 50 Mg PO PRN QHS PRN 30 Days Finasteride 5 Mg Tablet 5 Mg PO DAILY 30 Days Myrbetriq (Mirabegron) 50 Mg Tab.er.24h 50 Mg PO QODAY Klor-Con M20 (Potassium Chloride) 20 Meq Tab.er.prt 20 Meq PO DAILY 30 Days Metoprolol Succinate ( Xl ) (Metoprolol Succinate) 25 Mg Tab.er.24h 25 Mg PO DAILY 30 Days Duoneb 0.5-3(2.5) Mg/3 Ml (Albuterol/Ipratropium) 3 Ml Ampul.neb 3 Ml NEB TID 30 Days Gabapentin (Gabapentin) 100 Mg Capsule 100 Mg PO TID 30 Days Reported Ropinirole Hcl 1 Mg Tablet 1 Tab PO TID LAST DOSE GIVEN: DATE: TODAY TIME: AFTERNOON NEXT DOSE DUE: DATE: TODAY TIME: PM Repaglinide 1 Mg Tablet 1 Tab PO TID LAST DOSE GIVEN: DATE: TODAY TIME: BEFORE LUNCH NEXT DOSE DUE: DATE: TODAY TIME: BEFORE DINNER Tamsulosin Hcl 0.4 Mg Cap.er.24h 1 Tab PO DAILY LAST DOSE GIVEN: DATE: TODAY TIME: AM NEXT DOSE DUE: DATE: TOMORROW TIME: AM Glipizide 5 Mg Tablet 5 Mg PO BID LAST DOSE GIVEN: DATE: TODAY TIME: AM NEXT DOSE DUE: DATE: TODAY TIME: PM Crestor (Rosuvastatin Calcium) 5 Mg Tablet 5 Mg PO HS LAST DOSE GIVEN: DATE: YESTERDAY TIME: AT BEDTIME NEXT DOSE DUE: DATE: TODAY TIME: AT BEDTIME Acetaminophen Pm Caplet (Acetaminophen/Diphenhydramine) 1 Each Tablet 2 Each PO QHS PRN Lexapro (Escitalopram Oxalate) 5 Mg Tablet 5 Mg PO DAILY Sinemet 25-100 Mg Tablet (Carbidopa/Levodopa) 1 Each Tablet 2 Tab PO TID LAST DOSE GIVEN: DATE: TODAY TIME: AFTGERNOON NEXT DOSE DUE: DATE: TODAY TIME: PM Aspirin 325 Mg Tablet 325 Mg PO DAILY Norvasc (Amlodipine Besylate) 5 Mg Tablet 5 Mg PO DAILY LAST DOSE GIVEN: DATE: TODAY TIME: AM NEXT DOSE DUE: DATE: TOMORROW TIME: AM Allergies: Coded Allergies: codeine (Verified Allergy, Intermediate, 06/06/15) shellfish derived (Verified Allergy, Intermediate, 08/31/18) shrimp (Unverified Allergy, Intermediate, 02/01/16) milk (Verified Allergy, Mild, Nausea, 08/06/18) turkey (Unverified Allergy, Mild, 06/06/15) Review of System as per HPI General: Alert, Oriented X3, Cooperative, No acute distress HEENT: Atraumatic, EOMI Lungs: Other (bibasilar crackles) Heart: Other (IRR, no gallops, clicks or rubs) VITALS Vital Signs Date Time Temp Pulse Resp B/P (MAP) Pulse Ox O2 Delivery O2 Flow Rate FiO2 09/11/18 08:06 81 117/62 09/11/18 05:09 92 Nasal Cannula 3.0 09/11/18 05:08 97.7 20 Labs Laboratory Tests Test 09/10/18 08:26 09/10/18 14:42 09/10/18 17:07 White Blood Count 7.4 x10^3/uL (4.0-11.0) Red Blood Count 3.31 x10^6/uL (4.30-5.70) Hemoglobin 8.4 g/dL (13.0-17.5) Hematocrit 27.3 % (39.0-53.0) Mean Corpuscular Volume 83 fL (79-100) Mean Corpuscular Hemoglobin 25 pg (25-35) Mean Corpuscular Hemoglobin Concent 31 g/dL (31-37) Red Cell Distribution Width 20.2 % (11.5-14.5) Platelet Count 206 x10^3/uL (140-400) Neutrophils (%) (Auto) 83 % (31-73) Lymphocytes (%) (Auto) 7 % (24-48) Monocytes (%) (Auto) 8 % (0-9) Eosinophils (%) (Auto) 1 % (0-3) Basophils (%) (Auto) 1 % (0-3) Neutrophils # (Auto) 6.2 x10^3uL (1.8-7.7) Lymphocytes # (Auto) 0.5 x10^3/uL (1.0-4.8) Monocytes # (Auto) 0.6 x10^3/uL (0.0-1.1) Eosinophils # (Auto) 0.1 x10^3/uL (0.0-0.7) Basophils # (Auto) 0.1 x10^3/uL (0.0-0.2) Platelet Estimate Adequate (ADEQUATE) Large Platelets Present Polychromasia Present Hypochromasia Slight Anisocytosis Mod Microcytosis Slight Sodium Level 136 mmol/L (136-145) Potassium Level 4.0 mmol/L (3.5-5.1) Chloride Level 101 mmol/L (98-107) Carbon Dioxide Level 27 mmol/L (21-32) Anion Gap 8 (6-14) Blood Urea Nitrogen 20 mg/dL (8-26) Creatinine 1.1 mg/dL (0.7-1.3) Estimated GFR (Cockcroft-Gault) 63.8 BUN/Creatinine Ratio 18 (6-20) Glucose Level 105 mg/dL (70-99) Calcium Level 8.3 mg/dL (8.5-10.1) Total Bilirubin 1.0 mg/dL (0.2-1.0) Aspartate Amino Transf (AST/SGOT) 14 U/L (15-37) Alanine Aminotransferase (ALT/SGPT) 8 U/L (16-63) Alkaline Phosphatase 112 U/L (46-116) Troponin I Quantitative 0.027 ng/mL (0-0.055) Total Protein 6.2 g/dL (6.4-8.2) Albumin 2.6 g/dL (3.4-5.0) Albumin/Globulin Ratio 0.7 (1.0-1.7) Nasal Screen MRSA (PCR) Negative (Negative) Glucose (Fingerstick) 201 mg/dL (70-99) Images CXR - IMPRESSION: Mild prominent appearing bilateral interstitial lung markings likely chronic interstitial changes with few scattered airspace opacities identified in the bilateral lungs likely atelectasis or infiltrates similar to prior exam. EKG - atrial fibrillation with nonspecific st/t abn Assessment/Plan 1. atrial fibrillation - chronic, rate controlled. Aspirin for stroke prophylaxis secondary to recent fall and anemia. 2. Chronic respiratory failure secondary to pulmonary fibrosis and severe pulmonary hypertension and possible pneumonia - currently maintaining Sao2 with 3 liters nasal cannula and in no distress. Considering his frequent episodes, could consider transfer for right heart cath if no improvement with abx. mgmt however would monitor for now due to his anemia recently requiring PRBCs. per PCP for Pneumonia. 3. chronic diastolic heart failure - no overt volume overload at this time. No edema. Continue oral diuresis. 4. Anemia - hgb remains stable since last admission. per PCP 5. Edema - currently resolved. Monitor and compression stockings when out of bed. 6. hyperlipidemia - lipids on 07/01/18 with LDL at goal, low HDL, controlled Tgs. Continue statin. 7. parkinson's - per PCP DARIO DYE APRN Sep 11, 2018 08:37
[2018-09-11] MEDS ORDERED: ESCITALOPRAM OXALATE 5 MG PO SCH (09:00)
[2018-09-11 10:00] VITALS: BP 108/65
[2018-09-11] MEDS: METOPROLOL SUCC 24HR ER 25 MG TAB.ER.24H. PO SCH (10:40)
[2018-09-11 14:39] VITALS: BP 100/58
[2018-09-11] MEDS ORDERED: DEXTROSE 50% 25 GM / 50ML DISP.SYRIN. IV PRN (19:30)
[2018-09-11 20:41] VITALS: BP 104/64
[2018-09-11] MEDS: ATORVASTATIN CALCIUM 20 MG TABLET PO SCH (21:39)
--- NOTE | 2018-09-11 22:49 | HP ---
ADMIT DATE: 09/10/2018 HISTORY OF PRESENT ILLNESS: An 82-year-old male came in through the Emergency Room. The patient is having trouble with breathing. The patient noted increased shortness of breath and increased oxygen saturation on 4 liters from 2 liters to maintain just at 90%. The patient denies any chest pain or cough, but does have extreme shortness of breath with minimal exertion and actually at rest. The patient was admitted for further evaluation and treatment for his acute exacerbation of COPD with chronic bronchitis with hypoxia and make further evaluation on that accord. PAST MEDICAL HISTORY: The patient's history shows that of Parkinson's disease, cardiac disorders, cardiac symptoms, heart murmur, anticoagulation, hypercholesterolemia, pulmonary hypertension, COPD, pulmonary fibrosis, pneumonia, incontinence, generalized weakness, endocrine disorders, diabetes. IMMUNIZATIONS: Tetanus, diphtheria vaccine, influenza vaccination and pneumococcal vaccination. ALLERGIES: CODEINE, MILK, SHELLFISH DERIVED AND SHRIMP AND TURKEY. FAMILY HISTORY: Unremarkable. SOCIAL HISTORY: Denies smoking, alcohol or drug use. Lives at the skilled nursing presently. MEDICATIONS: The patient's reconciliation of his medications have been reviewed and are in the chart as being reviewed and reconciled. REVIEW OF SYSTEMS: Generalized weakness, shortness of breath. Denies headaches, visual changes, blurred vision, double vision. Denies any chest pain. He does have marked shortness of breath even at rest, more difficulty breathing especially when lying down. The patient denies any abdominal pain, nausea or vomiting, just generalized weakness in his legs from his Parkinson's disease. PHYSICAL EXAMINATION: GENERAL: This is a very pleasant gentleman in mild amount of distress. VITAL SIGNS: The patient's blood pressure is 117/62, respiratory rate 20, pulse 80, afebrile. He is on 3 liters at 90%. HEENT: The patient's head was atraumatic, normocephalic. Eyes: PERRLA without jaundice. Mouth and throat: Poor dentition. NECK: Supple, without JVD, carotid bruits or thyromegaly. LUNGS: Diminished throughout, poor movement of air with some rhonchi noted in the bases and also shows some crackles in the bases. CARDIOVASCULAR: Regular rhythm. ABDOMEN: Soft, nontender. EXTREMITIES: No clubbing, cyanosis with +1 pitting edema. NEUROLOGIC: The patient is at baseline, alert and oriented and very pleasant gentleman. The patient, otherwise, continued to be monitored as such. LABORATORY DATA: The patient's white count was 7, hemoglobin and hematocrit down to 8.4 and 27. The patient's otherwise blood sugars were slightly elevated in the 200 range. Chest x-ray basically shows atelectasis and pulmonary fibrosis. IMPRESSION: Acute exacerbation of chronic obstructive pulmonary disease with chronic bronchitis, pulmonary hypertension, Parkinson's disease, type 2 diabetes, generalized weakness, failure to thrive, anemia of chronic disease. The patient will be admitted for further evaluation, aggressive pulmonary toilet and cardiac consultation on the situation. SONNY MALDONADO MD DR: SANDRA/zac JOB#: [id number] / [id number]
[2018-09-12] VITALS: BP 99/61
[2018-09-12] MEDS: ACETAMINOPHEN 500 MG TABLET PO PRN (00:02)
[2018-09-12] MEDS: PIPERACILLIN/TAZOBACTAM 4.5 GM in IV NORMAL SALINE 50ML 50 ML IV SCH (01:54)
[2018-09-12] MEDS: methylPREDNISolone SOD SUCC PF 40 MG/ML VIAL. IV SCH (04:50)
[2018-09-12] MEDS: IPRATRPIUM/ALBUTEROL 0.5/2.5MG 3 ML NEBU. NEB SCH ×2 (05:00→09:38)
[2018-09-12 05:05] VITALS: BP 104/58
[2018-09-12] MEDS ORDERED: INSULIN LISPRO 300 UNITS/3 ML INSULN.PEN. SQ SCH (08:00)
[2018-09-12] MEDS: GABAPENTIN 100 MG CAPSULE. PO SCH (08:20)
[2018-09-12] MEDS: CITALOPRAM 10 MG TABLET. PO SCH (08:20)
[2018-09-12] MEDS: FINASTERIDE 5 MG TABLET PO SCH (08:20)
[2018-09-12] MEDS: TAMSULOSIN 0.4 MG CAP.ER.24H. PO SCH (08:20)
[2018-09-12] MEDS: ASPIRIN 325 MG TABLET PO SCH (08:20)
[2018-09-12] MEDS: glipiZIDE 5 MG TABLET PO SCH (08:20)
[2018-09-12] MEDS: amLODIPine BESYLATE 5 MG TABLET PO SCH (08:21)
[2018-09-12] MEDS: POTASSIUM CHLORIDE 20 MEQ TABLET.ER. PO SCH (08:21)
[2018-09-12] MEDS: APIXABAN 5 MG TABLET. PO SCH (08:22)
[2018-09-12 08:23] VITALS: BP 104/58
[2018-09-12] MEDS: CARBIDOPA/LEVODOPA 25/100MG TABLET PO SCH (08:23)
[2018-09-12] MEDS: METOPROLOL SUCC 24HR ER 25 MG TAB.ER.24H. PO SCH (08:23)
[2018-09-12] MEDS: FUROSEMIDE 40 MG TABLET PO SCH (08:23)
[2018-09-12] MEDS: rOPINIRole 1 MG TABLET. PO SCH (08:27)
[2018-09-12] MEDS: LIDOCAINE (700MG/PATCH) PATCH. TD SCH (08:27)
[2018-09-12] MEDS: REPAGLINIDE 1 MG TABLET PO SCH (08:28)
[2018-09-12] MEDS ORDERED: MIRABEGRON 25 MG TAB.ER.24H PO SCH (09:00)
--- NOTE | 2018-09-12 19:13 | DS ---
DATE OF DISCHARGE: 09/12/2018 HOSPITAL COURSE: The patient is an 82-year-old gentleman who came in through the Emergency Room. He was increasingly short of breath and as a result of this, was admitted for acute exacerbation of his COPD with hypoxia. The patient's oxygen saturation dropped down to 90% on 4 liters, normally he is on 2. The patient made good progress with IV steroids and aggressive pulmonary toilet. The patient was also seen by Cardiology who felt that his shortness of breath was more related to his COPD picture rather than a heart failure picture. The patient's blood sugars were in the upper 100s and lower 200s, probably because of the steroids. His chest x-ray was basically unremarkable. His other labs were basically unremarkable. He was tapered down on his prednisone and he will be discharged back to [facility] for further evaluation and continue to monitor him on his blood sugars as well as his overall breathing episodes. IMPRESSION: Acute on top of chronic obstructive pulmonary disease with hypoxia, history of Parkinson's disease, type 2 diabetes, generalized weakness to the extremities, failure to thrive, anemia of chronic disease. DISCHARGE INSTRUCTIONS: The patient will be monitored carefully. He will be on his diabetic diet and decreased activity out at the custodial for PT, OT to evaluate and treat. SONNY MALDONADO MD DR: SANDRA/zac JOB#: [id number] / [id number]
== END 2018-09-12 12:00 | DRG 189 ==
LOC: ER 08:11 → 1 SOUTH 12:05
PROVIDERS: ADMIT Family Medicine; ATTEND Family Medicine
DX: J96.21 Acute and chronic respiratory failure with hypoxia (principal); J18.9 Pneumonia, unspecified organism; J44.1 Chronic obstructive pulmonary disease with (acute) exacerbation; I50.32 Chronic diastolic (congestive) heart failure; J44.0 Chronic obstructive pulmonary disease with (acute) lower respiratory infection; M19.90 Unspecified osteoarthritis, unspecified site; D63.8 Anemia in other chronic diseases classified elsewhere; E11.9 Type 2 diabetes mellitus without complications; E78.00 Pure hypercholesterolemia, unspecified; E78.5 Hyperlipidemia, unspecified; R62.7 Adult failure to thrive; F02.80 Dementia in other diseases classified elsewhere, unspecified severity, without behavioral disturbance, psychotic disturbance, mood disturbance, and anxiety; I11.0 Hypertensive heart disease with heart failure; G20 Parkinson's disease; I25.10 Atherosclerotic heart disease of native coronary artery without angina pectoris; I27.20 Pulmonary hypertension, unspecified; I48.2 Chronic atrial fibrillation; J84.10 Pulmonary fibrosis, unspecified; K21.9 Gastro-esophageal reflux disease without esophagitis; Z79.899 Other long term (current) drug therapy; Z90.49 Acquired absence of other specified parts of digestive tract; Z87.891 Personal history of nicotine dependence; Z99.81 Dependence on supplemental oxygen
CPT/HCPCS: 36415; 71045; 80053; 82947; 84484; 85025; 87641; 93005; 94640; 96365; 96367; 96375; J1815; J2543; J2920; J2930; J3370; J3490; J7040; J7620; Q0163; 99285-25

== ENCOUNTER 2018-09-22 05:21 | Inpatient (IN) | payer MEDICARE, OTHER ==
[~2018-09-22] VITALS: Ht 172.7 cm; Wt 73.0 kg
--- NOTE | 2018-09-22 05:36 | PHYS DOC ---
Past History Past Medical History: A-Fib, Arthritis, CAD, CHF, COPD, Dementia, Diabetes, GERD, High Cholesterol, Hypertension, NE, Vascular Disease, Other (KYRIE YOUNG Jr. DO) Past Surgical History: Appendectomy, Cholecystectomy, Tonsillectomy (KYRIE YOUNG Jr. DO) Smoking: Quit Greater Than 1 Year Alcohol Use: None Drug Use: None (KYRIE YOUNG Jr., DO) Adult General Chief Complaint Chief Complaint: shortness of breath [facility] HPI Patient is an 82-year-old male who presents via EMS with report of increasing shortness of breath over the last few hours. Patient also noted to have increase in swelling of his lower extremities. Patient denies any chest pain. He does admit to shortness of breath. Medics indicate that oxygen saturation was in low 80s and while in route they placed him on 4 L by nasal cannula and oxygen saturation came up to 90%. Patient reportedly is on oxygen at all times at nursing facility but typically will take his oxygen off. (KYRIE YOUNG Jr. DO) Review of Systems Review of Systems Constitutional: Denies fever or chills [] Respiratory: Complains of cough and shortness of breath [] Cardiovascular: No additional information not addressed in HPI [] GI: Denies abdominal pain [] Musculoskeletal: Denies back pain [] All other systems were reviewed and found to be within normal limits, except as documented in this note. (KYRIE YOUNG Jr. DO) Allergies Allergies Allergies Coded Allergies Type Severity Reaction Last Updated Verified codeine Allergy Intermediate 06/06/15 Yes shellfish derived Allergy Intermediate 08/31/18 Yes shrimp Allergy Intermediate 02/01/16 No milk Allergy Mild Nausea 08/06/18 Yes turkey Allergy Mild 06/06/15 No (KYRIE YOUNG Jr. DO) Physical Exam Physical Exam Constitutional: Well developed, well nourished, in mild respiratory distress. [] HENT: Normocephalic, atraumatic, bilateral external ears normal, oropharynx moist, no oral exudates, nose normal. [] Eyes: PERRLA, EOMI, conjunctiva normal, no discharge. [] Neck: Normal range of motion, no tenderness, supple, no stridor. [] Cardiovascular: Regular rate and rhythm[] Lungs & Thorax: Coarse rales are noted throughout lung samano to auscultation [] Abdomen: Bowel sounds normal, soft, no tenderness. [] Skin: Warm, dry, no erythema, no rash. [] Extremities: No tenderness, no cyanosis, no clubbing, ROM intact, no edema. [] Neurologic: Awake and alert, no focal deficits noted. [] (KYRIE YOUNG Jr., DO) EKG EKG EKG demonstrates atrial fibrillation with rate of 101.[] (KYRIE YOUNG Jr., DO) Radiology/Procedures Radiology/Procedures [] Impressions: Chest x-ray demonstrates pulmonary venous congestion consistent with CHF (KYRIE YOUNG Jr., DO) Course & Med Decision Making Course & Med Decision Making Pertinent Labs and Imaging studies reviewed. (See chart for details) Patient moved to room upon arrival was evaluated by your medical staff after which a workup has been initiated to include blood work, EKG and chest x-ray. At this time, patient's workup is pending and patient is being signed out to the oncoming ER physician. (KYRIE YOUNG Jr., DO) Course & Med Decision Making @0720: Patient care transferred to [facility] at [address] Young. Patient is a resident of senior care brought in because of shortness of breath that started 12 hours prior to arrival. Patient had 3+ extremity edema and diffuse bibasilar lung rales without fever. Patient had positive influenza A and blood sugar of 44with Accu-Chek of 38 and treated with 1 amp of D50. Tamiflu was started in ER. Patient had 40 mg of of Lasix given by Dr. Young with drop of blood pressure to 93/56 that improved spontaneously to 108/67. Dr. Maldonado accepted admission at 0714. (SILVA CLANCY MD) Dragon Disclaimer Dragon Disclaimer This electronic medical record was generated, in whole or in part, using a voice recognition dictation system. (KYRIE YOUNG Jr., DO) Departure Departure: Impression: Primary Impression: Acute on chronic diastolic heart failure Additional Impressions: Influenza A Hypoglycemia Hypoxia Anemia Hypoalbuminemia Atrial fibrillation COPD exacerbation Disposition: ADMITTED INPATIENT (at 0715) Admitting Physician: Duy Maldonado (accepted admission at 0714) (SILVA CLANCY MD) Condition: GUARDED Referrals: DUY MALDONADO MD (PCP) Critical Care Time Critical care time was 65 minutes exclusive of procedures. (SILVA CLANCY MD) Problem Qualifiers KYRIE YOUNG Jr. DO Sep 22, 2018 05:36 SILVA CLANCY MD Sep 22, 2018 07:40
--- NOTE | 2018-09-22 05:47 | EKG ---
[address] [address] Test Date: 2018-09-22 Test Time: 05:44:07 Pat Name: DAVID SHIRLEY Department: Room: Gender: M Superintendent Local: : 1935 Requested By: KYRIE NUÑEZ Order Number: [id number] Reading MD: Niranjan Lopez Measurements Intervals [place] Rate: 101 P: MT: QRS: -54 QRSD: 104 T: 14 QT: 338 QTc: 439 Interpretive Statements ATRIAL FIBRILLATION RIGHT BUNDLE BRANCH BLOCK ABNORMAL ECG RI6.01 Electronically Signed On 09-29-2018 10:53:15 [employer] by Niranjan Lopez
[2018-09-22 05:59] LABS: BASO % 0 % (0-3); EOS % 0 % (0-3); HEMATOCRIT 29.8 % (39.0-53.0); HEMOGLOBIN 9.1 g/dL (13.0-17.5); LYMPH # 0.4 x10^3/uL (1.0-4.8); LYMPH % 3 % (24-48); MEAN CORPUSCULAR HEMOGLOBIN 25 pg (25-35); MEAN CORPUSCULAR HGB CONC 30 g/dL (31-37); MEAN CORPUSCULAR VOLUME 81 fL (79-100); MONO # 0.8 x10^3/uL (0.0-1.1); MONO % 6 % (0-9); NEUT # 12.4 x10^3uL (1.8-7.7); NEUT % 91 % (31-73); PLATELET COUNT 248 x10^3/uL (140-400); RED BLOOD COUNT 3.68 x10^6/uL (4.30-5.70); RED CELL DISTRIBUTION WIDTH 19.8 % (11.5-14.5); WHITE BLOOD COUNT 13.6 x10^3/uL (4.0-11.0)
[2018-09-22] MEDS ORDERED: FUROSEMIDE 40 MG/4 ML VIAL IVP ONE (06:00)
[2018-09-22] MEDS ORDERED: FUROSEMIDE 100 MG/10 ML VIAL ONE (06:06)
[2018-09-22 06:11] LABS: INFLUENZA A PATIENT POSITIVE (NEGATIVE); INFLUENZA B PATIENT NEGATIVE (NEGATIVE)
[2018-09-22 06:14] LABS: ALBUMIN 2.7 g/dL (3.4-5.0); ALBUMIN/GLOBULIN RATIO 0.9 (1.0-1.7); CREATININE 1.1 mg/dL (0.7-1.3); GFR 63.8; POTASSIUM 3.8 mmol/L (3.5-5.1); TOTAL BILIRUBIN 0.8 mg/dL (0.2-1.0); TOTAL PROTEIN 5.6 g/dL (6.4-8.2)
[2018-09-22] MEDS ORDERED: IPRATRPIUM/ALBUTEROL 0.5/2.5MG 3 ML NEBU. NEB ONE (06:30)
[2018-09-22] MEDS ORDERED: OSELTAMIVIR 30 MG/5 ML ORAL.SUSP. PO ONE (06:30)
[2018-09-22] MEDS ORDERED: methylPREDNISolone SOD SUCC PF 125 MG/2 ML VIAL. IV ONE (06:30)
[2018-09-22] MEDS ORDERED: IPRATRPIUM/ALBUTEROL 0.5/2.5MG 3 ML NEBU. ONE (06:39)
[2018-09-22] MEDS ORDERED: DEXTROSE 50% 25 GM / 50ML DISP.SYRIN. IV ONE (07:15)
[2018-09-22] MEDS ORDERED: IV DEXTROSE 5% 50 ML ONE (07:17)
--- NOTE | 2018-09-22 08:04 | RAD ---
PORTABLE CHEST 1V History: SHORTNESS OF BREATH Comparison: 09/10/2018 Findings: AP view of the chest is submitted. There is some persistent patchy airspace and interstitial opacity bilaterally with basilar predominance, somewhat increased the left lung base. There is improved aeration of the mid right hemithorax. Pericardial cardiac silhouette is enlarged although stable. There is no pneumothorax. There is again likely very small right pleural effusion. There is atherosclerotic calcification thoracic aorta. impression: 1. There is some persistent patchy airspace and interstitial opacity bilaterally with basilar predominance which may be due to infiltrates or edema. There is suspected very small right pleural effusion as seen previously. Electronically signed by: Fred Lopez MD (09/22/2018 8:01 AM) [id number]
[2018-09-22 08:59] VITALS: BP 107/55
[2018-09-22 09:59] VITALS: BP 94/55
[2018-09-22] MEDS ORDERED: ACETAMINOPHEN PO PRN (10:00)
[2018-09-22] MEDS ORDERED: DIPHENHYDRAMINE PO PRN (10:00)
[2018-09-22] MEDS ORDERED: ATOR20TA58 PO (10:47)
[2018-09-22] MEDS ORDERED: DILT120T PO (10:47)
[2018-09-22] MEDS ORDERED: METO2.5T PO (10:47)
[2018-09-22] MEDS ORDERED: metOLazone 2.5 MG TABLET PO ONE (11:00)
[2018-09-22] MEDS ORDERED: DEXTROSE 50% 25 GM / 50ML DISP.SYRIN. IV PRN (11:30)
[2018-09-22 12:12] VITALS: BP 97/57
[2018-09-22] MEDS: REPAGLINIDE 1 MG TABLET PO SCH ×2 (12:20→16:39)
[2018-09-22] MEDS: INSULIN LISPRO 300 UNITS/3 ML INSULN.PEN. SQ SCH ×2 (12:24→16:34)
[2018-09-22] MEDS: BENZONATATE 100 MG CAPSULE. PO SCH ×2 (14:00→21:08)
[2018-09-22] MEDS: CARBIDOPA/LEVODOPA 25/100MG TABLET PO SCH ×2 (14:03→21:07)
[2018-09-22] MEDS: rOPINIRole 1 MG TABLET. PO SCH ×2 (14:03→21:08)
[2018-09-22] MEDS: GABAPENTIN 100 MG CAPSULE. PO SCH ×2 (14:03→21:08)
[2018-09-22] MEDS: IPRATRPIUM/ALBUTEROL 0.5/2.5MG 3 ML NEBU. NEB SCH ×2 (15:21→20:29)
[2018-09-22] MEDS: glipiZIDE 5 MG TABLET PO SCH (16:34)
[2018-09-22 16:41] VITALS: BP 90/55
[2018-09-22 19:03] VITALS: BP 102/59
[2018-09-22] MEDS ORDERED: APIXABAN 5 MG TABLET. PO SCH (21:00)
[2018-09-22] MEDS: ATORVASTATIN CALCIUM 20 MG TABLET PO SCH (21:07)
[2018-09-22] MEDS: ACETAMINOPHEN 325 MG TABLET PO PRN (21:08)
[2018-09-22 23:25] VITALS: BP 97/59
[2018-09-23 02:12] VITALS: BP 112/74
[2018-09-23] MEDS: IPRATRPIUM/ALBUTEROL 0.5/2.5MG 3 ML NEBU. NEB SCH ×3 (05:29→20:24)
[2018-09-23 06:08] VITALS: BP 111/82
--- NOTE | 2018-09-23 06:22 | HP ---
ADMIT DATE: 09/22/2018 HISTORY OF PRESENT ILLNESS: An 82-year-old male came in through the Emergency Room from the longterm. The patient was increasingly short of breath, swelling in his lower extremities as well as just feeling achy all over. Oxygen saturation was in the low 80 percentile 4 liters. The patient was thought to have an exacerbation of the COPD, had influenza A and the patient was admitted to the hospital for further evaluation. Blood sugar also dropped down to 38 since ____he was not eating either. In any case, the chest x-ray itself demonstrated possible edema. He was given 40 mg of Lasix and his oxygen saturation improved, although dropped his blood pressure a little bit as well. The patient was admitted for influenza A as far as congestive heart failure, probably secondary to the influenza A. PAST MEDICAL HISTORY: Significant for Parkinson's disease, AFib with a heart murmur, coronary artery disease, anticoagulant therapy, hypertension, COPD, pulmonary hypertension, pulmonary fibrosis, pneumonia, abdominal surgery, appendectomy, cholecystectomy, incontinence, weakness with walker, diabetes and anemia. IMMUNIZATIONS: Tetanus, influenza and pneumococcal have been updated. ALLERGIES: CODEINE, MILK, SHELLFISH, SHRIMP AND TURKEY also noted. The patient's reconcile of his medications was also performed and those were duly noted in the chart and have been reconciled accordingly. SOCIAL HISTORY: Denies smoking, alcohol or drug use recently. Lives in a longterm. The patient is a full code. REVIEW OF SYSTEMS: Outside of his achiness and shortness of breath, denies chest pain, abdominal pain. Denies nausea, vomiting, melena, hematochezia or hematemesis and neurologically intact. PHYSICAL EXAMINATION: GENERAL: The patient otherwise seems to be resting fairly comfortably, making fairly good progress overall. The patient in turn on exam is a pleasant white male in moderate amount of distress. VITAL SIGNS: Blood pressure approximately 98/60, respiratory rate 18, pulse 90, afebrile. HEENT: The patient's head was atraumatic, normocephalic. Eyes: PERRLA without jaundice. The mouth and throat were normal. NECK: Supple, without JVD, carotid bruits or thyromegaly. LUNGS: The patient's lungs were diminished throughout, poor movement of air. CARDIOVASCULAR: Irregularly irregular, S1, S2 with 1/6 systolic ejection murmur. ABDOMEN: Soft, protuberant, nontender. EXTREMITIES: No clubbing, cyanosis, +2 to 3 pitting edema. Pulses noted distally. NEUROLOGIC: Intact. LABORATORY DATA: White count 13.6, hemoglobin 9.1. The patient's troponin is unremarkable. BNP of 2000. Serology positive for influenza A. IMPRESSION: Acute exacerbation of chronic obstructive pulmonary disease, with acute respiratory failure and hypoxia, influenza A, congestive heart failure, acute on top of chronic congestive heart failure, Parkinson's disease, type 2 diabetes, hypotension, [id number] protein malnutrition. PLAN: The patient will be admitted to the ICU, placed in isolation, IV diuresis. Consult with Cardiology and make further evaluation on him as indicated. SONNY MALDONADO MD DR: SANDRA/nts JOB#: [id number] / [id number]
[2018-09-23] MEDS: INSULIN LISPRO 300 UNITS/3 ML INSULN.PEN. SQ SCH ×3 (07:50→17:00)
[2018-09-23] MEDS: BENZONATATE 100 MG CAPSULE. PO SCH ×3 (08:23→20:33)
[2018-09-23] MEDS: GABAPENTIN 100 MG CAPSULE. PO SCH ×3 (08:23→20:33)
[2018-09-23] MEDS: LIDOCAINE (700MG/PATCH) PATCH. TD SCH ×2 (08:23→09:00)
[2018-09-23] MEDS: REPAGLINIDE 1 MG TABLET PO SCH ×3 (08:23→17:44)
[2018-09-23] MEDS: CARBIDOPA/LEVODOPA 25/100MG TABLET PO SCH ×3 (08:25→20:33)
[2018-09-23] MEDS: MIRABEGRON 25 MG TAB.ER.24H PO SCH (08:25)
[2018-09-23] MEDS: rOPINIRole 1 MG TABLET. PO SCH ×3 (08:25→20:36)
[2018-09-23] MEDS: glipiZIDE 5 MG TABLET PO SCH ×2 (08:26→17:44)
[2018-09-23] MEDS: POTASSIUM CHLORIDE 20 MEQ TABLET.ER. PO SCH (08:26)
[2018-09-23] MEDS: FINASTERIDE 5 MG TABLET PO SCH (08:27)
[2018-09-23] MEDS: FUROSEMIDE 40 MG TABLET PO SCH (08:27)
[2018-09-23] MEDS: TAMSULOSIN 0.4 MG CAP.ER.24H. PO SCH (08:27)
[2018-09-23] MEDS: ASPIRIN 325 MG TABLET PO SCH (08:27)
[2018-09-23] MEDS: amLODIPine BESYLATE 5 MG TABLET PO SCH (08:27)
[2018-09-23] MEDS: METOPROLOL SUCC 24HR ER 25 MG TAB.ER.24H. PO SCH (08:27)
[2018-09-23] MEDS ORDERED: CITALOPRAM 10 MG TABLET. PO SCH (09:00)
[2018-09-23] MEDS ORDERED: ESCITALOPRAM OXALATE 5 MG PO SCH (09:00)
[2018-09-23] MEDS ORDERED: ATORVASTATIN CALCIUM 20 MG TABLET PO SCH (09:00)
[2018-09-23] MEDS ORDERED: metOLazone 2.5 MG TABLET PO ONE (09:00)
[2018-09-23] MEDS ORDERED: OSELTAMIVIR 75 MG CAPSULE PO SCH (09:00)
--- NOTE | 2018-09-23 09:05 | PDOC2 ---
CONSULT Date of Admission DATE: 09/23/18 TIME: 08:57 Problem List Problems Medical Problems: (1) COPD exacerbation Status: Acute History of Present Illness Mr Winchester is an 82 year old male with history of atrial fibrillation, severe pulmonary hypertension, pulmonary fibrosis, diastolic heart failure and Parkinson dementia. He has been hospitalized 5 times since July for respiratory failure, CHF, a fall, pneumonia and was transported from Rehab yesterday again for reported respiratory distress. He is a fairly poor historian but is alert and appropriate at this time. He denies any significant shortness of breath from baseline and states "they got scared". He denies chest discomfort, palpitations, or lightheadeedness. He reports his edema continues to be significantly improved from his past two admissions. He wants to go home but states "they keep sending me back here" Past Medical History parkinsons disease Cardiovascular: AFIB (chronic), hyperlipidemia, Other (murmur), pulmonary hypertension Pulmonary: COPD, Pneumonia, Other (pulmonary fibrosis, chronic oxygen) Musculoskeletal: Weakness Renal/: Urinary Incontinence Past Surgical History Appendectomy, left fem-pop, inguinal hernia repair, failed right leg bypass, angioplasty 2010. Family History non contributory due to age Social History he denies smoking, etoh or illicit drugs , normally lives at home with his but has been residing in [facility] since his Jul admission Current Medications Current Medications Furosemide (Lasix) 60 mg 1X ONCE IVP Last administered on 09/22/18at 06:11; Start 09/22/18 at 06:00; Stop 09/22/18 at 06:15; Status DC Furosemide (Lasix) 100 mg STK-MED ONCE .ROUTE ; Start 09/22/18 at 06:06; Stop at 06:07; Status DC Oseltamivir Phosphate (Tamiflu Suspension) 75 mg 1X ONCE PO Last administered on 09/22/18at 07:10; Start 09/22/18 at 06:30; Stop 09/22/18 at 06:38; Status DC Albuterol/ Ipratropium (Duoneb) 3 ml 1X ONCE NEB Last administered on at 06:30; Start 09/22/18 at 06:30; Stop 09/22/18 at 06:38; Status DC Methylprednisolone Sodium Succinate (SOLU-Medrol 125MG VIAL) 125 mg 1X ONCE IV Last administered on 09/22/18 07:09; Start 09/22/18 at 06:30; Stop 09/22/18 at 06:38; Status DC Albuterol/ Ipratropium (Duoneb) 3 ml STK-MED ONCE .ROUTE ; Start 09/22/18 at 06: 39; Stop 09/22/18 at 06:40; Status DC Dextrose 12.5 gm 1X ONCE IV Last administered on 09/22/18at 07:27; Start at 07:15; Stop 09/22/18 at 07:19; Status DC Dextrose 50 ml @ As Directed STK-MED ONCE .ROUTE ; Start 09/22/18 at 07:17; Stop 09/22/18 at 07:18; Status DC Acetaminophen (Tylenol) 325 mg PRN Q6HRS PRN PO PAIN / TEMP Last administered on 09/22/18at 21:08; Start 09/22/18 at 10:00 Aspirin (Kezia Aspirin) 325 mg DAILY PO Last administered on 09/23/18 08:27; Start 09/23/18 at 09:00 Carbidopa/Levodopa (Sinemet 25/100) 2 tab TID PO Last administered on 08:25; Start 09/22/18 at 14:00 Citalopram Hydrobromide (CeleXA) 10 mg DAILY PO Last administered on 09/23/18 08:23; Start 09/23/18 at 09:00 Diphenhydramine HCl (Benadryl) 50 mg PRN QHS PRN PO SLEEP; Start 09/22/18 at 10 :00 Gabapentin (Neurontin) 100 mg TID PO Last administered on 09/23/18 08:23; Start 09/22/18 at 14:00 Albuterol/ Ipratropium (Duoneb) 3 ml TID NEB Last administered on 09/23/18 05: 29; Start 09/22/18 at 14:00 Metoprolol Succinate (Toprol Xl) 25 mg DAILY PO Last administered on 09/23/18 08:27; Start 09/23/18 at 09:00 Potassium Chloride (Klor-Con) 20 meq DAILY PO Last administered on 09/23/18 08 :26; Start 09/23/18 at 09:00 Tamsulosin HCl (Flomax) 0.4 mg DAILY PO Last administered on 09/23/18 08:27; Start 09/23/18 at 09:00 Non-Formulary Medication (Acetaminophen/ Diphenhydramine (Acetaminophen Pm Caplet)) 2 each QHS PRN PO INSOMNIA; Start 09/22/18 at 10:00; Stop 09/22/18 at 10:24; Status DC Amlodipine Besylate (Norvasc) 5 mg DAILY PO Last administered on 09/23/18 08: 27; Start 09/23/18 at 09:00 Apixaban (Eliquis) 5 mg BID PO ; Start 09/22/18 at 21:00; Stop 09/22/18 at 21:00 ; Status DC Benzonatate (Tessalon Perle) 100 mg [id number] PO Last administered on 09/23/18 08 :23; Start 09/22/18 at 14:00 Non-Formulary Medication (Escitalopram Oxalate (Lexapro)) 5 mg DAILY PO ; Start 09/23/18 at 09:00; Stop 09/23/18 at 09:00; Status DC Finasteride (Proscar) 5 mg DAILY PO Last administered on 09/23/18 08:27; Start 09/23/18 at 09:00 Furosemide (Lasix) 40 mg DAILY PO Last administered on 09/23/18 08:27; Start 09/23/18 at 09:00 Glipizide (Glucotrol) 5 mg BIDBFRMEAL PO Last administered on 09/23/18 08:26; Start 09/22/18 at 16:30 Lidocaine (Lidoderm) 1 patch DAILY TD Last administered on 09/23/18 08:23; Start 09/23/18 at 09:00 Mirabegron (Myrbetriq) 50 mg QODAY PO Last administered on 09/23/18 08:25; Start 09/23/18 at 09:00 Repaglinide (Prandin) 1 mg TIDAC PO Last administered on 09/23/18 08:23; Start 09/22/18 at 11:30 Ropinirole HCl (Requip) 1 mg TID PO Last administered on 09/23/18 08:25; Start 09/22/18 at 14:00 Atorvastatin Calcium (Lipitor) 20 mg QHS PO Last administered on 09/22/18at 21: 07; Start 09/22/18 at 21:00 Atorvastatin Calcium (Lipitor) 20 mg DAILY PO ; Start 09/23/18 at 09:00; Stop at 09:00; Status DC Diltiazem HCl (Cardizem 24hr Cd) 120 mg DAILY PO Last administered on at 08:26; Start 09/23/18 at 09:00 Metolazone (Zaroxolyn) 2.5 mg 1X ONCE PO ; Start 09/22/18 at 11:00; Stop at 11:00; Status DC Metolazone (Zaroxolyn) 2.5 mg 1X ONCE PO Last administered on 09/23/18at 08:23 ; Start 09/23/18 at 09:00; Stop 09/23/18 at 09:01 Insulin Human Lispro (HumaLOG) 0-5 UNITS TIDWMEALS SQ Last administered on 09/22at 16:34; Start 09/22/18 at 12:00 Dextrose 12.5 gm PRN Q15MIN PRN IV SEE COMMENTS; Start 09/22/18 at 11:30 Oseltamivir Phosphate (Tamiflu) 75 mg BID PO ; Start 09/23/18 at 09:00; Stop at 09:00; Status DC Oseltamivir Phosphate (Tamiflu) 30 mg BID PO ; Start 09/23/18 at 09:00; Stop 09/27/18 at 21:01 Active Scripts Active Celexa (Citalopram Hydrobromide) 10 Mg Tablet 10 Mg PO DAILY Lidocaine 1 Each Adh..patch 1 Patch TD DAILY Benzonatate 100 Mg Capsule 100 Mg PO [id number] Tylenol (Acetaminophen) 325 Mg Tablet 325 Mg PO PRN Q6HRS PRN Furosemide 40 Mg Tablet 1 Tab PO DAILY Benadryl (Diphenhydramine Hcl) 25 Mg Capsule 50 Mg PO PRN QHS PRN 30 Days Finasteride 5 Mg Tablet 5 Mg PO DAILY 30 Days Myrbetriq (Mirabegron) 50 Mg Tab.er.24h 50 Mg PO QODAY Klor-Con M20 (Potassium Chloride) 20 Meq Tab.er.prt 20 Meq PO DAILY 30 Days Metoprolol Succinate ( Xl ) (Metoprolol Succinate) 25 Mg Tab.er.24h 25 Mg PO DAILY 30 Days Duoneb 0.5-3(2.5) Mg/3 Ml (Albuterol/Ipratropium) 3 Ml Ampul.neb 3 Ml NEB TID 30 Days Gabapentin (Gabapentin) 100 Mg Capsule 100 Mg PO TID 30 Days Reported Metolazone 2.5 Mg Tablet 2.5 Mg PO 1X 1 Days Cardizem La (Diltiazem Hcl) 120 Mg Tab.er.24h 120 Mg PO DAILY Atorvastatin Calcium 20 Mg Tablet 1 Tab PO DAILY Ropinirole Hcl 1 Mg Tablet 1 Tab PO TID LAST DOSE GIVEN: DATE: TODAY TIME: AFTERNOON NEXT DOSE DUE: DATE: TODAY TIME: PM Repaglinide 1 Mg Tablet 1 Tab PO TID LAST DOSE GIVEN: DATE: TODAY TIME: BEFORE LUNCH NEXT DOSE DUE: DATE: TODAY TIME: BEFORE DINNER Tamsulosin Hcl 0.4 Mg Cap.er.24h 1 Tab PO DAILY LAST DOSE GIVEN: DATE: TODAY TIME: AM NEXT DOSE DUE: DATE: TOMORROW TIME: AM Glipizide 5 Mg Tablet 5 Mg PO BID LAST DOSE GIVEN: DATE: TODAY TIME: AM NEXT DOSE DUE: DATE: TODAY TIME: PM Acetaminophen Pm Caplet (Acetaminophen/Diphenhydramine) 1 Each Tablet 2 Each PO QHS PRN Sinemet 25-100 Mg Tablet (Carbidopa/Levodopa) 1 Each Tablet 2 Tab PO TID LAST DOSE GIVEN: DATE: TODAY TIME: AFTGERNOON NEXT DOSE DUE: DATE: TODAY TIME: PM Aspirin 325 Mg Tablet 325 Mg PO DAILY Norvasc (Amlodipine Besylate) 5 Mg Tablet 5 Mg PO DAILY LAST DOSE GIVEN: DATE: TODAY TIME: AM NEXT DOSE DUE: DATE: TOMORROW TIME: AM Allergies: Coded Allergies: codeine (Verified Allergy, Intermediate, 06/06/15) shellfish derived (Verified Allergy, Intermediate, 08/31/18) shrimp (Unverified Allergy, Intermediate, 02/01/16) milk (Verified Allergy, Mild, Nausea, 08/06/18) turkey (Unverified Allergy, Mild, 06/06/15) Review of System as per HPI otherwise he denies complaints General: Alert, Cooperative, No acute distress HEENT: Atraumatic, EOMI Lungs: Other (bibalilar crackles) Heart: Normal S1, Normal S2, Other (no gallops, clicks or rubs) Abdomen: Normal bowel sounds, Soft Extremities: No cyanosis, Normal pulses, Other (trace edema) Neuro: Normal speech Psych/Mental Status: Mental status NL, Mood NL VITALS Vital Signs Date Time Temp Pulse Resp B/P (MAP) Pulse Ox O2 Delivery O2 Flow Rate FiO2 09/23/18 08:27 112 111/82 09/23/18 06:08 97.8 24 92 Nasal Cannula 3.5 Labs Laboratory Tests Test 09/22/18 05:34 09/22/18 05:39 09/22/18 07:19 09/22/18 07:53 White Blood Count 13.6 x10^3/uL (4.0-11.0) Red Blood Count 3.68 x10^6/uL (4.30-5.70) Hemoglobin 9.1 g/dL (13.0-17.5) Hematocrit 29.8 % (39.0-53.0) Mean Corpuscular Volume 81 fL (79-100) Mean Corpuscular Hemoglobin 25 pg (25-35) Mean Corpuscular Hemoglobin Concent 30 g/dL (31-37) Red Cell Distribution Width 19.8 % (11.5-14.5) Platelet Count 248 x10^3/uL (140-400) Neutrophils (%) (Auto) 91 % (31-73) Lymphocytes (%) (Auto) 3 % (24-48) Monocytes (%) (Auto) 6 % (0-9) Eosinophils (%) (Auto) 0 % (0-3) Basophils (%) (Auto) 0 % (0-3) Neutrophils # (Auto) 12.4 x10^3uL (1.8-7.7) Lymphocytes # (Auto) 0.4 x10^3/uL (1.0-4.8) Monocytes # (Auto) 0.8 x10^3/uL (0.0-1.1) Eosinophils # (Auto) 0.0 x10^3/uL (0.0-0.7) Basophils # (Auto) 0.0 x10^3/uL (0.0-0.2) Sodium Level 137 mmol/L (136-145) Potassium Level 3.8 mmol/L (3.5-5.1) Chloride Level 100 mmol/L (98-107) Carbon Dioxide Level 31 mmol/L (21-32) Anion Gap 6 (6-14) Blood Urea Nitrogen 23 mg/dL (8-26) Creatinine 1.1 mg/dL (0.7-1.3) Estimated GFR (Cockcroft-Gault) 63.8 BUN/Creatinine Ratio 21 (6-20) Glucose Level 44 mg/dL (70-99) Calcium Level 8.0 mg/dL (8.5-10.1) Total Bilirubin 0.8 mg/dL (0.2-1.0) Aspartate Amino Transf (AST/SGOT) 17 U/L (15-37) Alanine Aminotransferase (ALT/SGPT) 6 U/L (16-63) Alkaline Phosphatase 125 U/L (46-116) Troponin I Quantitative 0.025 ng/mL (0-0.055) IU-Yes-H-Type Natriuretic Peptide 2084 pg/mL (0-449) Total Protein 5.6 g/dL (6.4-8.2) Albumin 2.7 g/dL (3.4-5.0) Albumin/Globulin Ratio 0.9 (1.0-1.7) Influenza Type A (Rapid) Positive (NEGATIVE) Influenza Type B (Rapid) Negative (NEGATIVE) Glucose (Fingerstick) 38 mg/dL (70-99) 134 mg/dL (70-99) Test 09/22/18 11:23 09/22/18 16:26 09/22/18 18:36 09/22/18 20:39 Glucose (Fingerstick) 226 mg/dL (70-99) 357 mg/dL (70-99) 283 mg/dL (70-99) 245 mg/dL (70-99) Test 09/23/18 07:35 Glucose (Fingerstick) 143 mg/dL (70-99) Images 09/22/18CXR - 1. There is some persistent patchy airspace and interstitial opacity bilaterally with basilar predominance which may be due to infiltrates or edema. There is suspected very small right pleural effusion as seen previously. 09/23/18- CXR - IMPRESSION: 1. Patchy bibasilar lung airspace opacities likely atelectasis or infiltrates slightly increased since prior exam. Assessment/Plan 1. Chronic respiratory failure secondary to pulmonary fibrosis and severe pulmonary hypertension with recent pneumonia - currently maintaining Sao2 with nasal cannula and in no distress. Considering his frequent readmission, recommend consider transfer for right heart cath. If he and (DPOA) decline, would consider referral for evaluation by hospice. 2. chronic diastolic heart failure - no overt volume overload at this time. No edema. Continue oral diuresis. 3. atrial fibrillation - chronic, rate controlled. Aspirin for stroke prophylaxis secondary to recent fall and anemia. 4. Anemia - hgb remains stable since last admission. per PCP 5. Edema - currently resolved. Monitor and compression stockings when out of bed. 6. hyperlipidemia - lipids on 07/01/18 with LDL at goal, low HDL, controlled Tgs. Continue statin. 7. parkinson's - per PCP DARIO DYE APRN Sep 23, 2018 09:05
[2018-09-23] MEDS: OSELTAMIVIR 30 MG CAPSULE PO SCH ×2 (09:08→20:33)
[2018-09-23 09:32] LABS: BASO % 0 % (0-3); EOS % 0 % (0-3); HEMATOCRIT 31.6 % (39.0-53.0); HEMOGLOBIN 9.5 g/dL (13.0-17.5); LYMPH # 0.2 x10^3/uL (1.0-4.8); LYMPH % 1 % (24-48); MEAN CORPUSCULAR HEMOGLOBIN 24 pg (25-35); MEAN CORPUSCULAR HGB CONC 30 g/dL (31-37); MEAN CORPUSCULAR VOLUME 81 fL (79-100); MONO # 0.8 x10^3/uL (0.0-1.1); MONO % 3 % (0-9); NEUT # 23.9 x10^3uL (1.8-7.7); NEUT % 96 % (31-73); PLATELET COUNT 261 x10^3/uL (140-400); RED BLOOD COUNT 3.92 x10^6/uL (4.30-5.70); RED CELL DISTRIBUTION WIDTH 19.7 % (11.5-14.5)
[2018-09-23 09:41] LABS: CALCIUM 8.5 mg/dL (8.5-10.1); CREATININE 0.9 mg/dL (0.7-1.3); GFR 80.4; POTASSIUM 3.6 mmol/L (3.5-5.1)
[2018-09-23 10:09] LABS: % ATYL 3 % (0-0); % BANDS 1 % (0-9); % BASOS 1 % (0-3); % EOS 1 % (0-5); % LYMPHS 1 % (24-48); % MONOS 3 % (0-10); % SEGS 90 % (35-66)
[2018-09-23 10:10] LABS: PLT ESTIMATE ADEQUATE (ADEQUATE)
[2018-09-23 10:11] LABS: ANISOCYTOSIS SLIGHT; HYPOCHROMIA SLIGHT
[2018-09-23 10:20] LABS: TOXIC GRANULATION PRESENT
[2018-09-23] MEDS ORDERED: CITALOPRAM 10 MG TABLET. PO ONE (11:00)
--- NOTE | 2018-09-23 13:18 | RAD ---
Chest, PA and Lateral: Technique: PA and lateral views of the chest were obtained. History: Elevated WBC count, influenza. Comparison: 09/10/2018. Findings: Mild cardiomegaly is unchanged. There are patchy bibasilar lung interstitial airspace opacities likely atelectasis or infiltrates mildly increased since prior exam. Mild degenerative changes thoracic spine IMPRESSION: 1. Patchy bibasilar lung airspace opacities likely atelectasis or infiltrates slightly increased since prior exam. Electronically signed by: Trent Champion MD (09/23/2018 1:15 PM) [id number]
[2018-09-23] MEDS: SILDENAFIL CITRATE 20 MG TABLET. PO SCH ×2 (14:00→20:33)
[2018-09-23 18:11] VITALS: BP 109/51
[2018-09-23] MEDS: ACETAMINOPHEN 325 MG TABLET PO PRN (20:33)
[2018-09-23] MEDS: ATORVASTATIN CALCIUM 20 MG TABLET PO SCH (20:33)
[2018-09-23 23:29] VITALS: BP 89/57
[2018-09-24] VITALS (7 sets, daily range): BP systolic 84–131; BP diastolic 53–60
--- NOTE | 2018-09-24 00:05 | PN ---
DATE: 09/23/2018 SUBJECTIVE: An 82-year-old gentleman is admitted with acute on top of chronic diastolic heart failure probably secondary to his influenza A. His white count shot up to 25,000 for some reason. He says he feels better overall. PHYSICAL EXAMINATION: VITAL SIGNS: His blood pressure did go down somewhat to 88/60, pulse anywhere from 105 down to 86, respiratory rate 22, oxygen saturation of 3.5 liters, 92%. LUNGS: Diminished coarse breath sounds throughout, but clear than they have been. CARDIOVASCULAR: Irregularly irregular rhythm. ABDOMEN: Soft, nontender. No rebounding or guarding. Positive bowel sounds. The patient; otherwise, continues to be monitored carefully on that. EXTREMITIES: No clubbing, cyanosis,+1 pitting edema. Discussed several avenues of opportunity for this patient including heart catheterization, possible skilled unit, he would like to stay as well cardiac hospice and the like, he said he has taken over. Because of the elevated white count, we repeated his chest x-ray, notes infiltrative process increased. He may be coming down secondarily with pneumonia with that flu. PLAN: We will go ahead and start him on some Rocephin. SONNY MALDONADO MD DR: SANDRA/zac JOB#: [id number] / [id number]
[2018-09-24] MEDS: IPRATRPIUM/ALBUTEROL 0.5/2.5MG 3 ML NEBU. NEB SCH ×3 (03:56→20:24)
[2018-09-24 06:36] LABS: CALCIUM 8.1 mg/dL (8.5-10.1); GFR 71.2; POTASSIUM 3.8 mmol/L (3.5-5.1)
[2018-09-24 06:49] LABS: BASO # 0.1 x10^3/uL (0.0-0.2); BASO % 0 % (0-3); EOS % 0 % (0-3); HEMATOCRIT 28.8 % (39.0-53.0); HEMOGLOBIN 8.6 g/dL (13.0-17.5); LYMPH # 0.4 x10^3/uL (1.0-4.8); LYMPH % 2 % (24-48); MEAN CORPUSCULAR HEMOGLOBIN 24 pg (25-35); MEAN CORPUSCULAR HGB CONC 30 g/dL (31-37); MEAN CORPUSCULAR VOLUME 82 fL (79-100); MONO % 5 % (0-9); NEUT % 93 % (31-73); PLATELET COUNT 213 x10^3/uL (140-400); RED BLOOD COUNT 3.52 x10^6/uL (4.30-5.70); RED CELL DISTRIBUTION WIDTH 19.8 % (11.5-14.5); WHITE BLOOD COUNT 20.4 x10^3/uL (4.0-11.0)
[2018-09-24] MEDS: REPAGLINIDE 1 MG TABLET PO SCH (07:30)
[2018-09-24] MEDS: glipiZIDE 5 MG TABLET PO SCH (07:30)
[2018-09-24] MEDS: INSULIN LISPRO 300 UNITS/3 ML INSULN.PEN. SQ SCH ×2 (07:31→12:00)
[2018-09-24] MEDS: TAMSULOSIN 0.4 MG CAP.ER.24H. PO SCH (08:20)
[2018-09-24] MEDS: POTASSIUM CHLORIDE 20 MEQ TABLET.ER. PO SCH (08:20)
[2018-09-24] MEDS: amLODIPine BESYLATE 5 MG TABLET PO SCH (08:21)
[2018-09-24] MEDS: CITALOPRAM 20 MG TABLET. PO SCH (08:22)
[2018-09-24] MEDS: GABAPENTIN 100 MG CAPSULE. PO SCH ×3 (08:23→21:09)
[2018-09-24] MEDS: METOPROLOL SUCC 24HR ER 25 MG TAB.ER.24H. PO SCH (08:23)
[2018-09-24] MEDS: FUROSEMIDE 40 MG TABLET PO SCH (08:23)
[2018-09-24] MEDS: BENZONATATE 100 MG CAPSULE. PO SCH (08:23)
[2018-09-24] MEDS: ASPIRIN 325 MG TABLET PO SCH (08:23)
[2018-09-24] MEDS: FINASTERIDE 5 MG TABLET PO SCH (08:23)
[2018-09-24] MEDS: CARBIDOPA/LEVODOPA 25/100MG TABLET PO SCH ×3 (08:23→21:09)
[2018-09-24] MEDS: OSELTAMIVIR 30 MG CAPSULE PO SCH ×2 (08:24→21:09)
[2018-09-24] MEDS: LIDOCAINE (700MG/PATCH) PATCH. TD SCH (08:26)
[2018-09-24] MEDS: rOPINIRole 1 MG TABLET. PO SCH ×3 (09:00→21:09)
[2018-09-24] MEDS ORDERED: SILDENAFIL CITRATE 20 MG TABLET. PO SCH (09:00)
--- NOTE | 2018-09-24 09:35 | PDOC ---
PROGRESS NOTES Diagnosis Problem Problems Medical Problems: (1) COPD exacerbation Status: Acute Assessment Problems Medical Problems: (1) COPD exacerbation Status: Acute 1. chronic respiratory failure with pulmonary fibrosis, severe PHTN and chronic diastolic heart failure 2. chronic atrial fibrillation Patient and family have decided to decline RHC or any invasive testing. Patient has decided on Hospice as he want to go home. Continue supportive care. will sign off. Call with any questions or new concerns. Subjective wants to go home. No chest pain, breathing easy today, no edema Objective Vital Signs Date Time Temp Pulse Resp B/P (MAP) Pulse Ox O2 Delivery O2 Flow Rate FiO2 09/24/18 08:30 Nasal Cannula 3.5 09/24/18 08:23 97 105/53 09/24/18 04:30 97.3 24 89 Intake and Output 09/24/18 06:59 Intake Total 626 ml Balance 626 ml Intake Oral 368 ml IV Total 258 ml # Voids 6 Abdomen: Normal bowel sounds, Soft, No tenderness Heart: Other (rate controlled, no gallops, clicks or rubs) Extremities: No edema General: Alert, Cooperative, No acute distress Lungs: Other (basilar crackles) Neuro: Normal speech Psych/Mental Status: Mental status NL, Mood NL Review of Relevant I have reviewed the following items lillian (where applicable) has been applied. Labs Laboratory Tests Test 09/22/18 11:23 09/22/18 16:26 09/22/18 18:36 09/22/18 20:39 Glucose (Fingerstick) 226 mg/dL (70-99) 357 mg/dL (70-99) 283 mg/dL (70-99) 245 mg/dL (70-99) Test 09/23/18 07:35 09/23/18 09:14 09/23/18 11:18 09/23/18 17:47 Glucose (Fingerstick) 143 mg/dL (70-99) 117 mg/dL (70-99) 116 mg/dL (70-99) White Blood Count 25.0 x10^3/uL (4.0-11.0) Red Blood Count 3.92 x10^6/uL (4.30-5.70) Hemoglobin 9.5 g/dL (13.0-17.5) Hematocrit 31.6 % (39.0-53.0) Mean Corpuscular Volume 81 fL (79-100) Mean Corpuscular Hemoglobin 24 pg (25-35) Mean Corpuscular Hemoglobin Concent 30 g/dL (31-37) Red Cell Distribution Width 19.7 % (11.5-14.5) Platelet Count 261 x10^3/uL (140-400) Neutrophils (%) (Auto) 96 % (31-73) Lymphocytes (%) (Auto) 1 % (24-48) Monocytes (%) (Auto) 3 % (0-9) Eosinophils (%) (Auto) 0 % (0-3) Basophils (%) (Auto) 0 % (0-3) Neutrophils # (Auto) 23.9 x10^3uL (1.8-7.7) Lymphocytes # (Auto) 0.2 x10^3/uL (1.0-4.8) Monocytes # (Auto) 0.8 x10^3/uL (0.0-1.1) Eosinophils # (Auto) 0.0 x10^3/uL (0.0-0.7) Basophils # (Auto) 0.0 x10^3/uL (0.0-0.2) Segmented Neutrophils % 90 % (35-66) Band Neutrophils % 1 % (0-9) Lymphocytes % 1 % (24-48) Atypical Lymphocytes % (Manual) 3 % (0-0) Monocytes % 3 % (0-10) Eosinophils % 1 % (0-5) Basophils % 1 % (0-3) Toxic Granulation Present Platelet Estimate Adequate (ADEQUATE) Hypochromasia Slight Anisocytosis Slight Sodium Level 138 mmol/L (136-145) Potassium Level 3.6 mmol/L (3.5-5.1) Chloride Level 99 mmol/L (98-107) Carbon Dioxide Level 31 mmol/L (21-32) Anion Gap 8 (6-14) Blood Urea Nitrogen 22 mg/dL (8-26) Creatinine 0.9 mg/dL (0.7-1.3) Estimated GFR (Cockcroft-Gault) 80.4 Glucose Level 140 mg/dL (70-99) Calcium Level 8.5 mg/dL (8.5-10.1) Test 09/23/18 20:46 09/24/18 06:07 09/24/18 07:30 09/24/18 07:49 Glucose (Fingerstick) 94 mg/dL (70-99) 51 mg/dL (70-99) 50 mg/dL (70-99) White Blood Count 20.4 x10^3/uL (4.0-11.0) Red Blood Count 3.52 x10^6/uL (4.30-5.70) Hemoglobin 8.6 g/dL (13.0-17.5) Hematocrit 28.8 % (39.0-53.0) Mean Corpuscular Volume 82 fL (79-100) Mean Corpuscular Hemoglobin 24 pg (25-35) Mean Corpuscular Hemoglobin Concent 30 g/dL (31-37) Red Cell Distribution Width 19.8 % (11.5-14.5) Platelet Count 213 x10^3/uL (140-400) Neutrophils (%) (Auto) 93 % (31-73) Lymphocytes (%) (Auto) 2 % (24-48) Monocytes (%) (Auto) 5 % (0-9) Eosinophils (%) (Auto) 0 % (0-3) Basophils (%) (Auto) 0 % (0-3) Neutrophils # (Auto) 19.0 x10^3uL (1.8-7.7) Lymphocytes # (Auto) 0.4 x10^3/uL (1.0-4.8) Monocytes # (Auto) 1.0 x10^3/uL (0.0-1.1) Eosinophils # (Auto) 0.0 x10^3/uL (0.0-0.7) Basophils # (Auto) 0.1 x10^3/uL (0.0-0.2) Sodium Level 135 mmol/L (136-145) Potassium Level 3.8 mmol/L (3.5-5.1) Chloride Level 97 mmol/L (98-107) Carbon Dioxide Level 31 mmol/L (21-32) Anion Gap 7 (6-14) Blood Urea Nitrogen 25 mg/dL (8-26) Creatinine 1.0 mg/dL (0.7-1.3) Estimated GFR (Cockcroft-Gault) 71.2 Glucose Level 46 mg/dL (70-99) Calcium Level 8.1 mg/dL (8.5-10.1) Medications Current Medications Furosemide (Lasix) 60 mg 1X ONCE IVP Last administered on 09/22/18at 06:11; Start 09/22/18 at 06:00; Stop 09/22/18 at 06:15; Status DC Furosemide (Lasix) 100 mg STK-MED ONCE .ROUTE ; Start 09/22/18 at 06:06; Stop at 06:07; Status DC Oseltamivir Phosphate (Tamiflu Suspension) 75 mg 1X ONCE PO Last administered on 09/22/18at 07:10; Start 09/22/18 at 06:30; Stop 09/22/18 at 06:38; Status DC Albuterol/ Ipratropium (Duoneb) 3 ml 1X ONCE NEB Last administered on at 06:30; Start 09/22/18 at 06:30; Stop 09/22/18 at 06:38; Status DC Methylprednisolone Sodium Succinate (SOLU-Medrol 125MG VIAL) 125 mg 1X ONCE IV Last administered on 09/22/18at 07:09; Start 09/22/18 at 06:30; Stop 09/22/18 at 06:38; Status DC Albuterol/ Ipratropium (Duoneb) 3 ml STK-MED ONCE .ROUTE ; Start 09/22/18 at 06: 39; Stop 09/22/18 at 06:40; Status DC Dextrose 12.5 gm 1X ONCE IV Last administered on 09/22/18at 07:27; Start at 07:15; Stop 09/22/18 at 07:19; Status DC Dextrose 50 ml @ As Directed STK-MED ONCE .ROUTE ; Start 09/22/18 at 07:17; Stop 09/22/18 at 07:18; Status DC Acetaminophen (Tylenol) 325 mg PRN Q6HRS PRN PO PAIN / TEMP Last administered on 09/23/18at 20:33; Start 09/22/18 at 10:00 Aspirin (Kezia Aspirin) 325 mg DAILY PO Last administered on 09/24/18at 08:23; Start 09/23/18 at 09:00 Carbidopa/Levodopa (Sinemet 25/100) 2 tab TID PO Last administered on at 08:23; Start 09/22/18 at 14:00 Citalopram Hydrobromide (CeleXA) 10 mg DAILY PO Last administered on 09/23/18 08:23; Start 09/23/18 at 09:00; Stop 09/23/18 at 10:40; Status DC Diphenhydramine HCl (Benadryl) 50 mg PRN QHS PRN PO SLEEP; Start 09/22/18 at 10 :00 Gabapentin (Neurontin) 100 mg TID PO Last administered on 09/24/18 08:23; Start 09/22/18 at 14:00 Albuterol/ Ipratropium (Duoneb) 3 ml TID NEB Last administered on 09/24/18 03: 56; Start 09/22/18 at 14:00 Metoprolol Succinate (Toprol Xl) 25 mg DAILY PO Last administered on 09/24/18 08:23; Start 09/23/18 at 09:00 Potassium Chloride (Klor-Con) 20 meq DAILY PO Last administered on 09/24/18 08 :20; Start 09/23/18 at 09:00 Tamsulosin HCl (Flomax) 0.4 mg DAILY PO Last administered on 09/24/18 08:20; Start 09/23/18 at 09:00 Non-Formulary Medication (Acetaminophen/ Diphenhydramine (Acetaminophen Pm Caplet)) 2 each QHS PRN PO INSOMNIA; Start 09/22/18 at 10:00; Stop 09/22/18 at 10:24; Status DC Amlodipine Besylate (Norvasc) 5 mg DAILY PO Last administered on 09/24/18 08: 21; Start 09/23/18 at 09:00; Stop 09/24/18 at 09:16; Status DC Apixaban (Eliquis) 5 mg BID PO ; Start 09/22/18 at 21:00; Stop 09/22/18 at 21:00 ; Status DC Benzonatate (Tessalon Perle) 100 mg [id number] PO Last administered on 09/24/18 08 :23; Start 09/22/18 at 14:00 Non-Formulary Medication (Escitalopram Oxalate (Lexapro)) 5 mg DAILY PO ; Start 09/23/18 at 09:00; Stop 09/23/18 at 09:00; Status DC Finasteride (Proscar) 5 mg DAILY PO Last administered on 09/24/18 08:23; Start 09/23/18 at 09:00 Furosemide (Lasix) 40 mg DAILY PO Last administered on 09/24/18 08:23; Start 09/23/18 at 09:00 Glipizide (Glucotrol) 5 mg BIDBFRMEAL PO Last administered on 09/23/18 17:44; Start 09/22/18 at 16:30; Stop 09/24/18 at 09:23; Status DC Lidocaine (Lidoderm) 1 patch DAILY TD ; Start 09/23/18 at 09:00 Mirabegron (Myrbetriq) 50 mg QODAY PO Last administered on 09/23/18 08:25; Start 09/23/18 at 09:00 Repaglinide (Prandin) 1 mg TIDAC PO Last administered on 09/23/18 17:44; Start 09/22/18 at 11:30; Stop 09/24/18 at 09:23; Status DC Ropinirole HCl (Requip) 1 mg TID PO Last administered on 09/23/18 20:36; Start 09/22/18 at 14:00 Atorvastatin Calcium (Lipitor) 20 mg QHS PO Last administered on 09/23/18 20: 33; Start 09/22/18 at 21:00 Atorvastatin Calcium (Lipitor) 20 mg DAILY PO ; Start 09/23/18 at 09:00; Stop at 09:00; Status DC Diltiazem HCl (Cardizem 24hr Cd) 120 mg DAILY PO Last administered on 08:22; Start 09/23/18 at 09:00 Metolazone (Zaroxolyn) 2.5 mg 1X ONCE PO ; Start 09/22/18 at 11:00; Stop at 11:00; Status DC Metolazone (Zaroxolyn) 2.5 mg 1X ONCE PO Last administered on 09/23/18 08:23 ; Start 09/23/18 at 09:00; Stop 09/23/18 at 09:01; Status DC Insulin Human Lispro (HumaLOG) 0-5 UNITS TIDWMEALS SQ Last administered on 09/22 16:34; Start 09/22/18 at 12:00 Dextrose 12.5 gm PRN Q15MIN PRN IV SEE COMMENTS; Start 09/22/18 at 11:30 Oseltamivir Phosphate (Tamiflu) 75 mg BID PO ; Start 09/23/18 at 09:00; Stop at 09:00; Status DC Oseltamivir Phosphate (Tamiflu) 30 mg BID PO Last administered on 09/24/18at 08: 24; Start 09/23/18 at 09:00; Stop 09/27/18 at 21:01 Sildenafil Citrate (Revatio) 20 mg TID PO Last administered on 09/23/18at 20:33 ; Start 09/23/18 at 14:00; Stop 09/24/18 at 08:48; Status DC Citalopram Hydrobromide (CeleXA) 20 mg DAILY PO Last administered on 09/24/18at 08:22; Start 09/24/18 at 09:00 Citalopram Hydrobromide (CeleXA) 10 mg 1X ONCE PO Last administered on at 14:30; Start 09/23/18 at 11:00; Stop 09/23/18 at 11:01; Status DC Ceftriaxone Sodium 1 gm/ Sodium Chloride 50 ml @ 100 mls/hr Q24H IV Last administered on 09/23/18at 19:48; Start 09/23/18 at 18:30 Levofloxacin/ Dextrose (Levaquin Per Pharmacy) 1 each PRN DAILY PRN MC SEE COMMENTS; Start 09/23/18 at 18:30 Levofloxacin/ Dextrose 150 ml @ 150 mls/hr Q24H IV Last administered on at 20:33; Start 09/23/18 at 19:00 Sildenafil Citrate (Revatio) 20 mg BID PO ; Start 09/24/18 at 09:00; Stop at 09:15; Status DC Sildenafil Citrate (Revatio) 10 mg BID PO ; Start 09/24/18 at 21:00 Repaglinide (Prandin) 0.5 mg TIDAC PO ; Start 09/24/18 at 11:30 Active Scripts Active Celexa (Citalopram Hydrobromide) 10 Mg Tablet 10 Mg PO DAILY Lidocaine 1 Each Adh..patch 1 Patch TD DAILY Benzonatate 100 Mg Capsule 100 Mg PO [id number] Tylenol (Acetaminophen) 325 Mg Tablet 325 Mg PO PRN Q6HRS PRN Furosemide 40 Mg Tablet 1 Tab PO DAILY Benadryl (Diphenhydramine Hcl) 25 Mg Capsule 50 Mg PO PRN QHS PRN 30 Days Finasteride 5 Mg Tablet 5 Mg PO DAILY 30 Days Myrbetriq (Mirabegron) 50 Mg Tab.er.24h 50 Mg PO QODAY Klor-Con M20 (Potassium Chloride) 20 Meq Tab.er.prt 20 Meq PO DAILY 30 Days Metoprolol Succinate ( Xl ) (Metoprolol Succinate) 25 Mg Tab.er.24h 25 Mg PO DAILY 30 Days Duoneb 0.5-3(2.5) Mg/3 Ml (Albuterol/Ipratropium) 3 Ml Ampul.neb 3 Ml NEB TID 30 Days Gabapentin (Gabapentin) 100 Mg Capsule 100 Mg PO TID 30 Days Reported Metolazone 2.5 Mg Tablet 2.5 Mg PO 1X 1 Days Cardizem La (Diltiazem Hcl) 120 Mg Tab.er.24h 120 Mg PO DAILY Atorvastatin Calcium 20 Mg Tablet 1 Tab PO DAILY Ropinirole Hcl 1 Mg Tablet 1 Tab PO TID LAST DOSE GIVEN: DATE: TODAY TIME: AFTERNOON NEXT DOSE DUE: DATE: TODAY TIME: PM Repaglinide 1 Mg Tablet 1 Tab PO TID LAST DOSE GIVEN: DATE: TODAY TIME: BEFORE LUNCH NEXT DOSE DUE: DATE: TODAY TIME: BEFORE DINNER Tamsulosin Hcl 0.4 Mg Cap.er.24h 1 Tab PO DAILY LAST DOSE GIVEN: DATE: TODAY TIME: AM NEXT DOSE DUE: DATE: TOMORROW TIME: AM Glipizide 5 Mg Tablet 5 Mg PO BID LAST DOSE GIVEN: DATE: TODAY TIME: AM NEXT DOSE DUE: DATE: TODAY TIME: PM Acetaminophen Pm Caplet (Acetaminophen/Diphenhydramine) 1 Each Tablet 2 Each PO QHS PRN Sinemet 25-100 Mg Tablet (Carbidopa/Levodopa) 1 Each Tablet 2 Tab PO TID LAST DOSE GIVEN: DATE: TODAY TIME: AFTGERNOON NEXT DOSE DUE: DATE: TODAY TIME: PM Aspirin 325 Mg Tablet 325 Mg PO DAILY Norvasc (Amlodipine Besylate) 5 Mg Tablet 5 Mg PO DAILY LAST DOSE GIVEN: DATE: TODAY TIME: AM NEXT DOSE DUE: DATE: TOMORROW TIME: AM Vitals/I & O Vital Sign - Last 24 Hours 09/23/18 09/23/18 09/23/18 09/23/18 12:51 14:00 18:11 19:30 Temp 97.8 Pulse 105 86 83 Resp 22 B/P (MAP) 88/60 109/51 (70) Pulse Ox 92 96 O2 Delivery Nasal Cannula Nasal Cannula Nasal Cannula O2 Flow Rate 3.5 3.5 3.5 09/23/18 09/23/18 09/23/18 09/24/18 20:26 20:33 23:29 03:57 Temp 98.3 Pulse 83 85 Resp 20 B/P (MAP) 109/51 89/57 (68) Pulse Ox 95 93 92 O2 Delivery Nasal Cannula Nasal Cannula Nasal Cannula O2 Flow Rate 3.5 4.0 3.5 09/24/18 09/24/18 09/24/18 09/24/18 04:30 08:21 08:22 08:23 Temp 97.3 Pulse 97 97 97 97 Resp 24 B/P (MAP) 105/53 (70) 105/53 105/53 105/53 Pulse Ox 89 O2 Delivery Nasal Cannula O2 Flow Rate 4.0 09/24/18 08:30 O2 Delivery Nasal Cannula O2 Flow Rate 3.5 Intake and Output 09/23/18 09/23/18 09/24/18 14:59 22:59 06:59 Intake Total 118 ml 508 ml 0 ml Balance 118 ml 508 ml 0 ml DARIO DYE APRN Sep 24, 2018 09:35
[2018-09-24] MEDS: REPAGLINIDE 0.5 MG TABLET PO SCH ×2 (11:30→16:30)
[2018-09-24] MEDS: SILDENAFIL CITRATE 20 MG TABLET. PO SCH (21:00)
[2018-09-24] MEDS: diphenhydrAMINE HCL 25 MG CAPSULE PO PRN (21:09)
[2018-09-24] MEDS: ATORVASTATIN CALCIUM 20 MG TABLET PO SCH (21:09)
[2018-09-24] MEDS: ACETAMINOPHEN 325 MG TABLET PO PRN (21:09)
[2018-09-24] MEDS: LACTOBACILLUS RHAMNOSUS GG 1 CAPSULE. PO SCH (21:09)
--- NOTE | 2018-09-24 23:46 | PN ---
DATE: 09/24/2018 SUBJECTIVE: The patient is in with acute exacerbation of chronic obstructive pulmonary disease with hypoxia and the like. He is making fairly good progress overall. The patient has problems with his pulmonary hypertension, adjusting his medications. OBJECTIVE: VITAL SIGNS: Blood pressure anywhere from 130-90/56, respiratory rate 20, pulse 88, afebrile. HEENT: The patient's head was atraumatic, normocephalic. Eyes: PERRLA, without jaundice. LUNGS: Diminished throughout, poor movement of air. CARDIOVASCULAR: Irregularly irregular rhythm. ABDOMEN: Soft, nontender, no rebound or guarding. Positive bowel sounds. EXTREMITIES: No clubbing, cyanosis. Trace edema. PLAN: We will continue to monitor the patient, hopefully ready for discharge here soon and make further evaluation on him as indicated. SONNY MALDONADO MD DR: SANDRA/zac JOB#: [id number] / [id number]
[2018-09-25] MEDS: IPRATRPIUM/ALBUTEROL 0.5/2.5MG 3 ML NEBU. NEB SCH ×3 (04:23→20:21)
[2018-09-25 05:34] VITALS: BP 93/52
[2018-09-25 06:12] LABS: BASO % 0 % (0-3); EOS % 0 % (0-3); HEMATOCRIT 27.5 % (39.0-53.0); HEMOGLOBIN 8.3 g/dL (13.0-17.5); LYMPH # 0.5 x10^3/uL (1.0-4.8); LYMPH % 3 % (24-48); MEAN CORPUSCULAR HEMOGLOBIN 24 pg (25-35); MEAN CORPUSCULAR HGB CONC 30 g/dL (31-37); MEAN CORPUSCULAR VOLUME 80 fL (79-100); MONO # 0.8 x10^3/uL (0.0-1.1); MONO % 5 % (0-9); NEUT % 92 % (31-73); PLATELET COUNT 181 x10^3/uL (140-400); RED BLOOD COUNT 3.46 x10^6/uL (4.30-5.70); RED CELL DISTRIBUTION WIDTH 19.7 % (11.5-14.5); WHITE BLOOD COUNT 16.3 x10^3/uL (4.0-11.0)
[2018-09-25 06:35] LABS: CALCIUM 7.8 mg/dL (8.5-10.1); CREATININE 1.2 mg/dL (0.7-1.3); GFR 57.7; POTASSIUM 3.5 mmol/L (3.5-5.1)
[2018-09-25] MEDS: LIDOCAINE (700MG/PATCH) PATCH. TD SCH (08:58)
[2018-09-25] MEDS: TAMSULOSIN 0.4 MG CAP.ER.24H. PO SCH (08:59)
[2018-09-25] MEDS: SILDENAFIL CITRATE 20 MG TABLET. PO SCH ×2 (09:00→20:56)
[2018-09-25] MEDS: METOPROLOL SUCC 24HR ER 25 MG TAB.ER.24H. PO SCH (09:00)
[2018-09-25] MEDS: FINASTERIDE 5 MG TABLET PO SCH (09:00)
[2018-09-25] MEDS: LACTOBACILLUS RHAMNOSUS GG 1 CAPSULE. PO SCH ×2 (09:00→20:56)
[2018-09-25] MEDS: FUROSEMIDE 40 MG TABLET PO SCH (09:00)
[2018-09-25] MEDS: ASPIRIN 325 MG TABLET PO SCH (09:00)
[2018-09-25] MEDS: CITALOPRAM 20 MG TABLET. PO SCH (09:00)
[2018-09-25] MEDS: POTASSIUM CHLORIDE 20 MEQ TABLET.ER. PO SCH (09:00)
[2018-09-25] MEDS: GABAPENTIN 100 MG CAPSULE. PO SCH ×3 (09:00→20:56)
[2018-09-25] MEDS: CARBIDOPA/LEVODOPA 25/100MG TABLET PO SCH ×3 (09:00→20:56)
[2018-09-25] MEDS: REPAGLINIDE 0.5 MG TABLET PO SCH ×3 (09:01→16:22)
[2018-09-25] MEDS: rOPINIRole 1 MG TABLET. PO SCH ×3 (09:01→20:56)
[2018-09-25] MEDS: OSELTAMIVIR 30 MG CAPSULE PO SCH ×2 (09:02→20:56)
[2018-09-25] MEDS: MIRABEGRON 25 MG TAB.ER.24H PO SCH (09:02)
[2018-09-25 10:40] VITALS: BP 100/60
[2018-09-25 14:34] VITALS: BP 94/58
[2018-09-25 20:00] VITALS: BP 95/57
[2018-09-25] MEDS: ATORVASTATIN CALCIUM 20 MG TABLET PO SCH (20:56)
[2018-09-25] MEDS: ACETAMINOPHEN 325 MG TABLET PO PRN (20:56)
[2018-09-25] MEDS: diphenhydrAMINE HCL 25 MG CAPSULE PO PRN (20:56)
[2018-09-26 00:09] VITALS: BP 93/52
[2018-09-26] MEDS: IPRATRPIUM/ALBUTEROL 0.5/2.5MG 3 ML NEBU. NEB SCH ×3 (04:43→20:43)
[2018-09-26 07:03] VITALS: BP 112/67
[2018-09-26] MEDS: LACTOBACILLUS RHAMNOSUS GG 1 CAPSULE. PO SCH ×2 (08:24→21:41)
[2018-09-26] MEDS: LIDOCAINE (700MG/PATCH) PATCH. TD SCH (08:24)
[2018-09-26] MEDS: POTASSIUM CHLORIDE 20 MEQ TABLET.ER. PO SCH (08:25)
[2018-09-26] MEDS: CARBIDOPA/LEVODOPA 25/100MG TABLET PO SCH ×3 (08:25→21:42)
[2018-09-26] MEDS: GABAPENTIN 100 MG CAPSULE. PO SCH ×3 (08:25→21:45)
[2018-09-26] MEDS: ASPIRIN 325 MG TABLET PO SCH (08:25)
[2018-09-26] MEDS: FINASTERIDE 5 MG TABLET PO SCH (08:25)
[2018-09-26] MEDS: CITALOPRAM 20 MG TABLET. PO SCH (08:27)
[2018-09-26] MEDS: rOPINIRole 1 MG TABLET. PO SCH ×3 (08:28→21:44)
[2018-09-26] MEDS: REPAGLINIDE 0.5 MG TABLET PO SCH ×3 (08:28→16:24)
[2018-09-26] MEDS: OSELTAMIVIR 30 MG CAPSULE PO SCH ×2 (08:29→21:44)
[2018-09-26] MEDS: FUROSEMIDE 40 MG TABLET PO SCH (08:32)
[2018-09-26] MEDS: TAMSULOSIN 0.4 MG CAP.ER.24H. PO SCH (08:32)
[2018-09-26] MEDS: SILDENAFIL CITRATE 20 MG TABLET. PO SCH ×2 (08:32→21:00)
[2018-09-26] MEDS: METOPROLOL SUCC 24HR ER 25 MG TAB.ER.24H. PO SCH (08:34)
[2018-09-26 11:25] VITALS: BP 92/51
[2018-09-26 15:01] VITALS: BP 87/56
[2018-09-26 19:12] VITALS: BP 108/64
[2018-09-26] MEDS: diphenhydrAMINE HCL 25 MG CAPSULE PO PRN (21:42)
[2018-09-26] MEDS: ACETAMINOPHEN 325 MG TABLET PO PRN (21:44)
[2018-09-26] MEDS: ATORVASTATIN CALCIUM 20 MG TABLET PO SCH (21:45)
[2018-09-26 22:45] VITALS: BP 94/61
--- NOTE | 2018-09-27 00:05 | PN ---
DATE: 09/26/2018 SUBJECTIVE: The patient is resting fairly comfortably, making fairly good progress overall. The patient's chest x-ray shows possible atelectasis or infiltrative process. Otherwise, he is breathing easier. OBJECTIVE: VITAL SIGNS: Blood pressure is still a little bit on the low side 87/56, respiratory rate 20, pulse 87, afebrile. GENERAL: The patient says he is feeling better. LUNGS: Diminished with rhonchi noted throughout. CARDIOVASCULAR: Irregularly irregular rhythm. ABDOMEN: Soft, nontender. EXTREMITIES: No clubbing or cyanosis. Trace +1 pitting edema. IMPRESSION: Acute on top of chronic diastolic heart failure, acute on chronic COPD with pulmonary disease and hypoxia, Parkinson's disease, type 2 diabetes, hypotension, moderate to severe protein malnutrition and pulmonary hypertension. PLAN: The patient will continue to be monitored carefully and make further evaluation on him as indicated. SONNY MALDONADO MD DR: SANDRA/zac JOB#: [id number] / [id number]
[2018-09-27 05:49] VITALS: BP 103/66
[2018-09-27] MEDS: ASPIRIN 325 MG TABLET PO SCH (08:16)
[2018-09-27] MEDS: FINASTERIDE 5 MG TABLET PO SCH (08:16)
[2018-09-27] MEDS: POTASSIUM CHLORIDE 20 MEQ TABLET.ER. PO SCH (08:17)
[2018-09-27] MEDS: LACTOBACILLUS RHAMNOSUS GG 1 CAPSULE. PO SCH ×2 (08:18→21:14)
[2018-09-27] MEDS: CITALOPRAM 20 MG TABLET. PO SCH (08:18)
[2018-09-27] MEDS: GABAPENTIN 100 MG CAPSULE. PO SCH ×3 (08:18→21:15)
[2018-09-27] MEDS: CARBIDOPA/LEVODOPA 25/100MG TABLET PO SCH ×3 (08:18→21:16)
[2018-09-27] MEDS: OSELTAMIVIR 30 MG CAPSULE PO SCH ×2 (08:19→21:23)
[2018-09-27] MEDS: MIRABEGRON 25 MG TAB.ER.24H PO SCH (08:19)
[2018-09-27] MEDS: rOPINIRole 1 MG TABLET. PO SCH ×3 (08:19→21:15)
[2018-09-27] MEDS: REPAGLINIDE 0.5 MG TABLET PO SCH ×3 (08:19→17:02)
[2018-09-27] MEDS: FUROSEMIDE 40 MG TABLET PO SCH (08:25)
[2018-09-27] MEDS: LIDOCAINE (700MG/PATCH) PATCH. TD SCH (08:25)
[2018-09-27] MEDS: TAMSULOSIN 0.4 MG CAP.ER.24H. PO SCH (08:25)
[2018-09-27] MEDS: METOPROLOL SUCC 24HR ER 25 MG TAB.ER.24H. PO SCH (08:25)
[2018-09-27] MEDS: SILDENAFIL CITRATE 20 MG TABLET. PO SCH ×2 (08:25→21:00)
[2018-09-27] MEDS: IPRATRPIUM/ALBUTEROL 0.5/2.5MG 3 ML NEBU. NEB SCH ×3 (09:38→21:00)
[2018-09-27] MEDS: ACETAMINOPHEN 325 MG TABLET PO PRN (10:20)
[2018-09-27 11:23] VITALS: BP 109/68
[2018-09-27 14:47] LABS: CALCIUM 7.9 mg/dL (8.5-10.1); CREATININE 0.9 mg/dL (0.7-1.3); GFR 80.4; POTASSIUM 3.6 mmol/L (3.5-5.1)
[2018-09-27 16:17] VITALS: BP 89/46
[2018-09-27 19:45] VITALS: BP 102/45
[2018-09-27] MEDS: ATORVASTATIN CALCIUM 20 MG TABLET PO SCH (21:15)
[2018-09-27 23:23] VITALS: BP 112/56
--- NOTE | 2018-09-28 00:03 | PN ---
DATE: SUBJECTIVE: The patient is an 82-year-old gentleman, pretty much terminal as he wants to go into hospice. The patient is still having coarse breath sounds. He has chronic end-stage heart failure. OBJECTIVE: VITAL SIGNS: Blood pressure 110/70, respiratory rate 18, pulse 118, afebrile. GENERAL: The patient is alert and oriented except he is a little bit confused and disoriented at times. LUNGS: Show coarse breath sounds, rhonchi noted, but slightly improved from where they were. LABORATORY DATA: His white count is still showing some signs of elevation, but we will continue to monitor him accordingly, ____ plans to go to a nursing facility for terminal hospice care. Otherwise, he is resting fairly comfortably. Vital signs stable. Blood pressure 110/60, respiration 18, pulse ____. IMPRESSION: Therefore of acute exacerbation of chronic obstructive pulmonary disease with respiratory distress, acute on top of chronic heart failure, severe pulmonary hypertension, Parkinson disease, type 2 diabetes, [id number] protein malnutrition. PLAN: As above. For discharge in the morning probably to nursing facility for hospice. SONNY MALDONADO MD DR: SANDRA/zac JOB#: [id number] / [id number]
[2018-09-28] MEDS: ACETAMINOPHEN 325 MG TABLET PO PRN (00:57)
[2018-09-28] MEDS: IPRATRPIUM/ALBUTEROL 0.5/2.5MG 3 ML NEBU. NEB SCH ×2 (04:59→11:13)
[2018-09-28 05:34] VITALS: BP 93/54
[2018-09-28 06:49] LABS: BASO % 0 % (0-3); EOS % 0 % (0-3); HEMATOCRIT 27.1 % (39.0-53.0); HEMOGLOBIN 8.4 g/dL (13.0-17.5); LYMPH # 0.2 x10^3/uL (1.0-4.8); LYMPH % 2 % (24-48); MEAN CORPUSCULAR HEMOGLOBIN 25 pg (25-35); MEAN CORPUSCULAR HGB CONC 31 g/dL (31-37); MEAN CORPUSCULAR VOLUME 79 fL (79-100); MONO # 0.6 x10^3/uL (0.0-1.1); MONO % 6 % (0-9); NEUT # 9.9 x10^3uL (1.8-7.7); NEUT % 92 % (31-73); PLATELET COUNT 165 x10^3/uL (140-400); RED BLOOD COUNT 3.42 x10^6/uL (4.30-5.70); RED CELL DISTRIBUTION WIDTH 19.3 % (11.5-14.5); WHITE BLOOD COUNT 10.7 x10^3/uL (4.0-11.0)
[2018-09-28 07:02] LABS: CALCIUM 8.1 mg/dL (8.5-10.1); GFR 71.2; POTASSIUM 3.8 mmol/L (3.5-5.1)
[2018-09-28] MEDS: LIDOCAINE (700MG/PATCH) PATCH. TD SCH (09:00)
[2018-09-28] MEDS: SILDENAFIL CITRATE 20 MG TABLET. PO SCH (09:00)
[2018-09-28] MEDS: REPAGLINIDE 0.5 MG TABLET PO SCH (09:03)
[2018-09-28] MEDS: ASPIRIN 325 MG TABLET PO SCH (09:04)
[2018-09-28] MEDS: CITALOPRAM 20 MG TABLET. PO SCH (09:04)
[2018-09-28] MEDS: POTASSIUM CHLORIDE 20 MEQ TABLET.ER. PO SCH (09:05)
[2018-09-28] MEDS: TAMSULOSIN 0.4 MG CAP.ER.24H. PO SCH (09:05)
[2018-09-28] MEDS: LACTOBACILLUS RHAMNOSUS GG 1 CAPSULE. PO SCH (09:05)
[2018-09-28] MEDS: FINASTERIDE 5 MG TABLET PO SCH (09:06)
[2018-09-28] MEDS: GABAPENTIN 100 MG CAPSULE. PO SCH (09:06)
[2018-09-28] MEDS: FUROSEMIDE 40 MG TABLET PO SCH (09:06)
[2018-09-28] MEDS: rOPINIRole 1 MG TABLET. PO SCH (09:07)
[2018-09-28] MEDS: CARBIDOPA/LEVODOPA 25/100MG TABLET PO SCH (09:10)
[2018-09-28] MEDS: METOPROLOL SUCC 24HR ER 25 MG TAB.ER.24H. PO SCH (09:10)
[2018-09-28 10:51] VITALS: BP 91/53
--- NOTE | 2018-09-28 11:23 | DS ---
DATE OF DISCHARGE: NO DICTATION SONNY MALDONADO MD DR: SANDRA/zac JOB#: [id number] / [id number]
--- NOTE | 2018-09-28 11:29 | DS ---
DATE OF DISCHARGE: HOSPITAL COURSE: An 82-year-old male initially admitted for acute exacerbation of COPD with pulmonary disease with acute respiratory failure and hypoxia, influenza and congestive heart failure, acute on top of chronic. The patient made good progress. He was given IV antibiotic therapy. Initially was given Tamiflu. His white count was high as 25,000 and came down to 10. The patient made good progress during the rest of his hospitalization. He was also seen by Zeynep Lozano, cardiology crew, made timely suggestions there. The patient made fairly good progress overall; however, the patient decided that he wanted to go on to hospice, so he will be discharged home, followed up as an outpatient. See MRAD. Decreased activity. IMPRESSION: Sepsis, acute on top of chronic diastolic heart failure, acute on chronic obstructive pulmonary disease with respiratory distress, ____ pulmonary hypertension, Parkinson's disease, type 2 diabetes. DISCHARGE PLAN: The patient will be monitored carefully and make further evaluation on him as indicated. He will be discharged home on some oral antibiotics as well as his other medication, see MRAD and will be placed on hospice per his request. He will be on a diabetic diet. SONNY MALDONADO MD DR: SANDRA/zac JOB#: [id number] / [id number]
[2018-09-28] MEDS ORDERED: LEVO500T59 PO (11:41)
== END 2018-09-28 13:15 | disposition hospice, home (50) | DRG 871 ==
LOC: ER 05:21 → ICU 07:15 → 1 SOUTH 09-23 18:11
PROVIDERS: ADMIT Family Medicine; ATTEND Family Medicine
DX: A41.9 Sepsis, unspecified organism (principal); J96.01 Acute respiratory failure with hypoxia; E43 Unspecified severe protein-calorie malnutrition; I50.33 Acute on chronic diastolic (congestive) heart failure; J18.9 Pneumonia, unspecified organism; J44.1 Chronic obstructive pulmonary disease with (acute) exacerbation; I11.0 Hypertensive heart disease with heart failure; I48.91 Unspecified atrial fibrillation; E11.649 Type 2 diabetes mellitus with hypoglycemia without coma; D64.9 Anemia, unspecified; I25.10 Atherosclerotic heart disease of native coronary artery without angina pectoris; I50.84 End stage heart failure; J10.1 Influenza due to other identified influenza virus with other respiratory manifestations; K21.9 Gastro-esophageal reflux disease without esophagitis; M19.90 Unspecified osteoarthritis, unspecified site; E78.00 Pure hypercholesterolemia, unspecified; G20 Parkinson's disease; F02.80 Dementia in other diseases classified elsewhere, unspecified severity, without behavioral disturbance, psychotic disturbance, mood disturbance, and anxiety; I27.20 Pulmonary hypertension, unspecified; Z90.49 Acquired absence of other specified parts of digestive tract; Z68.24 Body mass index [BMI] 24.0-24.9, adult; Z87.01 Personal history of pneumonia (recurrent); Z87.891 Personal history of nicotine dependence
CPT/HCPCS: 36415; 71045; 71046; 80048; 80053; 82947; 83880; 84484; 85007; 85025; 87040; 87804; 93005; 94640; 96374; 96375; J0696; J1815; J1940; J1956; J2930; J7620; Q0163; 97110; 97530; 99291-25

== ENCOUNTER 2018-09-29 16:43 | Observation (INO) | payer MEDICARE, OTHER ==
[~2018-09-29] VITALS: Ht 172.7 cm; Wt 81.6 kg
[~2018-09-29 16:43] MED LIST changes: +DILT120T PO; +METO2.5T PO
[2018-09-29] MEDS ORDERED: DEXTROSE 25% 10 ML DISP.SYRIN. IV ONE (17:15)
--- NOTE | 2018-09-29 17:41 | PHYS DOC ---
Past History Past Medical History: A-Fib, Arthritis, CAD, CHF, COPD, Dementia, Diabetes, GERD, High Cholesterol, Hypertension, OR, Vascular Disease, Other Past Surgical History: Appendectomy, Cholecystectomy, Tonsillectomy Smoking: Quit Greater Than 1 Year Alcohol Use: None Drug Use: None Adult General Chief Complaint Chief Complaint: KNEE INJURY HPI HPI 82-year-old male presents via EMS for fall. When I asked the patient of this anything wrong, he says no I feel fine. The family told EMS that they "just can' t handle the patient anymore" and that he needs to go to the hospital and they are not going to come pick him up. Patient is on hospice. They have been made aware of this situation. The patient denies any pain. He has no other complaints. Arrival his blood sugar was low, but it is always low and we have seen the patient past. He is conscious, alert and fully aware. Review of Systems Review of Systems Constitutional: Denies fever or chills [] Eyes: Denies change in visual acuity, redness, or eye pain [] HENT: Denies nasal congestion or sore throat [] Respiratory: Denies cough or shortness of breath [] Cardiovascular: No additional information not addressed in HPI [] GI: Denies abdominal pain, nausea, vomiting, bloody stools or diarrhea [] : Denies dysuria or hematuria [] Musculoskeletal: Denies back pain or joint pain [] Integument: Denies rash or skin lesions [] Neurologic: Denies headache, focal weakness or sensory changes [] Endocrine: Denies polyuria or polydipsia [] All other systems were reviewed and found to be within normal limits, except as documented in this note. Current Medications Current Medications Current Medications Medications (Trade) Dose Ordered Sig/Melanie Start Time Stop Time Status Last Admin Dose Admin Dextrose (Dextrose 25% Syringe) 10 ml 1X ONCE 09/29/18 17:15 09/29/18 17:16 DC 09/29/18 16:59 10 ML Allergies Allergies Allergies Coded Allergies Type Severity Reaction Last Updated Verified codeine Allergy Intermediate 06/06/15 Yes shellfish derived Allergy Intermediate 08/31/18 Yes shrimp Allergy Intermediate 02/01/16 No milk Allergy Mild Nausea 08/06/18 Yes turkey Allergy Mild 06/06/15 No Physical Exam Physical Exam Constitutional: Well developed, well nourished, no acute distress, non-toxic appearance. [] HENT: Normocephalic, atraumatic, bilateral external ears normal, oropharynx moist, no oral exudates, nose normal. [] Eyes: PERRLA, EOMI, conjunctiva normal, no discharge. [] Neck: Normal range of motion, no tenderness, supple, no stridor. [] Cardiovascular:Heart rate regular rhythm, no murmur [] Lungs & Thorax: Bilateral breath sounds decreased with mild end expiratory wheezing [] Abdomen: Bowel sounds normal, soft, no tenderness, no masses, no pulsatile masses. [] Skin: Warm, dry, no erythema, no rash. [] Back: No tenderness, no CVA tenderness. [] Extremities: No tenderness, no cyanosis, no clubbing, ROM intact, no edema. [] Neurologic: Alert and oriented X 3, normal motor function, normal sensory function, no focal deficits noted. [] Psychologic: Affect normal, judgement normal, mood normal. [] Current Patient Data Vital Signs Vital Signs Date Time Temp Pulse Resp B/P (MAP) Pulse Ox O2 Delivery O2 Flow Rate FiO2 09/29/18 16:50 97.6 70 16 97 Nasal Cannula 4.0 EKG EKG [] Radiology/Procedures Radiology/Procedures [] Course & Med Decision Making Course & Med Decision Making Pertinent Labs and Imaging studies reviewed. (See chart for details) I'm not sure to do with this patient. I have ordered a basic workup which is pending. I will speak with the nursing service administrator to the care out how to deal with the situation. The patient has been given 2 doses of glucose and is still hypoglycemic. This does seem to be near his baseline. I discussed the patient with Dr. Mancuso and he has accepted the patient for admission. I also discussed the case with the hospice service and they are working on a long-term placement but it is not ready yet. Dragon Disclaimer Dragon Disclaimer This electronic medical record was generated, in whole or in part, using a voice recognition dictation system. Departure Departure: Impression: Primary Impression: Hypoglycemia Disposition: ADMITTED INPATIENT Admitting Physician: Duy Rios Condition: GUARDED Referrals: DUY RIOS MD (PCP) BANDAR THOMPSON DO Sep 29, 2018 17:41
[2018-09-29 17:44] LABS: BASO % 0 % (0-3); EOS # 0.1 x10^3/uL (0.0-0.7); EOS % 0 % (0-3); HEMATOCRIT 28.5 % (39.0-53.0); HEMOGLOBIN 8.6 g/dL (13.0-17.5); LYMPH # 0.6 x10^3/uL (1.0-4.8); LYMPH % 5 % (24-48); MEAN CORPUSCULAR HEMOGLOBIN 24 pg (25-35); MEAN CORPUSCULAR HGB CONC 30 g/dL (31-37); MEAN CORPUSCULAR VOLUME 79 fL (79-100); MONO # 0.9 x10^3/uL (0.0-1.1); MONO % 7 % (0-9); NEUT # 11.7 x10^3uL (1.8-7.7); NEUT % 88 % (31-73); PLATELET COUNT 196 x10^3/uL (140-400); RED BLOOD COUNT 3.58 x10^6/uL (4.30-5.70); RED CELL DISTRIBUTION WIDTH 19.5 % (11.5-14.5); WHITE BLOOD COUNT 13.3 x10^3/uL (4.0-11.0)
[2018-09-29] MEDS ORDERED: ALBUTEROL SULFATE 2.5 MG/3 ML NEBU. NEB ONE (17:45)
[2018-09-29 17:53] LABS: ALBUMIN 2.3 g/dL (3.4-5.0); ALBUMIN/GLOBULIN RATIO 0.6 (1.0-1.7); ALK PHOS 91 U/L (46-116); ALT (SGPT) < 6 U/L (16-63); ANION GAP 10 (6-14); AST (SGOT) 19 U/L (15-37); BLOOD UREA NITROGEN 30 mg/dL (8-26); BUN/CREATININE RATIO 21 (6-20); CALCIUM 8.2 mg/dL (8.5-10.1); CARBON DIOXIDE 27 mmol/L (21-32); CHLORIDE 97 mmol/L (98-107); CREATININE 1.4 mg/dL (0.7-1.3); GFR 48.3; GLUCOSE 49 mg/dL (70-99); POTASSIUM 4.6 mmol/L (3.5-5.1); SODIUM 134 mmol/L (136-145); TOTAL BILIRUBIN 0.7 mg/dL (0.2-1.0); TOTAL PROTEIN 6.3 g/dL (6.4-8.2)
[2018-09-29] MEDS ORDERED: DEXTROSE 50% 25 GM / 50ML DISP.SYRIN. IV ONE ×2 (17:53→18:00)
[2018-09-29 19:52] VITALS: BP 105/69
[2018-09-29] MEDS ORDERED: IV DEXTROSE 5% 1,000 ML IV SCH (20:45)
[2018-09-29] MEDS ORDERED: diphenhydrAMINE HCL 25 MG CAPSULE PO PRN (20:45)
[2018-09-29] MEDS ORDERED: ACETAMINOPHEN 325 MG TABLET PO PRN (20:45)
[2018-09-29] MEDS: IPRATRPIUM/ALBUTEROL 0.5/2.5MG 3 ML NEBU. NEB SCH (20:51)
[2018-09-29] MEDS: BENZONATATE 100 MG CAPSULE. PO SCH (22:16)
[2018-09-29] MEDS: GABAPENTIN 100 MG CAPSULE. PO SCH (22:16)
[2018-09-29] MEDS: rOPINIRole 1 MG TABLET. PO SCH (22:16)
[2018-09-29] MEDS: CARBIDOPA/LEVODOPA 25/100MG TABLET PO SCH (22:16)
--- NOTE | 2018-09-29 22:16 | RAD ---
CHEST AP ONLY History: Wheezing Comparison: 09/23/2018 Findings: 2 AP views of the chest are submitted. Pericardial cardiac silhouette is enlarged although similar. There is atherosclerotic calcification of the aortic arch. There is no pneumothorax. There is mild blunting of the right costophrenic sulcus although somewhat less prominent, likely residual small pleural effusion. There is some increased right perihilar opacity. There is persistent somewhat coarse interstitial opacity bilaterally with basilar predominance, likely increased interstitial opacity at the left lung base. Impression: 1. There is increased right perihilar opacity likely due to infiltrate or edema. There is also increased interstitial opacity left lung base possibly component of interstitial edema or infiltrate, residual very small right pleural effusion. There is likely background of interstitial fibrotic change. Electronically signed by: Fred Lopez MD (09/29/2018 10:13 PM) [facility]
[2018-09-29 22:45] VITALS: BP 91/64
[2018-09-30] MEDS: IPRATRPIUM/ALBUTEROL 0.5/2.5MG 3 ML NEBU. NEB SCH (05:16)
[2018-09-30 05:56] VITALS: BP 91/53
[2018-09-30] MEDS ORDERED: levoFLOXacin 500 MG TABLET PO SCH (06:00)
[2018-09-30 07:01] LABS: BASO % 0 % (0-3); EOS # 0.1 x10^3/uL (0.0-0.7); EOS % 1 % (0-3); HEMATOCRIT 26.2 % (39.0-53.0); HEMOGLOBIN 8.1 g/dL (13.0-17.5); LYMPH # 0.7 x10^3/uL (1.0-4.8); LYMPH % 7 % (24-48); MEAN CORPUSCULAR HEMOGLOBIN 24 pg (25-35); MEAN CORPUSCULAR HGB CONC 31 g/dL (31-37); MEAN CORPUSCULAR VOLUME 79 fL (79-100); MONO # 0.6 x10^3/uL (0.0-1.1); MONO % 6 % (0-9); NEUT # 8.9 x10^3uL (1.8-7.7); NEUT % 86 % (31-73); PLATELET COUNT 172 x10^3/uL (140-400); RED BLOOD COUNT 3.34 x10^6/uL (4.30-5.70); RED CELL DISTRIBUTION WIDTH 19.4 % (11.5-14.5); WHITE BLOOD COUNT 10.4 x10^3/uL (4.0-11.0)
[2018-09-30 07:08] LABS: CALCIUM 7.8 mg/dL (8.5-10.1); CREATININE 1.2 mg/dL (0.7-1.3); GFR 57.7; POTASSIUM 3.6 mmol/L (3.5-5.1)
[2018-09-30] MEDS ORDERED: POTASSIUM CHLORIDE 20 MEQ TABLET.ER. PO SCH (08:00)
[2018-09-30] MEDS ORDERED: FINASTERIDE 5 MG TABLET PO SCH (09:00)
[2018-09-30] MEDS ORDERED: LIDOCAINE (700MG/PATCH) PATCH. TD SCH (09:00)
[2018-09-30] MEDS ORDERED: amLODIPine BESYLATE 5 MG TABLET PO SCH (09:00)
[2018-09-30] MEDS ORDERED: LACTOBACILLUS RHAMNOSUS GG 1 CAPSULE. PO SCH (09:00)
[2018-09-30] MEDS ORDERED: CITALOPRAM 10 MG TABLET. PO SCH (09:00)
[2018-09-30] MEDS: rOPINIRole 1 MG TABLET. PO SCH (09:00)
[2018-09-30] MEDS ORDERED: metOLazone 2.5 MG TABLET PO SCH (09:00)
[2018-09-30] MEDS: GABAPENTIN 100 MG CAPSULE. PO SCH (09:00)
[2018-09-30] MEDS ORDERED: METOPROLOL SUCC 24HR ER 25 MG TAB.ER.24H. PO SCH (09:00)
[2018-09-30] MEDS ORDERED: ASPIRIN 325 MG TABLET PO SCH (09:00)
[2018-09-30] MEDS: CARBIDOPA/LEVODOPA 25/100MG TABLET PO SCH (09:00)
[2018-09-30] MEDS ORDERED: TAMSULOSIN 0.4 MG CAP.ER.24H. PO SCH (09:00)
[2018-09-30] MEDS ORDERED: MIRABEGRON 25 MG TAB.ER.24H PO SCH (09:00)
[2018-09-30] MEDS ORDERED: FUROSEMIDE 40 MG TABLET PO SCH (09:00)
[2018-09-30] MEDS: BENZONATATE 100 MG CAPSULE. PO SCH (09:00)
[2018-09-30] MEDS ORDERED: ATORVASTATIN CALCIUM 20 MG TABLET PO SCH (09:00)
[2018-09-30 11:08] VITALS: BP 103/64
--- NOTE | 2018-09-30 11:56 | HP ---
ADMIT DATE: 09/29/2018 HISTORY OF PRESENT ILLNESS: The patient is an 82-year-old male came in with increased shortness of breath. The patient apparently was just placed on hospice, became increasingly more short of breath, was at home and unable to take care of him there. His breathing difficulty became increasingly worse and as a result of that, he was brought into the hospital for observation and placement into a nursing facility. The patient otherwise is markedly short of breath. He was admitted to the hospital for further evaluation and treatment thereof. PAST MEDICAL HISTORY: Tonsillectomy, Parkinson's disease; cardiac problems of atrial fibrillation, chronic heart murmur; anticoagulation, hypercholesterolemia, bronchitis, pulmonary fibrosis, pneumonia, abdominal surgery, incontinence, musculoskeletal disorders, diabetes, depression, and anemia. Vaccinations of diphtheria, tetanus vaccine, toxoid, influenza and pneumococcal are all up-to-date. ALLERGIES: CODEINE, MILK, SHELLFISH, DRIED SHRIMP, TURKEY. The patient is a DNR. SOCIAL HISTORY: Denies smoking, alcohol or drug use here in the last 10 years. FAMILY HISTORY: Otherwise family history is unremarkable. MEDICATIONS: Reviewed and reconciled in the usual fashion. He is on antibiotic and breathing treatments as noted. REVIEW OF SYSTEMS: Otherwise, review of systems, the patient is a pleasant gentleman, who notes increased shortness of breath and tremor, generalized weakness. PHYSICAL EXAMINATION: GENERAL: The patient otherwise says he is resting fairly comfortably. VITAL SIGNS: Blood pressure 90/64, respiratory rate 24, pulse 70, afebrile. The patient's oxygen saturation is 94% on 3 liters. HEENT: The patient's head was atraumatic, normocephalic. Eyes: PERRLA without jaundice. Mouth and throat were normal. NECK: Supple, no JVD or thyromegaly. LUNGS: Decreased throughout, poor movement of air, but basically clear. No rhonchi noted. CARDIOVASCULAR: Irregularly irregular rhythm. ABDOMEN: Soft, nontender. EXTREMITIES: No clubbing, cyanosis or edema. NEUROLOGIC: The patient is alert and oriented x 3. Speech is spontaneous, appropriate. Cranial nerves 2 through 12 ____, resting tremor consistent with Parkinson's disease. IMPRESSION AND PLAN: Acute respiratory distress with pneumonia, probable pneumonic process of unspecified etiology. The patient is terminal on hospice. The patient will be monitored carefully, further evaluate, keep him as comfortable as possible and arrangements apparently are being made for him to be placed at a nursing facility to help him with hospice. SONNY MALDONADO MD DR: SANDRA/zac JOB#: [id number] / [id number]
[2018-09-30] MEDS ORDERED: IPRATRPIUM/ALBUTEROL 0.5/2.5MG 3 ML NEBU. NEB SCH (12:00)
== END 2018-09-30 11:30 ==
LOC: ER 16:43 → UNDOADMIN 18:38 → 1 SOUTH 18:38 → INTOOBSV 18:38
PROVIDERS: ADMIT Family Medicine; ATTEND Family Medicine
DX: J18.9 Pneumonia, unspecified organism (principal); R06.03 Acute respiratory distress; E78.00 Pure hypercholesterolemia, unspecified; G20 Parkinson's disease; J84.10 Pulmonary fibrosis, unspecified; I11.0 Hypertensive heart disease with heart failure; I50.9 Heart failure, unspecified; I25.10 Atherosclerotic heart disease of native coronary artery without angina pectoris; K21.9 Gastro-esophageal reflux disease without esophagitis; I25.2 Old myocardial infarction; J44.9 Chronic obstructive pulmonary disease, unspecified; M19.90 Unspecified osteoarthritis, unspecified site; I48.91 Unspecified atrial fibrillation; E11.649 Type 2 diabetes mellitus with hypoglycemia without coma; Z91.013 Allergy to seafood; Z91.011 Allergy to milk products; Z91.018 Allergy to other foods; Z88.8 Allergy status to other drugs, medicaments and biological substances; Z87.891 Personal history of nicotine dependence; Z90.49 Acquired absence of other specified parts of digestive tract
CPT/HCPCS: 36415; 71045; 80048; 80053; 82947; 85025; 94640; 96361; 96374; 96376; 99284; G0378; J7060; J7613; J7620; G0379